=== PATIENT | female | born 1970 | race Caucasian/White ===

== ENCOUNTER 2023-11-22 08:47 | Outpatient (OUT) | payer MEDICARE, MEDICAID, SELFPAY ==
[2023-11-22 09:30] LABS: Basophils Absolute Auto 0.1 10^3/uL (0.0-0.1); Basophils Percent Auto 0.4 % (0.2-2.0); Eosinophils Absolute Auto 0.2 10^3/uL (0.0-0.7); Eosinophils Percent Auto 1.7 % (0.9-7.0); Hematocrit 48.5 % (36.0-48.0); Immature Granulocytes Abs Auto 0.05 10^3/uL (0.00-0.03); Immature Granulocytes Pct Auto 0.4 % (0.0-0.5); Lymphocytes Absolute Auto 3.7 10^3/uL (1.2-3.8); Lymphocytes Percent Auto 32.7 % (20.5-60.0); Mean Corpuscular Hemoglobin 30.5 pg (26.7-34.0); Mean Corpuscular Volume 92.4 fL (81.0-99.0); Mean Platelet Volume 9.4 fL (9.5-13.5); Monocytes Percent Auto 8.5 % (1.7-12.0); Neutrophils Absolute Auto 6.4 10^3/uL (1.4-6.5); Neutrophils Percent Auto 56.3 % (43.0-75.0); Platelet Count 257 10^3/uL (150-450); Red Blood Count 5.25 10^6/uL (4.20-5.40); Red Cell Distribution Width 12.6 % (11.0-15.0); White Blood Count 11.4 10^3/uL (4.0-11.0)
[2023-11-22 11:28] LABS: Estimated Average Glucose 117 mg/dL; Glycohemoglobin A1C 5.7 % (4.5-6.2)
[2023-11-22 11:32] LABS: Alanine Aminotransferase 19 U/L (14-59); Albumin Globulin Ratio 0.9; Albumin Level 3.3 g/dL (3.4-5.0); Alkaline Phosphatase 99 U/L (46-116); Anion Gap 16.5; Aspartate Amino Transferase 16 U/L (15-37); BUN Creatinine Ratio 9.2; Bilirubin Total 0.5 mg/dL (0.2-1.0); Calcium 9.1 mg/dL (8.5-10.1); Carbon Dioxide 23.6 mmol/L (21.0-32.0); Chloride 106 mmol/L (98-107); Chol HDL Ratio 2.9; Cholesterol 129 mg/dL (<=200); Estimated GFR (African America >60 (>=60); Estimated GFR (Non-African Ame >60 (>=60); Globulin 3.5 g/dL; Glucose 121 mg/dL (74-106); HDL Cholesterol 44 mg/dL (40-60); Potassium 4.1 mmol/L (3.5-5.1); Sodium 142 mmol/L (136-145); Total Protein 6.8 g/dL (6.4-8.2); Triglycerides 231 mg/dL (<=150); VLDL CHOLESTEROL 46.2 mg/dL
== END 2023-11-22 08:48 | disposition home or self-care (01) ==
LOC: LAB 08:48
PROVIDERS: PCP Nurse Practitioner Family; Visit Provider Nurse Practitioner Family
DX: I10 Essential (primary) hypertension (principal)
CPT/HCPCS: 36415; 80053; 80061; 83036; 85025

== ENCOUNTER 2025-02-19 09:35 | Outpatient (OUT) | payer MEDICARE, SELFPAY ==
--- NOTE | 2025-02-19 10:12 | P.CN_ITS ---
Consult Note: HPI Data of Consult Patient: new to practice Requesting Physician: Evy Pro NP Primary Care Provider: ERON BENSON Consult Narrative Reason for consult: left SIJ pain Narrative: Baylee Babb a pleasant 54 year old female with chronic left hip and SIJ pain presents for evaluation. pt noticing increased left hip pain over the last 12 months, has failed to benefit from >6 weeks of PT and HEP,heat, ice, tylenol, NSAIDs. pain today 4/10 aching sharp, increasing to 10/10 with standing, walking, activity, lifting. pain improved with heat. hx of stroke with left sided deficits. cc:: CC: Evy Pro NP Review of Systems ROS Musculoskeletal Reports: back pain and joint pain Exam Constitutional Documenting provider has reviewed patient's vital signs: yes Common normals: no apparent distress, oriented x3, healthy appearing, alert and well nourished General appearance: cooperative HENMT Common normals: normocephalic, hearing grossly normal bilaterally and moist oral mucous membranes Head and scalp: normocephalic Eye Common normals: PERRL Pupil: PERRL Neck & C-Spine Common normals: full ROM General: normal visual inspection Chest Common normals: inspection of chest normal Respiratory Common normals: normal respiratory effort, no retractions and no use of accessory muscles Back & Pelvis Lumbar spine/lower back: pain with ROM and lumbar spinal tenderness Sacroiliac joints: SI joint(s) abnormal Other: left sij positive wendy(patricks), gaenslens, thigh thrust, compression test Neuro Common normals: oriented x3 Sensorium/orientation: alert Gait (neuro): antalgic and assistive device used cane Psych Common normals: mental status grossly normal, thought process normal, cooperative, affect normal, speech normal and activity/motor behavior normal Speech: normal speech Thought process: normal thought process Results Additional Findings Additional findings: If on a controlled substance or opioids, I have checked an [place]AR[place] report on this patient and there are no aberrancies noted in the prescribing history.??If on a controlled substance or opioid a drug screen was completed and reviewed within the last year, and if there has not been a drug screen completed we ordered one today to monitor higher risk, state monitored pain medication use. As part of providing excellent, safe, comprehensive care, the following was completed at our patient's visit: 1. A medication reconciliation and review to ensure accurate knowledge of current/active medications, including asking our patients to inform us about any [id number]-[id number] medications or herbal remedies/nutritional supplements/alternative remedies. 2. A review to specifically ensure our patients have had annual screening for screening for depression, screening for tobacco use, and screening for unhealthy alcohol use. For concerning screenings had a discussion with the patient, provided patient education, and recommended follow-up with primary care provider when appropriate. If patient noted with a risk of falling, they received education on strength, gait, and balance training to prevent future risk of falling. Portions of this note may have been carried over from the previous visit and updated as appropriate. Please note this office utilizes paper charting in addition to the electronic medical record. A list of current medications, vitals, and PMH is available there as the clinical staff outside of myself do not have access to [employer] charting during the clinic day operations. As part of providing quality comprehensive care the current medications, vitals, and PMH were reviewed in the paper chart. Assessment and Plan Assessment and Plan (1) Sacroiliitis: Assessment and Plan: The patient has had over 3 months of moderate to severe left SIJ pain with functional impairment and inadequate response to conservative care including NSAIDS (unless there are contraindication such as concurrent blood thinners), multiple oral or topical pain medications, and home exercise program/physical therapy.? Patient has completed >6 weeks of guided home exercise program and/or formal physical therapy program without relief of their symptoms.? I have reviewed the imaging of the hip and SIJ and no red flags were identified.? The imaging reveals radiographic findings consistent with sacroilitis and OA The Oswestry Disability Index was completed, and the patient scored a 38%.? The patient noted the following:?? moderate to severe pain impacting ADLs, sitting, standing, walking, sleeping, social life and travel We discussed the risks and benefits of the procedure with the patient, and we are NOT planning on using sedation as outlined in the guidelines from Medicare unless there is a documented reason that sedation would be strongly recommended.?? ?The procedure will be completed with fluoroscopic guidance.? Plan left SIJ injection under fluoroscopy continue current medications continue HEP as tolerated f/u 2 weeks after injection
== END 2025-02-19 09:36 | disposition home or self-care (01) ==
PROVIDERS: PCP Nurse Practitioner Family; Visit Provider Nurse Practitioner
DX: M46.1 Sacroiliitis, not elsewhere classified (principal)
CPT/HCPCS: G0463

== ENCOUNTER 2025-03-02 10:29 | Day surgery (SDC) | payer MEDICARE, SELFPAY ==
[2025-03-02 11:15] VITALS: BP 125/86; PULSE 75; TEMP 37.1; O2SAT 95
[2025-03-02 11:41] VITALS: BP 178/77; PULSE 88; O2SAT 94
[2025-03-02 11:42] VITALS: BP 146/69; PULSE 93; O2SAT 94
[2025-03-02] MEDS: BUPIVACAINE HCL 0.25% PF 25 MG/10 ML VIAL 2 ML INJ (11:43)
[2025-03-02] MEDS: IOHEXOL 240 MG/ML - 10 ML VIAL 12 MG INJ (11:43)
--- NOTE | 2025-03-02 11:43 | W.PM.PROCNOT ---
Date of procedure: 03/02/25 Pre-op diagnosis: Pain due to left sacroiliitis Post-op diagnosis: same as pre-op Procedure: Procedure: Left block of the nerve innervating the sacroiliac joint Medications: Bupivacaine 0.25% 3cc, depomedrol 40mg After informed consent was obtained, the patient was brought to the medical procedure unit and placed in the prone position, when a timeout was completed verifying correct patient, procedure, site, positioning, implant, and/or special equipment.? The skin overlying the area was prepped and draped in standard sterile fashion using alcohol.? A 25-gauge needle was inserted towards the superior gluteal nerve innervating the left sacroiliac joint under direct fluoroscopic imaging.? Needle tip was advanced until the nerve was encountered.? We instilled a total of 0.5 mL of solution. Subsequently, the dorsal rami of L5, S1, and S2 were approached, and the procedure completed in the same fashion.? Postoperatively needles were removed.? The patient tolerated the procedure well without complication.? The patient reported reduction in pain symptoms postoperatively. Anesthesia: Local Surgeon: Art Shine Pathology: none sent Condition: stable Disposition: no change
[2025-03-02] MEDS: LIDOCAINE HCL 2% 400 MG/20 ML MDV INJ (11:44)
[2025-03-02] MEDS: METHYLPREDNISOLONE ACETATE 40 MG/ML VIAL INJ (11:44)
== END 2025-03-02 11:48 | disposition home or self-care (01) ==
LOC: SURGOUT 10:31
PROVIDERS: PCP Nurse Practitioner Family; Visit Provider Anesthesiology
DX: M46.1 Sacroiliitis, not elsewhere classified (principal); M53.3 Sacrococcygeal disorders, not elsewhere classified
CPT/HCPCS: 64451; J0665; J1010; Q9966

== ENCOUNTER 2025-03-18 10:10 | Outpatient (OUT) | payer MEDICARE, SELFPAY ==
--- OUTSIDE RECORDS SUMMARY | 2025-03-18 10:12 | XMS_ITS | Patient Health Record ---
Author Organization [facility] es Address [address] [place] [address] Care Team Providers [employer] Name Role Phone Na Benson Primary Care Provider [phone] Velia Larose Unavailable Allergies Allergen (clinical drug ingredient) Drug/Non Drug Allergy documented on EMR Reaction Allergy Type Onset Date Status codeine Codeine vomiting Drug Allergy Active lisinopril Lisinopril cough, sob Drug Allergy Acti ve Results Component Value Reference Range Notes CMP Reviewed date:06/23/2024 12:00:07 PM Interpretation: Performing Lab: Notes/Report: [facility] [address] [place] [address] Original Ordering Provider: RENE BENSON GLUCOSE 133 55-199 mg/dL UREA NITROGEN 14 5-21 mg/dL CREATININE 0.7 0.5-1.3 mg/dL CALCIUM 9.3 8.9-11.1 mg/dL SODIUM 138 135-145 mmol/L POTASSIUM 4.1 3.5-5.3 mmol/L CHLORIDE 106 101-111 mmol/L CARBON DIOXIDE 25 21-31 mmol/L ALKALINE PHOSPHATASE 113 21-98 Int._Unit/L BILIRUBIN 0.6 0.0-1.1 mg/dL ALBUMIN 4.2 3.3-5.0 gm/dL PROTEIN 6.3 6.0-7.8 gm/dL ALANINE AMINOTRANSFERASE 10 6-46 Int._Unit/L ASPARTATE AMINOTRANSFERASE 15 5-43 Int._Unit /L UREA NITROGEN/CREATININE 20 10-20 No Units ANION GAP 11 6-16 mEq/L GLOBULIN 2.1 1.4-4.0 gm/dL ALBUMIN/GLOBULIN 2.0 1.1-2.2 Performing Lab see note UNK - [facility] unless otherwise specified [address] [address] Lipid Panel Reviewed date:06/23/2024 11:57:56 AM Interpretation: Performing Lab: Notes/Report: [facility] [address] [place] [address] Original Ordering Provider: RENE BENSON CHOLESTEROL 120 120-200 mg/dL CHOLESTEROL.IN HDL 38 '>= 60 LOW RISK' '<= 40 HIGH RISK' CHOLESTEROL.IN LDL 35 <=129 mg/dL TRIGLYCERIDE 322 <=149 mg/dL CHOLESTEROL.IN VLDL 64 7-40 mg/dL Performing Lab see note [facility] unless otherwise specified [address] [place] [address] Vit B12 Reviewed date:06/23/2024 11:56:54 AM Interpretation: Performing Lab: Notes/Report: [facility] [address] [place] [address] Original Ordering Provider: RENE BENSON COBALAMINS 277 50-1500 pg/mL Performing Lab see note [facility] unless otherwise specified [address] [place] [address] eGFR Reviewed date:06/23/2024 11:55:35 AM Interpretation: Performing Lab: Notes/Report: Order added by Discern Expert. [facility] [address] [place] [address] Original Ordering Provider: RENE BENSON eGFR 104 >=59 mL/min/1.73 m2 Performing Lab see note [facility] unless otherwise specified [address] [place] [address] HgbA1c Reviewed date:06/23/2024 11:55:24 AM Interpretation: Performing Lab: Notes/Report: [facility] [address] [place] [address] Original Ordering Provider: RENE BENSON HEMOGLOBIN A1C/HEMOGLOBIN.TOTAL 5.7 <=5.9 % Performing Lab see note [facility] unless otherwise specified [address] [place] [address] CBC w/ Auto Diff Reviewed date:06/23/2024 11:59:57 AM Interpretation: Performing Lab: Notes/Report: [facility] [address] [place] [address] Original Ordering Provider: RENE BENSON LEUKOCYTES^^CORRECTED FOR NUCLEATED ERYTHROCYTES 10.7 4.0-11.0 E9/L ERYTHROCYTES 5.2 4.3-5.9 E12/L HEMOGLOBIN 16.2 12.0-16.0 gm/dL HEMATOCRIT 48.4 34.0-46.0 % ERYTHROCYTE DISTRIBUTION WIDTH 12.8 10.9-14.2 % ERYTHROCYTE MEAN CORPUSCULAR HEMOGLOBIN 31.0 27.0-34.0 pg ERYTHROCYTE MEAN CORPUSCULAR HEMOGLOBIN CONCENTRATION 33.4 31.4-36.0 gm/dL ERYTHROCYTE MEAN CORPUSCULAR VOLUME 92.7 80.0-100.0 fL PLATELET MEAN VOLUME 8.8 6.4-10.8 fL PLATELETS 254.0 150.0-500.0 E9/L NEUTROPHILS/100 LEUKOCYTES 65.1 36.0-75.0 % LYMPHOCYTES 28.3 14.0-50.0 % MONOCYTES 4.8 4.0-14.0 % EOSINOPHILS/100 LEUKOCYTES 1.2 0.0-8.0 % BASOPHILS 0.6 0.0-2.0 % NEUTROPHILS 7.0 2.0-7.5 E9/L LYMPHOCYTES 3.0 1.0-4.0 E9/L MONOCYTES 0.5 0.2-1.0 E9/L EOSINOPHILS 0.1 0.0-0.5 E9/L BASOPHILS/LEUKOCYTES 0.1 0.0-0.2 E9/L Performing Lab see note UNK - [facility] unless otherwise specified [address] [place], [place] [address] Reason For Referral Reason *FAXED 01/14 - FAXED REFERRAL UPDATE 02/06 Patient would like to see NOMJohn Saul Diagnosis 1 Pain in left hip (M2 5.552) Referral Organization [facility] Referring Provider First Name Na Referring Provider Last Name Donny Referring Provider Speciality Family Pra ctice Referred Provider Rah Armendariz Referred Provider Specialty Orthopedic S urgery General Notes Yaz Vera 03/26/ 2025 01:55:24 PM [address] [place], [place] [id number], , Referral Priority Routine Medications Medication SIG (Take, Route, Frequency, Duration) Notes Start Date End Date Status traZODone HCl 100 MG 1 tablet at bedtime Orally Once a day for 100 days Active Multivitamin - 1 tablet Orally Once a day for 100 days Active DULoxetine HCl 60 MG 1 capsule Orally On ce a day for 100 days Active Metoprolol Succinate ER 50 MG 1 tablet Orally Once a day for 100 days Active Vitamin C 500 MG 1 tablet Orally Once a day for 101 days Active Albuterol Sulfate (2.5 MG/3ML) 0.083% 3 mL as needed Inhalation every 6 hrs for 30 days 11/08/2023 Active Atorvastatin Calcium 40 MG 1 tablet Oral ly Once a day for 100 days Active Losartan Potassium 25 MG 1 tablet Orally Once a day for 100 days Active Gabapentin 300 MG take 1 capsule by [facility] twice a day Orally Once a day for 100 days Active Mometasone Furoate 0.1 % 1 application E xternally Once a day for 14 days 02/01/2023 Active Acetaminophen Extra Strength 500 MG 1 tablet as needed Orally every 6 hrs 05/15/2023 Active Clopidogrel Bisulfate 75 MG 1 tablet Ora lly Once a day for 100 days Active Ibuprofen 800 MG 1 tablet with food o r milk as needed Orally Three times a day 05/29/2023 Active Ibuprofen 800 MG 1 tablet with food o r milk as needed Orally Three times a day 05/15/2023 Active Social History Tobacco Use: Social History Observation Description Date Details (start date - stop date) Current Smoker NA - NA AUDIT-C (Standard) Question Answer Notes Did you have a drink containing alcohol in the p ast year? No Points 0 Interpretation Negative Tobacco Control (Standard) Question Answer Notes Tobacco use: Current smoker How often do you smoke cigarettes? Every day How many cigarettes a day do you smoke? 6-10 How soon after you wake up do you smoke your fir st cigarette? 31-60 minutes Are you interested in quitting? Not ready to makenna t Problems Problem Type SNOMED Code ICD Code Onset Dates Problem Status W/U Status Risk Notes Problem Tobacco user (754381148) Nicotine dependence, unspecified, uncomplicated (F17.200) Active confirmed Problem 097101828 Neuropathy (G62.9) Active confirmed Problem 36415138 Primary hypertension (I10) Active confirmed Problem 434974188 Moderate episode of recurrent major depressive disorder (F33.1) Active confirmed Vital Signs Heart Rate 83 /min 01/14/2025 Temperature 97.6 degrees Fahrenheit 01/14/2025 Oximetry 92 % 01/14/2025 Blood pressure diastolic 82 mm Hg 01/14/2025 Height 62 in 01/14/2025 Blood pressure systolic 119 mm Hg 01/14/2025 Weight 150 lbs 01/14/2025 BMI 27.43 kg/m2 01/14/2025 Encounters Encounter Location Date Provider Diagnosis [facility] [address] [place] [address] 06/06/2024 [address] [place] [address] 06/23/2024 [address] [address] [place] [address] 06/26/2024 [address] [place] [address] 12/10/[address] [place] [place] [address] 12/15/2024 [address] [place] [address] [address]/11/[address] [facility] [place] [address] 06/16/[address] [facility] Primary hypertension I10 ; Moderate episode of recurrent major depressive disorder F33.1 ; Neuropathy G62.9 and History of CVA (cerebrovascular accident) Z86.73 [facility] [address] [facility] [place] [address] 01/14/[address] [facility] Primary hypertension I10 ; Moderate episode of recurrent major depressive disorder F33.1 ; Neuropathy G62.9 ; History of CVA (cerebrovascular accident) Z86.73 ; Acute eczema L30.9 ; Nicotine dependence, unspecified, uncomplicated F17.200 and Pain in left hip M25.552 [facility] [address] [place] [address] 07/03/2024 Na Taylorault Nicotine dependence, unspecified, uncomplicated F17.200 ; Primary hypertension I10 and Moderate episode of recurrent major depressive disorder F33.1 Assessments Encounter Date Diagnosis (ICD Code) Assessment Notes Treatment Notes Treatment Clinical Notes Section Notes 06/16/2024 Primary hypertension (ICD-10 - I10) Labs ordered today as discussed for high blood pressure. We will continue medications today. If labs come back and we need to make changes to medication regimen and treatment plan, we will contact you for follow up. If labs return and are stable, then we will follow up in 3 months as expected. You can always see lab results in portal at anytime through our [employer] mikaela or [facility] if you are interested. 06/16/2024 Moderate episode of recurrent major depressive disorder (ICD-10 - F33.1) Continue to take medication since meds work and patient states that she feels stable 07/03/2024 Nicotine dependence, unspecified, uncomplicated (ICD-10 - F17.200) 07/03/2024 Primary hypertension (ICD-10 - I10) Today discussed all lab results with patient on the phone. Due to her history, telephone visit was performed since patient has transportation barriers. We will recheck labs for patient in 6 months. MEdication refills were already sent for patient and no changes in medication are needed at this time. FOllow up as needed. 01/14/2025 Primary hypertension (ICD-10 - I10) Labs discussed and medications sent over to [facility] for patient. Pt should start follow up in 6 months and then have blood work retested 01/14/2025 Moderate episode of recurrent major depressive disorder (ICD-10 - F33.1) Will continue medications today since patient states that she feels stable on doses 01/14/2025 Neuropathy (ICD-10 - G62.9) Pt is stable on this medication. Sent to pharmacy. FOllow up in 6 months 07/03/2024 Moderate episode of recurrent major depressive disorder (ICD-10 - F33.1) COntinue current dose of medications as we discussed on the phone today. If needed, follow up as we discussed for anything, 06/16/2024 Neuropathy (ICD-10 - G62.9) Refilled medications today in office and sent to pharmacy 06/16/2024 History of CVA (cerebrovascular accident) (ICD-10 - Z86.73) Labs ordered and refilled sent to pharmacy today in office. 01/14/2025 History of CVA (cerebrovascular accident) (ICD-10 - Z86.73) Continue to follow up With Neuro as discussed and take medications as needed 01/14/2025 Acute eczema (ICD-10 - L30.9) Eczema is a common skin condition. Using thick creams such as Eucerin cream can help prevent breakouts. When breaks occur of the skin there is increase risks of infections, both bacterial and fungal. Use medication as directed. Follow up as needed when flare ups occur 01/14/2025 Nicotine dependence, unspecified, uncomplicated (ICD-10 - F17.200) 01/14/2025 Pain in left hip (ICD-10 - M25.552) Will put in referral for patient due to history of CVA and weakness of this leg and pt has decreased ROM in this leg so there are contributing factors. Pt would like to see [facility] in [place] since it is close to home 06/16/2024 Other Smoke Inhalatio n: Care Instructions material was printed 07/03/2024 Other Body Mass Index : Care Instructions material was printed Plan Of Treatment No Information Insurance Providers Payer Name Payer Address Payer Phone Subscriber Number Group Number Insured Name Patient Relationship to Insured Coverage Start Date Coverage End Date [employer] MED[employer]ARE ADVANTAGE [address] [place] [phone] [id number] COBY ARECHIGA Self - patient is the insured 4 5 [facility] [address] [place] [address] [id number] COBY ARECHIGA Self - patient is the insured 5 MEDICAID SEC TO [facility] [address] [place] [address] [id number] COBY ARECHIGA Self - patient is the insured 3 MEDICARE CGS 1 [facility] [place] [phone] [id number] COBY ARECHIGA Self - patient is the insured [address] [facility] [place] [place] [address] [place] [address] [phone] [id number] COBY ARECHIGA Self - patient is the insured 3 3 [employer] MED[employer] [place] [employer] [address] [place] [phone] [id number] COBY ARECHIGA Self - patient is the insured 3 [facility] [place] D[place] [address] [address] [place] [address] [id number] COBY ARECHIGA Self - patient is the insured 3 3 [employer] MEDICARE [address] [address] [place] [address] [id number] COBY ARECHIGA Self - patient is the insured 3 DENTAL [employer] MEDICARE [address] [address] [place] [address] [id number] COBY ARECHIGA Self - patient is the insured 4 [facility] MCARE ADV [address] [place] [address] [phone] [id number] COBY ARECHIGA Self - patient is the insured 5 Medical (General) History Medical History History ICD Code GENERALIZED ANXIETY DISORDER HTN [facility] CVA OCCIPITAL NEURALGIA INSOMNIA MIGRAINES DDD Hospitalization History Reason Date(Month/Year) CVA 05/12 IBS AND [facility] 04/2023
--- OUTSIDE RECORDS SUMMARY | 2025-03-18 10:12 | XMS_ITS | Clinical Summary ---
Author Organization [facility] Healthcare Address [address] [place] [address] Care Team Providers Care Appraiser Art Name Role Phone DonnyEdmarNa PATIENT REGISTRATION MANAGER Unavailable [phone] Allergies Active Allergy Reactions Criticality Noted Date Comments Codeine Unknown,GI intolerance 03/14/2022 Lisinopril 01/28/2025 Other Reaction(s): cough, sob Medications atorvastatin (Lipitor) 40 MG tablet 40 mg Active clopidogrel (Plavix) 75 MG tablet TAKE ONE TABLET BY MOUTH DAILY AT 9AM Active cyclobenzaprine (Flexeril) 5 MG tablet Take 5 mg by mouth in the morning and 5 mg in the evening and 5 mg before bedtime. Active DULoxetine (Cymbalta) [address] capsule 1 capsule 1 (one) time each day at the same time Active gabapentin (Neurontin) 300 MG capsule 300 mg 1 (one) time each day at the same time Active ibuprofen 800 MG tablet 800 mg every 8 (eight) hours Active losartan (Cozaar) 25 MG tablet 25 mg 1 (one) time each day at the same time Active metoprolol succinate XL (Toprol-XL) 50 MG 24 hr tablet 1 (one) time each day at the same time Active Multiple Vitamin (Multi Vitamin) tablet 1 (one) time each day at the same time Active traZODone (Desyrel) 100 MG tablet 100 mg Active Ascorbic Acid (vitamin C) 500 MG tablet 500 mg 1 (one) time each day at the same time Active mometasone (Elocon) 0.1 % ointment Apply topically Daily Active acetaminophen (Tylenol) 500 MG tablet Take 500 mg by mouth Active albuterol (2.5 MG/3ML) 0.083% nebulizer solution Take by nebulization every 6 (six) hours if needed for wheezing Active Active Problems No known active problems Encounters Date Type Department Care Team Description 01/28/2025 9:05 AM EDT Ancillary Procedure [facility] [address] [facility] [phone] 01/28/2025 9:00 AM EDT Office Visit [facility] [address] [place] [phone] Rah Armendariz PA Acute hip pain, left (Primary Dx); Sacroiliac joint pain; Foot drop, left foot 01/28/2025 Bamboo flowsheet [facility] [address] [place] [phone] Rah Armendariz PA 01/28/2025 Travel from Last 3 Months Family History Relation Name Status Comments Father Mother Social History Tobacco Use Types Packs/Day Years Used Date Smoking Tobacco: Every Day Cigarettes Smokeless Tobacco: Never Tobacco Cessation:Ready to Q uit: Not Asked; Counseling Given: Not Answered Alcohol Use Standard Drinks/Week Comments Not Currently 0 (1 standard drink = 0.6 oz pur e alcohol) Comments Unknown Sex and Gender Information Value Date Recorded Sex Assigned at Not on file Legal Sex Female 6:47 PM EDT Gender Identity Not on file Sexual Orientation Not on file Last Filed Vital Signs Vital Sign Reading Time Taken Comments Blood Pressure 112/74 12/31/2017 12:00 PM EDT Pulse - - Temperature - - Respiratory Rate - - Oxygen Saturation - - Inhaled Oxygen Concentration - - Weight 63.5 kg (140 lb) 01/28/2025 9:11 AM EDT Height 157.5 cm (5' 2 ) 01/28/2025 9:11 AM EDT Body Mass Index 25.61 01/28/2025 9:11 AM EDT Plan of Treatment Not on file Procedures Procedure Name Priority Date/Time Associated Diagnosis Comments XR HIP 2 OR 3 VW LEFT Routine 01/28/2025 9:01 AM EDT Acute hip pain, left from Last 3 Months Results * XR hip left 2 or 3 views (01/28/2025 9:01 AM EDT) Anatomical Region Laterality Modality Lower Extremities, Hip Left Radiograp hic Imaging Narrative 01/28/2025 9:41 AM EDT Imaging Result: AP and Lateral left hip weight bearing No acute fracture or dislocation Osteopenia noted. SI joints appears Sclerotic with arthritic changed Postsurgical changed to left Femur Joint space preserved left Hip joint, left Lumbar sacralization. Impression: postsurgical changed from left hip fracture us Rah ESPINOSA IMG XR PROCEDURES Final Resul t from Last 3 Months Insurance * Guarantor: Baylee Babb Account Type Relation to Patient Date of Phone Billing Address Personal/Family Self [address] [place] [address] MEDICAID [place] [employer] MEDICARE Care Teams Appraiser Art Relationship Specialty Start Date End Date Na Hines NP [address] [place] [address] Referring Physician 01/28/25
--- OUTSIDE RECORDS SUMMARY | 2025-03-18 10:12 | XMS_ITS | Clinical Summary ---
Author Organization [employer] tem Address [id number] [address] [place] [address] Care Team Providers Care Mix Chemist Name Role Phone Na Hines RUBEN-CUSTOMER SUPPORT COORDINATOR Primary Care Provide r Allergies Active Allergy Reactions Criticality Noted Date Comments Codeine 03/14/2022 Medications lisinopriL (PRINIVIL,ZESTR IL) 2.5 mg tablet Take 1 tablet (2.5 mg total) by mouth in the morning. Active metoprolol succinate XL (TOPROL XL) 50 mg 24 hr tablet Take 1 tablet (50 mg total) by mouth in the morning. Active atorvastatin (LIPITOR) 40 mg tablet Take 1 tablet (40 mg total) by mouth in the morning. Active traZODone (DESYREL) 100 mg tablet Take 1 tablet (100 mg total) by mouth nightly. Active clopidogreL (PLAVIX) 75 mg tablet Take 1 tablet (75 mg total) by mouth in the morning. Active DULoxetine (CYMBALTA) 30 mg capsule Take 1 capsule (30 mg total) by mouth in the morning. Active ciprofloxacin HCl (CIPRO) 500 mg tablet Take 1 tablet (500 mg total) by mouth in the morning and 1 tablet (500 mg total) before bedtime. 04/28/2023 Active metroNIDAZOLE (FLAGYL) 500 mg tablet Take 1 tablet (500 mg total) by mouth in the morning and 1 tablet (500 mg total) before bedtime. 04/28/2023 Active predniSONE (DELTASONE) 10 mg tablet Take 1 tablet (10 mg total) by mouth in the morning. 04/28/2023 Active traMADoL (ULTRAM) 50 mg tablet Take 1 tablet (50 mg total) by mouth every 6 (six) hours as needed. 04/28/2023 Active gabapentin (NEURONTIN) 300 mg capsule Take 1 capsule (300 mg total) by mouth in the morning and 1 capsule (300 mg total) before bedtime. 04/10/2023 Active losartan (COZAAR) 25 mg tablet Take 1 tablet (25 mg total) by mouth in the morning. 02/23/2023 Active mesalamine (PENTASA) 500 mg CR capsule Take 3 capsules (1,500 mg total) by mouth 3 (three) times a day. 500 mg three times daily 04/25/2023 Active mometasone (ELOCON) 0.1 % cream Place 1 Units on the skin in the morning. 02/01/2023 Active MULTIVITAMIN ORAL Take 1 tablet by mouth in the morning. Active B6/folic/B12/co ffee/phosphatid (NEURIVA PLUS ORAL) Take 1 tablet by mouth in the morning. Active [id number] ORAL Take 2 capsules by mouth in the morning. Tumeric . Active ascorbic acid (VITAMIN C ORAL) Take 1,000 mg by mouth in the morning. 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 Colitis 06/19/2022 Family History Medical History Relation Name Comments Diabetes Father COPD Mother Diabetes Son Relation Name Status Comments Father Mother Son Social History Tobacco Use Types Packs/Day Years Used Date Smoking Tobacco: Every Day Cigarettes 1 28 Smokeless Tobacco: Never Tobacco Cessation:Ready to Q uit: Not Asked; Counseling Given: Not Answered Alcohol Use Standard Drinks/Week Comments Not Currently 0 (1 standard drink = 0.6 oz pur e alcohol) Childcare Answer Date Recorded Childcare Unknown 04/02/2019 Employment Answer Date Recorded Employment Unknown 04/02/2019 Hunger Screening Answer Date Recorded Within the past 12 months we worried whether our food would run out before we got money to buy more. Never True 05/01/2023 Food Insecurity - Inability Not on file 04/21 Comments No Sex and Gender Information Value Date Recorded Sex Assigned at Not on file Legal Sex Female 11:26 AM EDT Gender Identity Not on file Sexual Orientation Not on file Last Filed Vital Signs Vital Sign Reading Time Taken Comments Blood Pressure 175/99 05/01/2023 1:57 PM EDT Pulse 69 05/01/2023 1:57 PM EDT Temperature 37.1 C (98.7 F) 06/23/2022 7:37 AM EDT Respiratory Rate 18 06/23/2022 7:37 AM EDT Oxygen Saturation 94% 06/23/2022 7:37 AM EDT Inhaled Oxygen Concentration - - Weight 71.1 kg (156 lb 12.8 oz) 05/01/2023 1:57 PM EDT Height 157.5 cm (5' 2 ) 05/01/2023 1:57 PM EDT Body Mass Index 28.68 05/01/2023 1:57 PM EDT Plan of Treatment Health Maintenance Due Date Last Done Comments Depression Screening 1984 DTaP,Tdap and Td Vaccines (1 - Tdap) 1991 Zoster (Shingles) Vaccine (1 of 2) 2022 Adult BMI Screening 05/01/2024 05/01/2023 Tobacco Screening 05/01/2024 05/01/2023 Influenza Vaccine 06/22/2025 Goals Goal Patient Goal Type Associated Problems Recent Progress Patient-Stated? Author Home General Yes Uyen Sierra LSW Note: Evaluation of progress towards goal: Safe dc transition home. Medical Devices Not on file Insurance [employer] MEDICARE MEDICAID [place] Advance Directives Documents on File Type Date Recorded Patient Knotter Expl anation DNR Physician Order 07/03/2022 6:07 AM * DNR Comfort Care (DNRCC) [place] (Latest Code Status on File) Date Activated Date Inactivated Comments 06/20/2022 6:04 AM 06/23/2022 12:07 PM * Full Code Date Activated Date Inactivated Comments 06/19/2022 8:10 PM 06/20/2022 6:03 AM Care Teams Mix Chemist Relationship Specialty Start Date End Date Na Hines APRN-FNP [address] [place] [address] PCP - General Family Medicine 06/20/22
--- NOTE | 2025-03-18 10:51 | PM.CN ---
Consult Note: HPI Data of Consult Patient: new to practice Requesting Physician: Evy Pro NP Primary Care Provider: ERON BENSON Consult Narrative Reason for consult: left SIJ pain Narrative: Baylee Babb a pleasant 54 year old female with chronic left hip and SIJ pain presents for evaluation. pt noticing increased left hip pain over the last 12 months, has failed to benefit from >6 weeks of PT and HEP,heat, ice, tylenol, NSAIDs. pain today 5/10 aching sharp, increasing to 10/10 with standing, walking, activity, lifting. pain improved with heat. hx of stroke with left sided deficits. recent left sij injection providing mild relief cc:: CC: Evy Pro NP Review of Systems ROS Musculoskeletal Reports: back pain and joint pain PFSH PFSH Medical History (Updated 03/18/25 @ 10:52 by Evy Pro NP) Osteoarthritis ?M19.90 - Unspecified osteoarthritis, unspecified site (ICD-10) Neck pain ?M54.2 - Cervicalgia (ICD-10) Low back pain ?M54.50 - Low back pain, unspecified (ICD-10) Acid reflux ?K21.9 - Gastro-esophageal reflux disease without esophagitis (ICD-10) Smoker ?F17.200 - Nicotine dependence, unspecified, uncomplicated (ICD-10) Chronic cough ?R05.3 - Chronic cough (ICD-10) Asthma ?J45.909 - Unspecified asthma, uncomplicated (ICD-10) Hypertension ?I10 - Essential (primary) hypertension (ICD-10) Stroke ?I63.9 - Cerebral infarction, unspecified (ICD-10) Surgical History (Updated 02/20/25 @ 12:06 by Yolanda Calderon) Status post hip surgery ?Z98.890 - Other specified postprocedural states (ICD-10) H/O foot surgery ?Z98.890 - Other specified postprocedural states (ICD-10) Hx of cholecystectomy ?Z90.49 - Acquired absence of other specified parts of digestive tract (ICD-10) H/O: hysterectomy ?Z90.710 - Acquired absence of both cervix and uterus (ICD-10) Meds Home Medications and Allergies Home Medications ?Medication ?Instructions ?Recorded ?Confirmed ?Type atorvastatin 40 mg tablet 40 mg PO DAILY 02/19/25 03/02/25 History clopidogrel 75 mg tablet 75 mg PO DAILY 02/19/25 03/02/25 History duloxetine 60 mg capsule,delayed 60 mg PO DAILY 02/19/25 03/02/25 History release gabapentin 300 mg capsule 300 mg PO BID 02/19/25 03/02/25 History losartan 25 mg tablet (Cozaar) 25 mg PO DAILY 02/19/25 03/02/25 History metoprolol tartrate 50 mg tablet 50 mg PO DAILY 02/19/25 03/02/25 History trazodone 100 mg tablet 100 mg PO DAILY 02/19/25 03/02/25 History Allergies Allergy/AdvReac Type Severity Reaction Status Date / Time codeine Allergy Unknown Vomiting Verified 03/02/25 11:13 Exam Constitutional Documenting provider has reviewed patient's vital signs: yes Common normals: no apparent distress, oriented x3, healthy appearing, alert and well nourished General appearance: cooperative HENMT Common normals: normocephalic, hearing grossly normal bilaterally and moist oral mucous membranes Head and scalp: normocephalic Eye Common normals: PERRL Pupil: PERRL Neck & C-Spine Common normals: full ROM General: normal visual inspection Chest Common normals: inspection of chest normal Respiratory Common normals: normal respiratory effort, no retractions and no use of accessory muscles Back & Pelvis Lumbar spine/lower back: pain with ROM and lumbar spinal tenderness Lumbar spinal tenderness location: L3, L4 and L5 Sacroiliac joints: SI joint(s) abnormal Other: left sij mildly positive wendy(patricks), gaenslens, thigh thrust, compression test Extremity Common normals: normal to inspection and full ROM Neuro Common normals: oriented x3 Sensorium/orientation: alert Gait (neuro): antalgic and assistive device used cane Psych Common normals: mental status grossly normal, thought process normal, cooperative, affect normal, speech normal and activity/motor behavior normal Speech: normal speech Thought process: normal thought process Results Additional Findings Additional findings: If on a controlled substance or opioids, I have checked an OARRS report on this patient and there are no aberrancies noted in the prescribing history.??If on a controlled substance or opioid a drug screen was completed and reviewed within the last year, and if there has not been a drug screen completed we ordered one today to monitor higher risk, state monitored pain medication use. As part of providing excellent, safe, comprehensive care, the following was completed at our patient's visit: 1. A medication reconciliation and review to ensure accurate knowledge of current/active medications, including asking our patients to inform us about any ucbr-tiw-[id number] medications or herbal remedies/nutritional supplements/alternative remedies. 2. A review to specifically ensure our patients have had annual screening for screening for depression, screening for tobacco use, and screening for unhealthy alcohol use. For concerning screenings had a discussion with the patient, provided patient education, and recommended follow-up with primary care provider when appropriate. If patient noted with a risk of falling, they received education on strength, gait, and balance training to prevent future risk of falling. Portions of this note may have been carried over from the previous visit and updated as appropriate. Please note this office utilizes paper charting in addition to the electronic medical record. A list of current medications, vitals, and PMH is available there as the clinical staff outside of myself do not have access to [employer] charting during the clinic day operations. As part of providing quality comprehensive care the current medications, vitals, and PMH were reviewed in the paper chart. Assessment and Plan Assessment and Plan (1) Sacroiliitis: Assessment and Plan: The patient has had over 3 months of moderate to severe left SIJ pain with functional impairment and inadequate response to conservative care including NSAIDS (unless there are contraindication such as concurrent blood thinners), multiple oral or topical pain medications, and home exercise program/physical therapy.? Patient has completed >6 weeks of guided home exercise program and/or formal physical therapy program without relief of their symptoms.? I have reviewed the imaging of the hip and SIJ and no red flags were identified.? The imaging reveals radiographic findings consistent with sacroilitis and OA The Oswestry Disability Index was completed, and the patient scored a 34%.? The patient noted the following:?? moderate to severe pain impacting ADLs, sitting, standing, walking, sleeping, social life and travel (2) Lumbar spondylosis: (3) Lumbar stenosis with neurogenic claudication: Plan PT for low back pain, lumbar spondylosis, lumbar stenosis with NC update lumbar xray with flexion continue current medications continue f/u with orthopedics f/u 8 weeks to evaluate plan of care, on exam LBP most significant
== END 2025-03-18 10:11 | disposition home or self-care (01) ==
LOC: PM 10:10
PROVIDERS: PCP Nurse Practitioner Family; Visit Provider Nurse Practitioner
DX: M47.816 Spondylosis without myelopathy or radiculopathy, lumbar region (principal); M48.062 Spinal stenosis, lumbar region with neurogenic claudication; M46.1 Sacroiliitis, not elsewhere classified
CPT/HCPCS: 72114; G0463

== ENCOUNTER 2025-03-18 11:05 | Outpatient (OUT) | payer MEDICARE, MEDICAID, SELFPAY ==
--- OUTSIDE RECORDS SUMMARY | 2025-03-18 11:09 | XMS_ITS | Clinical Summary ---
Author Organization [facility] Address [address] [place] [address] Care Team Providers Care E Tailer Name Role Phone Na Hines APRN, NP Primary Care Provid er Allergies Active Allergy Reactions Criticality Noted Date Comments Codeine 04/26/2023 Medications atorvastatin (LIPITOR) 40 MG tablet Take 1 tablet by mouth daily Active clopidogrel (PLAVIX) 75 MG tablet Take 1 tablet by mouth daily Active DULoxetine (CYMBALTA) 30 MG extended release capsule Take 1 capsule by mouth daily Active metoprolol succinate (TOPROL XL) 50 MG extended release tablet Take 1 tablet by mouth daily Active traZODone (DESYREL) 100 MG tablet Take 1 tablet by mouth nightly Active gabapentin (NEURONTIN) 300 MG capsule Take 1 capsule by mouth every 12 hours as needed. 3 Active Ascorbic Acid (VITAMIN C) 1000 MG tablet Take 1 tablet by mouth daily Active Turmeric 400 MG CAPS Take 2 capsules by mouth daily Active losartan (COZAAR) 25 MG tablet Take 1 tablet by mouth daily Active mometasone (ELOCON) 0.1 % cream Place 1 Units onto the skin daily 3 Active Multiple Vitamins-Minerals (MULTIVITAMIN ADULT EXTRA C PO) Take 1 tablet by mouth daily Active Cobalamin Combinations (NEURIVA PLUS PO) Take 1 tablet by mouth daily Active mesalamine (PENTASA) 500 MG extended release capsule Take 1 capsule by mouth daily 3 Active predniSONE (DELTASONE) 10 MG tablet Take 1 tablet by mouth 2 times daily X 5 days then take 1 tablet by mouth once daily x 5 days then stop 15 tablet 3 Active Active Problems Problem Noted Date Diagnosed Date Abdominal pain 04/27/2023 Hypertension 04/27/2023 Crohn's colitis Social History Tobacco Use Types Packs/Day Years Used Date Smoking Tobacco: Every Day Cigarettes 2 10 Smokeless Tobacco: Never Tobacco Cessation:Ready to Q uit: Not Asked; Counseling Given: Not Answered Alcohol Use Standard Drinks/Week Comments Never 0 (1 standard drink = 0.6 oz pur e alcohol) AUDIT-C Answer Date Recorded Q1: How often do you have a drink containing alcohol? Never 04/26/2023 Q2: How many drinks containi ng alcohol do you have on a typical day when you are drinking? Patient does not drink Q3: How often do you have si x or more drinks on one occasion? Never 04/26/2023 Interpersonal Safety Domain Source: IP Abuse Scr eening Answer Date Recorded Read-Only, Retired: Physical Abuse Denies 04/27/2023 Read-Only, Retired: Verbal Abuse Denies 04/27/2023 Read-Only, Retired: Emotional abuse Denies 04/27/2023 Read-Only, Retired: Financial Abuse Denies 04/27/2023 Read-Only, Retired: Sexual abuse Denies 04/27/2023 Comments No Sex and Gender Information Value Date Recorded Sex Assigned at Not on file Legal Sex Female 7:39 PM EST Gender Identity Not on file Sexual Orientation Not on file Last Filed Vital Signs Vital Sign Reading Time Taken Comments Blood Pressure 147/88 04/28/2023 6:45 AM EDT Pulse 71 04/28/2023 6:45 AM EDT Temperature 36 C (96.8 F) 04/28/2023 6:45 AM EDT Respiratory Rate 18 04/28/2023 6:45 AM EDT Oxygen Saturation 98% 04/28/2023 6:45 AM EDT Inhaled Oxygen Concentration - - Weight 70.6 kg (155 lb 10.3 oz) 04/28/2023 5:37 AM EDT Height 157.5 cm (5' 2 ) 04/27/2023 8:00 AM EDT Body Mass Index 28.47 04/27/2023 8:00 AM EDT Plan of Treatment Health Maintenance Due Date Last Done Comments Lipids 1982 Depression Screen 1984 HIV screen 1987 Hepatitis C screen 1990 DTaP/Tdap/Td vaccine (1 - Tdap) 1991 Hepatitis B vaccine (1 of 3 - 19+ 3-dose series) 1991 Pneumococcal 50+ years Vacci ne (1 of 2 - PCV) 1991 Breast cancer screen 2012 Colonoscopy 2017 Colorectal Cancer Screen 2017 FIT/FOBT: Average risk 2017 Fecal-DNA (Cologuard): Average risk 2017 Sigmoidoscopy/CT colonography 2017 Lung Cancer Screening &/or Counseling 2022 Shingles vaccine (1 of 2) 2022 COVID-19 Vaccine (1 - 2023-2 5 season) 2024 Annual Wellness Visit (Medic are Advantage) 10/22/2024 Flu vaccine (Season Ended) 2025 Hepatitis A vaccine Aged Out No longe r eligible based on patient's age to complete this topic Hib vaccine Aged Out No longer eligi ble based on patient's age to complete this topic Meningococcal (ACWY) vaccine Aged Out No longer eligible based on patient's age to complete this topic Meningococcal B vaccine Aged Out No l onger eligible based on patient's age to complete this topic Polio vaccine Aged Out No longer elig ible based on patient's age to complete this topic [place] [address] [place] [address] DUAL COMPLETE MEDICAID [place] Advance Directives Documents on File Type Date Recorded 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
--- OUTSIDE RECORDS SUMMARY | 2025-03-18 11:09 | XMS_ITS | Clinical Summary ---
Author Organization [employer] tem Address [id number] [address] [place] [address] Care Team Providers Care Medical Transcriber Name Role Phone Na Hines RUBEN-COOK LARDER Primary Care Provide r Allergies Active Allergy [...] tablet by mouth in the morning. Active [id number] ORAL Take 2 capsules by mouth in [...] Documents on File Type Date Recorded Patient Database Architect Expl anation DNR Physician Order 07/03/2022 6:07 AM * DNR Comfort Care (DNRCC) [place] (Latest Code Status on File) Date Activated Date Inactivated Comments 06/20/2022 6:04 AM 06/23/2022 12:07 PM * Full Code Date Activated Date Inactivated Comments 06/19/2022 8:10 PM 06/20/2022 6:03 AM Care Teams Medical Transcriber Relationship Specialty Start Date End Date Na Hines APRN-FNP [address] [place] [address] PCP - General Family Medicine 06/20/22
--- OUTSIDE RECORDS SUMMARY | 2025-03-18 11:09 | XMS_ITS | Clinical Summary ---
Author Organization [facility] Healthcare Address [address] [place] [address] Care Team Providers Care Line Appliance Assembler Name Role Phone DonnyEdmarNa PORTABLE SAWMILL OPERATOR Unavailable [phone] Allergies Active Allergy Reactions Criticality Noted Date [...] Description 01/28/2025 9:05 AM EDT Ancillary Procedure [facility] [address] [place] [phone] 01/28/2025 9:00 AM EDT Office Visit [facility] [address] [place] [address] Rah Armendariz PA Acute hip pain, left (Primary Dx); Sacroiliac joint pain; Foot drop, left foot 01/28/2025 Bamboo flowsheet [facility] [address] [place] [phone] Rah Armendariz PA 01/28/2025 Travel from Last [...] of Phone Billing Address Personal/Family Self [address] [place] [address] MEDICAID [place] [employer] MEDICARE Care Teams Line Appliance Assembler Relationship Specialty Start Date End Date Na Hines NP [address] [place] [address] Referring Physician 01/28/25
--- NOTE | 2025-03-18 11:12 | XR_ITS ---
The [address] [address] Patient Name: COBY ARECHIGA MRN: [id number] date: 1970 Sex: F Assigned Patient Location: [facility] Current Patient Location: [facility] Accession/Order Number: [id number] Exam Date: 03/18/2025 11:59 Report Date: 03/18/2025 12:03 At the request of: RUBIA FELICIANO NP Procedure: XR lumbar spine 6V w bending LUMBAR SPINE WITH FLEXION-EXTENSION VIEWS - 7 views COMPARISON: None CLINICAL DATA: Chronic back pain with radiation to left leg. No injury. AP, lateral neutral, flexion and extension, both oblique and coned-down lateral view of the lumbosacral junction were obtained. There is osteopenia. There is slight dextroscoliotic curvature. There are no acute compression fractures or significant displacement. No instability is identified with flexion or extension. No pars defects are noted. No disproportionate disc space narrowing is identified. There is minimal end plate spurring and minor lower lumbar facet disease. The pedicles are intact. The SI joints show sclerosis and mild asymmetric left-sided hypertrophy. There is lower pole left nephrolithiasis. XR/XR lumbar spine 6V w bending IMPRESSION: OSTEOPENIA, SUBTLE SCOLIOSIS AND MINOR DEGENERATIVE CHANGES. INCIDENTAL LEFT NEPHROLITHIASIS. Impression dictated by: Patti Knapp M.D. 03/18/2025 12:03 PM Dictation Location: [place] [address] Electronically authenticated by: [id number] Y Date: 03/18/2025 12:03
== END 2025-03-18 11:06 | disposition home or self-care (01) ==
PROVIDERS: PCP Nurse Practitioner Family; Visit Provider Nurse Practitioner
DX: M48.062 Spinal stenosis, lumbar region with neurogenic claudication (principal); M47.816 Spondylosis without myelopathy or radiculopathy, lumbar region
CPT/HCPCS: 72114

== ENCOUNTER 2025-04-03 08:36 | Outpatient (RCR) | payer MEDICARE, MEDICAID, SELFPAY | END 2025-04-18 11:41 | disposition home or self-care (01) | LOC: PT 08:36 | PROVIDERS: PCP Nurse Practitioner Family; Visit Provider Nurse Practitioner | DX: M48.16 Ankylosing hyperostosis [Forestier], lumbar region (principal); M48.062 Spinal stenosis, lumbar region with neurogenic claudication | CPT/HCPCS: 97110; 97112; 97163 ==

== ENCOUNTER 2025-04-23 11:36 | Outpatient (OUT) | payer MEDICARE, MEDICAID, SELFPAY ==
--- OUTSIDE RECORDS SUMMARY | 2025-04-07 07:30 | XMS_ITS ---
Author Organization [facility] es Address [address] [facility] [place] [address] Care Team Providers Care Lumite Injector Name Role Phone Na Hines Primary Care Provider Jeanine Valles [phone] REASON FOR VISIT JENISE NA-PT F/U Encounters Encounter Location Date Provider Diagnosis [facility] [address] [place] [address] 04/07/2025 Jeanine Valles Plan Of Treatment Next Appt Details Provider Name:Kesha Nieto Kellie bubba, 05/01/2025 02:15:00 PM, [address], [address], Progress Notes * COBY ARECHIGA LDOB:[birth year] (54 yo F)Acc No.[id number]:04/07/2025 Progress Notes Patient: COBY MEZA Provider: Brenda Valles :1970 A ge:54 Y S ex:Female Date:04/07/2025 Address:[address], [id number] Pcp:Na Hines Subjective: * Chief Complaints: * 1 . JENISE NA-PT F/U. * Medical History: Objective: * Vitals: Assessment: Plan: * Treatment: * Images: * Electronic signature of Lydia Valles NP on 04/23/2025 at 11:39 AM EDT Sign off status: Pending * Provider: Brenda Valles Date: 0 04/07/2025 Generated for Evan shrestha/Tej/Olga on: 0 04/23/2025 11:39 AM EDT
--- OUTSIDE RECORDS SUMMARY | 2025-04-23 11:39 | XMS_ITS | Clinical Summary ---
Author Organization [facility] Address [id number] [address] [place] [address] Care Team Providers Care Metalworking Instructor Name Role Phone Na Hines RUBEN-CALCINE FURNACE TENDER Primary Care Provide r Allergies Active Allergy [...] tablet by mouth in the morning. 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
--- OUTSIDE RECORDS SUMMARY | 2025-04-23 11:39 | XMS_ITS | Clinical Summary ---
Author Organization [facility] Healthcare Address [address] [place] [address] Care Team Providers Care Deep Well Contractor Name Role Phone DonnyEdmarNa CYTOGENETIC TECHNOLOGIST Unavailable [phone] Allergies Active Allergy Reactions Criticality Noted Date [...] Description 01/28/2025 9:05 AM EDT Ancillary Procedure [facility] [address] [facility] [place] [address] 01/28/2025 9:00 AM EDT Office Visit [facility] [address] [place] [address] Rah Armendariz PA Acute hip pain, left (Primary Dx); Sacroiliac joint pain; Foot drop, left foot 01/28/2025 Bamboo flowsheet [facility] [address] [address] Rah Armendariz PA 01/28/2025 Travel from Last [...] of Phone Billing Address Personal/Family Self [address] [place] [address] MEDICAID [place] [employer] MEDICARE Care Teams Deep Well Contractor Relationship Specialty Start Date End Date Na Hines NP [address] [place] [address] Referring Physician 01/28/25
--- OUTSIDE RECORDS SUMMARY | 2025-04-23 11:39 | XMS_ITS | Patient Health Record ---
Author Organization [facility] es Address [address] [facility] [place] [address] Care Team Providers Care Rail Crew Member Name Role Phone Na Benson Primary Care Provider Jeanine Valles Unavailable [phone] Allergies Allergen (clinical drug ingredient) Drug/Non Drug Allergy documented on EMR Reaction Allergy Type Onset Date Status codeine Codeine vomiting Drug Allergy Active lisinopril Lisinopril cough, sob Drug Allergy Acti ve Results Component Value Reference Range Notes eGFR Reviewed date:06/23/2024 11:55:35 AM Interpretation: Performing Lab: Notes/Report: Order added by Discern Expert. [facility] [address] [place] [address] Original Ordering Provider: RENE BENSON eGFR 104 >=59 mL/min/1.73 m2 Performing Lab see note [facility] unless otherwise specified [address] [place] [address] Vit B12 Reviewed date:06/23/2024 11:56:54 AM Interpretation: Performing Lab: Notes/Report: [facility] [address] [place] [address] Original Ordering Provider: RENE BENSON COBALAMINS 277 50-1500 pg/mL Performing Lab see note [facility] unless otherwise specified [address] [address] Lipid Panel Reviewed date:06/23/2024 11:57:56 AM Interpretation: Performing Lab: Notes/Report: [facility] [address] [place] [address] Original Ordering Provider: RENE BENSON CHOLESTEROL 120 120-200 mg/dL CHOLESTEROL.IN HDL 38 '>= 60 LOW RISK' '<= 40 HIGH RISK' CHOLESTEROL.IN LDL 35 <=129 mg/dL TRIGLYCERIDE 322 <=149 mg/dL CHOLESTEROL.IN VLDL 64 7-40 mg/dL Performing Lab see note [facility] unless otherwise specified [address] [address] HgbA1c Reviewed date:06/23/2024 11:55:24 AM Interpretation: Performing Lab: Notes/Report: [facility] [address] [place] [address] Original Ordering Provider: RENE BENSON HEMOGLOBIN A1C/HEMOGLOBIN.TOTAL 5.7 <=5.9 % Performing Lab see note [facility] unless otherwise specified [address] [place] [address] CMP Reviewed date:06/23/2024 12:00:07 PM Interpretation: Performing Lab: Notes/Report: [facility] [address] [place] [address] Original Ordering Provider: RENE BENSON GLUCOSE 133 [...] ALBUMIN/GLOBULIN 2.0 1.1-2.2 Performing Lab see note [facility] unless otherwise specified [address] [place] [address] CBC w/ Auto Diff Reviewed date:06/23/2024 11:59:57 AM Interpretation: Performing Lab: Notes/Report: [facility] [address] [place] [address] Original Ordering Provider: RENE BENSON LEUKOCYTES^^CORRECTED FOR [...] E9/L Performing Lab see note [facility] - [facility] unless otherwise specified [address] [place], [place] [address] Reason For Referral Reason REFERRAL OVER 60 DAY S OLD Patient would like to see [facility] mayo in [place] Diagnosis 1 Pain in left hip (M2 5.552) Referral Organization [facility] Referring Provider First Name Na Referring Provider Last Name Donny Referring Provider Speciality Family Pra ctice Referred Provider Rah Armendariz Referred Provider Specialty Orthopedic S urgery General Notes Yaz Vera 2024 01:55:24 PM >[address] [address], , Referral Priority Routine Medications Medication SIG (Take, Route, Frequency, Duration) Notes Start Date End Date Status traZODone HCl 100 MG 1 tablet at bedtime Orally Once a day; Duration: 100 days Active Multivitamin - 1 tablet Orally Once a day; Duration: 100 days Active DULoxetine HCl 60 MG 1 capsule Orally On ce a day; Duration: 100 days Active Metoprolol Succinate ER 50 MG 1 tablet Orally Once a day; Duration: 100 days Active Vitamin C 500 MG 1 tablet Orally Once a day; Duration: 101 days Active Albuterol Sulfate (2.5 MG/3ML) 0.083% 3 mL as needed Inhalation every 6 hrs; Duration: 30 days 11/08/2023 Active Atorvastatin Calcium 40 MG 1 tablet Oral ly Once a day; Duration: 100 days Active Losartan Potassium 25 MG 1 tablet Orally Once a day; Duration: 100 days Active Gabapentin 300 MG take 1 capsule by cox branson twice a day Orally Once a day; Duration: 100 days Active Mometasone Furoate 0.1 % 1 application E xternally Once a day; Duration: 14 days 02/01/2023 Active Acetaminophen Extra Strength 500 MG 1 tablet as needed Orally every 6 hrs 05/15/2023 Active Clopidogrel Bisulfate 75 MG 1 tablet Ora lly Once a day; Duration: 100 days Active Ibuprofen 800 MG 1 [...] W/U Status Risk Notes Problem Tobacco user (802516410) Nicotine dependence, unspecified, uncomplicated (F17.200) Active confirmed Problem Neuropathy (371916317) Neuropathy (G62.9) Active confirmed Problem Primary hypertension (09738749) Primary hypertension (I10) Active confirmed Problem Moderate recurrent major depression (61704139) Moderate episode of recurrent major depressive disorder (F33.1) Active confirmed Vital Signs Heart Rate 83 /min 01/14/2025 Temperature 97.6 degrees Fahrenheit 01/14/2025 Oximetry 92 % 01/14/2025 Blood pressure diastolic 82 mm Hg 01/14/2025 Height 62 in 01/14/2025 Blood pressure systolic 119 mm Hg 01/14/2025 Weight 150 lbs 01/14/2025 BMI 27.43 kg/m2 01/14/2025 Encounters Encounter Location Date Provider Diagnosis [facility] [address] [place] [address] 06/06/2024 [place] [address] [place] [address] 06/23/2024 [place] [address] [place] [address] 06/26/2024 [place] [address] [place] [address] 12/10/2024 [place] [address] [place] [address] 12/15/2024 [place] [address] [place] [address] 02/11/2025 [place] [address] [place] [address] 04/03/2025 Jeanine Hai [facility] [address] [place] [address] 06/16/2024 Na Benson Primary hypertension I10 ; Moderate episode of recurrent major depressive disorder F33.1 ; Neuropathy G62.9 and History of CVA (cerebrovascular accident) Z86.73 [facility] [address] [place] [address] 01/14/2025 Na Benson Primary hypertension I10 ; Moderate episode of recurrent major depressive disorder F33.1 ; Neuropathy G62.9 ; History of CVA (cerebrovascular accident) Z86.73 ; Acute eczema L30.9 ; Nicotine dependence, unspecified, uncomplicated F17.200 and Pain in left hip M25.552 [facility] [place] [address] [address] 07/03/2024 Na Benson Nicotine dependence, unspecified, uncomplicated F17.200 ; Primary [...] results in portal at anytime through our [place] mikaela or [facility] if you are interested. 06/16/2024 Moderate episode [...] would like to see [facility] mayo in [place] since it [place] close to home 06/16/2024 Other Smoke Inhalatio n: Care Instructions material was printed 07/03/2024 Other Body Mass Index : Care Instructions material was printed Plan Of Treatment Next Appt Details Provider Name:Kesha mac, 05/01/2025 02:15:00 PM, [address] [place] [address], [address], Insurance Providers Payer Name Payer Address Payer Phone Subscriber Number Group Number Insured Name Patient Relationship to Insured Coverage Start Date Coverage End Date [employer] MEDICARE ADVANTAGE [address] [place] [phone] [id number] COBY ARECHIGA Self - patient is the insured [address] [facility] [address] [place] [address] [id number] COBY ARECHIGA Self - patient is the insured 5 MEDICAID SEC TO MCARE ADV [address] [place] [address] [id number] COBY ARECHIGA Self - patient is the insured [address] [facility] [place]EL [place] [phone] [id number] COBY ARECHIGA Self - patient is the insured 3 [facility] [place] [address] [place] [address] [id number] COBY ARECHIGA Self - patient is the insured 3 3 [employer] MEDICAID [place] [facility] [address] [place] [address] [id number] COBY ARECHIGA Self - patient is the insured 3 [facility] DUAL [address] [address] [place] [address] [id number] COBY ARECHIGA Self - patient is the insured 3 3 [employer] MEDICARE [address] [address] [place] [address] [id number] COBY ARECHIGA Self - patient is the insured 3 DENTAL [employer] MEDICARE [address] [address] [place] [address] [id number] COBY ARECHIGA Self - patient is the insured 4 [facility] MCARE ADV [address] [place] [address] [id number] COBY ARECHIGA Self - patient is the insured 5 Medical (General) History Medical History History ICD Code GENERALIZED ANXIETY DISORDER HTN CROHNS CVA OCCIPITAL NEURALGIA INSOMNIA MIGRAINES DDD Hospitalization History Reason Date(Month/Year) CVA 05/12 IBS AND [facility] 04/2023
--- NOTE | 2025-04-23 12:11 | PM.CN ---
Consult Note: HPI Data of Consult Patient: known to practice within the last 3 years Consult date: 04/23/25 Requesting Physician: Evy Pro NP Primary Care Provider: ERON BENSON Consult Narrative Reason for consult: f/u Narrative: Baylee Babb a 54 year old female presents for evaluation of chronic low back pain and weakness of left leg. Pain today 5/10 throbbing increasing to 8/10 with standing, walking, housework, activity, sleep. hx of stroke, on plavix should not take NSAIDs. Pt attended 2 physical therapy visits without improvement in pain. Pt has not found benefit to HEP > 6 weeks, heat, ice, tylenol, gabapentin, duloxetine. recently completed lumbar xray with minimal degenerative changes. no advanced imaging available for review. cc:: CC: Evy Pro NP [facility] Medical History (Updated 03/18/25 @ 10:52 by Evy Pro NP) Osteoarthritis �M19.90 - Unspecified osteoarthritis, unspecified site (ICD-10) Neck pain �M54.2 - Cervicalgia (ICD-10) Low back pain �M54.50 - Low back pain, unspecified (ICD-10) Acid reflux �K21.9 - Gastro-esophageal reflux disease without esophagitis (ICD-10) Smoker �F17.200 - Nicotine dependence, unspecified, uncomplicated (ICD-10) Chronic cough �R05.3 - Chronic cough (ICD-10) Asthma �J45.909 - Unspecified asthma, uncomplicated (ICD-10) Hypertension �I10 - Essential (primary) hypertension (ICD-10) Stroke �I63.9 - Cerebral infarction, unspecified (ICD-10) Surgical History (Updated 02/20/25 @ 12:06 by Yolanda Calderon) Status post hip surgery �Z98.890 - Other specified postprocedural states (ICD-10) H/O foot surgery �Z98.890 - Other specified postprocedural states (ICD-10) Hx of cholecystectomy �Z90.49 - Acquired absence of other specified parts of digestive tract (ICD-10) H/O: hysterectomy �Z90.710 - Acquired absence of both cervix and uterus (ICD-10) Meds Home Medications and Allergies Home Medications �Medication �Instructions �Recorded �Confirmed �Type atorvastatin 40 mg tablet 40 mg PO DAILY 02/19/25 03/02/25 History clopidogrel 75 mg tablet 75 mg PO DAILY 02/19/25 03/02/25 History duloxetine 60 mg capsule,delayed 60 mg PO DAILY 02/19/25 03/02/25 History release gabapentin 300 mg capsule 300 mg PO BID 02/19/25 03/02/25 History losartan 25 mg tablet (Cozaar) 25 mg PO DAILY 02/19/25 03/02/25 History metoprolol tartrate 50 mg tablet 50 mg PO DAILY 02/19/25 03/02/25 History trazodone 100 mg tablet 100 mg PO DAILY 02/19/25 03/02/25 History Allergies Allergy/AdvReac Type Severity Reaction Status Date / Time codeine Allergy Unknown Vomiting Verified 03/02/25 11:13 Exam Constitutional Documenting provider has reviewed patient's vital signs: yes Common normals: no apparent distress, oriented x3, healthy appearing, alert and well nourished General appearance: cooperative HENMT Common normals: normocephalic, hearing grossly normal bilaterally and moist oral mucous membranes Head and scalp: normocephalic Eye Common normals: PERRL Pupil: PERRL Neck & C-Spine Common normals: full ROM General: normal visual inspection Chest Common normals: inspection of chest normal Respiratory Common normals: normal respiratory effort, no retractions and no use of accessory muscles Back & Pelvis Lumbar spine/lower back: pain with ROM, lumbar spinal tenderness Lumbar spinal tenderness location: L3, L4 and L5, straight leg raise positive right and straight leg raise positive left Sacroiliac joints: SI joint(s) abnormal Other: left sij mildly positive wendy(patricks), gaenslens, thigh thrust, compression test decreased sensation to left>right L4,5 strength 4/5 in LLE and 5/5 in RLE Extremity Common normals: normal to inspection and full ROM Neuro Common normals: oriented x3 Sensorium/orientation: alert Gait (neuro): antalgic and assistive device used cane Psych Common normals: mental status grossly normal, thought process normal, cooperative, affect normal, speech normal and activity/motor behavior normal Speech: normal speech Thought process: normal thought process Results Additional Findings Additional findings: If on a controlled substance or opioids, I have checked an OARRS report on this patient and there are no aberrancies noted in the prescribing history.��If on a controlled substance or opioid a drug screen was completed and reviewed within the last year, and if there has not been a drug screen completed we ordered one today to monitor higher risk, state monitored pain medication use. As part of providing excellent, safe, comprehensive care, the following was completed at our patient's visit: 1. A medication reconciliation and review to ensure accurate knowledge of current/active medications, including asking our patients to inform us about any [id number]-[id number] medications or herbal remedies/nutritional supplements/alternative remedies. 2. A review to specifically ensure our patients have had annual screening for screening for depression, screening for tobacco use, and screening for unhealthy alcohol use. For concerning screenings had a discussion with the patient, provided patient education, and recommended follow-up with primary care provider when appropriate. If patient noted with a risk of falling, they received education on strength, gait, and balance training to prevent future risk of falling. Portions of this note may have been carried over from the previous visit and updated as appropriate. Please note this office utilizes paper charting in addition to the electronic medical record. A list of current medications, vitals, and PMH is available there as the clinical staff outside of myself do not have access to [employer] charting during the clinic day operations. As part of providing quality comprehensive care the current medications, vitals, and PMH were reviewed in the paper chart. Assessment and Plan Assessment and Plan (1) Lumbar stenosis with neurogenic claudication: (2) Lumbar spondylosis: Plan update lumbar mri without contrast to assess lumbar stenosis with NC unresponsive to >6 weeks of HEP, 2 visits of PT, heat, ice, tylenol, gabapentin. start baclofen 5-10mg TID PRN pain/spasms continue HEP as tolerated f/u with PCP in regards to gabapentin, may consider pregabalin for FM in the future f/u to review lumbar MRI
== END 2025-04-23 11:37 | disposition home or self-care (01) ==
PROVIDERS: PCP Nurse Practitioner Family; Visit Provider Nurse Practitioner
DX: M48.062 Spinal stenosis, lumbar region with neurogenic claudication (principal); M47.816 Spondylosis without myelopathy or radiculopathy, lumbar region
CPT/HCPCS: G0463

== ENCOUNTER 2025-04-29 12:36 | Outpatient (OUT) | payer MEDICARE, MEDICAID, SELFPAY ==
--- OUTSIDE RECORDS SUMMARY | 2025-04-07 07:30 | XMS_ITS ---
Author Organization [facility] es Address [address] [facility] [place] [address] Care Team Providers Care Rock Breaker Name Role Phone Na Hines Primary Care Provider Jeanine Valles [phone] REASON FOR VISIT JENISE NA-PT F/U Encounters Encounter Location Date Provider Diagnosis [facility] [address] [place] [address] 04/07/2025 Jeanine Valles Plan Of Treatment Next Appt Details Provider Name:Kesha Nieto Kellie bubba, 05/01/2025 02:15:00 PM, [address], [address], Progress Notes * COBY ARECHIGA LDOB:[birth year] (54 yo F)Acc No.[id number]:04/07/2025 Progress Notes Patient: COBY MEZA Provider: Brenda Valles :1970 A ge:54 Y S ex:Female Date:04/07/2025 Address:[address], [address], [id number] Pcp:Na Hines Subjective: * Chief Complaints: * 1 . JENISE NA-PT F/U. * Medical History: Objective: * Vitals: Assessment: Plan: * Treatment: * Images: * Electronic signature of Lydia Valles NP on 04/29/2025 at 12:38 PM EDT Sign off status: Pending * Provider: Brenda Valles Date: 0 04/07/2025 Generated for Evan shrestha/Tej/Olga on: 0 04/29/2025 12:38 PM EDT
--- OUTSIDE RECORDS SUMMARY | 2025-04-29 12:38 | XMS_ITS | Patient Health Record ---
Author Organization [facility] Address [address] [place] [address] Care Team Providers Care Department Assistant Name Role Phone Na Benson Primary Care Provider [phone] Jeanine Valles Unavailable [phone] Allergies Allergen (clinical drug ingredient) Drug/Non Drug Allergy documented on EMR Reaction Allergy Type Onset Date Status codeine Codeine vomiting Drug Allergy Active lisinopril Lisinopril cough, sob Drug Allergy Acti ve Results Component Value Reference Range Notes Vit B12 Reviewed date:06/23/2024 11:56:54 AM Interpretation: Performing Lab: Notes/Report: [facility] [address] [place] [address] Original Ordering Provider: RENE BENSON COBALAMINS 277 50-1500 pg/mL Performing Lab see note [facility] unless otherwise specified [address] [place] [address] Lipid Panel Reviewed date:06/23/2024 11:57:56 AM Interpretation: Performing Lab: Notes/Report: [facility] [address] [place] [address] Original Ordering Provider: RENE BENSON CHOLESTEROL 120 120-200 mg/dL CHOLESTEROL.IN HDL 38 '>= 60 LOW RISK' '<= 40 HIGH RISK' CHOLESTEROL.IN LDL 35 <=129 mg/dL TRIGLYCERIDE 322 <=149 mg/dL CHOLESTEROL.IN VLDL 64 7-40 mg/dL Performing Lab see note [facility] unless otherwise specified [address] [place] [address] HgbA1c Reviewed date:06/23/2024 11:55:24 AM Interpretation: Performing Lab: Notes/Report: [facility] [address] [place] [address] Original Ordering Provider: RENE BENSON HEMOGLOBIN A1C/HEMOGLOBIN.TOTAL 5.7 <=5.9 % Performing Lab see note [facility] unless otherwise specified [address] [place] [address] [facility] Reviewed date:06/23/2024 12:00:07 PM Interpretation: Performing Lab: Notes/Report: [facility] [address] [place] [address] Original Ordering Provider: RENE BENSON GLUCOSE 133 [...] ALBUMIN/GLOBULIN 2.0 1.1-2.2 Performing Lab see note [facility] unless otherwise specified [address] [place] [address] CBC w/ Auto Diff Reviewed date:06/23/2024 11:59:57 AM Interpretation: Performing Lab: Notes/Report: [facility] [address] [place] [address] Original Ordering Provider: RENE BENSON LEUKOCYTES^^CORRECTED FOR [...] 0.1 0.0-0.2 E9/L Performing Lab see note [facility] unless otherwise specified [address] [place] [id number] eGFR Reviewed date:06/23/2024 11:55:35 AM Interpretation: Performing Lab: Notes/Report: Order added by Discern Expert. [facility] [address] [place] [address] Original Ordering Provider: RENE BENSON eGFR 104 >=59 mL/min/1.73 m2 Performing Lab see note [facility] unless otherwise specified [address] [place], [place] [address] Reason For Referral Reason REFERRAL OVER [address] DAY S OLD Patient would like to see [facility] gael in [place] Diagnosis 1 Pain in left hip (M2 5.552) Referral Organization [facility] Referring Provider First Name Na Referring Provider Last Name Donny Referring Provider Speciality Family Pra ctice Referred Provider Rah Armendariz Referred Provider Specialty Orthopedic S urgery General Notes Yaz Vera 2024 01:55:24 PM >[facility] [place] [address], , Referral Priority Routine Medications Medication SIG [...] Gabapentin 300 MG take 1 capsule by [facility] twice a day Orally Once a day; [...] W/U Status Risk Notes Problem Tobacco user (560255256) Nicotine dependence, unspecified, uncomplicated (F17.200) Active confirmed Problem Neuropathy (976035694) Neuropathy (G62.9) Active confirmed Problem Primary hypertension (57082016) Primary hypertension (I10) Active confirmed Problem Moderate recurrent major depression (52164980) Moderate episode of recurrent major depressive disorder (F33.1) Active confirmed Vital Signs Heart Rate 83 /min 01/14/2025 Temperature 97.6 degrees Fahrenheit 01/14/2025 Oximetry 92 % 01/14/2025 Blood pressure diastolic 82 mm Hg 01/14/2025 Height 62 in 01/14/2025 Blood pressure systolic 119 mm Hg 01/14/2025 Weight 150 lbs 01/14/2025 BMI 27.43 kg/m2 01/14/2025 Encounters Encounter Location Date Provider Diagnosis [facility] [address] [place] [address] 06/06/2024 [place] [address] [place] [address] 06/23/2024 [place] [address] [place] [address] 06/26/2024 [place] [address] [place] [address] 12/10/2024 [place] [address] [place] [address] 12/15/2024 [place] [address] [place] [address] 02/11/2025 [place] [address] [place] [address] 04/03/2025 Jeanine Hai [facility] [address] [place] [address] 06/16/2024 Na Benson Primary hypertension I10 ; Moderate episode of recurrent major depressive disorder F33.1 ; Neuropathy G62.9 and History of CVA (cerebrovascular accident) Z86.73 [facility] [address] [place] [address] 01/14/2025 Na Benson Primary hypertension I10 ; Moderate episode of recurrent major depressive disorder F33.1 ; Neuropathy G62.9 ; History of CVA (cerebrovascular accident) Z86.73 ; Acute eczema L30.9 ; Nicotine dependence, unspecified, uncomplicated F17.200 and Pain in left hip M25.552 [facility] [address] [place] [address] 07/03/2024 Na Benson Nicotine dependence, unspecified, uncomplicated [...] results in portal at anytime through our [employer] mikaela or [facility] if you are interested. 06/16/2024 Moderate episode [...] would like to see RE[facility] mayo in [place] since it is close to home 06/16/2024 Other Smoke Inhalatio n: Care Instructions material was printed 07/03/2024 Other Body Mass Index : Care Instructions material was printed Plan Of Treatment Next Appt Details Provider Name:Kesha mac, 05/01/2025 02:15:00 PM, [address] [place] [address], [phone], Insurance Providers Payer Name Payer Address Payer Phone Subscriber Number Group Number Insured Name Patient Relationship to Insured Coverage Start Date Coverage End Date [employer] MED[employer]ARE ADVANTAGE [address] [place] [phone] [id number] COBY ARECHIGA Self - patient is the insured 4 5 [facility] [address] [place] [address] [phone] [id number] COBY ARECHIGA Self - patient is the insured 5 MEDICAID SEC TO MCARE ADV [address] [place] [address] [id number] COBY ARECHIGA Self - patient is the insured [address] [facility] [place]HAEL SE[place] [phone] [id number] COBY ARECHIGA Self - patient is the insured 3 [facility] [place] [address] [place] [address] [id number] COBY ARECHIGA Self - patient is the insured 3 3 [facility] MEDICAID [place] [facility] [address] [place] [address] [id number] COBY ARECHIGA Self - patient is the insured 3 DENTAL [facility] DUAL [address] [address] [place] [address] [id number] COBY ARECHIGA Self - patient is the insured 3 3 [employer] MEDICARE [address] [address] [place] [address] [id number] COBY ARECHIGA Self - patient is the insured 3 DENTAL [employer] MEDICARE [address] [address] [place] [address] [id number] COBY ARECHIGA Self - patient is the insured 4 [facility] MCARE ADV [address] [place] [address] [id number] COBY ARECHIGA Self - patient is the insured 5 Medical (General) History Medical History History ICD Code GENERALIZED ANXIETY DISORDER HTN CROHNS CVA OCCIPITAL NEURALGIA INSOMNIA MIGRAINES DDD Hospitalization History Reason Date(Month/Year) CVA 05/12 IBS AND CROHNS 04/2023
--- OUTSIDE RECORDS SUMMARY | 2025-04-29 12:38 | XMS_ITS | Clinical Summary ---
Author Organization [facility] Healthcare Address [address] [place] [address] Care Team Providers Care Pm Technician Name Role Phone DonnyEdmarNa TRANSLATOR DEAF Unavailable [phone] Allergies Active Allergy Reactions Criticality Noted Date [...] Description 01/28/2025 9:05 AM EDT Ancillary Procedure [facility] [address] [facility] [address] 01/28/2025 9:00 AM EDT Office Visit [facility] [address] [place] [address] Rah Armendariz PA Acute hip pain, left (Primary Dx); Sacroiliac joint pain; Foot drop, left foot 01/28/2025 Bamboo flowsheet [facility] [address] [place] [address] Rah Armendariz PA 01/28/2025 Travel from Last [...] of Phone Billing Address Personal/Family Self [address] [place] [address] MEDICAID [place] UNITED [employer] MEDICARE Care Teams Pm Technician Relationship Specialty Start Date End Date Na Hines NP [address] [place] [address] Referring Physician 01/28/25
--- OUTSIDE RECORDS SUMMARY | 2025-04-29 12:38 | XMS_ITS | Clinical Summary ---
Author Organization [employer] tem Address [id number] [address] [place] [address] Care Team Providers Care Corporate Associate Name Role Phone Na Hines RUBEN-BLOOD BANK ATTENDANT Primary Care Provide r Allergies Active Allergy [...] tablet by mouth in the morning. Active [id number] ORAL Take 2 capsules by mouth in [...] Documents on File Type Date Recorded Patient Food And Beverage Lead Expl anation DNR Physician Order 07/03/2022 6:07 AM * DNR Comfort Care (DNRCC) [place] (Latest Code Status on File) Date Activated Date Inactivated Comments 06/20/2022 6:04 AM 06/23/2022 12:07 PM * Full Code Date Activated Date Inactivated Comments 06/19/2022 8:10 PM 06/20/2022 6:03 AM Care Teams Corporate Associate Relationship Specialty Start Date End Date Na Hines APRN-FNP [address] [place] [address] PCP - General Family Medicine 06/20/22
--- NOTE | 2025-04-29 12:40 | MR_ITS ---
[address] [address] Patient Name: COBY ARECHIGA MRN: [id number] date: 1970 Sex: F Assigned Patient Location: MRI Current Patient Location: MRI Accession/Order Number: [id number] Exam Date: 04/29/2025 23:26 Report Date: 04/29/2025 23:32 At the request of: RUBIA FELICIANO NP Procedure: MR lumbar spine wo con MRI OF THE LUMBAR SPINE PERFORMED WITHOUT CONTRAST INDICATION: Spinal stenosis of lumbar region with neurogenic claudication chronic lumbar pain with radiculopathy radiating to the left leg COMPARISON: lumbar spine x-rays 03/18/2025 FINDINGS: Anatomy S1 with partial lumbar localization. Mild loss of height at L1. Otherwise lumbar vertebral heights, alignment and bone marrow signal is unremarkable. Mild intervertebral space narrowing L5-S1. Rudimentary disc at S1-S2. No evidence of abnormal marrow edema. No findings of acute compression fracture. The conus medullaris terminates normally at the superior endplate of L2. Paraspinal soft tissues unremarkable. T11-L3: No significant disc disease, disc protrusion, central canal or neural foraminal narrowing identified. L4-5: Mild facet arthropathy. Minimal broad-based bulge. Mild neural foraminal foraminal narrowing. Canal is patent. L5-S1: Circumferential disc bulge with superimposed central protrusion which effaces both subarticular zones. There is bilateral facet arthropathy. There is moderate severe central canal and subarticular recess narrowing. Moderate neural foraminal narrowing. MR/MR lumbar spine wo con IMPRESSION: Degenerative changes notably L5-S1 with moderate severe canal narrowing and subarticular zone encroachment at this level correlate with S1 radiculopathy. Impression dictated by: Boris Mcdonnell M.D. 04/29/2025 11:32 PM Dictation Location: [place] [address] Electronically authenticated by: [id number] Y Date: 04/29/2025 23:32
== END 2025-04-29 12:37 | disposition home or self-care (01) ==
LOC: MRI 12:36
PROVIDERS: Visit Provider Nurse Practitioner
DX: M48.062 Spinal stenosis, lumbar region with neurogenic claudication (principal); M51.369 Other intervertebral disc degeneration, lumbar region without mention of lumbar back pain or lower extremity pain; M54.16 Radiculopathy, lumbar region
CPT/HCPCS: 72148

== ENCOUNTER 2025-05-20 11:15 | Outpatient (OUT) | payer MEDICARE, MEDICAID, SELFPAY ==
--- OUTSIDE RECORDS SUMMARY | 2025-04-07 07:30 | XMS_ITS ---
Author Organization [facility] es Address [address] [place] [address] Care Team Providers Care Regulatory Administrator Name Role Phone Eron Waddell Primary Care Provider Jeanine Valles [phone] REASON FOR VISIT JENISE ERON-PT F/U Encounters Encounter Location Date Provider Diagnosis [place] [address] [address] 04/07/2025 Jeanine Valles Plan Of Treatment No Information Progress Notes * HAWK COBY LDOB:[birth year] (54 yo F)Acc No.[id number]:04/07/2025 Progress Notes Patient: COBY MEZA Provider: Brenda Valles :1970 A ge:54 Y S ex:Female Date:04/07/2025 Address:[address], [address], [id number] Pcp:Eron Waddell Subjective: * Chief Complaints: * 1 . JENISE ERON-PT F/U. * Medical History: Objective: * Vitals: Assessment: Plan: * Treatment: * Images: * Electronic signature of Lydia Valles NP on 05/20/2025 at 11:17 AM EDT Sign off status: Pending * Provider: Brenda Valles Date: 04/07/2025 Generated for Printi ng/Faxing/eTransmitting on: 05/20/2025 11:17 AM EDT
--- OUTSIDE RECORDS SUMMARY | 2025-05-20 11:17 | XMS_ITS | Clinical Summary ---
Author Organization [facility] Healthcare Address [address] [place] [address] Care Team Providers Care Glazier Stained Glass Name Role Phone DonnyNa STARCH [employer]ORY LABORER Unavailable [phone] Allergies Active Allergy Reactions Criticality Noted Date [...] Active Active Problems No known active problems Family History Relation Name Status Comments Father [...] EDT Plan of Treatment Not on file Insurance MEDICAID [place] UNITED HEALTHCARE MEDICARE Care Teams Glazier Stained Glass Relationship Specialty Start Date End Date Na Hines NP [address] [place] [id number] Referring Physician 01/28/25
--- OUTSIDE RECORDS SUMMARY | 2025-05-20 11:17 | XMS_ITS | Patient Health Record ---
Author Organization [facility] es Address [address] [place] [address] Care Team Providers Care Finishing Range Feeder Name Role Phone Na Waddell Primary Care Provider [phone] Jeanine Valles Unavailable [phone] Kesha Lauren Unavailable [phone] Allergies Allergen (clinical drug ingredient) Drug/Non Drug Allergy documented on EMR Reaction Allergy Type Onset Date Status codeine Codeine vomiting Drug Allergy Active lisinopril Lisinopril cough, sob Drug Allergy Acti ve Results Component Value Reference Range Notes eGFR Reviewed date:06/23/2024 11:55:35 AM Interpretation: Performing Lab: Notes/Report: Order added by Discern Expert. [facility] [address] [place] [address] Original Ordering Provider: RENE BENSON eGFR 104 >=59 mL/min/1.73 m2 Performing Lab see note UNK - [facility] unless otherwise specified [address] [place], [place] [address] CBC w/ Auto Diff Reviewed date:06/23/2024 11:59:57 AM Interpretation: Performing Lab: Notes/Report: [facility] [address] [place] [address] Original Ordering Provider: RENE BENSON LEUKOCYTES^^CORRECTED FOR [...] E9/L Performing Lab see note UNK - [facility] unless otherwise specified [address] [place], [place] [id number] [facility] Reviewed date:06/23/2024 12:00:07 PM Interpretation: Performing Lab: Notes/Report: [facility] [address] [place] [address] Original Ordering Provider: RENE BENSON GLUCOSE 133 [...] ALBUMIN/GLOBULIN 2.0 1.1-2.2 Performing Lab see note [facility] unless otherwise specified [address] [place] [address] HgbA1c Reviewed date:06/23/2024 11:55:24 AM Interpretation: Performing Lab: Notes/Report: [facility] [address] [place] [address] Original Ordering Provider: RENE BENSON HEMOGLOBIN A1C/HEMOGLOBIN.TOTAL 5.7 <=5.9 % Performing Lab see note [facility] unless otherwise specified [address] [place] [address] Lipid Panel Reviewed date:06/23/2024 11:57:56 AM Interpretation: Performing Lab: Notes/Report: [facility] [address] [place] [id number] Original Ordering Provider: RENE BENSON CHOLESTEROL 120 120-200 mg/dL CHOLESTEROL.IN HDL 38 '>= 60 LOW RISK' '<= 40 HIGH RISK' CHOLESTEROL.IN LDL 35 <=129 mg/dL TRIGLYCERIDE 322 <=149 mg/dL CHOLESTEROL.IN VLDL 64 7-40 mg/dL Performing Lab see note [facility] unless otherwise specified [address] [place] [address] Vit B12 Reviewed date:06/23/2024 11:56:54 AM Interpretation: Performing Lab: Notes/Report: [facility] [address] [place] [address] Original Ordering Provider: RENE BESNON COBALAMINS 277 50-1500 pg/mL Performing Lab see note [facility] unless otherwise specified [address] [place], [place] [address] Reason For Referral Reason REFERRAL OVER 60 DAY S OLD Patient would like to see NOMJohn mayo in [place] Diagnosis 1 Pain in left hip (M2 5.552) Referral Organization [facility] Referring Provider First Name Na Referring Provider Last Name Nadira Referring Provider Speciality Family Pra ctice Referred Provider Rah Armendariz Referred Provider Specialty Orthopedic S urgery General Notes Yaz Vera 2024 01:55:24 PM >[address], [place] [address], , Referral Priority Routine Medications Medication SIG (Take, Route, Frequency, Duration) Notes Start Date End Date Status Acetaminophen Extra Strength 500 MG 1 tablet as needed Orally every 6 hrs 05/15/2023 Active Ibuprofen 800 MG 1 tablet with food o r milk as needed Orally Three times a day 05/29/2023 Active traZODone HCl 100 MG 1 tablet at bedtime Orally Once a day; Duration: 100 days Active Ibuprofen 800 MG 1 tablet with food o r milk as needed Orally Three times a day 05/15/2023 Active Atorvastatin Calcium 40 MG 1 tablet Oral ly Once a day; Duration: 100 days Active DULoxetine HCl 60 MG 1 capsule Orally On ce a day; Duration: 100 days Active Clopidogrel Bisulfate 75 MG 1 tablet Ora lly Once a day; Duration: 100 days Active Vitamin C 500 MG 1 tablet Orally Once a day; Duration: 101 days Active Metoprolol Succinate ER 50 MG 1 tablet Orally Once a day; Duration: 100 days Active Multivitamin - 1 tablet Orally Once a day; Duration: 100 days Active Losartan Potassium 25 MG 1 tablet Orally Once a day; Duration: 100 days Active Gabapentin 300 MG take 1 capsule by [facility] twice a day Orally Once a day; Duration: 100 days Active Mometasone Furoate 0.1 % 1 application E xternally Once a day; Duration: 14 days 02/01/2023 Active Albuterol Sulfate (2.5 MG/3ML) 0.083% 3 mL as needed Inhalation every 6 hrs; Duration: 30 days 11/08/2023 Active Social History Tobacco Use: Social History [...] W/U Status Risk Notes Problem Tobacco user (825593777) Nicotine dependence, unspecified, uncomplicated (F17.200) Active confirmed Problem Neuropathy (438770361) Neuropathy (G62.9) Active confirmed Problem Primary hypertension (32223611) Primary hypertension (I10) Active confirmed Problem Moderate episode of recurrent major depressive disorder (F33.1) Active confirmed Vital Signs Heart Rate 83 /min 05/01/2025 Temperature 97.7 degrees Fahrenheit 05/01/2025 Oximetry 90 % 05/01/2025 Blood pressure diastolic 85 mm Hg 05/01/2025 Height 62 in 05/01/2025 Blood pressure systolic 134 mm Hg 05/01/2025 Weight 154 lbs 05/01/2025 BMI 28.16 kg/m2 05/01/2025 Encounters Encounter Location Date Provider Diagnosis [place] [address] [place] [address] 06/06/2024 [place] [address] [place] [address] 06/23/2024 [place] [address] [place] [address] 06/26/2024 [place] [address] [place] [address] 12/10/2024 [place] [address] [place] [address] 12/15/2024 [place] [address] [place] [address] 02/11/2025 [place] [address] [place] [address] 04/03/2025 Jeanine Hai [facility] [address] [place] [address] 06/16/2024 [facility] Primary hypertension I10 ; Moderate episode of recurrent major depressive disorder F33.1 ; Neuropathy G62.9 and History of CVA (cerebrovascular accident) Z86.73 [facility] [address] [place] [address] 01/14/2025 Na Waddell Primary hypertension I10 ; Moderate episode of recurrent major depressive disorder F33.1 ; Neuropathy G62.9 ; History of CVA (cerebrovascular accident) Z86.73 ; Acute eczema L30.9 ; Nicotine dependence, unspecified, uncomplicated F17.200 and Pain in left hip M25.552 [facility] [address] [place] [address] 05/01/2025 Kesha Lauren Hx of completed stroke Z86.73 and Left foot drop M21.372 [facility] [address] [facility] [place] [address] 07/03/2024 Na Waddell Nicotine dependence, unspecified, uncomplicated F17.200 ; Primary hypertension I10 and Moderate episode of recurrent major depressive disorder F33.1 Assessments Encounter Date Diagnosis (ICD Code) Assessment Notes Treatment Notes Treatment Clinical Notes Section Notes 05/01/2025 Hx of completed stroke (ICD-10 - Z86.73) 01/14/2025 Moderate episode of recurrent major depressive disorder (ICD-10 - F33.1) Will continue medications today since patient states that she feels stable on doses 05/01/2025 Left foot drop (ICD-10 - M21.372) Patient has history of CVA which involved her left side. Patient reports CVA was several years ago. She has mild left sided weakness. Uses stick cane for ambulation. Is currently attending PT. It is felt by her therapist she would benefit from AFO for left foot due to foot drop. Awaiting orders from [facility] to sign. Our office reached out to [place] [facility] for forms to order. 01/14/2025 Primary hypertension (ICD-10 - I10) Labs discussed and medications sent [facility] to [facility] for patient. Pt should start follow up in 6 months and then have blood work retested 06/16/2024 Primary hypertension (ICD-10 - I10) Labs [...] results in portal at anytime through our [facility] or [facility] if you are interested. 06/16/2024 Moderate episode [...] at this time. FOllow up as needed. 07/03/2024 Moderate episode of recurrent major depressive disorder (ICD-10 - F33.1) COntinue current dose of medications as we discussed on the phone today. If needed, follow up as we discussed for anything, 06/16/2024 Neuropathy (ICD-10 - G62.9) Refilled medications today in office and sent to pharmacy 01/14/2025 Neuropathy (ICD-10 - G62.9) Pt is stable on this medication. Sent to pharmacy. FOllow up in 6 months 01/14/2025 History of CVA (cerebrovascular accident) (ICD-10 - Z86.73) Continue to follow up With Neuro as discussed and take medications as needed 06/16/2024 History of CVA (cerebrovascular accident) (ICD-10 - Z86.73) Labs ordered and refilled sent to pharmacy today in office. 01/14/2025 Acute eczema (ICD-10 - L30.9) Eczema [...] would like to see REYES mayo in [place] since it is close to home 06/16/2024 Other Smoke Inhalatio n: Care Instructions material was printed 07/03/2024 Other Body Mass Index : Care Instructions material was printed Plan Of Treatment No Information Insurance Providers Payer Name Payer Address Payer Phone Subscriber Number Group Number Insured Name Patient Relationship to Insured Coverage Start Date Coverage End Date [employer] MEDICARE ADVANTAGE [address] [place] [phone] [id number] COBY ARECHIGA Self - patient is the insured 4 5 [facility] [place] [place] [address] [place] [address] [id number] COBY ARECHIGA Self - patient is the insured 5 MEDICAID SEC TO [facility] [address] [place] [address] [id number] COBY ARECHIGA Self - patient is the insured 3 MEDICARE CGS [address] [place] [address] [id number] COBY ARECHIGA Self - patient is the insured 3 [facility] [place] [place] [address] [place] [address] [id number] COBY ARECHIGA Self - patient is the insured 3 3 DENTAL MEDICAID [facility] [address] [place] [address] [id number] COBY ARECHIGA Self - patient is the insured 3 DENTAL [facility] [place] [address] [address] [place] [address] [id number] COBY ARECHIGA Self - patient is the insured 3 3 [employer] MEDICARE [address] [address] [place] [phone] [id number] COBY ARECHIGA Self - patient is the insured 3 5 DENTAL [employer] MEDICARE [address] [address] [place] [phone] [id number] COBY ARECHIGA Self - patient is the insured [address] [facility] ADV [address] [place] [address] [id number] COBY ARECHIGA Self - patient is the insured 5 Medical (General) History Medical History History ICD Code GENERALIZED ANXIETY DISORDER HTN [place]OH[place] CVA OCCIPITAL NEURALGIA INSOMNIA MIGRAINES DDD Hospitalization History Reason Date(Month/Year) CVA 05/12 IBS AND [facility]OH[facility] 04/2023
--- OUTSIDE RECORDS SUMMARY | 2025-05-20 11:17 | XMS_ITS | Clinical Summary ---
Author Organization [facility] Address [id number] [address] [place] [address] Care Team Providers Care Patient Financial Rep Name Role Phone Na Hines RUBEN-CHIEF ENGINEER RESEARCH Primary Care Provide r Allergies Active Allergy [...] tablet by mouth in the morning. Active [id number] ORAL Take 2 capsules by mouth in [...] Date Last Done Comments Depression Screening 1984 Tobacco Screening 1984 DTaP,Tdap and Td Vaccines (1 - Tdap) 1991 Zoster (Shingles) Vaccine (1 of 2) 2022 Adult BMI Screening 05/01/2024 05/01/2023 Influenza Vaccine 06/22/2025 Goals Goal Patient Goal Type Associated Problems Recent Progress Patient-Stated? Author Home General Yes Uyen Sierra LSW Note: Evaluation of progress towards goal: Safe dc transition home. Medical Devices Not on file Insurance [employer] MEDICARE MEDICAID [place] Advance Directives Documents on File Type Date Recorded Patient Medical Clinic Manager Expl anation DNR Physician Order 07/03/2022 6:07 AM * DNR Comfort Care (DNRCC) [place] (Latest Code Status on File) Date Activated Date Inactivated Comments 06/20/2022 6:04 AM 06/23/2022 12:07 PM * Full Code Date Activated Date Inactivated Comments 06/19/2022 8:10 PM 06/20/2022 6:03 AM Care Teams Patient Financial Rep Relationship Specialty Start Date End Date Na Hines APRN-FNP [address] [place] [address] PCP - General Family Medicine 06/20/22
--- OUTSIDE RECORDS SUMMARY | 2025-05-20 11:17 | XMS_ITS | Clinical Summary ---
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
--- NOTE | 2025-05-20 12:02 | PM.CN ---
Consult Note: HPI Data of Consult Patient: known to practice within the last 3 years Consult date: 04/23/25 Requesting Physician: Evy Pro NP Primary Care Provider: Non-Staff Physician, MD Consult Narrative Reason for consult: f/u Narrative: Baylee Babb a 54 year old female presents for evaluation of chronic low back pain and weakness of left leg. Pain today 3/10 throbbing increasing to 8/10 with standing, walking, housework, activity, sleep. hx of stroke, on plavix should not take NSAIDs. Pt attended 2 physical therapy visits without improvement in pain, could not tolerate additional PT due to pain per pt. Pt has not found benefit to HEP > 6 weeks, heat, ice, tylenol, gabapentin, duloxetine. recently completed lumbar xray with minimal degenerative changes. lumbar mri with results below. cc:: CC: Evy Pro NP [facility] Medical History (Updated 05/20/25 @ 12:04 by Evy Pro NP) Osteoarthritis ?M19.90 - Unspecified osteoarthritis, unspecified site (ICD-10) Neck pain ?M54.2 - Cervicalgia (ICD-10) Low back pain ?M54.50 - Low back pain, unspecified (ICD-10) Acid reflux ?K21.9 - Gastro-esophageal reflux disease without esophagitis (ICD-10) Smoker ?F17.200 - Nicotine dependence, unspecified, uncomplicated (ICD-10) Chronic cough ?R05.3 - Chronic cough (ICD-10) Asthma ?J45.909 - Unspecified asthma, uncomplicated (ICD-10) Hypertension ?I10 - Essential (primary) hypertension (ICD-10) Stroke ?I63.9 - Cerebral infarction, unspecified (ICD-10) Surgical History (Updated 02/20/25 @ 12:06 by Yolanda Calderon) Status post hip surgery ?Z98.890 - Other specified postprocedural states (ICD-10) H/O foot surgery ?Z98.890 - Other specified postprocedural states (ICD-10) Hx of cholecystectomy ?Z90.49 - Acquired absence of other specified parts of digestive tract (ICD-10) H/O: hysterectomy ?Z90.710 - Acquired absence of both cervix and uterus (ICD-10) Meds Home Medications and Allergies Home Medications ?Medication ?Instructions ?Recorded ?Confirmed ?Type atorvastatin 40 mg tablet 40 mg PO DAILY 02/19/25 03/02/25 History clopidogrel 75 mg tablet 75 mg PO DAILY 02/19/25 03/02/25 History duloxetine 60 mg capsule,delayed 60 mg PO DAILY 02/19/25 03/02/25 History release gabapentin 300 mg capsule 300 mg PO BID 02/19/25 03/02/25 History losartan 25 mg tablet (Cozaar) 25 mg PO DAILY 02/19/25 03/02/25 History metoprolol tartrate 50 mg tablet 50 mg PO DAILY 02/19/25 03/02/25 History trazodone 100 mg tablet 100 mg PO DAILY 02/19/25 03/02/25 History Allergies Allergy/AdvReac Type Severity Reaction Status Date / Time codeine Allergy Unknown Vomiting Verified 03/02/25 11:13 Exam Constitutional Documenting provider has reviewed patient's vital signs: yes Common normals: no apparent distress, oriented x3, healthy appearing, alert and well nourished General appearance: cooperative HENMT Common normals: normocephalic, hearing grossly normal bilaterally and moist oral mucous membranes Head and scalp: normocephalic Eye Common normals: PERRL Pupil: PERRL Neck & C-Spine Common normals: full ROM General: normal visual inspection Chest Common normals: inspection of chest normal Respiratory Common normals: normal respiratory effort, no retractions and no use of accessory muscles Back & Pelvis Lumbar spine/lower back: pain with ROM, lumbar spinal tenderness Lumbar spinal tenderness location: L3, L4 and L5, straight leg raise positive right and straight leg raise positive left Sacroiliac joints: SI joint(s) abnormal Other: left sij mildly positive wendy(patricks), gaenslens, thigh thrust, compression test decreased sensation to left>right L4,5,S1 strength 4/5 in LLE and 5/5 in RLE Extremity Common normals: normal to inspection and full ROM Neuro Common normals: oriented x3 Sensorium/orientation: alert Gait (neuro): antalgic and assistive device used cane Psych Common normals: mental status grossly normal, thought process normal, cooperative, affect normal, speech normal and activity/motor behavior normal Speech: normal speech Thought process: normal thought process Results Imaging lumbar mri : Attestation: I have reviewed the pertinent imaging results. Radiologist's impression: Anatomy S1 with partial lumbar localization. Mild loss of height at L1. Otherwise lumbar vertebral heights, alignment and bone marrow signal is unremarkable. Mild intervertebral space narrowing L5-S1. Rudimentary disc at S1-S2. No evidence of abnormal marrow edema. No findings of acute compression fracture. The conus medullaris terminates normally at the superior endplate of L2. Paraspinal soft tissues unremarkable. T11-L3: No significant disc disease, disc protrusion, central canal or neural foraminal narrowing identified. L4-5: Mild facet arthropathy. Minimal broad-based bulge. Mild neural foraminal foraminal narrowing. Canal is patent. L5-S1: Circumferential disc bulge with superimposed central protrusion which effaces both subarticular zones. There is bilateral facet arthropathy. There is moderate severe central canal and subarticular recess narrowing. Moderate neural foraminal narrowing. Additional Findings Additional findings: If on a controlled substance or opioids, I have checked an [place]AR[place] report on this patient and there are no aberrancies noted in the prescribing history.??If on a controlled substance or opioid a drug screen was completed and reviewed within the last year, and if there has not been a drug screen completed we ordered one today to monitor higher risk, state monitored pain medication use. As part of providing excellent, safe, comprehensive care, the following was completed at our patient's visit: 1. A medication reconciliation and review to ensure accurate knowledge of current/active medications, including asking our patients to inform us about any tckh-mua-kjlxvrh medications or herbal remedies/nutritional supplements/alternative remedies. 2. A review to specifically ensure our patients have had annual screening for screening for depression, screening for tobacco use, and screening for unhealthy alcohol use. For concerning screenings had a discussion with the patient, provided patient education, and recommended follow-up with primary care provider when appropriate. If patient noted with a risk of falling, they received education on strength, gait, and balance training to prevent future risk of falling. Portions of this note may have been carried over from the previous visit and updated as appropriate. Please note this office utilizes paper charting in addition to the electronic medical record. A list of current medications, vitals, and PMH is available there as the clinical staff outside of myself do not have access to [email or web address] charting during the clinic day operations. As part of providing quality comprehensive care the current medications, vitals, and PMH were reviewed in the paper chart. Assessment and Plan Assessment and Plan (1) Lumbar stenosis with neurogenic claudication: Assessment and Plan: The patient has had over 3 months of moderate to severe low back and LE pain with functional impairment and inadequate response to conservative care including NSAIDS (unless there are contraindication such as concurrent blood thinners), multiple oral or topical pain medications, and home exercise program/physical therapy.? Patient has completed >6 weeks of guided home exercise program and/or formal physical therapy program without relief of their symptoms.? The Oswestry Disability Index was completed, and the patient scored a 38%.? The patient noted the following:?? moderate to severe pain impacting ADLs, standing, walking, sleeping, social life, travel We discussed the risks and benefits of the procedure with the patient, and we are NOT planning on using sedation as outlined in the guidelines from Medicare unless there is a documented reason that sedation would be strongly recommended.?? ?The procedure will be completed with fluoroscopic guidance.? (2) Lumbar spondylosis: (3) Lumbar radiculopathy: Plan proceed with bilateral L5-S1 TFESI under fluoroscopy for lumbar radiculopathy and lumbar stenosis with NC continue current medications continue HEP as tolerated defer NS consult at this time f/u 2 weeks after injection
== END 2025-05-20 11:16 | disposition home or self-care (01) ==
LOC: PM 11:16
PROVIDERS: Visit Provider Nurse Practitioner
DX: M48.062 Spinal stenosis, lumbar region with neurogenic claudication (principal); M47.816 Spondylosis without myelopathy or radiculopathy, lumbar region; M54.16 Radiculopathy, lumbar region
CPT/HCPCS: G0463

== ENCOUNTER 2025-06-01 11:31 | Day surgery (SDC) | payer MEDICARE, MEDICAID, SELFPAY ==
--- OUTSIDE RECORDS SUMMARY | 2025-06-01 11:34 | XMS_ITS | Clinical Summary ---
Author Organization [facility] Healthcare Address [address] [place] [address] Care Team Providers Care Mortgage Loan Funder Name Role Phone DonnyNa HEALTHCARE RISK CONTROL CONSULTANT Unavailable [phone] Allergies Active Allergy Reactions Criticality Noted Date [...] MEDICAID [place] [employer] MEDICARE Care Teams Mortgage Loan Funder Relationship Specialty Start Date End Date Na Hines NP [address] [place] [id number] Referring Physician 01/28/25
--- OUTSIDE RECORDS SUMMARY | 2025-06-01 11:34 | XMS_ITS | Clinical Summary ---
Author Organization [employer] tem Address [id number] [address] [place] [address] Care Team Providers Care Garbage Collector Driver Name Role Phone Na Hines RUBEN-AMMUNITION SPECIALIST Primary Care Provide r Allergies Active Allergy [...] tablet by mouth in the morning. Active [id number] ORAL Take 2 capsules by mouth in [...] Documents on File Type Date Recorded Patient Grey Inspector Expl anation DNR Physician Order 07/03/2022 6:07 AM * DNR Comfort Care (DNRCC) [place] (Latest Code Status on File) Date Activated Date Inactivated Comments 06/20/2022 6:04 AM 06/23/2022 12:07 PM * Full Code Date Activated Date Inactivated Comments 06/19/2022 8:10 PM 06/20/2022 6:03 AM Care Teams Garbage Collector Driver Relationship Specialty Start Date End Date Na Hines APRN-FNP [address] [place] [address] PCP - General Family Medicine 06/20/22
--- OUTSIDE RECORDS SUMMARY | 2025-06-01 11:35 | XMS_ITS | Patient Health Record ---
Author Organization [facility] Servic es Address [address] [place] [address] Care Team Providers Care Belt Glass Sander Name Role Phone Na Waddell Primary Care Provider Jeanine Valles Unavailable [phone] Kesha Lauren Unavailable [phone] Allergies Allergen (clinical drug ingredient) Drug/Non Drug Allergy documented on EMR Reaction Allergy Type Onset Date Status codeine Codeine vomiting Drug Allergy Active lisinopril Lisinopril cough, sob Drug Allergy Acti ve Results Component Value Reference Range Notes CBC w/ Auto Diff Reviewed date:06/23/2024 11:59:57 AM Interpretation: Performing Lab: Notes/Report: [facility] [address] [place] [address] Original Ordering Provider: RENE BENSON LEUKOCYTES^^CORRECTED FOR [...] 0.1 0.0-0.2 E9/L Performing Lab see note [facility] Laboratory unless otherwise specified [address] [address] CMP Reviewed date:06/23/2024 12:00:07 PM Interpretation: Performing Lab: Notes/Report: [facility] [address] [id number] Original Ordering Provider: RENE BENSON GLUCOSE 133 [...] ALBUMIN/GLOBULIN 2.0 1.1-2.2 Performing Lab see note [facility] unless otherwise specified [address] [place], [place] [address] HgbA1c Reviewed date:06/23/2024 11:55:24 AM Interpretation: Performing Lab: Notes/Report: [facility] [address] [place] [address] Original Ordering Provider: RENE BENSON HEMOGLOBIN A1C/HEMOGLOBIN.TOTAL 5.7 <=5.9 % Performing Lab see note [facility] unless otherwise specified [address] [address] Lipid Panel Reviewed date:06/23/2024 11:57:56 AM Interpretation: Performing Lab: Notes/Report: [facility] [address] [place] [address] Original Ordering Provider: RENE BENSON CHOLESTEROL 120 120-200 mg/dL CHOLESTEROL.IN HDL 38 '>= 60 LOW RISK' '<= 40 HIGH RISK' CHOLESTEROL.IN LDL 35 <=129 mg/dL TRIGLYCERIDE 322 <=149 mg/dL CHOLESTEROL.IN VLDL 64 7-40 mg/dL Performing Lab see note [facility] Laboratory unless otherwise specified [address] [address] Vit B12 Reviewed date:06/23/2024 11:56:54 AM Interpretation: Performing Lab: Notes/Report: [facility] [address] [place] [address] Original Ordering Provider: RENE BENSON COBALAMINS 277 50-1500 pg/mL Performing Lab see note [facility] Laboratory unless otherwise specified [address] [address] eGFR Reviewed date:06/23/2024 11:55:35 AM Interpretation: Performing Lab: Notes/Report: Order added by Discern Expert. [facility] [address] [place] [address] Original Ordering Provider: RENE BENSON eGFR 104 >=59 mL/min/1.73 m2 Performing Lab see note [facility] unless otherwise specified [address] [address] Reason For Referral Reason REFERRAL OVER 60 DAY S OLD Patient would like to see NOM[facility] mayo in [place] Diagnosis 1 Pain in left hip (M2 5.552) Referral Organization [facility] Referring Provider First Name aN Referring Provider Last Name Nadira Referring Provider Speciality Family Pra ctice Referred Provider Rah Armendariz Referred Provider Specialty Orthopedic S urgery General Notes Yaz Vera 2024 01:55:24 PM >[address], [place] [address], , Referral Priority Routine Medications Medication SIG [...] Gabapentin 300 MG take 1 capsule by [facility] twice a day Orally Once a day; [...] W/U Status Risk Notes Problem Tobacco user (537402340) Nicotine dependence, unspecified, uncomplicated (F17.200) Active confirmed Problem Neuropathy (398916125) Neuropathy (G62.9) Active confirmed Problem Primary hypertension (26133462) Primary hypertension (I10) Active confirmed Problem Moderate [...] 05/01/2025 Encounters Encounter Location Date Provider Diagnosis [address] [place] [address] 06/06/2024 [place] [address] [place] [address] 06/23/2024 [address] [place] [address] [place] [address] 06/26/2024 [address] [place] [place] [address] 12/10/2024 [address] [place] [address] [place] [address] 12/15/[address] [place] [place] [address] 02/11/[address]25 [address] [place] [place] [address] 04/03/2025 Jeanine Hai [facility] [address] [place] [address] 06/16/2024 [facility] Primary hypertension I10 ; Moderate episode of recurrent major depressive disorder F33.1 ; Neuropathy G62.9 and History of CVA (cerebrovascular accident) Z86.73 [facility] [address] [place] [address] 01/14/2025 Na Waddell Primary hypertension I10 ; Moderate episode of recurrent major depressive disorder F33.1 ; Neuropathy G62.9 ; History of CVA (cerebrovascular accident) Z86.73 ; Acute eczema L30.9 ; Nicotine dependence, unspecified, uncomplicated F17.200 and Pain in left hip M25.552 [facility] [address] [place] [address] 05/01/2025 Kesha Lauren Hx of completed stroke Z86.73 and Left foot drop M21.372 [facility] [address] [facility] [place] [address] 07/03/2024 Na Waddell Nicotine dependence, unspecified, uncomplicated [...] due to foot drop. Awaiting orders from [facility] to sign. Our office reached out to [facility] for forms to order. 01/14/2025 Primary [...] results in portal at anytime through our ponUp mikaela or [facility] if you are interested. [...] would like to see [facility] mayo in [place] since it is close to home 06/16/2024 Other Smoke Inhalatio n: Care Instructions material was printed 07/03/2024 Other Body Mass Index : Care Instructions material was printed Plan Of Treatment No Information Insurance Providers Payer Name Payer Address Payer Phone Subscriber Number Group Number Insured Name Patient Relationship to Insured Coverage Start Date Coverage End Date AETNA MEDICARE ADVANTAGE [address] [place] [phone] [id number] COBY ARECHIGA Self - patient is the insured 4 5 [facility] DSNP [place] [address] [place] [address] [id number] COBY ARECHIGA Self - patient is the insured 5 MEDICAID SEC TO [facility] [address] [place] [address] [id number] COBY ARECHIGA Self - patient is the insured 3 MEDICARE CGS [address] [place] [address] [id number] COBY ARECHIGA Self - patient is the insured 3 [facility] DSNP [place] [address] [place] [address] [id number] COBY ARECHIGA Self - patient is the insured 3 3 DENTAL MEDICAID [facility] [address] [place] [address] [id number] COBY ARECHIGA Self - patient is the insured 3 DENTAL [facility] [place] DUAL [address] [address] [place] [address] [id number] COBY ARECHIGA Self - patient is the insured 3 3 [employer] MEDICARE [address] [address] [place] [address] [id number] COBY ARECHIGA Self - patient is the insured 3 5 DENTAL [employer] MEDICARE [address] [address] [place] [address] [id number] COBY ARECHIGA Self - patient is the insured 4 5 [facility] ADV [address] [place] [address] [id number] COBY ARECHIGA Self - patient is the insured 5 Medical (General) History Medical History History ICD Code GENERALIZED ANXIETY DISORDER HTN CROHNS CVA OCCIPITAL NEURALGIA INSOMNIA MIGRAINES DDD Hospitalization History Reason Date(Month/Year) CVA 05/12 IBS AND CROHNS 04/2023
[2025-06-01 12:12] VITALS: BP 118/88; PULSE 74; TEMP 36.3; O2SAT 94
[2025-06-01] MEDS: LIDOCAINE HCL 2% 400 MG/20 ML MDV INJ (13:02)
[2025-06-01] MEDS: IOHEXOL 240 MG/ML - 10 ML VIAL INJ (13:02)
[2025-06-01] MEDS: 0.9 % SODIUM CHLORIDE 10 ML SYRINGE - SALINE FLUSH INJ (13:02)
[2025-06-01] MEDS: BUPIVACAINE HCL 0.25% PF 25 MG/10 ML VIAL INJ (13:02)
[2025-06-01] MEDS: METHYLPREDNISOLONE ACETATE 80 MG/ML VIAL INJ (13:03)
[2025-06-01 13:04] VITALS: BP 152/77; BP 160/77; PULSE 78; PULSE 79; O2SAT 94; O2SAT 95
--- NOTE | 2025-06-01 13:05 | W.PM.PROCNOT ---
Date of procedure: 06/01/25 Pre-op diagnosis: Pain due to lumbar stenosis with neurogenic claudication Post-op diagnosis: same as pre-op Procedure: Procedure: Bilateral L5-S1 transforaminal epidural steroid injection Medications: Bupivacaine 0.25% 2cc, lidocaine 2% 1cc, depomedrol 80mg The patient was seen and examined in the preoperative holding area.? Informed consent was obtained and placed on the chart.? Patient was brought to the medical procedure unit and placed in the prone position where a timeout was completed verifying the correct patient, procedure site, position, and planned special equipment using sterile aseptic technique.? Under direct fluoroscopic visualization a 25-gauge Quincke tipped spinal needle was advanced at level left L5-S1 to the designated neural foramen where contrast dye was injected to show adequate spread.? There was no evidence of vascular or adverse uptake.? Epidural spread was appreciated.? The above-mentioned injectate was then placed in a 1.5 mL aliquot preceded by negative aspiration.? The needle was removed. The same procedure, at the same level, was completed on the opposite side. ? Patient was taken to the postprocedural recovery area and monitored for an appropriate length of time before found suitable for discharge in the accompaniment of a responsible adult. Anesthesia: Local Surgeon: Art Shine Pathology: none sent Condition: stable Disposition: no change
== END 2025-06-01 13:10 | disposition home or self-care (01) ==
LOC: SURGOUT 11:32
PROVIDERS: Visit Provider Anesthesiology
DX: M48.062 Spinal stenosis, lumbar region with neurogenic claudication (principal); M54.50 Low back pain, unspecified
CPT/HCPCS: 64483; J0665; J1010; Q9966

== ENCOUNTER 2025-06-11 10:32 | Outpatient (OUT) | payer MEDICARE, MEDICAID, SELFPAY ==
--- OUTSIDE RECORDS SUMMARY | 2025-04-07 07:30 | XMS_ITS ---
Author Organization [facility] es Address [address] [place] [address] Care Team Providers Care Aircraft Charter Dispatcher Name Role Phone Eron Waddell Primary Care Provider [phone] Jeanine Valles [phone] REASON FOR VISIT JENISE ERON-PT F/U Encounters Encounter Location Date Provider Diagnosis [place] [address] [place] [address] 04/07/2025 Jeanine Valles Plan Of Treatment No Information Progress Notes * HAWK COBY LDOB:[birth year] (54 yo F)Acc No.[id number]:04/07/2025 Progress Notes Patient: COBY MEZA Provider: Brenda Valles :1970 A ge:54 Y S ex:Female Date:04/07/2025 Address:[address], [id number] Pcp:Eron Waddell Subjective: * Chief Complaints: * 1 . JENISE ERON-PT F/U. * Medical History: Objective: * Vitals: Assessment: Plan: * Treatment: * Images: * Electronic signature of Lydia Valles NP on 06/11/2025 at 10:34 AM EDT Sign off status: Pending * Provider: Brenda Valles Date: 04/07/2025 Generated for Printi ng/Faxing/eTransmitting on: 0 06/11/2025 10:34 AM EDT
--- OUTSIDE RECORDS SUMMARY | 2025-06-11 10:34 | XMS_ITS | Patient Health Record ---
Author Organization [facility] Serv[facility] es Address [address] [place] [address] Care Team Providers Care Steam Bone Press Tender Name Role Phone Na Waddell Primary Care Provider [phone] Jeanine Valles Unavailable [phone] Kesha Lauren Unavailable [phone] Allergies Allergen (clinical drug ingredient) Drug/Non Drug Allergy documented on EMR Reaction Allergy Type Onset Date Status codeine Codeine vomiting Drug Allergy Active lisinopril Lisinopril cough, sob Drug Allergy Acti ve Results Component Value Reference Range Notes CBC w/ Auto Diff Reviewed date:06/23/2024 11:59:57 AM Interpretation: Performing Lab: Notes/Report: [facility] [address] [place] [address] Original Ordering Provider: RENE BENSON LEUKOCYTES^^CORRECTED FOR [...] note [facility] unless otherwise specified [address] [address] CMP Reviewed date:06/23/2024 12:00:07 PM Interpretation: Performing Lab: Notes/Report: [facility] [address] [id number] Original Ordering Provider: RENE BENSON GLUCOSE 133 [...] note [facility] unless otherwise specified [address] [place], [place] [address] HgbA1c Reviewed date:06/23/2024 11:55:24 AM Interpretation: Performing Lab: Notes/Report: [facility] [address] [place] [address] Original Ordering Provider: RENE BENSON HEMOGLOBIN A1C/HEMOGLOBIN.TOTAL 5.7 <=5.9 % Performing Lab see note [facility] unless otherwise specified [address] [address] Lipid Panel Reviewed date:06/23/2024 11:57:56 AM Interpretation: Performing Lab: Notes/Report: [facility] [address] [place] [address] Original Ordering Provider: RENE BENSON CHOLESTEROL 120 120-200 mg/dL CHOLESTEROL.IN HDL 38 '>= 60 LOW RISK' '<= 40 HIGH RISK' CHOLESTEROL.IN LDL 35 <=129 mg/dL TRIGLYCERIDE 322 <=149 mg/dL CHOLESTEROL.IN VLDL 64 7-40 mg/dL Performing Lab see note [facility] unless otherwise specified [address] [address] Vit B12 Reviewed date:06/23/2024 11:56:54 AM Interpretation: Performing Lab: Notes/Report: [facility] [address] [place] [address] Original Ordering Provider: RENE BENSON COBALAMINS 277 50-1500 pg/mL Performing Lab see note [facility] unless otherwise specified [address] [address] eGFR Reviewed date:06/23/2024 11:55:35 AM Interpretation: Performing Lab: Notes/Report: Order added by Discern Expert. [facility] [address] [place] [address] Original Ordering Provider: RENE BENSON eGFR 104 >=59 mL/min/1.73 m2 Performing Lab see note [facility] unless otherwise specified [address] [address] Reason For Referral Reason REFERRAL OVER 60 DAY S OLD Patient would like to see [facility] mayo in [place] Diagnosis 1 Pain in left hip (M2 5.552) Referral Organization [facility] Referring Provider First Name Na Referring Provider Last Name Nadira Referring Provider Speciality Family Pra ctice Referred Provider Rah Armendariz Referred Provider Specialty Orthopedic S urgery General Notes Yaz Vera 2024 01:55:24 PM >[address], [place] [address], , Referral Priority Routine Medications Medication SIG [...] MG take [facility] twice [facility] Orally Once a day; [...] W/U Status Risk Notes Problem Tobacco user (648921997) Nicotine dependence, unspecified, uncomplicated (F17.200) Active confirmed Problem Neuropathy (304890775) Neuropathy (G62.9) Active confirmed Problem Primary hypertension (69154394) Primary hypertension (I10) Active confirmed Problem Moderate recurrent major depression (20829768) Moderate episode of recurrent major depressive disorder (F33.1) Active confirmed Vital Signs Heart Rate 83 /min 05/01/2025 Temperature 97.7 degrees Fahrenheit 05/01/2025 Oximetry 90 % 05/01/2025 Blood pressure diastolic 85 mm Hg 05/01/2025 Height 62 in 05/01/2025 Blood pressure systolic 134 mm Hg 05/01/2025 Weight 154 lbs 05/01/2025 BMI 28.16 kg/m2 05/01/2025 Encounters Encounter Location Date Provider Diagnosis [facility] [address] [place] [address] 06/23/2024 [address] [place] [address] 06/26/2024 [address] [address] [place] [address] 12/10/2024 [address] [address] [place] [address] 12/15/2024 [address] [address] [place] [address] 02/11/2025 [address] [address] [place] [address] 04/03/2025 Jeanine Hai [facility] [address] [place] [address] 06/16/2024 Na Waddell Primary hypertension I10 ; Moderate episode of recurrent major depressive disorder F33.1 ; Neuropathy G62.9 and History of CVA (cerebrovascular accident) Z86.73 [facility] [address] [place] [address] 01/14/2025 Na Waddell Primary hypertension I10 ; Moderate episode of recurrent major depressive disorder F33.1 ; Neuropathy G62.9 ; History of CVA (cerebrovascular accident) Z86.73 ; Acute eczema L30.9 ; Nicotine dependence, unspecified, uncomplicated F17.200 and Pain in left hip M25.[address] [address] 05/01/2025 Kesha Lauren Hx of completed stroke Z86.73 and Left foot drop M21.372 [facility] [address] [place] [address] 07/03/2024 Na kietAna Mariamango Nicotine dependence, unspecified, uncomplicated F17.200 ; Primary [...] due to foot drop. Awaiting orders from [facility] to sign. Our office reached out to [facility] for forms to order. 01/14/2025 Primary [...] results in portal at anytime through our [employer] imkaela or [facility] if you are interested. 06/16/2024 Moderate episode [...] factors. Pt would like to see [facility] ortho in [place] since it is close to home 06/16/2024 Other Smoke Inhalatio n: Care Instructions material was printed 07/03/2024 Other Body Mass Index : Care Instructions material was printed Plan Of Treatment No Information Insurance Providers Payer Name Payer Address Payer Phone Subscriber Number Group Number Insured Name Patient Relationship to Insured Coverage Start Date Coverage End Date AETNA MEDICARE ADVANTAGE [address] [place] [phone] [id number] COBY ARECHIGA Self - patient is the insured 4 5 [employer] DSNP [place] [address] [place] [address] [id number] COBY ARECHIGA Self - patient is the insured 5 MEDICAID SEC TO [facility] [address] [place] [address] [id number] COBY ARECHIGA Self - patient is the insured 3 MEDICARE CGS 1 [facility] [place] [place] [address] [id number] COBY ARECHIGA Self - patient is the insured 3 [employer] DSNP [place] [address] [place] [address] [id number] COBY ARECHIGA Self - patient is the insured 3 3 DENTAL MEDICAID [facility] [address] [place] [address] [id number] COBY ARECHIGA Self - patient is the insured 3 [place] [facility] [place] [address] [address] [place] [address] [id number] COBY ARECHIGA Self - patient is the insured 3 3 AETNA MEDICARE [address] [address] [place] [phone] [id number] COBY ARECHIGA Self - patient is the insured 3 5 DENTAL AETNA MEDICARE [address] [address] [place] [address] [id number] COBY ARECHIGA Self - patient is the insured 4 5 [facility] MCARE ADV [address] [place] [address] [id number] COBY ARECHIGA Self - patient is the insured 5 Medical (General) History Medical History History ICD Code GENERALIZED ANXIETY DISORDER HTN CROHNS CVA OCCIPITAL NEURALGIA INSOMNIA MIGRAINES DDD Hospitalization History Reason Date(Month/Year) CVA 05/12 IBS AND CROHNS 04/2023
--- OUTSIDE RECORDS SUMMARY | 2025-06-11 10:34 | XMS_ITS | Clinical Summary ---
Author Organization [facility] Healthcare Address [address] [place] [address] Care Team Providers Care Die Cutter Operator Name Role Phone DonnyNa PRESS CUTTER Unavailable [phone] Allergies Active Allergy Reactions Criticality Noted Date [...] MEDICAID [place] [employer] MEDICARE Care Teams Die Cutter Operator Relationship Specialty Start Date End Date Na Hines NP [address] [place] [id number] Referring Physician 01/28/25
--- OUTSIDE RECORDS SUMMARY | 2025-06-11 10:34 | XMS_ITS | Clinical Summary ---
Author Organization [facility] Address [id number] [address] [place] [address] Care Team Providers Care Signalman Name Role Phone aN Hines RUBEN-LAUNDRY PRICING CLERK Primary Care Provide r Allergies Active Allergy [...] tablet by mouth in the morning. Active [id number] ORAL Take 2 capsules by mouth in [...] Devices Not on file Insurance [place] [address] MEDICAID [place] Advance Directives Documents on File Type Date Recorded Patient Vinyl Installer Expl anation DNR Physician Order 07/03/2022 6:07 AM * DNR Comfort Care (DNRCC) [place] (Latest Code Status on File) Date Activated Date Inactivated Comments 06/20/2022 6:04 AM 06/23/2022 12:07 PM * Full Code Date Activated Date Inactivated Comments 06/19/2022 8:10 PM 06/20/2022 6:03 AM Care Teams Signalman Relationship Specialty Start Date End Date Na Hines APRN-FNP [address] [place] [address] PCP - General Family Medicine 06/20/22
--- NOTE | 2025-06-11 11:06 | PM.CN ---
Consult Note: HPI Data of Consult Patient: known to practice within the last 3 years Consult date: 06/11/25 Requesting Physician: Evy Pro NP Primary Care Provider: Non-Staff Physician, MD Consult Narrative Reason for consult: f/u Narrative: Baylee Babb a 54 year old female presents for evaluation of chronic low back pain. Pain today 3/10 throbbing increasing to 8/10 with standing, walking, housework, activity, sleep. hx of stroke, on plavix should not take NSAIDs. Pt attended 2 physical therapy visits without improvement in pain, could not tolerate additional PT due to pain per pt. Pt has not found benefit to HEP > 6 weeks, heat, ice, tylenol, gabapentin, duloxetine. recently completed lumbar xray with minimal degenerative changes. lumbar mri with results below. underwent bilateral l5-s1 TFESI with >50% improvement ongoing in lumbar stenosis with NC, noting increased left SIJ pain over the last 1 week. previously underwent left SIJ injection 03-02-25 which she does note 50% improvement for 3 months in left SIJ pain. cc:: CC: Evy Pro NP [facility] Medical History (Updated 05/20/25 @ 12:04 by Evy Pro NP) Osteoarthritis ?M19.90 - Unspecified osteoarthritis, unspecified site (ICD-10) Neck pain ?M54.2 - Cervicalgia (ICD-10) Low back pain ?M54.50 - Low back pain, unspecified (ICD-10) Acid reflux ?K21.9 - Gastro-esophageal reflux disease without esophagitis (ICD-10) Smoker ?F17.200 - Nicotine dependence, unspecified, uncomplicated (ICD-10) Chronic cough ?R05.3 - Chronic cough (ICD-10) Asthma ?J45.909 - Unspecified asthma, uncomplicated (ICD-10) Hypertension ?I10 - Essential (primary) hypertension (ICD-10) Stroke ?I63.9 - Cerebral infarction, unspecified (ICD-10) Surgical History (Updated 02/20/25 @ 12:06 by Yolanda Calderon) Status post hip surgery ?Z98.890 - Other specified postprocedural states (ICD-10) H/O foot surgery ?Z98.890 - Other specified postprocedural states (ICD-10) Hx of cholecystectomy ?Z90.49 - Acquired absence of other specified parts of digestive tract (ICD-10) H/O: hysterectomy ?Z90.710 - Acquired absence of both cervix and uterus (ICD-10) Meds Home Medications and Allergies Home Medications ?Medication ?Instructions ?Recorded ?Confirmed ?Type atorvastatin 40 mg tablet 40 mg PO DAILY 02/19/25 06/01/25 History clopidogrel 75 mg tablet 75 mg PO DAILY 02/19/25 06/01/25 History duloxetine 60 mg capsule,delayed 60 mg PO DAILY 02/19/25 06/01/25 History release gabapentin 300 mg capsule 300 mg PO BID 02/19/25 06/01/25 History losartan 25 mg tablet (Cozaar) 25 mg PO DAILY 02/19/25 06/01/25 History metoprolol tartrate 50 mg tablet 50 mg PO DAILY 02/19/25 06/01/25 History trazodone 100 mg tablet 100 mg PO DAILY 02/19/25 06/01/25 History Allergies Allergy/AdvReac Type Severity Reaction Status Date / Time codeine Allergy Unknown Vomiting Verified 06/01/25 12:14 Exam Constitutional Documenting provider has reviewed patient's vital signs: yes Common normals: no apparent distress, oriented x3, healthy appearing, alert and well nourished General appearance: cooperative HENMT Common normals: normocephalic, hearing grossly normal bilaterally and moist oral mucous membranes Head and scalp: normocephalic Eye Common normals: PERRL Pupil: PERRL Neck & C-Spine Common normals: full ROM General: normal visual inspection Chest Common normals: inspection of chest normal Respiratory Common normals: normal respiratory effort, no retractions and no use of accessory muscles Back & Pelvis Lumbar spine/lower back: pain with ROM, lumbar spinal tenderness Lumbar spinal tenderness location: L3, L4 and L5 and straight leg raise negative bilaterally Sacroiliac joints: SI joint(s) abnormal Other: left sij positive wendy(patricks), gaenslens, thigh thrust, compression test sensation intact strength 5/5 in BLE Extremity Common normals: normal to inspection and full ROM Neuro Common normals: oriented x3 Sensorium/orientation: alert Gait (neuro): antalgic and assistive device used cane Psych Common normals: mental status grossly normal, thought process normal, cooperative, affect normal, speech normal and activity/motor behavior normal Speech: normal speech Thought process: normal thought process Results Additional Findings Additional findings: If on a controlled substance or opioids, I have checked an [place]AR[place] report on this patient and there are no aberrancies noted in the prescribing history.??If on a controlled substance or opioid a drug screen was completed and reviewed within the last year, and if there has not been a drug screen completed we ordered one today to monitor higher risk, state monitored pain medication use. As part of providing excellent, safe, comprehensive care, the following was completed at our patient's visit: 1. A medication reconciliation and review to ensure accurate knowledge of current/active medications, including asking our patients to inform us about any fash-vpi-pdqnlgk medications or herbal remedies/nutritional supplements/alternative remedies. 2. A review to specifically ensure our patients have had annual screening for screening for depression, screening for tobacco use, and screening for unhealthy alcohol use. For concerning screenings had a discussion with the patient, provided patient education, and recommended follow-up with primary care provider when appropriate. If patient noted with a risk of falling, they received education on strength, gait, and balance training to prevent future risk of falling. Portions of this note may have been carried over from the previous visit and updated as appropriate. Please note this office utilizes paper charting in addition to the electronic medical record. A list of current medications, vitals, and PMH is available there as the clinical staff outside of myself do not have access to [employer] charting during the clinic day operations. As part of providing quality comprehensive care the current medications, vitals, and PMH were reviewed in the paper chart. Assessment and Plan Assessment and Plan (1) Lumbar stenosis with neurogenic claudication: Assessment and Plan: 06/01/25 bilateral L5-S1 TFESI >50% improvement ongoing (2) Sacroiliitis: Assessment and Plan: The patient has had over 3 months of moderate to severe low back and left SIJ pain with functional impairment and inadequate response to conservative care including NSAIDS (unless there are contraindication such as concurrent blood thinners) The Oswestry Disability Index was completed, and the patient scored a 35%.? The patient noted the following:?? moderate to severe pain impacting ADLs, sitting, standing, walking, sleeping, social life, travel (3) Lumbar radiculopathy: (4) Lumbar spondylosis: Plan repeat left SIJ injection under fluoroscopy, prior injection provided at least 50% improvement for 3 months continue HEP as tolerated continue current medications f/u after injection
== END 2025-06-11 10:33 | disposition home or self-care (01) ==
LOC: PM 10:32
PROVIDERS: Visit Provider Nurse Practitioner
DX: M48.062 Spinal stenosis, lumbar region with neurogenic claudication (principal); M46.1 Sacroiliitis, not elsewhere classified; M54.16 Radiculopathy, lumbar region; M47.816 Spondylosis without myelopathy or radiculopathy, lumbar region
CPT/HCPCS: G0463

== ENCOUNTER 2025-06-29 10:25 | Day surgery (SDC) | payer MEDICARE, OTHER, SELFPAY ==
--- OUTSIDE RECORDS SUMMARY | 2025-04-07 07:30 | XMS_ITS ---
Author Organization [facility] es Address [address] [place] [address] Care Team Providers Care Poured Pipe Maker Name Role Phone Eron Waddell Primary Care Provider [phone] Jeanine Valles [phone] REASON FOR VISIT JENISE ERON-PT F/U Encounters Encounter Location Date Provider Diagnosis [place] [address] [place] [address] 04/07/2025 Jeanine Valles Plan Of Treatment No Information Progress Notes * HAWK COBY LDOB:[birth year] (54 yo F)Acc No.[id number]:04/07/2025 Progress Notes Patient: COBY MEZA Provider: Brenda Valles :1970 A ge:54 Y S ex:Female Date:04/07/2025 Address:[address], [id number] Pcp:Eron Waddell Subjective: * Chief Complaints: * 1 . JENISE ERON-PT F/U. * Medical History: Objective: * Vitals: Assessment: Plan: * Treatment: * Images: * Electronic signature of Lydia Valles NP on 06/29/2025 at 10:28 AM EDT Sign off status: Pending * Provider: Brenda Valles Date: 04/07/2025 Generated for Printi ng/Faxing/eTransmitting on: 0 06/29/2025 10:28 AM EDT
--- OUTSIDE RECORDS SUMMARY | 2025-06-29 10:28 | XMS_ITS | Clinical Summary ---
Author Organization [facility] Address [id number] [address] [place] [address] Care Team Providers Care Lunchroom Monitor Name Role Phone Na Hines RUBEN-COMMUNICATIONS STRATEGIST Primary Care Provide r Allergies Active Allergy [...] tablet by mouth in the morning. Active [id number] ORAL Take 2 capsules by mouth in [...] Documents on File Type Date Recorded Patient Director Nursing Service Expl anation DNR Physician Order 07/03/2022 6:07 AM * DNR Comfort Care (DNRCC) [place] (Latest Code Status on File) Date Activated Date Inactivated Comments 06/20/2022 6:04 AM 06/23/2022 12:07 PM * Full Code Date Activated Date Inactivated Comments 06/19/2022 8:10 PM 06/20/2022 6:03 AM Care Teams Lunchroom Monitor Relationship Specialty Start Date End Date Na Hines APRN-FNP [address] [place] [address] PCP - General Family Medicine 06/20/22
--- OUTSIDE RECORDS SUMMARY | 2025-06-29 10:28 | XMS_ITS | Clinical Summary ---
Author Organization [facility] Healthcare Address [address] [place] [address] Care Team Providers Care Behavioral Health Assistant Name Role Phone DonnyNa ATTORNEY GENERAL Unavailable [phone] Allergies Active Allergy Reactions Criticality Noted Date [...] MEDICAID [place] [employer] MEDICARE Care Teams Behavioral Health Assistant Relationship Specialty Start Date End Date Na Hines NP [address] [place] [id number] Referring Physician 01/28/25
--- OUTSIDE RECORDS SUMMARY | 2025-06-29 10:29 | XMS_ITS | Patient Health Record ---
Author Organization [facility] Address [address] [facility] [place] [address] Care Team Providers Care Playground Director Name Role Phone Na Waddell Primary Care Provider Jeanine Valles Unavailable [phone] Kesha Lauren Unavailable [phone] Allergies Allergen (clinical drug ingredient) Drug/Non Drug Allergy documented on EMR Reaction Allergy Type Onset Date Status codeine Codeine vomiting Drug Allergy Active lisinopril Lisinopril cough, sob Drug Allergy Acti ve Reason For Referral Reason REFERRAL OVER 60 DAY S OLD Patient would like to see [facility] in [place] Diagnosis 1 Pain in left hip (M2 5.552) Referral Organization [facility] Referring Provider First Name Na Referring Provider Last Name Nadira Referring Provider [facility] Referred Provider Rah Armendariz Referred Provider Specialty Orthopedic S urgery General Notes Yaz Vera 2024 01:55:24 PM >[facility] [place], [place] [address], , Referral Priority Routine Medications Medication SIG [...] Gabapentin 300 MG take 1 capsule by [facility] twice a day Orally Once [...] W/U Status Risk Notes Problem Tobacco user (202620022) Nicotine dependence, unspecified, uncomplicated (F17.200) Active confirmed Problem Neuropathy (154679936) Neuropathy (G62.9) Active confirmed Problem Primary hypertension (76651899) Primary hypertension (I10) Active confirmed Problem Moderate recurrent major depression (41466236) Moderate episode of recurrent major depressive disorder (F33.1) Active confirmed Vital Signs Heart Rate 83 /min 05/01/2025 Temperature 97.7 degrees Fahrenheit 05/01/2025 Blood pressure diastolic 85 mm Hg 05/01/2025 Oximetry 90 % 05/01/2025 Height 62 in 05/01/2025 Blood pressure systolic 134 mm Hg 05/01/2025 Weight 154 lbs 05/01/2025 BMI 28.16 kg/m2 05/01/2025 Encounters Encounter Location Date Provider Diagnosis [facility][1] [address] [place] [address] 12/10/2024 Na Waddell [facility][1] [address] [place] [address] 12/15/2024 Na Waddell [place] [place] [address] [facility] [address] [place] [place] [address] 04/03/2025 Jeanine Valles [address] [address] 01/14/2025 Na Waddell Primary hypertension I10 ; Moderate episode of recurrent major depressive disorder F33.1 ; Neuropathy G62.9 ; History of CVA (cerebrovascular accident) Z86.73 ; Acute eczema L30.9 ; Nicotine dependence, unspecified, uncomplicated F17.200 and Pain in left hip M25.[address] [address] 05/01/2025 Kesha Lauren Hx of completed stroke Z86.73 and Left foot drop M21.[address] [address] 07/03/2024 Na Waddell Nicotine dependence, unspecified, uncomplicated [...] due to foot drop. Awaiting orders from [facility] to sign. Our office reached out to [facility] for forms to order. 01/14/2025 Primary hypertension (ICD-10 - I10) Labs discussed and medications sent over to [facility] for patient. Pt should start follow up in 6 months and then have blood work retested 07/03/2024 Nicotine dependence, unspecified, uncomplicated (ICD-10 - [...] follow up as we discussed for anything, 01/14/2025 Neuropathy (ICD-10 - G62.9) Pt is [...] would like to see [facility] in [place] since it is close to home 07/03/2024 Other Body Mass Index : Care Instructions material was printed Plan Of Treatment No Information Insurance Providers Payer Name Payer Address Payer Phone Subscriber Number Group Number Insured Name Patient Relationship to Insured Coverage Start Date Coverage End Date [employer] MEDICARE ADVANTAGE [address] [place] [phone] [id number] COBY ARECHIGA Self - patient is the insured 4 5 [facility] [place] [place] [address] [place] [address] [id number] COBY ARECHIGA Self - patient is the insured 5 MEDICAID SEC TO [employer] ADV [address] [place] [address] [id number] COBY ARECHIGA Self - patient is the insured 3 MEDICARE CGS 1 [facility] [place] [phone] [id number] COBY ARECHIGA Self - patient is the insured 3 [facility] [place] [place] [address] [place] [address] [id number] COBY ARECHIGA Self - patient is the insured 3 3 [employer]ENT[employer] MEDICAID [place] [employer] [address] [place] [address] [id number] COBY ARECHIGA Self - patient is the insured 3 DENTAL [facility] [place] [address] [address] [place] [address] [id number] COBY ARECHIGA Self - patient is the insured 3 3 [employer] MEDICARE [address] [address] [employer] [place], [place] [address] [id number] COBY ARECHIGA Self - patient is the insured 3 5 DENTAL [employer] MEDICARE [address] [address] [employer] [phone] [id number] COBY ARECHIGA Self - patient is the insured 4 5 [facility] MCARE ADV [address] [place] [address] [id number] COBY ARECHIGA Self - patient is the insured 5 Medical (General) History Medical History History ICD Code GENERALIZED ANXIETY DISORDER HTN CROHNS CVA OCCIPITAL NEURALGIA INSOMNIA MIGRAINES DDD Hospitalization History Reason Date(Month/Year) CVA 05/12 IBS AND [facility] 04/2023
--- OUTSIDE RECORDS SUMMARY | 2025-06-29 10:32 | XMS_ITS | CCD ---
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 Name Role Phone DIANA, DR BEHZAD Perez Admitting Unavailable MISC, DR GÓMEZ Primary Care Unavailable DIANA, DR BEHZAD Perez Attending Unavailable DIANA, DR BEHZAD Perez Consulting Unavailable AHDOOT, VERONICA Consulting Unavailable Stafford, Ya Consulting Unavailable PAY, DR BARTLETT Admitting Unavailable MISC, DR GÓMEZ Primary Care Unavailable PAY, DR BARTLETT Attending Unavailable PAY, DR BARTLETT Consulting Unavailable GRECHNY, JESÚS POST Consulting Unavailable ZIEBER, DR BENJA Perez Consulting Unavailable REQUEST, NONE LISTED Primary Care UnavailFARSHAD Davis Admitting Unavailable ASIA, FARSHAD Attending Unavailable Renea, Donta Consulting Unavailable FARSHAD BETANCOURT Consulting Unavailable NA HINES Admitting Unavailable NA HIENS Attending Unavailable NA HINES Consulting Unavailable NA HINES Primary Care Unavailable NA HINES Attending Unavailable NA HINES Consulting Unavailable MISC, DR GÓMEZ Primary Care Unavailable NA HINES Admitting Unavailable Na Hines Unavailable NON STAFF Primary Care Provider UnavailMD Juan M Valdivia Attending Provider Juan M Masters Attending Unavailable Juan M Masters Admitting Unavailable NON STAFF Primary Care Unavailable Juan M Masters Unavailable Na CASTILLO Primary Care Physician Donny DIAMOND GRINDER - QUARTER TRIMMERNa Primary Care Provid er NA HINES Primary Care Unavailable HUSSEIN SUAREZ Admitting Unavailable TMIA SUAREZFAN Attending Unavailable NA HINES Attending Unavailable NA HINES Admitting Unavailable NA HINES Attending Unavailable NA HINES Admitting Unavailable Unallocated , Noms Provider Primary Care Provi julian Donny QUARTER TRIMMER, Na Unavailable RADHA ARMENDARIZ Attending Unavailable RADHA ARMENDARIZ Referring Unavailable Fátima POWERS, Art Dempsey Attending Unavailable Allergies Allergy Classification Reported Allergen(s) Allergy Type Date of Onset Reaction(s) Facility (4 sources) Codeine; Translations: [codeine] Drug Allergy 3 [facility]ository (15 sources) Codeine Drug Allergy vomiting [email or web address] Other (1 source) Codeine Drug Allergy 3 [facility] Repository (5 sources) Codeine; Translations: [codeine] Drug Allergy 2 Unknown, GI intolerance [facility] (2 sources) Lisinopril Allergy to substance 5 [facility] Medications Current Medications Medication Drug Class(es) Dates Sig (Normalized) Sig (Original) Acetaminophen (5 sources) Start: 04-27-2023 acetaminophen (TYLENOL) tablet 650 mg Start: 10-02-2020 End: 12-20-2020 take 500 mg by mouth every four hours Acetaminophen Discontinued 500 MG PO Q4H 0 October 02, 2020 12:00am December 20, 2020 6:58pm Start: 09-28-2020 End: 10-02-2020 take 650 mg by mouth every four hours Acetaminophen Discontinued 650 MG PO Q4H 0 September 28, 2020 12:00am October 02, 2020 12:00pm albuterol 0.83 mg/ml inhalation solution (2 sources) beta2-Adrenergic Agonist albuter ol (2.5 MG/3ML) 0.083% nebulizer solution Take by nebulization every 6 (six) hours if needed for wheezing Active ascorbic acid 500 mg chewable tablet (7 sources) Vitamin C Ascorbic Acid (v itamin C) 500 MG tablet 500 mg 1 (one) time each day at the same time Active take 1 tablet by mouth once joão y Ascorbic Acid (VITAMIN C) 1000 MG tablet Take 1 tablet by mouth daily 0 Active Vitamin C Active Bioflex (15 sources) Bioflex Active Blood Pressure Cuff - (11 sources) Start: 06-08-20 Blood Pressure Cuff - as directed May, Active Blood Pressure Monitor - (11 sources) Blood Pressure Monitor - as directed Active ciprofloxacin 500 mg oral tablet (3 sources) Quinolone Antimicrobial Start: 04-28-20 End: 05-05-20 take 1 tablet by mouth twice daily ciprofloxacin (CIPRO) 500 MG tablet Take 1 tablet by mouth 2 times daily for 7 days 14 tablet 0 04/28/2023 05/05/2023 Active Start: 04-26-2023 End: 04-27-2023 400 mg, IntraVENous, EVERY 1 2 HOURS, First dose on Sun04/27/23 at 1200, Until Discontinued Antimicrobial Indications: Infectious Diarrhea, Intra-Abdominal Infection clonazePAM 0.5 mg oral tablet (11 sources) Benzodiazepine take 1 tablet by mouth every eight hours clonazePAM 0.5 MG 1 tablet Orally every 8 hours Active Cobalamin Combinations (NEURIVA PLUS PO) (1 source) take 1 tablet by mouth once daily Cobalamin Combinations (NEURIVA PLUS PO) Take 1 tablet by mouth daily 0 Active cyclobenzaprine hydrochloride 5 mg oral tablet (2 sources) Muscle Relaxant Start: take 1 tablet by mouth in the morning, then take 1 tablet by mouth in the evening, then take 1 tablet by mouth at bedtime cyclobenzaprine (Flexeril) 5 MG tablet Take 5 mg by mouth in the morning and 5 mg in the evening and 5 mg before bedtime. 01/14/2025 Active doxycycline monohydrate 100 mg oral capsule (5 sources) Tetracycline-class Drug Start: take 1 capsule by mouth every twelve hours Doxycycline Monohydrate 100 MG 1 capsule Orally every 12 hrs for 10 days Dec, Active Elderberry Fruit And Flower (2 sources) Start: take 1 capsule by mouth once daily Elderberry Fruit And Flower Active 1 CAP PO Daily December 20, 2020 12:00am Start: 09-26-2020 End: 10-02-2020 take 1 capsule by mouth once daily Elderberry Fruit And Flower Discontinued 1 CAP PO Daily September 26, 2020 12:00am October 02, 2020 12:00pm Elderberry preparation (11 sources) Elderberry Activ e gabapentin 300 mg oral capsule (4 sources) Anti-epileptic Agent Start: 04-10-2023 gabapentin (NEURONTIN) capsule 300 mg gabapentin (Neur ontin) 300 MG capsule 300 mg 1 (one) time each day at the same time Active Hair Skin & Nails Gummies 1250-7.5-7.5 MCG-MG-UNT (4 sources) Hair Skin & Nail s Gummies 1250-7.5-7.5 MCG-MG-UNT as directed Orally Active hydrocortisone 100 mg injection (1 source) Corticosteroid Start: 023 hydrocortisone sodium succinate PF (SOLU-CORTEF) injection 60 mg hydrocortisone 10 mg/ml / neomycin 3.5 mg/ml / polymyxin b [id number] unt/ml otic solution (11 sources) Aminoglycoside Antibacterial, Polymyxin-class Antibacterial, Corticosteroid Start: 021 Kelmaswm-Ffqrxlrjm-KL [id number] 4 drops into affected ear Otic Three times a day for 7 day(s) Jul, Active ibuprofen 800 mg oral tablet (2 sources) Nonsteroidal Anti-inflammatory Drug take 1 tablet by mouth every eight hours ibuprofen 800 MG tablet 800 mg every 8 (eight) hours Active lisinopril 2.5 mg oral tablet (16 sources) Angiotensin Converting Enzyme Inhibitor Start: 020 take 1 tablet by mouth every twenty-four hours Lisinopril 2.5 MG 1 tablet Orally Once a day for 90 days Sep, Active 50 ml magnesium sulfate 40 mg/ml injection (1 source) Start: 023 2,000 mg, IntraVENous, at 25 mL/hr, Administer over 2 Hours, PRN, Other, Magnesium Replacement, Starting on Sun04/27/23 at 0034 [facility] Replacement Action 1.4-1.6 mg/dL &amp ;nbsp; 2,000 mg Total Dose Given as 1,000 mg IVPB x 2 doses or 2,000 mg IVPB x 1 dose &nbsp ; &n bsp; &nbsp ; &n bsp; &nbsp ; 1.0-1.3 mg/dL 4,000 mg Total Dose &nbsp ; &n bsp; &nbsp ; &n bsp; Given as 1,000 mg IVPB x 4 doses or 2,000 mg IVPB x 2 doses Less than 1.0 mg/dL CALL PHYSICIAN and give &nbsp ; &n bsp; &nbsp ; &n bsp; &nbsp ; 4,000 mg Total Dose &nbsp ; &n bsp; &nbsp ; &n bsp; &nbsp ; Given as 1,000 mg IVPB x 4 doses or 2,000 mg IVPB x 2 doses &nbs p;Infuse at 1,000 mg/hr Repeat Mag level next AM Protocol not for use in Patients with CrCl less than 30ml/min metroNIDAZOLE 500 mg oral tablet (3 sources) Nitroimidazole Antimicrobial Start: 023 End: 023 take 1 tablet by mouth twice daily metroNIDAZOLE (FLAGYL) 500 MG tablet Take 1 tablet by mouth 2 times daily for 7 days 14 tablet 0 04/28/2023 05/05/2023 Active Start: 04-27-2023 500 mg, IntraV ENous, EVERY 8 HOURS, First dose on Sun04/27/23 at 0800, Until Discontinued Antimicrobial Indications: Intra-Abdominal Infection, Infectious Diarrhea Start: 04-26-2023 End: 04-27-2023 metronidazole (FLAGYL) 500 m g in 0.9% NaCl 100 mL IVPB premix mometasone furoate 1 mg/ml topical cream (3 sources) Corticosteroid Start: 02-01-2023 mometasone (EL AUNDREA) 0.1 % cream Place 1 Units onto the skin daily 0 02/01/2023 Active mometasone (Eloc on) 0.1 % ointment Apply topically Daily Active Multiple Vitamin (Multi Vitamin) tablet (2 sources) Multiple Vitamin (Multi Vitamin) tablet 1 (one) time each day at the same time Active Multiple Vitamins-Minerals (MULTIVITAMIN ADULT EXTRA C PO) (1 source) take 1 tablet by mouth once daily Multiple Vitamins-Minerals (MULTIVITAMIN ADULT EXTRA C PO) Take 1 tablet by mouth daily 0 Active Multivitamin preparation (16 sources) Start: 12-20-2020 take 1 tablet by mouth once daily Multivitamin Active 1 TAB PO Daily December 20, 2020 12:00am Multivitamin Act fred naproxen 500 mg oral tablet (2 sources) Nonsteroidal Anti-inflammatory Drug Start: 04-06-2023 take 1 tablet by mouth twice daily as needed for pain Naprosyn 500 mg Tab 500 mg = 1 tab(s), Oral, BID, PRN for pain, # 20 tab(s), Refills(s) 0 Start Date: 04/06/23 Status: Ordered 24 hr nicotine 0.875 mg/hr transdermal system (2 sources) Cholinergic Nicotinic Agonist Start: 04-27-2023 nicotine (NICODERM CQ) 21 MG/24HR 1 patch Start: 10-02-2020 End: 12-20-2020 Nicotine Discontinued 1 EACH TRANSDERML Daily October 02, 2020 12:00am December 20, 2020 6:59pm nitrofurantoin, macrocrystals 25 mg / nitrofurantoin, monohydrate 75 mg oral capsule (11 sources) Nitrofuran Antibacterial Start: 03-22-2021 take 1 capsule by mouth every twelve hours Macrobid 100 MG 1 capsule with food Orally every 12 hrs for 7 days Mar, Active ondansetron (ZOFRAN-ODT) disintegrating tablet 4 mg (1 source) Start: 04-27-2023 ondansetron (ZOFRAN-ODT) disintegrating tablet 4 mg Potassium Chloride (1 source) Start: 04-27-2023 potassium chloride (KLOR-CON M) extended release tablet 40 mEq predniSONE 10 mg oral tablet (1 source) Start: 04-28-2023 predniSONE (DELTASONE) 10 MG tablet Take 1 tablet by mouth 2 times daily X 5 days then take 1 tablet by mouth once daily x 5 days then stop 15 tablet 0 04/28/2023 Active traMADol hydrochloride 50 mg oral tablet (2 sources) Opioid Agonist Start: 04-27-2023 End: 05-01-2023 take 1 tablet by mouth every six hours as needed for pain traMADol (ULTRAM) 50 MG tablet Indications: Crohn's disease of colon without complication (HCC) , Left lower quadrant abdominal pain Take 1 tablet by mouth every 6 hours as needed for Pain for up to 3 days. Max Daily Amount: 200 mg 12 tablet 0 04/28/2023 05/01/2023 Active Turmeric extract (1 source) take 2 capsules by mouth once daily Turmeric 400 MG CAPS Take 2 capsules by mouth daily 0 Active Vit L-Igqstdk-Ftqy-Rutin -Hb196 (Bioflex) 246-24-91-40 mg Tablet (1 source) Start: 12-20-2020 take 1 tablet by mouth once daily Vit K-Yuwtjva-Pdrr-Joanna n-Hb196 (Bioflex) 924-79-17-40 mg Tablet Active 1 TAB PO Daily December 20, 2020 12:00am Completed/Discontinued Medications Medication Drug Class(es) Dates Sig (Normalized) Sig (Original) aspirin 81 mg delayed release oral tablet (14 sources) Platelet Aggregation Inhibitor, Nonsteroidal Anti-inflammatory Drug Start: 09-28-2020 End: 10-25-2022 take 81 mg by mouth once daily in the morning Aspirin Discontinued 81 MG PO Every morning October 02, 2020 12:00am October 25, 2022 8:43am Baby Aspirin Act fred atorvastatin 40 mg oral tablet (20 sources) HMG-CoA Reductase Inhibitor Start: 09-28-2020 End: 04-27-2023 take 40 mg by mouth once daily 40 mg, Oral, DAILY, First dose on Sun04/27/23 at 0900, Until Discontinued cephalexin 500 mg oral capsule (1 source) Cephalosporin Antibacterial Start: 09-28-2020 End: 10-02-2020 take 1 capsule by mouth twice daily Cephalexin (Keflex) 500 mg capsule Discontinued 500 MG PO Twice daily 03 24September 28, 2020 12:00am October 02, 2020 12:00pm clopidogrel 75 mg oral tablet (20 sources) P2Y12 Platelet Inhibitor Start: 09-28-2020 End: 04-27-2023 take 75 mg by mouth once daily 75 mg, Oral, DAILY, First dose on Sun04/27/23 at 0900, Until Discontinued DULoxetine 30 mg delayed release oral capsule (20 sources) Serotonin and Norepinephrine Reuptake Inhibitor Start: 04-27-2023 End: 04-27-2023 take 1 capsule by mouth once daily 30 mg, Oral, DAILY, First dose on Sun04/27/23 at 0900, Until Discontinued Do not crush or break. May add contents of capsule to apple juice or apple sauce, but not chocolate. Start: 12-20-2020 take 60 mg by mouth once daily Duloxetine Active 60 MG PO Daily December 20, 2020 12:00am DULoxetine (Cymb prakash) [address] capsule 1 capsule 1 (one) time each day at the same time Active famotidine 20 mg oral tablet (3 sources) Histamine-2 Receptor Antagonist Start: 04-27-2023 take 20 mg by mouth twice daily 20 mg, Oral, 2 TIMES DAILY, First dose on Sun04/27/23 at 0100, Until Discontinued Start: 11-23-2015 take 1 tablet by mervat once daily famotidine 20 mg Tab 20 mg = 1 tab(s), Oral, Daily, # 30 tab(s), Refills(s) 0 Start Date: 11/23/15 Status: Ordered Handicap placards as directed (7 sources) Start: 11-14-2021 Handicap placa rds as directed to -11/13/2026 as directed as directed Oct, Active hydrOXYzine hydrochloride 10 mg oral tablet (13 sources) Antihistamine Start: 12-20-2020 End: 10-25-2022 take 10 mg by mouth once daily at bedtime Hydroxyzine Hcl Discontinued 10 MG PO Daily at bedtime December 20, 2020 12:00am October 25, 2022 8:43am Start: 09-26-2020 End: 10-02-2020 take 10 mg by mouth once daily in the morning Hydroxyzine Hcl Discontinued 10 MG PO Every morning September 26, 2020 12:00am October 02, 2020 12:00pm iopamidol (ISOVUE-370) 76 % injection 75 mL (1 source) Start: 04-26-2023 End: 04-26-2023 iopamidol (ISOVUE-370) 76 % injection 75 mL Ketorolac (20 sources) Nonsteroidal Anti-inflammatory Drug, Cyclooxygenase Inhibitor Start: 08-31-2020 Toradol per 15 mg Aug, 30 mg Start: 06-08-2020 Toradol per 15 mg May, 30 mg Start: 06-14-2012 Toradol per 15 mg May, mg losartan potassium 25 mg oral tablet (6 sources) Angiotensin 2 Receptor Apoorva Start: 12-12-2022 take 25 mg by mouth once daily 25 mg, Oral, DAILY, First dose on Sun04/27/23 at 1230, Until Discontinued mesalamine 500 mg extended release oral capsule (6 sources) Aminosalicylate Start: 04-25-2023 take 500 mg by mouth once daily 500 mg, Oral, DAILY, First dose on Sun04/27/23 at 1230, Until Discontinued Do not crush or break. Start: 11-02-2022 take 2 capsules by m outh every eight hours Pentasa 500 MG 2 capsules Orally THREE TIMES A DAY for 30 day(s) PLEASE CHECK ALLERGIES Oct, Active methylPREDNISolone 125 mg injection (1 source) Corticosteroid Start: 04-26-2023 End: 04-26-2023 methylPREDNISolone sodium succ (SOLU-MEDROL) injection 60 mg 24 hr metoprolol succinate 50 mg extended release oral tablet (20 sources) beta-Adrenergic Apoorva Start: 04-27-2023 take 50 mg by mouth once daily 50 mg, Oral, DAILY, First dose on Sun04/27/23 at 0900, Until Discontinued Do not crush or chew. Start: 05-18-2020 End: 10-25-2022 Metoprolol Succinate ER 50 M G 1 tablet at bedtime may take extra one if BP is above 140/90 Orally Once a day for 90 days Apr, Active 1 ml morphine sulfate 2 mg/ml cartridge (1 source) Opioid Agonist Start: 04-27-2023 End: 04-26-2023 morphine (PF) injection 2 mg Start: 04-27-2023 End: 04-26-2023 morphine (PF) injection 2 mg Multivitamin With Folic Acid (Thera) 400 mcg Tablet (1 source) Start: 10-02-2020 End: 12-20-2020 take 1 tablet by mouth once daily in the morning Multivitamin With Folic Acid (Thera) 400 mcg Tablet Discontinued 1 TAB PO Every morning October 02, 2020 12:00am December 20, 2020 6:59pm Oh-Bd-Mzfy-Fa-Ca Carb-Vit K (Women's Multivitamin) 18 mg iron-400 mcg-500 mg Tablet (1 source) Start: 09-26-2020 End: 10-02-2020 take 1 tablet by mouth once daily in the morning Xr-Yl-Sqvz-Fa-Ca Carb-Vit K (Women's Multivitamin) 18 mg iron-400 mcg-500 mg Tablet Discontinued 1 TAB PO Every morning September 26, 2020 12:00am October 02, 2020 12:00pm penicillin v potassium 500 mg oral tablet (2 sources) Start: 04-06-2023 End: 04-16-2023 take 1 tablet by mouth three times daily penicillin V potassium 500 mg Tab 500 mg = 1 tab(s), Oral, TID, Take one tab by mouth 3 times a day. # 30, X 10 day(s), # 30 tab(s), Refills(s) 0 Start Date: 04/06/23 Stop Date: 04/16/23 Status: Ordered polyethylene glycol 3350 41721 mg powder for oral solution (1 source) Osmotic Laxative Start: 04-27-2023 17 g, Oral, DAILY PRN, Starting on Sun04/27/23 at 0034, Until Discontinued, Constipation First line therapy for constipation 5 ml sodium chloride 9 mg/ml injection (4 sources) Start: 04-27-2023 10 mL, IntraVE Nous, EVERY 12 HOURS SCHEDULED (2 times per day), First dose on Sun04/27/23 at 0900, Until Discontinued Start: 04-27-2023 IntraVENous, a t 75 mL/hr, CONTINUOUS, Starting on Sun04/27/23 at 0100 Start: 04-27-2023 IntraVENous, a t 5-250 mL/hr, PRN, if patient receiving piggyback infusions and maintenance fluids are not ordered OR KVO fluids to protect IV site / prevent frequent line interruptions/ long duration, Starting on Sun04/27/23 at 0034 For piggyback infusion, administer at same rate as piggyback for a total of 25 mL. Enter 25 mL into dose field and piggyback rate into rate field of order. If piggyback is infusing at a rate less than 100 mL/hr, enter 25 mL into dose field and 100 mL/hr into rate field of order. For KVO fluids, enter rate of 20 mL/hr or less into rate field of order. Start: 04-27-2023 take 10 mL intraveno usly once as needed 10 mL, IntraVENous, PRN, Starting on Sun04/27/23 at 0034, Until Discontinued, Line Care, After every IV line use traZODone hydrochloride 50 mg oral tablet (20 sources) Serotonin Reuptake Inhibitor Start: 04-27-2023 take 100 mg by mouth once daily 100 mg, Oral, NIGHTLY, First dose on Sun04/27/23 at 0100, Until Discontinued Start: 06-08-2020 End: 10-02-2020 take 1 tablet by mouth every twenty-four hours traZODone HCl 100 MG 1 tablet at bedtime Orally Once a day for 30 days May, Active Triamcinolone (20 sources) Corticosteroid Start: 08-31-2020 KENALOG - 10 m g Aug, 40 mg Start: 06-08-2020 KENALOG - 10 m g May, 40 mg 24 hr venlafaxine 150 mg extended release oral capsule (13 sources) Serotonin and Norepinephrine Reuptake Inhibitor Start: 09-26-2020 End: 12-20-2020 take 150 mg by mouth once daily in the morning Venlafaxine Discontinued 150 MG PO Every morning October 02, 2020 12:00am December 20, 2020 6:59pm vitamin b12 0.1 mg oral tablet (1 source) Vitamin B12 End: 04-27-2023 take 1 tablet by mouth once daily Cyanocobalamin (B-12) 100 MCG TABS Take 100 mcg by mouth daily 0 04/27/2023 Discontinued (DUPLICATE) Problems Active Problems Problem Classification Problem Date Documented Date Episodic/Chronic Abdominal hernia (1 source) Hernia of anterior abdominal wall; Translations: [Ventral hernia without obstruction or gangrene] Onset: 04-06-2023 Episodic Abdominal pain (4 sources) Left lower quadrant pain; Translations: [Left lower quadrant pain] Onset: 04-27-2023 Episodic Acquired foot deformities (2 sources) Left foot drop; Translations: [Foot drop, left foot] 01-28-2025 Episodic Acute cerebrovascular disease (20 sources) Cerebrovascular accident; Translations: [Cerebral infarction, unspecified] Onset: 07-31-2021 Resolved: 04-12-2022 Chronic Administrative/social admission (1 source) Other reduced mobility; Translations: [Impaired mobility and activities of daily living] 09-29-2020 Episodic Anxiety disorders (18 sources) Generalized anxiety disorder; Translations: [Generalized anxiety disorder] Onset: 10-17-2021 Resolved: 04-12-2022 Chronic Chronic obstructive pulmonary disease and bronchiectasis (1 source) Chronic obstructive pulmonary disease, unspecified; Translations: [COPD UNSPECIFIED] Onset: 05-03-2021 Chronic Disorders of teeth and jaw (1 source) Disorder of teeth AND/OR supporting structures; Translations: [Other specified disorders of teeth and supporting structures] Onset: 04-06-2023 Episodic Esophageal disorders (1 source) Gastroesophageal reflux disease; Translations: [Gastro-esophageal reflux disease without esophagitis] 09-29-2020 Chronic Essential hypertension (20 sources) Essential (primary) hypertension; Translations: [Essential hypertension] Onset: 12-03-2020 Resolved: 05-22-2022 Chronic Headache; including migraine (15 sources) Refractory migraine with aura; Translations: [Persistent migraine aura without cerebral infarction, intractable, with status migrainosus] Chronic Headache; including migraine (4 sources) Headache; including migraine; Translations: [HEADACHE UNSPECIFIED] Onset: 09-15-2020 Mood disorders (16 sources) Major depressive disorder, single episode, unspecified; Translations: [Recurrent major depressive episodes, moderate ] Onset: 02-22-2021 Chronic Osteoporosis (15 sources) Osteoporosis; Translations: [Age-related osteoporosis without current pathological fracture] Chronic Other connective tissue disease (1 source) Fibromyalgia; Translations: [Fibromyalgia] 09-29-2020 Episodic Other connective tissue disease (1 source) Neurological deficit; Translations: [Other symptoms and signs involving the nervous system] 09-26-2020 Episodic Other ear and sense organ disorders (15 sources) Infective otitis externa; Translations: [Infective otitis externa, unspecified] Chronic Other nervous system disorders (1 source) Dysmetria; Translations: [Other lack of coordination] 09-26-2020 Episodic Other non-traumatic joint disorders (4 sources) Hip pain; Translations: [Pain in left hip] 01-28-2025 Episodic Regional enteritis and ulcerative colitis (13 sources) Crohn's disease; Translations: [Crohn's disease, unspecified, without complications] Onset: 10-25-2022 09-29-2020 Chronic Residual codes; unclassified (15 sources) Insomnia; Translations: [Insomnia, unspecified] Episodic Residual codes; unclassified (4 sources) Insomnia, unspecified Onset: 10-04-2021 Resolved: 01-03-2022 Episodic Residual codes; unclassified (1 source) Tobacco user; Translations: [Tobacco use] 09-29-2020 Episodic Residual codes; unclassified (1 source) Patient encounter status; Translations: [Encounter for prophylactic measures, unspecified] 09-29-2020 Episodic Spondylosis; intervertebral disc disorders; other back problems (15 sources) Degeneration of lumbar intervertebral disc; Translations: [Other intervertebral disc degeneration, lumbar region] Chronic Spondylosis; intervertebral disc disorders; other back problems (18 sources) Cervicalgia; Translations: [Cervico-occipital neuralgia] Onset: 12-03-2020 01-28-2025 Episodic Sprains and strains (15 sources) Lumbosacral strain; Translations: [Strain of muscle, fascia and tendon of lower back, initial encounter] Episodic Substance-related disorders (3 sources) Nicotine dependence, cigarettes, uncomplicated; Translations: [Smoker] Onset: 05-03-2021 11-22-2015 Chronic Comment on above: Added secondary to d ocumentation in Social History. 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; Translations: [OTH 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 CLERK CURRENT DRUG THERAPY] Onset: 05-03-2021 Episodic Other circulatory disease (1 source) Personal history of transient ischemic attack (TIA), and cerebral infarction without residual deficits; Translations: [PERS HX TIA AND CI NO RESID DEFICIT] Onset: 05-03-2021 Episodic Other connective tissue disease (1 source) Fibromyalgia; Translations: [FIBROMYALGIA] Onset: 05-03-2021 Episodic Other ear and sense organ disorders (1 source) Other infective otitis externa, left ear; Translations: [Other infective acute otitis externa of left ear H60.392] Onset: 07-31-2021 Resolved: 07-31-2021 Episodic Other lower respiratory disease (1 source) Hyperventilation; Translations: [HYPERVENTILATION] Onset: 12-03-2020 Episodic Other nervous system disorders (1 source) Paresthesia of skin; Translations: [PARESTHESIA OF SKIN] Onset: 12-03-2020 Episodic Other skin disorders (1 source) Epidermal cyst Onset: 01-03-2022 Resolved: 01-03-2022 Episodic Substance-related disorders (1 source) Cannabis use, unspecified, uncomplicated; Translations: [CANNABIS USE UNS UNCOMPLICATED] Onset: 05-03-2021 Episodic Suicide and intentional self-inflicted injury (4 sources) Suicidal ideations; Translations: [SUICIDAL IDEATIONS] Onset: 02-18-2021 Episodic Results Test Name Value Interpretation Reference Range Facility XR Hip - left 3 [facility] Result: AP and Lateral left hip weight bearing No acute fracture or dislocation Osteopenia noted. SI joints appears Sclerotic with arthritic changed Postsurgical changed to left Femur Joint space preserved left Hip joint, left Lumbar sacralization. Impression: postsurgical changed from left hip fracture [facility] observation (narrative) [facility] CBC w/ Auto Diffon 4 Basophils/100 WBC (Bld) 0.6 % Normal 0.0-2.[address] [facility] Comment on above: Performed By: #### 2 [id number] #### [facility] [address] [place] [address] Basophils/Leukocytes Auto (Bld) [Pure # fraction] 0.1 E9/L Normal 0.0-0.[address] [facility] Comment on above: Performed By: #### 2 [id number] #### [facility] [address] [place] [address] Eosinophils (Bld) [#/Vol] 0.1 E9/L Normal 0.0-0.[address] [facility] Comment on above: Performed By: #### 2 [id number] #### [facility] [address] [place] [address] Eosinophils/100 WBC (Bld) 1.2 % Normal 0.0-8.[address] [facility] Comment on above: Performed By: #### 2 [id number] #### [facility] [address] [place] [address] Erythrocyte distribution width (RBC) [Ratio] 12.8 % Normal 10.9-14.[address] [facility] Comment on above: Performed By: #### 2 [id number] #### [facility] [address] [place] [address] Hematocrit (Bld) [Volume fraction] 48.4 % High 34.0-46.[address] [facility] Comment on above: Performed By: #### 2 [id number] #### [facility] [address] [place] [address] Hemoglobin (Bld) [Mass/Vol] 16.2 g/dL High 12.0-16.[address] [facility] Comment on above: Performed By: #### 2 858114 #### [facility] [address] [place] [address] Lymphocytes (Bld) [#/Vol] 3.0 E9/L Normal 1.0-4.[address] [facility] Comment on above: Performed By: #### 2 844122 #### [facility] [address] [place] [address] Lymphocytes/100 WBC (Bld) 28.3 % Normal 14.0-50.[address] [facility] Comment on above: Performed By: #### 2 245495 #### [facility] [address] [place] [address] MCH (RBC) [Entitic mass] 31.0 pg Normal 27.0-34.[address] [facility] Comment on above: Performed By: #### 2 [id number] #### [facility] [address] [place] [address] MCHC (RBC) [Mass/Vol] 33.4 g/dL Normal 31.4-36.[address] [facility] Comment on above: Performed By: #### 2 [id number] #### [facility] [address] [place] [address] MCV (RBC) [Entitic vol] 92.7 fL Normal 80.0-100.[address] [facility] Comment on above: Performed By: #### 2 292260 #### [facility] [address] [place] [address] Monocytes (Bld) [#/Vol] 0.5 E9/L Normal 0.2-1.[address] [facility] Comment on above: Performed By: #### 2 [id number] #### [facility] [address] [place] [address] Neutrophils (Bld) [#/Vol] 7.0 E9/L Normal 2.0-7.[address] [facility] Comment on above: Performed By: #### 2 887394 #### [facility] [address] [place] [address] Neutrophils/100 WBC (Bld) 65.1 % Normal 36.0-75.[address] [facility] Comment on above: Performed By: #### 2 412713 #### [facility] [address] [place] [address] Platelet mean volume (Bld) [Entitic vol] 8.8 fL Normal 6.4-10.[address] [facility] Comment on above: Performed By: #### 2 188819 #### [facility] [address] [place] [address] Platelets (Bld) [#/Vol] 254.0 E9/L Normal 150.0-500.[address] [facility] Comment on above: Performed By: #### 2 087175 #### [facility] [address] [place] [address] RBC (Bld) [#/Vol] 5.2 E12/L Normal 4.3-5.[address] [facility] Comment on above: Performed By: #### 2 [id number] #### [facility] [address] [place] [address] WBC corrected for nucl RBC Auto (Bld) [#/Vol] 10.7 E9/L Normal 4.0-11.[address] [facility] Comment on above: Performed By: #### 2 [id number] #### [facility] [address] [place] [address] CMPon 06-17-2024 Albumin [Mass/Vol] 4.2 g/dL Normal 3.3-5.[address] [facility] Comment on above: Performed By: #### 2 [id number] #### [facility] [address] [place] [address] Albumin/Globulin (S) [Mass conc ratio] 2.0 Normal 1.1-2.[address] [facility] Comment on above: Performed By: #### 2 934294 #### [facility] [address] [place] [address] ALP [Catalytic activity/Vol] 113 Int._Unit/L High 21-[address] [facility] Comment on above: Performed By: #### 2 976949 #### [facility] [address] [place] [address] ALT No additional P-5'-P [Catalytic activity/Vol] 10 Int._Unit/L Normal 6-[address] [facility] Comment on above: Performed By: #### 2 [id number] #### [facility] [address] [place] [address] Anion gap [Moles/Vol] 11 mmol/L Normal 6-[address] [facility] Comment on above: Performed By: #### 2 864873 #### [facility] [address] [place] [address] AST [Catalytic activity/Vol] 15 Int._Unit/L Normal 5-[address] [facility] Comment on above: Performed By: #### 2 116968 #### [facility] [address] [place] [address] Bilirubin [Mass/Vol] 0.6 mg/dL Normal 0.0-1.1 [facility] Comment on above: Performed By: #### 2 [id number] #### [facility] [address] [place] [address] Calcium [Mass/Vol] 9.3 mg/dL Normal 8.9-11.[address] [facility] Comment on above: Performed By: #### 2 074128 #### [facility] [address] [place] [address] Chloride [Moles/Vol] 106 mmol/L Normal 101-111 [facility] Comment on above: Performed By: #### 2 [id number] #### [facility] [address] [place] [address] CO2 [Moles/Vol] 25 mmol/L Normal 21-31 [facility] Comment on above: Performed By: #### 2 [id number] #### [facility] [address] [place] [address] Creatinine [Mass/Vol] 0.7 mg/dL Normal 0.5-1.[address] [facility] Comment on above: Performed By: #### 2 247575 #### [facility] [address] [place] [address] Globulin (S) [Mass/Vol] 2.1 g/dL Normal 1.4-4.[address] [facility] Comment on above: Performed By: #### 2 307715 #### [facility] [address] [place] [address] Glucose [Mass/Vol] 133 mg/dL Normal 55-[address] [facility] Comment on above: Performed By: #### 2 134254 #### [facility] [address] [place] [address] Potassium [Moles/Vol] 4.1 mmol/L Normal 3.5-5.[address] [facility] Comment on above: Performed By: #### 2 157091 #### [facility] [address] [place] [address] Protein [Mass/Vol] 6.3 g/dL Normal 6.0-7.[address] [facility] Comment on above: Performed By: #### 2 763731 #### [facility] [address] [place] [address] Sodium [Moles/Vol] 138 mmol/L Normal 135-[address] [facility] Comment on above: Performed By: #### 2 [id number] #### [facility] [address] [place] [address] Urea nitrogen [Mass/Vol] 14 mg/dL Normal 5-[address] [facility] Comment on above: Performed By: #### 2 966432 #### [facility] [address] [place] [address] Urea nitrogen/Creatinine [Mass ratio] 20 No Units Normal 10-[address] [facility] Comment on above: Performed By: #### 2 212183 #### [facility] [address] [place] [address] [id number] 06-17-2024 HbA1c (Bld) [Mass fraction] 5.7 % Normal <=5.[address] [facility] Comment on above: Performed By: #### 7 [id number] #### [facility] [address] [place] [address] Lipid Panelon 06-17-2024 Cholesterol [Mass/Vol] 120 mg/dL Normal 120-[address] [facility] Comment on above: Performed By: #### 2 272746 #### [facility] [address] [place] [address] Cholesterol in HDL [Mass/Vol] 38 mg/dL Invalid Interpretation Code [facility] Comment on above: Result Comment: '>= 60 LOW RISK' '<= 40 HIGH RISK' Performed By: #### 2 [id number] #### [facility] [address] [place] [address] Cholesterol in LDL [Mass/Vol] 35 mg/dL Normal <=[address] [facility] Comment on above: Performed By: #### 2 913951 #### [facility] [address] [place] [address] Cholesterol in VLDL [Mass/Vol] 64 mg/dL High 7-[address] [facility] Comment on above: Performed By: #### 2 819579 #### [facility] [address] [place] [address] Triglyceride [Mass/Vol] 322 mg/dL High <=[address] [facility] Comment on above: Performed By: #### 2 210506 #### [facility] [address] [place] [address] Vit B12on 06-17-2024 Cobalamin (Vitamin B12) [Mass/Vol] 277 pg/mL Normal 50-[address] [facility] Comment on above: Performed By: #### 2 [id number] #### [facility] [address] [place] [address] eGFRon 06-17-2024 eGFR 104 mL/min/1.73 m2 Normal >=[address] [facility] Comment on above: Order Comment: Order added by Discern Expert. Performed By: #### 1 [id number] #### [facility] [address] [place] [address] C-Reactive Proteinon 023 CRP [Mass/Vol] 10.6 mg/L High 0.0-5.0 [facility] Comment on above: Performed By: #### C MPX, CDP #### [facility] [address] [place] [address] [employer] Pract[employer]er: Andres Haddad MD CRP High sensitivity method [Mass/Vol] 10.6 mg/L High 0.0 - 5.0 mg/L [facility] Interpretation and review of laboratory results Abnormal [facility] CBC auto differentialon Basophils (Bld) [#/Vol] 0.04 10*3/uL [facility] Basophils/100 WBC (Bld) 0 % 0 - 2 % [facility] Eosinophils (Bld) [#/Vol] [facility] Eosinophils/100 WBC (Bld) 0 % Low 1 - 4 % [facility] Erythrocyte distribution width (RBC) [Ratio] 12.4 % 11.8 - 14.4 % [facility] Hematocrit (Bld) [Volume fraction] 43.1 % 36.3 - 47.1 % [facility] Hemoglobin (Bld) [Mass/Vol] 14.5 g/dL 11.9 - 15.1 g/dL [facility] Immature granulocytes (Bld) [#/Vol] 0.09 10*3/uL [facility] Immature granulocytes/100 WBC (Bld) 1 % High 0 [facility] Interpretation and review of laboratory results Abnormal [facility] Lymphocytes/100 WBC (Bld) 19 % Low 24 - 43 % [facility] Lymphocytes/100 WBC (Bld) 2.43 % [facility] MCH (RBC) [Entitic mass] 30.4 pg 25.2 - 33.5 pg [facility] MCHC (RBC) [Mass/Vol] 33.6 g/dL 28.4 - 34.8 g/dL [facility] MCV (RBC) [Entitic vol] 90.4 fL 82.6 - 102.9 fL [facility] Monocytes/100 WBC (Bld) 7 % 3 - 12 % [facility] Monocytes/100 WBC (Bld) 0.86 % [facility] Neutrophils/100 WBC (Bld) 73 % High 36 - 65 % [facility] Nucleated RBC/100 WBC (Bld) [Ratio] 0.0 % 0.0 per 100 WBC [facility] Platelet mean volume (Bld) [Entitic vol] 9.5 fL 8.1 - 13.5 fL [facility] Platelets (Bld) [#/Vol] 230 10*3/uL [facility] RBC (Bld) [#/Vol] 4.77 10*6/uL 3.95 - 5.1 1 m/uL [facility] Segmented neutrophils/100 WBC (Bld) 9.10 % High [facility] WBC other (Bld) [#/Vol] 12.5 High [facility] CBC with Diffon 04-28-2023 Abs. Basophil 0.04 k/uL Normal 0.00-0.20 [facility] Comment on above: Performed By: #### C MPX, CDP #### [facility] [address] [place], [place] [id number] [employer] Pract[employer]er: Andres Haddad MD Abs. Eosinophil <0.03 Normal 0.00-0.44 [facility] Comment on above: Performed By: #### C MPX, CDP #### [facility] [address] [place], [facility]83 [employer] Practitioner: Andres Haddad MD Abs.Imm.Granulocyte 0.09 k/uL Normal 0.00-0.30 [facility] Comment on above: Performed By: #### C MPX, CDP #### [address] [place] [id number] [employer] Practitioner: Andres Haddad MD Abs.Neutrophil (Seg) 9.10 k/uL High 1.50-8.10 [facility] Comment on above: Performed By: #### C MPX, CDP #### [address] [place], [place] [address] [employer] Pract[employer]er: Andres Haddad MD Basophils/100 WBC (Bld) 0 % Normal 0-2 [facility] Comment on above: Performed By: #### C MPX, CDP #### [facility] [address] [place] [address] [place] [place], [facility]83 [employer] Practitioner: Andres Haddad MD Eosinophils/100 WBC (Bld) 0 % Low 1-4 [facility] Comment on above: Performed By: #### C MPX, CDP #### [address] [place], [facility]83 [employer] Practitioner: Andres Haddad MD Erythrocyte distribution width (RBC) [Ratio] 12.4 % Normal 11.8-14.4 [facility] Comment on above: Performed By: #### C MPX, CDP #### [address] [place], [facility]83 [employer] Practitioner: Andres Haddad MD Hematocrit (Bld) [Volume fraction] 43.1 % Normal 36.3-47.1 [facility] Comment on above: Performed By: #### C MPX, CDP #### [facility] [address] [place], [place] [id number] [employer] Practitioner: Andres Haddad MD Hemoglobin (Bld) [Mass/Vol] 14.5 g/dL Normal 11.9-15.1 [facility] Comment on above: Performed By: #### C MPX, CDP #### [facility] [address] [place], [facility]83 [employer] Practitioner: Andres Haddad MD Immature granulocytes/100 WBC (Bld) 1 % High 0 [facility] Comment on above: Performed By: #### C MPX, CDP #### [facility] [address] [place], [facility]83 [employer] Practitioner: Andres Haddad MD Lymphocytes (Bld) [#/Vol] 2.43 10*3/uL Normal 1.10-3.70 [facility] Comment on above: Performed By: #### C MPX, CDP #### [address] [place], [place] [id number] [employer] Practitioner: Andres Haddad MD Lymphocytes/100 WBC (Bld) 19 % Low 24-43 [facility] Comment on above: Performed By: #### C MPX, CDP #### [facility] [address] [place], [facility]83 [employer] Practitioner: Andres Haddad MD MCH (RBC) [Entitic mass] 30.4 pg Normal 25.2-33.5 [facility] Comment on above: Performed By: #### C MPX, CDP #### [facility] [address] [place], [facility]83 [employer] Practitioner: Andres Haddad MD MCHC (RBC) [Mass/Vol] 33.6 g/dL Normal 28.4-34.8 [facility] Comment on above: Performed By: #### C MPX, CDP #### [facility] [address] [place], [place] [id number] [employer] Practitioner: Andres Haddad MD MCV (RBC) [Entitic vol] 90.4 fL Normal 82.6-102.9 [facility] Comment on above: Performed By: #### C MPX, CDP #### [facility] [address] [place], [place] [id number] [employer] Practitioner: Andres Haddad MD Monocytes (Bld) [#/Vol] 0.86 10*3/uL Normal 0.10-1.20 [facility] Comment on above: Performed By: #### C MPX, CDP #### [address] [place], [place] 414[address]83 [employer] Practitioner: Andres Haddad MD Monocytes/100 WBC (Bld) 7 % Normal 3-12 [facility] Comment on above: Performed By: #### C MPX, CDP #### [address] [place], [place] [id number] [employer] Practitioner: Andres Haddad MD Neutrophil (Seg) 73 % High 36-65 [facility] Comment on above: Performed By: #### C MPX, CDP #### [address] [place], [place] [id number] [employer] Practitioner: Andres Haddad MD NRBC Automated 0.0 per 100 WBC Normal 0.0 [facility] Comment on above: Performed By: #### C MPX, CDP #### [facility] [address] [place] [address] [employer] Practitioner: Andres Haddad MD Platelet mean volume (Bld) [Entitic vol] 9.5 fL Normal 8.1-13.5 [facility] Comment on above: Performed By: #### C MPX, CDP #### [facility] [address] [place], [place] [address] [employer] Practitioner: Andres Haddad MD Platelets (Bld) [#/Vol] 230 10*3/uL Normal 138-453 [facility] Comment on above: Performed By: #### C MPX, CDP #### [facility] [address] [place], [place] [id number] [employer] Practitioner: Andres Haddad MD RBC (Bld) [#/Vol] 4.77 10*6/uL Normal 3.95-5.11 [facility] Comment on above: Performed By: #### C MPX, CDP #### [facility] [address] [place], [place] [address] [employer] Practitioner: Andres Haddad MD WBC (Bld) [#/Vol] 12.5 10*3/uL High 3.5-11.3 [facility] Comment on above: Performed By: #### C MPX, CDP #### [facility] [address] [place] [address] [employer] Pract[employer]er: Andres Haddad MD Comp Metabolic Pr/rfx MGon 0 - Albumin [Mass/Vol] 3.6 g/dL Normal 3.5-5.2 [facility] Comment on above: Performed By: #### C MPX, CDP #### [facility] [address] [place], [place] [id number] [employer] Practitioner: Andres Haddad MD Albumin/Glob Ratio 1.3 Normal 1.0-2.5 [facility] Comment on above: Performed By: #### C MPX, CDP #### [facility] [address] [place] [address] [employer] Practitioner: Andres Haddad MD Alkaline Phos 103 U/L Normal 35-104 [facility] Comment on above: Performed By: #### C MPX, CDP #### [facility] [address] [place], [place] 0669483 [employer] Practitioner: Andres Haddad MD ALT [Catalytic activity/Vol] 6 U/L Normal 5-33 [facility] Comment on above: Performed By: #### C MPX, CDP #### [facility] [address] [place], [place] [id number] [employer] Practitioner: Andres Haddad MD Anion gap [Moles/Vol] 10 mmol/L Normal 9-17 [facility] Comment on above: Performed By: #### C MPX, CDP #### [facility] [address] [place], [place] [address]83 [employer] Practitioner: Andres Haddad MD AST [Catalytic activity/Vol] 13 U/L Normal <32 [facility] Comment on above: Performed By: #### C MPX, CDP #### [facility] [address] [place], [place] 9888483 [employer] Practitioner: Andres Haddad MD Bilirubin [Mass/Vol] 0.3 mg/dL Normal 0.3-1.2 [facility] Comment on above: Performed By: #### C MPX, CDP #### [facility] [address] [place], [place] [id number] [employer] Practitioner: Andres Haddad MD BUN/CRE Ratio 13 Normal 9-20 [facility] Comment on above: Performed By: #### C MPX, CDP #### [facility] [address] [place], [place] [id number] [employer] Practitioner: Andres Haddad MD Calcium [Mass/Vol] 9.2 mg/dL Normal 8.6-10.4 [facility] Comment on above: Performed By: #### C MPX, CDP #### [facility] [address] [place], [place] [address]696283 [employer] Practitioner: Andres Haddad MD Chloride [Moles/Vol] 112 mmol/L High 98-107 [facility] Comment on above: Performed By: #### C MPX, CDP #### [facility] [address] [place] [address] [employer] Pract[employer]er: Andres Haddad MD CO2 [Moles/Vol] 24 mmol/L Normal 20-31 [facility] Comment on above: Performed By: #### C MPX, CDP #### [facility] [address] [place] [address] [employer] Practitioner: Andres Haddad MD Creatinine [Mass/Vol] 0.54 mg/dL Normal 0.50-0.90 [facility] Comment on above: Performed By: #### C MPX, CDP #### [facility] [address] [place] [address] [employer] Practitioner: Andres Haddad MD GFR/1.73 sq M.predicted among non-blacks MDRD (S/P/Bld) [Vol rate/Area] mL/min/{1.73_m2} Normal >60 [facility] Comment on above: Result Comment: These results are not intended for use in patients <18 years of age. eGFR results are calculated without a race factor using the 2020 CKD-EPI equation. Careful clinical correlation is recommended, particularly when comparing to results calculated using previous equations. The CKD-EPI equation is less accurate in patients with extremes of muscle mass, extra-renal metabolism of creatine, excessive creatine ingestion, or following therapy that affects renal tubular secretion. Performed By: #### C MPX, CDP #### [facility] [address] [place] [address] [employer] Practitioner: Andres Haddad MD Glucose [Mass/Vol] 111 mg/dL High 70-99 [facility] Comment on above: Performed By: #### C MPX, CDP #### [facility] [address] [place] [address] [employer] Practitioner: Andres Haddad MD Potassium [Moles/Vol] 4.2 mmol/L Normal 3.7-5.3 [facility] Comment on above: Performed By: #### C MPX, CDP #### [facility] [address] [place] [address] [employer] Practitioner: Andres Haddad MD Protein [Mass/Vol] 6.3 g/dL Low 6.4-8.3 [facility] Comment on above: Performed By: #### C MPX, CDP #### [facility] [address] [place] [address] [employer] Practitioner: Andres Haddad MD Sodium [Moles/Vol] 146 mmol/L High 135-144 [facility] Comment on above: Performed By: #### C MPX, CDP #### [facility] [address] [place] [address] [employer] Practitioner: Andres Haddad MD Urea nitrogen [Mass/Vol] 7 mg/dL Normal 6-20 [facility] Comment on above: Performed By: #### C MPX, CDP #### [facility] [address] [place] [address] [employer] Pract[employer]er: Andres Haddad MD Comprehensive Metabolic Pane l w/ Reflex to on 04-28-2023 Albumin [Mass/Vol] 3.6 g/dL 3.5 - 5.2 g/dL [facility] Albumin/Globulin [Mass ratio] 1.3 {ratio} 1.0 - 2.5 [facility] ALP [Catalytic activity/Vol] 103 U/L 35 - 104 U/L [facility] ALT [Catalytic activity/Vol] 6 U/L 5 - 33 U/L [facility] Anion gap [Moles/Vol] 10 mmol/L 9 - 17 mmol/L [facility] AST [Catalytic activity/Vol] 13 U/L NINF - 32 U/L [facility] Bilirubin [Mass/Vol] 0.3 mg/dL 0.3 - 1 .2 mg/dL [facility] Calcium [Mass/Vol] 9.2 mg/dL 8.6 - 10. 4 mg/dL [facility] Chloride [Moles/Vol] 112 mmol/L High 98 - 10 7 mmol/L [facility] CO2 [Moles/Vol] 24 mmol/L 20 - 31 mmol/L [facility] Creatinine [Mass/Vol] 0.54 mg/dL 0.50 - 0.90 mg/dL [facility] GFR/1.73 sq M.predicted MDRD (S/P/Bld) [Vol rate/Area] - PINF [facility] Comment on above: These results are not intended for use in patients <18 years of age. eGFR results are calculated without a race factor using the 2020 CKD-EPI equation. Careful clinical correlation is recommended, particularly when comparing to results calculated using previous equations. The CKD-EPI equation is less accurate in patients with extremes of muscle mass, extra-renal metabolism of creatine, excessive creatine ingestion, or following therapy that affects renal tubular secretion. Glucose [Mass/Vol] 111 mg/dL High 70 - 99 mg/dL [facility] Interpretation and review of laboratory results Abnormal [facility] Potassium [Moles/Vol] 4.2 mmol/L 3.7 - 5.3 mmol/L [facility] Protein [Mass/Vol] 6.3 g/dL Low 6.4 - 8.3 g/dL [facility] Sodium [Moles/Vol] 146 mmol/L High 135 - 144 mmol/L [facility] Urea nitrogen [Mass/Vol] 7 mg/dL 6 - 20 mg/dL [facility] Urea nitrogen/Creatinine [Mass ratio] 13 mg/mg 9 - 20 [facility] Gastrointestinal Panel, [facility]on 04-28-2023 Campylobacter sp DNA FAITH+probe Nom (Unsp spec) NEGATIVE: No Campylobacter spp. (jejuni or coli) DNA Detected [facility] E. coli enterotoxigenic eltA+estB genes FAITH+probe Ql (Stl) NEGATIVE: No Enterotoxigenic E. coli (ETEC) Heat-labile and heat-stable (LT/ST) DNA Detected [facility] P. shigelloides DNA FAITH+probe Ql (Stl) Negative [facility] Salmonella sp DNA FAITH+probe Ql (Unsp spec) Negative [facility] Shiga toxin stx gene FAITH+probe Nom (Unsp spec) Negative [facility] Shigella sp DNA FAITH+probe Ql (Unsp spec) Negative [facility] Specimen Description .FECES [facility] V. cholerae+parahaemoly ticus rfbL+trkH+tnaA genes FAITH+probe Ql (Stl) NEGATIVE: No Vibrio (V. vulnificus, V, parahaemolyticus and V. cholerae) DNA Detected [facility] Y. enterocolitica recN gene FAITH+probe Ql (Stl) Negative [facility] Stool PCR [place] 04-28-20 Campylobacter sp PCR NEGATIVE: No Campylobacter spp. (jejuni or coli) DNA Detected Normal [facility] Comment on above: Performed By: #### S TLPCR #### [address] [address] [employer] Practitioner: Charan Dye MD [facility] [address] [place] [address] [place] [address] [employer] Practitioner: Andres Haddad MD E coli enterotox PCR NEGATIVE: No Enterotoxigenic E. coli (ETEC) Heat-labile and heat-stable (LT/ST) Normal [facility] Comment on above: Result Comment: DNA Detected Performed By: #### S TLPCR #### [address] [address] [employer] Practitioner: Charan Dye MD [facility] [address] [place] [address] Dr[address] [place] [id number] [employer] Practitioner: Andres Haddad MD Plesiomonas sp PCR Negative Normal [facility] Comment on above: Performed By: #### S TLPCR #### [address] [address] [employer] Practitioner: Charan Dye MD [facility] [address] [place] [address] [place], [place] [id number] [employer] Practitioner: Andres Haddad MD Salmonella sp PCR Negative Normal SALNEG [facility] Comment on above: Performed By: #### S TLPCR #### [facility] [address] [place] [address] [employer] Practitioner: Charan Dye MD [facility] [address] [place] [address] [place]. [place], [place] [id number] [employer] Practitioner: Andres Haddad MD Shigatoxin gene PCR Negative Normal STXNEG [facility] Comment on above: Performed By: #### S TLPCR #### [facility] [address] [place] [address] [employer] Practitioner: Charan Dye MD [facility] [address] [place] [address] Dr. [place], [place] [id number] [employer] Practitioner: Andres Haddad MD Shigella sp PCR Negative Normal SHINEG [facility] Comment on above: Performed By: #### S TLPCR #### [facility] [address] [place] [address] [place] [address] [employer] Practitioner: Charan Dye MD [facility] [address] [place] [address] [place] [address] [employer] Practitioner: Andres Haddad MD Vibrio sp PCR NEGATIVE: No Vibrio (V. vulnificus, V, parahaemolyticus and V. cholerae) DNA [facility] Comment on above: Result Comment: Dete cted Performed By: #### S TLPCR #### [facility] [address] [place] [address] [employer] Practitioner: Charan Dye MD [facility] [address] [place] [address] [place], [place] [id number] [employer] Practitioner: Andres Haddad MD Yersinia gene PCR Negative [facility] Comment on above: Performed By: #### S TLPCR #### [facility] [address] [place] [address] [employer] Practitioner: Charan Dye MD [facility] [address] [place] [address] [employer] Practitioner: Andres Haddad MD C diff Ag + Toxinon 04-27-20 23 C diff Ag + Toxin Negative Normal NEG [facility] Comment on above: Result Comment: No C . difficile antigen and Toxin Detected. Performed By: #### C DIFQ #### [facility] [address] [place] [address] [employer] Practitioner: Andres Haddad MD Specimen Description .FECES Normal [facility] Comment on above: Performed By: #### C DIFQ #### [facility] [address] [place] [address] [employer] Practitioner: Andres Haddad MD CBC auto differentialon Basophils (Bld) [#/Vol] [facility] Basophils/100 WBC (Bld) 0 % 0 - 2 % [facility] Eosinophils (Bld) [#/Vol] [facility] Eosinophils/100 WBC (Bld) 0 % Low 1 - 4 % [facility] Erythrocyte distribution width (RBC) [Ratio] 12.1 % 11.8 - 14.4 % [facility] Hematocrit (Bld) [Volume fraction] 42.7 % 36.3 - 47.1 % [facility] Hemoglobin (Bld) [Mass/Vol] 14.6 g/dL 11.9 - 15.1 g/dL [facility] Immature granulocytes (Bld) [#/Vol] 0.06 10*3/uL [facility] Immature granulocytes/100 WBC (Bld) 1 % High 0 [facility] Interpretation and review of laboratory results Abnormal [facility] Lymphocytes/100 WBC (Bld) 8 % Low 24 - 43 % [facility] Lymphocytes/100 WBC (Bld) 0.80 % Low [facility] MCH (RBC) [Entitic mass] 30.6 pg 25.2 - 33.5 pg [facility] MCHC (RBC) [Mass/Vol] 34.2 g/dL 28.4 - 34.8 g/dL [facility] MCV (RBC) [Entitic vol] 89.5 fL 82.6 - 102.9 fL [facility] Monocytes/100 WBC (Bld) 1 % Low 3 - 12 % [facility] Monocytes/100 WBC (Bld) 0.09 % Low [facility] Neutrophils/100 WBC (Bld) 90 % High 36 - 65 % [facility] Nucleated RBC/100 WBC (Bld) [Ratio] 0.0 % 0.0 per 100 WBC [facility] Platelet mean volume (Bld) [Entitic vol] 9.5 fL 8.1 - 13.5 fL [facility] Platelets (Bld) [#/Vol] 219 10*3/uL [facility] RBC (Bld) [#/Vol] 4.77 10*6/uL 3.95 - 5.1 1 m/uL [facility] Segmented neutrophils/100 WBC (Bld) 8.55 % High [facility] WBC other (Bld) [#/Vol] 9.5 [facility] CBC with Diffon 04-27-2023 Abs. Basophil <0.03 Normal 0.00-0.20 [facility] Comment on above: Performed By: #### C MPX, CDP #### [facility] [address] [place] [address] Dr. [place], [place] [id number] [employer] Practitioner: Andres Haddad MD Abs. Eosinophil <0.03 Normal 0.00-0.44 [facility] Comment on above: Performed By: #### C MPX, CDP #### [facility] [address] [place], [place] [id number] [employer] Practitioner: Andres Haddad MD Abs.Imm.Granulocyte 0.06 k/uL Normal 0.00-0.30 [facility] Comment on above: Performed By: #### C MPX, CDP #### [facility] [address] [place] [address] [employer] Practitioner: Andres Haddad MD Abs.Neutrophil (Seg) 8.55 k/uL High 1.50-8.10 [facility] Comment on above: Performed By: #### C MPX, CDP #### [facility] [address] [place] [address] [place], [place] [phone] [employer] Practitioner: Andres Haddad MD Basophils/100 WBC (Bld) 0 % Normal 0-2 [facility] Comment on above: Performed By: #### C MPX, CDP #### [address] [place], [place] [id number] [employer] Practitioner: Andres Haddad MD Eosinophils/100 WBC (Bld) 0 % Low 1-4 [facility] Comment on above: Performed By: #### C MPX, CDP #### [address] [place], [place] [phone] [employer] Practitioner: Andres Haddad MD Erythrocyte distribution width (RBC) [Ratio] 12.1 % Normal 11.8-14.4 [facility] Comment on above: Performed By: #### C MPX, CDP #### [address] [place], [place] [id number] [employer] Practitioner: Andres Haddad MD Hematocrit (Bld) [Volume fraction] 42.7 % Normal 36.3-47.1 [facility] Comment on above: Performed By: #### C MPX, CDP #### [address] [place], [place] [id number] [employer] Practitioner: Andres Haddad MD Hemoglobin (Bld) [Mass/Vol] 14.6 g/dL Normal 11.9-15.1 [facility] Comment on above: Performed By: #### C MPX, CDP #### [address] [place], [place] [phone] [employer] Practitioner: Andres Haddad MD Immature granulocytes/100 WBC (Bld) 1 % High 0 [facility] Comment on above: Performed By: #### C MPX, CDP #### [facility] [address] [place] [address] [employer] Practitioner: Andres Haddad MD Lymphocytes (Bld) [#/Vol] 0.80 10*3/uL Low 1.10-3.70 [facility] Comment on above: Performed By: #### C MPX, CDP #### [address] [place], [facility]83 [employer] Practitioner: Andres Haddad MD Lymphocytes/100 WBC (Bld) 8 % Low 24-43 [facility] Comment on above: Performed By: #### C MPX, CDP #### [address] [place], [facility]83 [employer] Practitioner: Andres Haddad MD MCH (RBC) [Entitic mass] 30.6 pg Normal 25.2-33.5 [facility] Comment on above: Performed By: #### C MPX, CDP #### [address] [place], [facility]83 [employer] Practitioner: Andres Haddad MD MCHC (RBC) [Mass/Vol] 34.2 g/dL Normal 28.4-34.8 [facility] Comment on above: Performed By: #### C MPX, CDP #### [address] [place], [facility]83 [employer] Practitioner: Andres Haddad MD MCV (RBC) [Entitic vol] 89.5 fL Normal 82.6-102.9 [facility] Comment on above: Performed By: #### C MPX, CDP #### [address] [place] [address] [employer] Practitioner: Andres Hadadd MD Monocytes (Bld) [#/Vol] 0.09 10*3/uL Low 0.10-1.20 [facility] Comment on above: Performed By: #### C MPX, CDP #### [facility] [address] [place], [place] [id number] [employer] Practitioner: Andres Haddad MD Monocytes/100 WBC (Bld) 1 % Low 3-12 [facility] Comment on above: Performed By: #### C MPX, CDP #### [facility] [address] [place], [place] [id number] [employer] Practitioner: Andres Haddad MD Neutrophil (Seg) 90 % High 36-65 [facility] Comment on above: Performed By: #### C MPX, CDP #### [facility] [address] [place], [place] [phone] [employer] Practitioner: Andres Haddad MD NRBC Automated 0.0 per 100 WBC Normal 0.0 [facility] Comment on above: Performed By: #### C MPX, CDP #### [facility] [address] [place], [place] [id number] [employer] Practitioner: Andres Haddad MD Platelet mean volume (Bld) [Entitic vol] 9.5 fL Normal 8.1-13.5 [facility] Comment on above: Performed By: #### C MPX, CDP #### [address] [place], [place] [phone] [employer] Practitioner: Andres Haddad MD Platelets (Bld) [#/Vol] 219 10*3/uL Normal 138-453 [facility] Comment on above: Performed By: #### C MPX, CDP #### [facility] [address] [place], [place] [id number] [employer] Practitioner: Andres Haddad MD RBC (Bld) [#/Vol] 4.77 10*6/uL Normal 3.95-5.11 [facility] Comment on above: Performed By: #### C MPX, CDP #### [facility] [address] [place], [place] [phone] [employer] Practitioner: Andres Haddad MD WBC (Bld) [#/Vol] 9.5 10*3/uL Normal 3.5-11.3 [facility] Comment on above: Performed By: #### C MPX, CDP #### [facility] [address] [place] [address] [employer] Practitioner: Andres Haddad MD CT ABDOMEN PELVIS W IV CONTR Azul 04-27-2023 CT ABDOMEN PELVIS W IV CONTRAST EXAMINATION: CT OF THE ABDOMEN AND PELVIS WITH CONTRAST 04/26/2023 10:01 pm TECHNIQUE: CT of the abdomen and pelvis was performed with the administration of intravenous contrast. Multiplanar reformatted images are provided for review. Automated exposure control, iterative reconstruction, and/or weight based adjustment of the mA/kV was utilized to reduce the radiation dose to as low as reasonably achievable. COMPARISON: None HISTORY: ORDERING SYSTEM PROVIDED HISTORY: distension, diffuse pain, h/o Crohns TECHNOLOGIST PROVIDED HISTORY: Distension, diffuse pain, h/o Crohns Decision Support Exception - unselect if not a suspected or confirmed emergency medical condition->Emergency Medical Condition (MA) FINDINGS: Lower Chest: Heart size is normal. [place] dependent atelectasis is noted in the lung bases. Noncalcified pulmonary nodule is noted in the left lower lobe measuring 4 mm. No follow-up imaging required. No pleural effusion or pneumothorax. Organs: The liver, adrenal glands, pancreas, and spleen are unremarkable. There is an area of cortical thinning in the lower pole of the right kidney, likely related to sequela of remote infection or vascular insult. No hydronephrosis. GI/Bowel: There are inflammatory changes surrounding the sigmoid colon, concerning for an infectious/inflammato ry process. The appendix is not visualized. No bowel obstruction. Debris is noted in the stomach. Duodenal sweep is unremarkable. Pelvis: The bladder is partially distended with urine. The uterus is surgically absent. No adnexal masses. No inguinal or pelvic sidewall adenopathy. Peritoneum/Retroperit oneum: Atherosclerotic plaque is noted in the aorta. No retroperitoneal adenopathy. Bones/Soft Tissues: There are several supraumbilical hernias containing fat. No appreciable soft tissue swelling. Degenerative changes are noted in the spine and sacroiliac joints. There is sequela of prior surgery in the proximal left femur. There is a probable chronic L1 superior endplate fracture. There is a transitional S1 type vertebral body. IMPRESSION: *Marked inflammatory changes surrounding the sigmoid colon, likely related to an infectious/inflammato ry process versus an underlying Crohn's exacerbation. No focal fluid collection or abscess. *Supraumbilical hernias containing fat. *Cholecystectomy. *Suspected chronic L1 superior endplate fracture. RECOMMENDATIONS: 4 mm left solid pulmonary nodule. No routine follow-up imaging is recommended per Fleischner Society Guidelines. These guidelines do not apply to immunocompromised patients and patients with cancer. Follow up in patients with significant comorbidities as clinically warranted. For lung cancer screening, adhere to Lung-RADS guidelines. Reference: Radiology. 2017; 284(1):228-43. Interpreted by: Huseyin Joyce MD Signed by: Huseyin Joyce MD 04/27/23 Final result Normal [facility] CT ABDOMEN PELVIS W IV CONTR AST Additional Contrast? Noneon 04-27-2023 *Marked inflammatory changes surrounding the sigmoid colon, likely related to an infectious/inflammato ry process versus an underlying Crohn's exacerbation. No focal fluid collection or abscess. *Supraumbilical hernias containing fat. *Cholecystectomy. *Suspected chronic L1 superior endplate fracture. RECOMMENDATIONS: 4 mm left solid pulmonary nodule. No routine follow-up imaging is recommended per Fleischner Society Guidelines. These guidelines do not apply to immunocompromised patients and patients with cancer. Follow up in patients with significant comorbidities as clinically warranted. For lung cancer screening, adhere to Lung-RADS guidelines. Reference: Radiology. 2017; 284(1):228-43. [facility] RIS CONSOLIDATED EXAMINATION: CT OF THE ABDOMEN AND PELVIS WITH CONTRAST 04/26/2023 10:01 pm TECHNIQUE: CT of the abdomen and pelvis was performed with the administration of intravenous contrast. Multiplanar reformatted images are provided for review. Automated exposure control, iterative reconstruction, and/or weight based adjustment of the mA/kV was utilized to reduce the radiation dose to as low as reasonably achievable. COMPARISON: None HISTORY: ORDERING SYSTEM PROVIDED HISTORY: distension, diffuse pain, h/o Crohns TECHNOLOGIST PROVIDED HISTORY: Distension, diffuse pain, h/o Crohns Decision Support Exception - unselect if not a suspected or confirmed emergency medical condition->Emergency Medical Condition (MA) FINDINGS: Lower Chest: Heart size is normal. [place] dependent atelectasis is noted in the lung bases. Noncalcified pulmonary nodule is noted in the left lower lobe measuring 4 mm. No follow-up imaging required. No pleural effusion or pneumothorax. Organs: The liver, adrenal glands, pancreas, and spleen are unremarkable. There is an area of cortical thinning in the lower pole of the right kidney, likely related to sequela of remote infection or vascular insult. No hydronephrosis. GI/Bowel: There are inflammatory changes surrounding the sigmoid colon, concerning for an infectious/inflammato ry process. The appendix is not visualized. No bowel obstruction. Debris is noted in the stomach. Duodenal sweep is unremarkable. Pelvis: The bladder is partially distended with urine. The uterus is surgically absent. No adnexal masses. No inguinal or pelvic sidewall adenopathy. Peritoneum/Retroperit oneum: Atherosclerotic plaque is noted in the aorta. No retroperitoneal adenopathy. Bones/Soft Tissues: There are several supraumbilical hernias containing fat. No appreciable soft tissue swelling. Degenerative changes are noted in the spine and sacroiliac joints. There is sequela of prior surgery in the proximal left femur. There is a probable chronic L1 superior endplate fracture. There is a transitional S1 type vertebral body. [facility]IS CONSOLID[facility] Huseyin Joyce MD - 04/27/2023 EXAMINATION: CT OF THE ABDOMEN AND PELVIS WITH CONTRAST 04/26/2023 10:01 pm TECHNIQUE: CT of the abdomen and pelvis was performed with the administration of intravenous contrast. Multiplanar reformatted images are provided for review. Automated exposure control, iterative reconstruction, and/or weight based adjustment of the mA/kV was utilized to reduce the radiation dose to as low as reasonably achievable. COMPARISON: None HISTORY: ORDERING SYSTEM PROVIDED HISTORY: distension, diffuse pain, h/o Crohns TECHNOLOGIST PROVIDED HISTORY: Distension, diffuse pain, h/o Crohns Decision Support Exception - unselect if not a suspected or confirmed emergency medical condition->Emergency Medical Condition (MA) FINDINGS: Lower Chest: Heart size is normal. [place] dependent atelectasis is noted in the lung bases. Noncalcified pulmonary nodule is noted in the left lower lobe measuring 4 mm. No follow-up imaging required. No pleural effusion or pneumothorax. Organs: The liver, adrenal glands, pancreas, and spleen are unremarkable. There is an area of cortical thinning in the lower pole of the right kidney, likely related to sequela of remote infection or vascular insult. No hydronephrosis. GI/Bowel: There are inflammatory changes surrounding the sigmoid colon, concerning for an infectious/inflammato ry process. The appendix is not visualized. No bowel obstruction. Debris is noted in the stomach. Duodenal sweep is unremarkable. Pelvis: The bladder is partially distended with urine. The uterus is surgically absent. No adnexal masses. No inguinal or pelvic sidewall adenopathy. Peritoneum/Retroperit oneum: Atherosclerotic plaque is noted in the aorta. No retroperitoneal adenopathy. Bones/Soft Tissues: There are several supraumbilical hernias containing fat. No appreciable soft tissue swelling. Degenerative changes are noted in the spine and sacroiliac joints. There is sequela of prior surgery in the proximal left femur. There is a probable chronic L1 superior endplate fracture. There is a transitional S1 type vertebral body. IMPRESSION: *Marked inflammatory changes surrounding the sigmoid colon, likely related to an infectious/inflammato ry process versus an underlying Crohn's exacerbation. No focal fluid collection or abscess. *Supraumbilical hernias containing fat. *Cholecystectomy. *Suspected chronic L1 superior endplate fracture. RECOMMENDATIONS: 4 mm left solid pulmonary nodule. No routine follow-up imaging is recommended per Fleischner Society Guidelines. These guidelines do not apply to immunocompromised patients and patients with cancer. Follow up in patients with significant comorbidities as clinically warranted. For lung cancer screening, adhere to Lung-RADS guidelines. Reference: Radiology. 2017; 284(1):228-43. [facility] CT ABDOMEN PELVIS W IV CONTR AST Additional Contrast? NoneOrdered By: Huseyin Joyce on 04-27-2023 [facility] Work Phone: Clostridium Difficile Toxin/ Antigenon 04-27-2023 C. difficile glutamate dehydrogenase and toxins A+B IA.rapid Ql (Stl) Negative NEGATIVE [facility] Comment on above: No C. difficile anti gen and Toxin Detected. Specimen Description .FECES [facility] Comp Metabolic Pr/rfx MGon 0 04-27-2023 Albumin [Mass/Vol] 3.9 g/dL Normal 3.5-5.2 [facility] Comment on above: Performed By: #### C MPX, CDP #### [facility] [address] [place], [place] [id number] [employer] Practitioner: Andres Haddad MD Albumin/Glob Ratio 1.3 Normal 1.0-2.5 [facility] Comment on above: Performed By: #### C MPX, CDP #### [facility] [address] [place], [place] [id number] [employer] Practitioner: Andres Haddad MD Alkaline Phos 126 U/L High 35-104 [facility] Comment on above: Performed By: #### C MPX, CDP #### [facility] [address] [place], [place] [id number] [employer] Electric Practitioner: Andres Haddad MD ALT [Catalytic activity/Vol] 8 U/L Normal 5-33 [facility] Comment on above: Performed By: #### C MPX, CDP #### [facility] [address] [place], [place] [id number] [employer] Practitioner: Andres Haddad MD Anion gap [Moles/Vol] 8 mmol/L Low 9-17 [facility] Comment on above: Performed By: #### C MPX, CDP #### [facility] [address] [place] [address] [place] [place], [place] [id number] [employer] Practitioner: Andres Haddad MD AST [Catalytic activity/Vol] 14 U/L Normal <32 [facility] Comment on above: Performed By: #### C MPX, CDP #### [facility] [address] [place], [place] [id number] [employer] Practitioner: Andres Haddad MD Bilirubin [Mass/Vol] 0.3 mg/dL Normal 0.3-1.2 [facility] Comment on above: Performed By: #### C MPX, CDP #### [facility] [address] [place] [address] [employer] Practitioner: Andres Haddad MD BUN/CRE Ratio 20 Normal 9-20 [facility] Comment on above: Performed By: #### C MPX, CDP #### [facility] [address] [place], [place] [id number] [employer] Practitioner: Andres Haddad MD Calcium [Mass/Vol] 9.5 mg/dL Normal 8.6-10.4 [facility] Comment on above: Performed By: #### C MPX, CDP #### [facility] [address] [place], [place] 8010483 [employer] Practitioner: Andres Haddad MD Chloride [Moles/Vol] 110 mmol/L High 98-107 [facility] Comment on above: Performed By: #### C MPX, CDP #### [facility] [address] [place], [place] 2472983 [employer] Practitioner: Andres Haddad MD CO2 [Moles/Vol] 22 mmol/L Normal 20-31 [facility] Comment on above: Performed By: #### C MPX, CDP #### [facility] [address] [place], [place] 3881983 [employer] Practitioner: Andres Haddad MD Creatinine [Mass/Vol] 0.46 mg/dL Low 0.50-0.90 [facility] Comment on above: Performed By: #### C MPX, CDP #### [facility] [address] [place] [address] [employer] Practitioner: Andres Haddad MD GFR/1.73 sq M.predicted among non-blacks MDRD (S/P/Bld) [Vol rate/Area] mL/min/{1.73_m2} Normal >60 [facility] Comment on above: Result Comment: These results are not intended for use in patients <18 years of age. eGFR results are calculated without a race factor using the 2020 CKD-EPI equation. Careful clinical correlation is recommended, particularly when comparing to results calculated using previous equations. The CKD-EPI equation is less accurate in patients with extremes of muscle mass, extra-renal metabolism of creatine, excessive creatine ingestion, or following therapy that affects renal tubular secretion. Performed By: #### C MPX, CDP #### [facility] [address] [place] [address] [employer] Practitioner: Andres Haddad MD Glucose [Mass/Vol] 173 mg/dL High 70-99 [facility] Comment on above: Performed By: #### C MPX, CDP #### [facility] [address] [place] [address] [employer] Practitioner: Andres Haddad MD Potassium [Moles/Vol] 4.0 mmol/L Normal 3.7-5.3 [facility] Comment on above: Performed By: #### C MPX, CDP #### [facility] [address] [place], [place] [id number] [employer] Practitioner: Andres Haddad MD Protein [Mass/Vol] 6.9 g/dL Normal 6.4-8.3 [facility] Comment on above: Performed By: #### C MPX, CDP #### [facility] [address] [place], [place] 8599183 [employer] Practitioner: Andres Haddad MD Sodium [Moles/Vol] 140 mmol/L Normal 135-144 [facility] Comment on above: Performed By: #### C MPX, CDP #### [facility] [address] [place], [place] 4811283 [employer] Practitioner: Andres Haddad MD Urea nitrogen [Mass/Vol] 9 mg/dL Normal 6-20 [facility] Comment on above: Performed By: #### C MPX, CDP #### [facility] [address] [place] [address] [employer] Practitioner: Andres Haddad MD Comp Metabolic Profon 2022 Albumin [Mass/Vol] 4.1 g/dL Normal 3.5-5.2 [facility] Comment on above: Performed By: #### C P, CDP #### [facility] [address] [place], [place] 1550583 [employer] Practitioner: Andres Haddad MD Albumin/Glob Ratio 1.4 Normal 1.0-2.5 [facility] Comment on above: Performed By: #### C P, CDP #### [facility] [address] [place], [place] 3363783 [employer] Practitioner: Andres Haddad MD Alkaline Phos 134 U/L High 35-104 [facility] Comment on above: Performed By: #### C P, CDP #### [facility] [address] [place], [place] 3500283 [employer] Practitioner: Andres Haddad MD ALT [Catalytic activity/Vol] 8 U/L Normal 5-33 [facility] Comment on above: Performed By: #### C P, CDP #### [facility] [address] [place], [place] 4808783 [employer] Practitioner: Andres Haddad MD Anion gap [Moles/Vol] 11 mmol/L Normal 9-17 [facility] Comment on above: Performed By: #### C P, CDP #### [facility] [address] [place] [address] [place]. [place], [place] [id number] [employer] Practitioner: Andres Haddad MD AST [Catalytic activity/Vol] 17 U/L Normal <32 [facility] Comment on above: Performed By: #### C P, CDP #### [facility] [address] [place] [address] [place], [place] 1755783 [employer] Practitioner: Andres Haddad MD Bilirubin [Mass/Vol] 0.4 mg/dL Normal 0.3-1.2 [facility] Comment on above: Performed By: #### C P, CDP #### [facility] [address] [place] [address] [place], [place] 1964783 [employer] Practitioner: Andres Haddad MD BUN/CRE Ratio 21 High 9-20 [facility] Comment on above: Performed By: #### C P, CDP #### [facility] [address] [place], [place] 4840183 [employer] Practitioner: Andres Haddad MD Calcium [Mass/Vol] 9.6 mg/dL Normal 8.6-10.4 [facility] Comment on above: Performed By: #### C P, CDP #### [facility] [address] [place], [place] 9005983 [employer] Practitioner: Andres Haddad MD Chloride [Moles/Vol] 105 mmol/L Normal 98-107 [facility] Comment on above: Performed By: #### C P, CDP #### [facility] [address] [place], [place] 2930983 [employer] Practitioner: Andres Haddad MD CO2 [Moles/Vol] 24 mmol/L Normal 20-31 [facility] Comment on above: Performed By: #### C P, CDP #### [facility] [address] [place], [place] 6964983 [employer] Practitioner: Andres Haddad MD Creatinine [Mass/Vol] 0.56 mg/dL Normal 0.50-0.90 [facility] Comment on above: Performed By: #### C P, CDP #### [facility] [address] [place] [address] [employer] Practitioner: Andres Haddad MD GFR/1.73 sq M.predicted among non-blacks MDRD (S/P/Bld) [Vol rate/Area] mL/min/{1.73_m2} Normal >60 [facility] Comment on above: Result Comment: These results are not intended for use in patients <18 years of age. eGFR results are calculated without a race factor using the 2020 CKD-EPI equation. Careful clinical correlation is recommended, particularly when comparing to results calculated using previous equations. The CKD-EPI equation is less accurate in patients with extremes of muscle mass, extra-renal metabolism of creatine, excessive creatine ingestion, or following therapy that affects renal tubular secretion. Performed By: #### C P, CDP #### [facility] [address] [place], [place] 5150983 [employer] Practitioner: Andres Haddad MD Glucose [Mass/Vol] 138 mg/dL High 70-99 [facility] Comment on above: Performed By: #### C P, CDP #### [facility] [address] [place], [place] 9594483 [employer] Practitioner: Andres Haddad MD Potassium [Moles/Vol] 3.9 mmol/L Normal 3.7-5.3 [facility] Comment on above: Performed By: #### C P, CDP #### [facility] [address] [place], [place] 4492383 [employer] Practitioner: Andres Haddad MD Protein [Mass/Vol] 7.0 g/dL Normal 6.4-8.3 [facility] Comment on above: Performed By: #### C P, CDP #### [facility] [address] [place], [place] 7644683 [employer] Practitioner: Andres Haddad MD Sodium [Moles/Vol] 140 mmol/L Normal 135-144 [facility] Comment on above: Performed By: #### C P, CDP #### [facility] [address] [place], [place] [id number] [employer] Practitioner: Andres Haddad MD Urea nitrogen [Mass/Vol] 12 mg/dL Normal 6-20 [facility] Comment on above: Performed By: #### C P, CDP #### [facility] [address] [place] [address] [employer] Practitioner: Andres Haddad MD Comprehensive Metabolic Pane l w/ Reflex to MGon 04-27-2023 Albumin [Mass/Vol] 3.9 g/dL 3.5 - 5.2 g/dL [facility] Albumin/Globulin [Mass ratio] 1.3 {ratio} 1.0 - 2.5 [facility] ALP [Catalytic activity/Vol] 126 U/L High 35 - 104 U/L [facility] ALT [Catalytic activity/Vol] 8 U/L 5 - 33 U/L [facility] Anion gap [Moles/Vol] 8 mmol/L Low 9 - 17 mmol/L [facility] AST [Catalytic activity/Vol] 14 U/L NINF - 32 U/L [facility] Bilirubin [Mass/Vol] 0.3 mg/dL 0.3 - 1 .2 mg/dL [facility] Calcium [Mass/Vol] 9.5 mg/dL 8.6 - 10. 4 mg/dL [facility] Chloride [Moles/Vol] 110 mmol/L High 98 - 10 7 mmol/L [facility] CO2 [Moles/Vol] 22 mmol/L 20 - 31 mmol/L [facility] Creatinine [Mass/Vol] 0.46 mg/dL Low 0.50 - 0.90 mg/dL [facility] GFR/1.73 sq M.predicted MDRD (S/P/Bld) [Vol rate/Area] - PINF [facility] Comment on above: These results are not intended for use in patients <18 years of age. eGFR results are calculated without a race factor using the 2020 CKD-EPI equation. Careful clinical correlation is recommended, particularly when comparing to results calculated using previous equations. The CKD-EPI equation is less accurate in patients with extremes of muscle mass, extra-renal metabolism of creatine, excessive creatine ingestion, or following therapy that affects renal tubular secretion. Glucose [Mass/Vol] 173 mg/dL High 70 - 99 mg/dL [facility] Interpretation and review of laboratory results Abnormal [facility] Potassium [Moles/Vol] 4.0 mmol/L 3.7 - 5.3 mmol/L [facility] Protein [Mass/Vol] 6.9 g/dL 6.4 - 8.3 g/dL [facility] Sodium [Moles/Vol] 140 mmol/L 135 - 144 mmol/L [facility] Urea nitrogen [Mass/Vol] 9 mg/dL 6 - 20 mg/dL [facility] Urea nitrogen/Creatinine [Mass ratio] 20 mg/mg 9 - 20 [facility] EKG 12 leadon 04-27-2023 Atrial Rate 76 BPM [facility] P [place] 64 degrees [facility] P-R Interval 144 ms [facility] Q-T Interval 408 ms [facility] QRS Duration 84 ms [facility] QTc Calculation (Bazett) 459 ms [facility] R [place] 62 degrees [facility] T [place] 62 degrees [facility] Ventricular Rate 76 BPM [facility] Normal sinus rhythm Normal ECG No previous ECGs available Confirmed by EVANS HSU ([id number]) on 04/27/2023 8:52:52 AM [facility] RADIOLOGY Evans Hsu MD - 04/27/2023 Normal sinus rhythm Normal ECG No previous ECGs available Confirmed by EVANS HSU ([id number]) on 04/27/2023 8:52:52 AM [facility] Lactic Acidon 04-27-2023 Lactate [Moles/Vol] 1.5 mmol/L Normal 0.5-2.2 [facility] Comment on above: Performed By: #### L ACTIC #### [facility] [address] [place] [address] [employer] Practitioner: Andres Haddad MD UA w/Reflex Cultureon 2022 Bilirubin, SemiQt,Ur Negative Normal NEG [facility] Comment on above: Performed By: #### U MICAO, UAX #### [facility] [address] [place] [address] [employer] Practitioner: Andres Haddad MD Blood, Urine 1+ Abnormal NEG [facility] Comment on above: Performed By: #### U MICAO, UAX #### [facility] [address] [place] [address] [employer] Practitioner: Andres Haddad MD Clarity (U) Clear Normal CLEAR [facility] Comment on above: Performed By: #### U MICAO, UAX #### [facility] [address] [place], [place] [id number] [employer] Practitioner: Andres Haddad MD Color (U) Yellow Normal YEL [facility] Comment on above: Performed By: #### U MICAO, UAX #### [facility] [address] [place], [place] [id number] [employer] Practitioner: Andres Haddad MD Glucose Ql (U) Negative Normal NEG [facility] Comment on above: Performed By: #### U MICAO, UAX #### [facility] [address] [place] [address] [place], [place] [id number] [employer] Practitioner: Andres Haddad MD Ketones Ql (U) Negative Normal NEG [facility] Comment on above: Performed By: #### U MICAO, UAX #### [facility] [address] [place] [address] [place], [place] 6510083 [employer] Practitioner: Andres Haddad MD Leukocyte esterase Test strip Ql (U) Negative Normal NEG [facility] Comment on above: Performed By: #### U MICAO, UAX #### [address] [place], [place] 3666783 [employer] Practitioner: Andres Haddad MD Nitrite,Ur Negative Normal NEG [facility] Comment on above: Performed By: #### U MICAO, UAX #### [facility] [address] [place] [address] [place], [place] 8449983 [employer] Practitioner: Andres Haddad MD PH,Ur 6.0 Normal 5.0-9.0 [facility] Comment on above: Performed By: #### U MICAO, UAX #### [facility] [address] [place], [place] 0488083 [employer] Practitioner: Andres Haddad MD Protein Ql (U) Negative Normal NEG [facility] Comment on above: Performed By: #### U MICAO, UAX #### [facility] [address] [place], [place] 4343183 [employer] Practitioner: Andres Haddad MD Spec. [place],Ur 1.020 Normal 1.010-1.020 [facility] Comment on above: Performed By: #### U MICAO, UAX #### [facility] [address] [place], [place] 0853983 [employer] Practitioner: Andres Haddad MD Urobilinogen,Ur Normal Normal NORM [facility] Comment on above: Performed By: #### U MICAO, UAX #### [facility] [address] [place], [place] [id number] [employer] Practitioner: Andres Haddad MD Urinalysis,Microon 3 Bacteria TRACE Abnormal NONE [facility] Comment on above: Performed By: #### U MICAO, UAX #### [facility] [address] [place], [place] 3486583 [employer] Practitioner: Andres Haddad MD Epithelial cells LM Ql (Urine sed) 2 TO 5 Normal 0-25 [facility] Comment on above: Performed By: #### U MICAO, UAX #### [facility] [address] [place], [place] 1196783 [employer] Practitioner: Andres Haddad MD Urine RBC's 2 TO 5 Normal 0-2 [facility] Comment on above: Performed By: #### U MICAO, UAX #### [facility] [address] [place], [place] 5819183 [employer] Practitioner: Andres Haddad MD Urine WBC's 0 TO 2 Normal 0-5 [facility] Comment on above: Performed By: #### U MICAO, UAX #### [facility] [address] [place], [place] 6958883 [employer] Practitioner: Andres Haddad MD CBC with Auto Differentialon 04-26-2023 Basophils (Bld) [#/Vol] 0.03 10*3/uL [facility] Basophils/100 WBC (Bld) 0 % 0 - 2 % [facility] Eosinophils (Bld) [#/Vol] 0.10 10*3/uL [facility] Eosinophils/100 WBC (Bld) 1 % 1 - 4 % [facility] Erythrocyte distribution width (RBC) [Ratio] 12.1 % 11.8 - 14.4 % [facility] Hematocrit (Bld) [Volume fraction] 44.0 % 36.3 - 47.1 % [facility] Hemoglobin (Bld) [Mass/Vol] 15.2 g/dL High 11.9 - 15.1 g/dL [facility] Immature granulocytes (Bld) [#/Vol] 0.07 10*3/uL [facility] Immature granulocytes/100 WBC (Bld) 1 % High 0 [facility] Interpretation and review of laboratory results Abnormal [facility] Lymphocytes/100 WBC (Bld) 23 % Low 24 - 43 % [facility] Lymphocytes/100 WBC (Bld) 3.15 % [facility] MCH (RBC) [Entitic mass] 30.8 pg 25.2 - 33.5 pg [facility] MCHC (RBC) [Mass/Vol] 34.5 g/dL 28.4 - 34.8 g/dL [facility] MCV (RBC) [Entitic vol] 89.1 fL 82.6 - 102.9 fL [facility] Monocytes/100 WBC (Bld) 9 % 3 - 12 % [facility] Monocytes/100 WBC (Bld) 1.17 % [facility] Neutrophils/100 WBC (Bld) 66 % High 36 - 65 % [facility] Nucleated RBC/100 WBC (Bld) [Ratio] 0.0 % 0.0 per 100 WBC [facility] Platelet mean volume (Bld) [Entitic vol] 9.4 fL 8.1 - 13.5 fL [facility] Platelets (Bld) [#/Vol] 245 10*3/uL [facility] RBC (Bld) [#/Vol] 4.94 10*6/uL 3.95 - 5.1 1 m/uL [facility] Segmented neutrophils/100 WBC (Bld) 9.24 % High [facility] WBC other (Bld) [#/Vol] 13.8 High [facility] CBC with Diffon 04-26-2023 Abs. Basophil 0.03 k/uL Normal 0.00-0.20 [facility] Comment on above: Performed By: #### C P, CDP #### [facility] [address] [place] [address] [place] [address] [employer] Practitioner: Andres Haddad MD Abs.Imm.Granulocyte 0.07 k/uL Normal 0.00-0.30 [facility] Comment on above: Performed By: #### C P, CDP #### [address] [place] [address] [employer] Practitioner: Andres Haddad MD Abs.Neutrophil (Seg) 9.24 k/uL High 1.50-8.10 [facility] Comment on above: Performed By: #### C P, CDP #### [address] [place], [facility]83 [employer] Practitioner: Andres Haddad MD Basophils/100 WBC (Bld) 0 % Normal 0-2 [facility] Comment on above: Performed By: #### C P, CDP #### [address] [place], [place] [address] [employer] Practitioner: Andres Haddad MD Eosinophils (Bld) [#/Vol] 0.10 10*3/uL Normal 0.00-0.44 [facility] Comment on above: Performed By: #### C P, CDP #### [address] [place] [address] [employer] Practitioner: Andres Haddad MD Eosinophils/100 WBC (Bld) 1 % Normal 1-4 [facility] Comment on above: Performed By: #### C P, CDP #### [facility] [address] [place], [place] [id number] [employer] Practitioner: Andres Haddad MD Erythrocyte distribution width (RBC) [Ratio] 12.1 % Normal 11.8-14.4 [facility] Comment on above: Performed By: #### C P, CDP #### [facility] [address] [place], [facility]83 [employer] Practitioner: Andres Haddad MD Hematocrit (Bld) [Volume fraction] 44.0 % Normal 36.3-47.1 [facility] Comment on above: Performed By: #### C P, CDP #### [address] [place], [place] [address] [employer] Practitioner: Andres Haddad MD Hemoglobin (Bld) [Mass/Vol] 15.2 g/dL High 11.9-15.1 [facility] Comment on above: Performed By: #### C P, CDP #### [address] [place], [place] 1507783 [employer] Practitioner: Andres Haddad MD Immature granulocytes/100 WBC (Bld) 1 % High 0 [facility] Comment on above: Performed By: #### C P, CDP #### [address] [place], [facility]83 [employer] Practitioner: Andres Haddad MD Lymphocytes (Bld) [#/Vol] 3.15 10*3/uL Normal 1.10-3.70 [facility] Comment on above: Performed By: #### C P, CDP #### [facility] [address] [place] [address] [employer] Practitioner: Andres Haddad MD Lymphocytes/100 WBC (Bld) 23 % Low 24-43 [facility] Comment on above: Performed By: #### C P, CDP #### [facility] [address] [place] [id number] [employer] Practitioner: Andres Haddad MD MCH (RBC) [Entitic mass] 30.8 pg Normal 25.2-33.5 [facility] Comment on above: Performed By: #### C P, CDP #### [facility] [address] [place], [place] 1163583 [employer] Practitioner: Andres Haddad MD MCHC (RBC) [Mass/Vol] 34.5 g/dL Normal 28.4-34.8 [facility] Comment on above: Performed By: #### C P, CDP #### [facility] [address] [place], [place] 1765683 [employer] Practitioner: Andres Haddad MD MCV (RBC) [Entitic vol] 89.1 fL Normal 82.6-102.9 [facility] Comment on above: Performed By: #### C P, CDP #### [address] [place], [place] 0363783 [employer] Practitioner: Andres Haddad MD Monocytes (Bld) [#/Vol] 1.17 10*3/uL Normal 0.10-1.20 [facility] Comment on above: Performed By: #### C P, CDP #### [address] [place], [place] 1656183 [employer] Practitioner: Andres Haddad MD Monocytes/100 WBC (Bld) 9 % Normal 3-12 [facility] Comment on above: Performed By: #### C P, CDP #### [facility] [address] [place], [place] 3088583 [employer] Practitioner: Andres Haddad MD Neutrophil (Seg) 66 % High 36-65 [facility] Comment on above: Performed By: #### C P, CDP #### [facility] [address] [place], [place] 6634683 [employer] Practitioner: Anders Haddad MD NRBC Automated 0.0 per 100 WBC Normal 0.0 [facility] Comment on above: Performed By: #### C P, CDP #### [facility] [address] [place] [address] [employer] Practitioner: Andres Haddad MD Platelet mean volume (Bld) [Entitic vol] 9.4 fL Normal 8.1-13.5 [facility] Comment on above: Performed By: #### C P, CDP #### [facility] [address] [place] [address] [employer] Practitioner: Andres Haddad MD Platelets (Bld) [#/Vol] 245 10*3/uL Normal 138-453 [facility] Comment on above: Performed By: #### C P, CDP #### [address] [place] [address] [employer] Practitioner: Andres Haddad MD RBC (Bld) [#/Vol] 4.94 10*6/uL Normal 3.95-5.11 [facility] Comment on above: Performed By: #### C P, CDP #### [address] [place] [address] [employer] Practitioner: Andres Haddad MD WBC (Bld) [#/Vol] 13.8 10*3/uL High 3.5-11.3 [facility] Comment on above: Performed By: #### C P, CDP #### [facility] [address] [place] [address] [employer] Practitioner: Andres Haddad MD [facility] Albumin [Mass/Vol] 4.1 g/dL 3.5 - 5.2 g/dL [facility] Albumin/Globulin [Mass ratio] 1.4 {ratio} 1.0 - 2.5 [facility] ALP [Catalytic activity/Vol] 134 U/L High 35 - 104 U/L [facility] ALT [Catalytic activity/Vol] 8 U/L 5 - 33 U/L [facility] Anion gap [Moles/Vol] 11 mmol/L 9 - 17 mmol/L [facility] AST [Catalytic activity/Vol] 17 U/L NINF - 32 U/L [facility] Bilirubin [Mass/Vol] 0.4 mg/dL 0.3 - 1 .2 mg/dL [facility] Calcium [Mass/Vol] 9.6 mg/dL 8.6 - 10. 4 mg/dL [facility] Chloride [Moles/Vol] 105 mmol/L 98 - 10 7 mmol/L [facility] CO2 [Moles/Vol] 24 mmol/L 20 - 31 mmol/L [facility] Creatinine [Mass/Vol] 0.56 mg/dL 0.50 - 0.90 mg/dL [facility] GFR/1.73 sq M.predicted MDRD (S/P/Bld) [Vol rate/Area] - PINF [facility] Comment on above: These results are not intended for use in patients <18 years of age. eGFR results are calculated without a race factor using the 2020 CKD-EPI equation. Careful clinical correlation is recommended, particularly when comparing to results calculated using previous equations. The CKD-EPI equation is less accurate in patients with extremes of muscle mass, extra-renal metabolism of creatine, excessive creatine ingestion, or following therapy that affects renal tubular secretion. Glucose [Mass/Vol] 138 mg/dL High 70 - 99 mg/dL [facility] Interpretation and review of laboratory results Abnormal [facility] Potassium [Moles/Vol] 3.9 mmol/L 3.7 - 5.3 mmol/L [facility] Protein [Mass/Vol] 7.0 g/dL 6.4 - 8.3 g/dL [facility] Sodium [Moles/Vol] 140 mmol/L 135 - 144 mmol/L [facility] Urea nitrogen [Mass/Vol] 12 mg/dL 6 - 20 mg/dL [facility] Urea nitrogen/Creatinine [Mass ratio] 21 mg/mg High 9 - [address] [facility] [address] ABDOMEN PELVIS W IV CONTR AST Additional Contrast? Noneon 04-26-2023 Radiology Study observation (narrative) [facility] Lactic Acidon 04-26-2023 Lactate (BldV) [Moles/Vol] 1.5 mmol/L 0.5 - 2.2 mmol/L [facility] Microscopic Urinalysison Bacteria LM Ql (Urine sed) TRACE Abnormal None [facility] Epithelial cells LM.HPF (Urine sed) [#/Area] 2 TO 5 [facility] Interpretation and review of laboratory results Abnormal [facility] RBC LM.HPF (Urine sed) [#/Area] 2 TO 5 [facility] WBC LM.HPF (Urine sed) [#/Area] 0 TO 2 [facility] Stool PCR [place] 04-26-20 Specimen Description .FECES Normal [facility] Comment on above: Performed By: #### S TLPCR #### [facility] [address] [place], [place] [id number] [employer] Practitioner: Chraan Dye MD [facility] [address] [facility] [address] [employer] Practitioner: Andres Haddad MD Urinalysis with Reflex to Cu ltureon 04-26-2023 Bilirubin Ql (U) Negative NEGATIVE [facility] Clarity (U) Clear Clear [facility] Color (U) Yellow Yellow [facility] Glucose Test strip (U) [Mass/Vol] Negative NEGATIVE [facility] Hemoglobin Auto test strip Ql (U) 1+ Abnormal NEGATIVE [facility] Interpretation and review of laboratory results Abnormal [facility] Ketones (U) [Mass/Vol] Negative NEGATIVE [facility] Leukocyte esterase Test strip Ql (U) Negative NEGATIVE [facility] Nitrite Ql (U) Negative NEGATIVE [facility] pH (U) 6.0 [pH] 5.0 - 9.0 [facility] Protein (U) [Mass/Vol] Negative NEGATIVE [facility] Specific gravity (U) [Rel density] 1.020 1.010 - 1.020 [facility] Urobilinogen Qn (U) Normal Normal [facility] DONAVAN VELAZQUEZ [facility] Rei 10-25-2022 L - -------- Specimen: [id number] Received: 10/25/22 Status: ROSA Lanier Num: [id number] Spec Type: Surgical Subm Dr: Juan M Masters MD Tissues: A Colon Biopsy (TERMINALILEUM BX) B Colon Biopsy (RANDOM COLON BX) C Colon Biopsy (SIGMOID COLON POLYP) Procedures: HE/6, Gross/Micro L4/3 -------- Age/ Patient Sex Location Account Attending Physician -------- Baylee Babb 51/F [id number] Juan M Masters MD -------- SPEC NUM: [id number] RECD: 10/25/22 STATUS: ROSA LANIER NUM: [id number] SHANE: 10/25/[address] [facility] [address]: Juan M Masters MD ENTERED: 10/25/[address] [facility] [address]: SPEC TYPE: Surgical DEPT: S ORDERED: HE/6, Gross/Micro L4/3 ORDERED: HE/6, Gross/Micro L4/3 Pathological Diagnosis A. Small bowel, terminal ileum, biopsy: -Small intestinal mucosa negative for significant histopathologic changes. -There is no evidence of active inflammation. -Negative for epithelial dysplasia. B. Colon, random, biopsy: -Quiescent (inactive) colitis. -Negative for epithelial dysplasia. C. Colon, sigmoid, polypectomy: -Fragments of tubular adenoma. Clinical Information History of Crohn's, rule out Crohn's Gross Description A. Received in formalin labeled with the patient's name, number and terminal ileum biopsy is one fragment of soft bauer tissue measuring 0.5 cm. Entirely submitted in one cassette labeled A1. B. Received in formalin labeled with the patient's name, number and random colon biopsy -------- Specimen: Received: 10/25/22 Status: ROSA Lanier Num: [id number] Spec Type: Surgical Subm Dr: Juan M Masters MD Tissues: A Colon Biopsy (TERMINALILEUM BX) B Colon Biopsy (RANDOM COLON BX) C Colon Biopsy (SIGMOID COLON POLYP) Procedures: HE/6, Gross/Micro L4/3 -------- Patient: Baylee Babb [id number] (Continued) -------- Specimen: [id number] Received: 10/25/22 (Continued) Gross Description (Continued) Signed (signature on file) Rosa Knight MD 10/26/22 1129 -------- Specimen: [id number] Received: 10/25/22 Status: ROSA Lanier Num: [id number] Spec Type: Surgical Subm Dr: Juan M Masters MD Tissues: A Colon Biopsy (TERMINALILEUM BX) B Colon Biopsy (RANDOM COLON BX) C Colon Biopsy (SIGMOID COLON POLYP) Procedures: YULIYA/Amarilys Robledo/Simeon L4/3 -------- Patient: Baylee Babb [id number] (Continued) -------- Specimen: [id number] Received: 10/25/22 (Continued) Gross Description (Continued) are two fragments of soft bauer tissue averaging 0.2 cm. Entirely submitted in one cassette labeled B1. C. Received in formalin labeled with the patient's name, number and sigmoid colon polyp are multiple fragments of soft bauer tissue and fecal material measuring 2.5 x 1.2 x 0.3 cm in aggregate. Entirely submitted in one cassette labeled C1. Microscopic Description A. Two glass slides with H E stained material have been examined. The microscopic findings support the above pathologic diagnosis. B. Two glass slides with H E stained material have been examined. The microscopic findings support the above pathologic diagnosis. C. Two glass slides with H E stained material have been examined. The microscopic findings support the above pathologic diagnosis. CPT Codes 38180?3 -------- -------- Specimen: Received: 10/25/22 Status: GINNATiffanie Lanier Num: [id number] Spec Type: Surgical Subm Dr: Juan M Masters MD Tissues: A Colon Biopsy (TERMINALILEUM BX) B Colon Biopsy (RANDOM COLON BX) C Colon Biopsy (SIGMOID COLON POLYP) Procedures: HE/6, Gross/Micro L4/3 -------- Patient: Baylee Babb [id number] (Continued) -------- Signed (signature on file)_ (more content not included)... Normal [facility] Sigmoidoscopy or colonoscopy [PhenX]on 10-25-2022 [employer] Other LIPID PROFILEon 08-03-2021 CHOL-HDL RATIO NORM SEE BELOW Normal [facility] Comment on above: Result Comment: 3.3 - 4.4 LOW RISK 4.4 - 7.1 AVERAGE RISK 7.1 - 11.0 MODERATE RISK >11.0 HIGH RISK Performed By: #### C MP, CMADM, BNP #### [facility] [address] [place] [address] Mariela Patti Cholesterol [Mass/Vol] 85 mg/dL Normal <=200 [facility] Comment on above: Performed By: #### C MP, CMADM, BNP #### [facility] [address] [address] Mariela Patti Cholesterol in HDL [Mass/Vol] 35 mg/dL Normal [facility] Comment on above: Performed By: #### C MP, CMADM, BNP #### [facility] [address] [id number] Mariela Patti Cholesterol in LDL [Mass/Vol] 18.6 mg/dL Normal [facility] Comment on above: Performed By: #### C MP, CMADM, BNP #### [facility] [address] [id number] Mariela Patti Cholesterol.total/Ch olesterol in HDL [Mass ratio] 2.4 {ratio} Normal [facility] Comment on above: Performed By: #### C MP, CMADM, BNP #### [facility] [address] [id number] Mariela Patti HDL NORMAL > or = 60 mg/dl - LO W CARDIOVASCULAR RISK <40 mg/dl - HIGH CARDIOVASCULAR RISK Normal [facility] Comment on above: Performed By: #### C MP, CMADM, BNP #### [facility] [address] [id number] Mariela Patti LDL CALC NORMAL SEE BELOW Normal [facility] Comment on above: Result Comment: <100 mg/dl OPTIMAL 100 - 129 mg/dl NEAR OR ABOVE OPTIMAL 130 - 159 mg/dl BORDERLINE HIGH 160 - 189 mg/dl HIGH >190 mg/dl VERY HIGH Performed By: #### C MP, CMADM, BNP #### [facility] [address] [address] Mariela Patti Triglyceride [Mass/Vol] 157 mg/dL Critically high <=150 [facility] Comment on above: Performed By: #### C MP, CMADM, BNP #### [facility] [address] [address] Mariela Patti VLDL CALC 31.4 mg/dL Normal [facility] Comment on above: Performed By: #### C MP, CMADM, BNP #### [facility] [address] [address] Mariela Patti MICROALB CREAT RATIO RANDOMo n 08-03-2021 mALB 0.6 mg/L Normal <=30.0 [facility] Comment on above: Performed By: #### C BC #### [facility] [address] [address] Mariela Patti MALB CR RATIO 7.3 mg/g Normal 0.0-29.9 [facility] Comment on above: Performed By: #### C BC #### [facility] [address] [address] Marielacheli Collinsen MALB CR RATIO RANGE SEE BELOW Normal [facility] Comment on above: Result Comment: NO M ICROALBUMINURIA 0-29 MG/G CLINICAL MICROALBUMINURIA 30-300 MG/G MACROALBUMINURIA >300 MG/G Performed By: #### C BC #### [facility] [address] [address] Marielacheli Armstrong URINE CREAT 82.36 mg/dL Normal 20.00-300.00 [place] Comment on above: Performed By: #### C BC #### [facility] [address] [address] Mariela Armstrong PROF 14(COMP METB)on 021 Albumin [Mass/Vol] 3.7 g/dL Normal 3.5-5.0 [facility] Comment on above: Performed By: #### C ASNG BLACKMAN, BNP #### [facility] [address] [address] Mariela Patti Albumin/Globulin [Mass ratio] 1.1 {ratio} Normal [facility] Comment on above: Performed By: #### C SANG BLACKMAN, BNP #### [facility] [address] [address] Mariela Patti ALP [Catalytic activity/Vol] 130 U/L Critically high 38-126 [facility] Comment on above: Performed By: #### C SANG BLACKMAN, BNP #### [facility] [address] [address] Mariela Patti ALT [Catalytic activity/Vol] 15 U/L Normal 9-52 [facility] Comment on above: Performed By: #### C CHRISTIE BLACKMANDM, BNP #### [facility] [address] [address] Mariela Patti Anion gap [Moles/Vol] 14.5 mmol/L Normal [facility] Comment on above: Performed By: #### C CHRISTIE BLACKMANDM, BNP #### [facility] [address] [address] Mariela Patti AST [Catalytic activity/Vol] 19 U/L Normal 14-36 [facility] Comment on above: Performed By: #### C MP CMADM, BNP #### [facility] [address] [address] Mariela Patti Bilirubin [Mass/Vol] 0.3 mg/dL Normal 0.2-1.3 [facility] Comment on above: Performed By: #### C MP, CMADM, BNP #### [facility] [address] [address] Mariela Patti Calcium [Mass/Vol] 9.2 mg/dL Normal 8.4-10.2 [facility] Comment on above: Performed By: #### C MP, CMADM, BNP #### [facility] [address] [place] [address] Mariela Patti Chloride [Moles/Vol] 106 mmol/L Normal 98-107 [facility] Comment on above: Performed By: #### C MP, CMADM, BNP #### [facility] [address] [place] [address] Mariela Patti CO2 [Moles/Vol] 24.9 mmol/L Normal 22.0-30.0 [facility] Comment on above: Performed By: #### C MP, CMADM, BNP #### [facility] [address] [place] [address] Mariela Patti Creatinine [Mass/Vol] 0.74 mg/dL Normal 0.52-1.04 [facility] Comment on above: Performed By: #### C MP, CMADM, BNP #### [facility] [address] [address] Mariela Patti EGFR-AF THAI >60 Normal >=60 [facility] Comment on above: Performed By: #### C MP, CMADM, BNP #### [facility] [address] [address] Mariela Patti EGFR-NON AF THAI >60 Normal >=60 [facility] Comment on above: Performed By: #### C MP, CMADM, BNP #### [facility] [address] [place], [place] [address] Mariela Patti Globulin (S) [Mass/Vol] 3.3 g/dL Normal [facility] Comment on above: Performed By: #### C MP CMADM, BNP #### [facility] [address] [place], [place] [address] Mariela Patti Glucose [Mass/Vol] 116 mg/dL Critically high 74-106 [facility] Comment on above: Performed By: #### C MP, CMADM, BNP #### [facility] [address] [place], [place] [address] Mariela Patti Potassium [Moles/Vol] 4.4 mmol/L Normal 3.4-5.0 [facility] Comment on above: Performed By: #### C MP, CMADM, BNP #### [facility] [address] [place], [place] [address] Mariela Patti Protein [Mass/Vol] 7.0 g/dL Normal 6.1-8.2 [facility] Comment on above: Performed By: #### C MP, CMADM, BNP #### [facility] [address] [place], [place] [address] Mariela Patti Sodium [Moles/Vol] 141 mmol/L Normal 137-145 [facility] Comment on above: Performed By: #### C MP, CMADM, BNP #### [facility] [address] [place], [place] [address] Mariela Patti Urea nitrogen [Mass/Vol] 14.0 mg/dL Normal 7.0-17.0 [facility] Comment on above: Performed By: #### C MP, CMADM, BNP #### [facility] [address] [place], [place] [address] Mariela Patti Urea nitrogen/Creatinine [Mass ratio] 18.9 mg/mg Normal [facility] Comment on above: Performed By: #### C MP, CMADM, BNP #### [facility] [address] [place], [place] [address] Mariela Patti BNPon 04-30-2021 Natriuretic peptide B (Bld) [Mass/Vol] 59.0 pg/mL Normal <=450.0 [facility] Comment on above: Performed By: #### C MP, CMADM, BNP #### [facility] [address] [place] [address] Mariela Armstrong CARDIAC BEHZAD ADMITon 021 CK [Catalytic activity/Vol] 58 U/L Normal 30-135 [facility] Comment on above: Performed By: #### C MP, CMADM, BNP #### [facility] [address] [place] [address] Mariela Armstrong CK.MB [Mass/Vol] 0.96 ng/mL Normal <=2.37 [facility] Comment on above: Performed By: #### C MP, CMADM, BNP #### [facility] [address] [place] [address] Mariela Armstrong HSTROP <4.0 Normal 4.0-35.5 [facility] Comment on above: Result Comment: CUT- OFF POINTS HAVE BEEN ESTABLISHED BASED ON THE FOURTH UNIVERSAL DEFINITIONS OF MYOCARDIAL INFARCTION. THE UPPER REFERENCE LIMIT (URL) OF TROPONIN, DEFINED THE 99TH PERCENTILE OF cTnI DISTRIBUTION IN A REFERENCE POPULATION, HAS BEEN CONFIRMED THE DECISION THRESHOLD FOR CO DIAGNOSIS. Performed By: #### C MP, CMADM, BNP #### [facility] [address] [place] [address] Mariela Armstrong MURRAY 38.0 ng/mL Normal <=61.5 [facility] Comment on above: Performed By: #### C MP, CMADM, BNP #### [facility] [address] [place] [address] Mariela Armstrong CBC AUTO DIFFon 04-30-2021 BASO # 0.0 103/ul Normal 0.0-0.1 [facility] Comment on above: Performed By: #### C BC #### [facility] [address] [place] [address] Mariela Armstrong Basophils/100 WBC (Bld) 0.3 % Normal 0.2-2.0 [facility] Comment on above: Performed By: #### C BC #### [facility] [address] [place] [address] Mariela Patti EO # 0.0 103/ul Normal 0.0-0.7 [facility] Comment on above: Performed By: #### C BC #### [facility] [address] [place], [place] [address] Mariela Patti Eosinophils/100 WBC (Bld) 0.2 % Critically low 0.9-7.0 [facility] Comment on above: Performed By: #### C BC #### [facility] [address] [place] [address] Mariela Patti Erythrocyte distribution width (RBC) [Ratio] 12.0 % Normal 11.0-15.0 [facility] Comment on above: Performed By: #### C BC #### [facility] [address] [place] [address] Mariela Patti Hematocrit (Bld) [Volume fraction] 47.2 % Normal 36.0-48.0 [facility] Comment on above: Performed By: #### C BC #### [facility] [address] [place] [address] Mariela Patti Hemoglobin (Bld) [Mass/Vol] 16.1 g/dL Critically high 12.0-16.0 [facility] Comment on above: Performed By: #### C BC #### [facility] [address] [place] [address] Mariela Patti IG # 0.05 10e3/ul Critically high 0.00-0.03 [facility] Comment on above: Performed By: #### C BC #### [facility] [address] [place] [address] Mariela Patti IG % 0.4 % Normal 0.0-0.5 [facility] Comment on above: Performed By: #### C BC #### [facility] [address] [place] [address] Mariela Patti LYMPH # 4.6 103/ul Critically high 1.2-3.[address] [facility] Comment on above: Performed By: #### C BC #### [facility] [address] [place] [address] Mariela Patti Lymphocytes/100 WBC (Bld) 33.9 % Normal 20.5-60.0 [facility] Comment on above: Performed By: #### C BC #### [facility] [address] [place], [place] [address] Mairela Armstrong MANUAL DIFF REQ NO Normal [facility] Comment on above: Performed By: #### C BC #### [facility] [address] [place], [place] [address] Marielacheli Armstrong MCH (RBC) [Entitic mass] 30.8 pg Normal 26.7-34.0 [facility] Comment on above: Performed By: #### C BC #### [facility] [address] [place], [place] [address] Mariela Armstrong MCHC (RBC) [Mass/Vol] 34.1 g/dL Normal 29.9-35.2 [facility] Comment on above: Performed By: #### C BC #### [facility] [address] [place], [place] [address] Marielahceli Armstrong MCV (RBC) [Entitic vol] 90.4 fL Normal 81.0-99.0 [facility] Comment on above: Performed By: #### C BC #### [facility] [address] [place], [place] [address] Mariela Patti MONO # 1.0 103/ul Critically high 0.3-0.8 [facility] Comment on above: Performed By: #### C BC #### [facility] [address] [place], [place] [address] Mariela Armstrong Monocytes/100 WBC (Bld) 7.2 % Normal 1.7-12.0 [facility] Comment on above: Performed By: #### C BC #### [facility] [address] [place], [place] [address] Mariela Patti NEUT # 7.9 103/ul Critically high 1.4-6.[address] [facility] Comment on above: Performed By: #### C BC #### [facility] [address] [place], [place] [address] Mariela Patti Neutrophils/100 WBC (Bld) 58.0 % Normal 43.0-75.0 [facility] Comment on above: Performed By: #### C BC #### [facility] [address], [place] [address] Mariela Armstrong Platelet mean volume (Bld) [Entitic vol] 9.5 fL Normal 9.5-13.5 [facility] Comment on above: Performed By: #### C BC #### [facility] [address] [place], [place] [address] Mariela Armstrong PLT 239 103/ul Normal 150-450 [facility] Comment on above: Performed By: #### C BC #### [facility] [address] [place], [place] [address] Mariela Collinsen RBC 5.22 106/ul Normal 4.20-5.40 [facility] Comment on above: Performed By: #### C BC #### [facility] [address] [place], [place] [address] Mariela Armstrong WBC 13.5 103/ul Critically high 4.0-11.0 [facility] Comment on above: Performed By: #### C BC #### [facility] [address] [place], [place] [address] HEAD WO CONon 04-30-2021 CT HEAD WO CON EXAMINATION: CT HEAD WO CON HISTORY: HEADACHE COMPARISON: CT head 09/15/2020 TECHNIQUE: CT examination of the head without IV contrast. Multiple axial views coronal and sagittal reformats. Dose reduction techniques were achieved by using automated exposure control and/or adjustment of mA and/or kV according to patient size and/or use of iterative reconstruction technique. FINDINGS: No intracranial hemorrhage, extra axial fluid collection, midline shift, mass effect, or hydrocephalus. No loss of go-white differentiation. 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 Correlate clinically for acuity. No acute calvarial or skull base abnormality. IMPRESSION: Multiple lacunar infarcts of the right cheikh, age indeterminate. Correlate clinically for acuity. Otherwise, no intracranial hemorrhage, midline shift, or hydrocephalus. Electronically authenticated by: YA STAFFORD Date: 2021-04-29 23:38 Normal [facility] PROF 14(COMP METB)on 021 Albumin [Mass/Vol] 4.2 g/dL Normal 3.5-5.0 [facility] Comment on above: Performed By: #### C MP, CMADM, BNP #### [facility] [address] [address] Mariela Patti Albumin/Globulin [Mass ratio] 1.2 {ratio} Normal [facility] Comment on above: Performed By: #### C MP, CMADM, BNP #### [facility] [address] [address] Mariela Patti ALP [Catalytic activity/Vol] 149 U/L Critically high 38-126 [facility] Comment on above: Performed By: #### C MP, CMADM, BNP #### [facility] [address] [address] Mariela Patti ALT [Catalytic activity/Vol] 21 U/L Normal 9-52 [facility] Comment on above: Performed By: #### C MP, CMADM, BNP #### [facility] [address] [address] Mariela Patti Anion gap [Moles/Vol] 12.6 mmol/L Normal [facility] Comment on above: Performed By: #### C MP, CMADM, BNP #### [facility] [address] [address] Mariela Patti AST [Catalytic activity/Vol] 20 U/L Normal 14-36 [facility] Comment on above: Performed By: #### C MP, CMADM, BNP #### [facility] Laboratory [address] [id number] Mariela Patti Bilirubin [Mass/Vol] 0.6 mg/dL Normal 0.2-1.3 [facility] Comment on above: Performed By: #### C MP, CMADM, BNP #### [facility] [address] [id number] Mariela Patti Calcium [Mass/Vol] 9.6 mg/dL Normal 8.4-10.2 [facility] Comment on above: Performed By: #### C MP, CMADM, BNP #### [facility] [address] [id number] Mariela Patti Chloride [Moles/Vol] 103 mmol/L Normal 98-107 [facility] Comment on above: Performed By: #### C MP, CMADM, BNP #### [facility] [address] [place] [address] Mariela Patti CO2 [Moles/Vol] 28.4 mmol/L Normal 22.0-30.0 [facility] Comment on above: Performed By: #### C MP, CMADM, BNP #### [facility] [address] [place] [address] Mariela Patti Creatinine [Mass/Vol] 0.81 mg/dL Normal 0.52-1.04 [facility] Comment on above: Performed By: #### C MP, CMADM, BNP #### [facility] [address] [place] [address] Mariela Patti EGFR-AF THAI >60 Normal >=60 [facility] Comment on above: Performed By: #### C MP, CMADM, BNP #### [facility] [address] [place] [address] Mariela Patti EGFR-NON AF THAI >60 Normal >=60 [facility] Comment on above: Performed By: #### C MP, CMADM, BNP #### [facility] [address] [place] [address] Mariela Patti Globulin (S) [Mass/Vol] 3.5 g/dL Normal [facility] Comment on above: Performed By: #### C MP, CMADM, BNP #### [facility] [address] [place] [address] Mariela Patti Glucose [Mass/Vol] 115 mg/dL Critically high 74-106 [facility] Comment on above: Performed By: #### C MP, CMADM, BNP #### [facility] [address] [place] [address] Mariela Patti Potassium [Moles/Vol] 4.0 mmol/L Normal 3.4-5.0 [facility] Comment on above: Performed By: #### C MP, CMADM, BNP #### [facility] [address] [place], [place] [address] Mariela Patti Protein [Mass/Vol] 7.7 g/dL Normal 6.1-8.2 [facility] Comment on above: Performed By: #### C SANG BLACKMAN, BNP #### [facility] [address] [address] Mariela Patti Sodium [Moles/Vol] 140 mmol/L Normal 137-145 [facility] Comment on above: Performed By: #### C CHRISTIE BLACKMANDM, BNP #### [facility] [address] [address] Mariela Patti Urea nitrogen [Mass/Vol] 11.0 mg/dL Normal 7.0-17.0 [facility] Comment on above: Performed By: #### C SANG BLACKMAN, BNP #### [facility] [address] [place] [address] Mariela Patti Urea nitrogen/Creatinine [Mass ratio] 13.6 mg/mg Normal [facility] Comment on above: Performed By: #### C SANG BLACKMAN, BNP #### [facility] [address] [place], [place] [address] Mariela Patti XR CHEST 1 Von 04-30-2021 XR CHEST 1 V EXAM: XR CHEST 1 V HISTORY: SHORTNESS OF BREATH COMPARISON: Chest x-ray of 09/15/2020. TECHNIQUE: Single AP upright view of the chest is submitted for review. FINDINGS: The heart size is normal. Mild linear parenchymal markings are seen in the left lung base, suggestive mild atelectatic changes. No dense focal consolidation, pneumothorax or significant pleural effusion is seen on this single view of the chest. No obvious acute osseous abnormality seen. IMPRESSION: Mild left lung base atelectasis. Electronically authenticated by: VERONICA EDWARDS Date: 2021-04-29 23:21 Normal [facility] CULTURE URINEon 03-25-2021 CULTURE URINE Isolate 1 Escherichia coli >100,000 cfu/mL of ORGANISM 1 Escherichia coli ANTIBIOTIC M.I.C RX STATUS Ampicillin <=2 S F Ampicillin/Sulbactam <=2 S F Piperacillin/Tazobact am <=4 S F Cefazolin <=4 S F Ceftazidime <=1 S F Ceftriaxone <=1 S F Ertapenem <=0.5 S F Imipenem <=0.25 S F Amikacin <=2 S F Gentamicin <=1 S F Tobramycin <=1 S F Ciprofloxacin >=4 R F Levofloxacin >=8 R F Nitrofurantoin <=16 S F Trimethoprim/Sulfamet hoxazole <=20 S F Normal [facility] Comment on above: Performed By: #### C SANG BLACKMAN, BNP #### [facility] [address] [place] [address] Mariela Patti CULTURE URINEon 02-21-2021 CULTURE URINE Isolate 1 Escherichia coli >100,000 cfu/ml of ORGANISM 1 Escherichia coli ANTIBIOTIC M.I.C RX STATUS Ampicillin 4 S F Ampicillin/Sulbactam <=2 S F Piperacillin/Tazobact am <=4 S F Cefazolin <=4 S F Ceftazidime <=1 S F Ceftriaxone <=1 S F Ertapenem <=0.5 S F Imipenem <=0.25 S F Amikacin <=2 S F Gentamicin <=1 S F Tobramycin <=1 S F Ciprofloxacin >=4 R F Levofloxacin >=8 R F Nitrofurantoin <=16 S F Trimethoprim/Sulfamet hoxazole <=20 S F Normal [facility] Comment on above: Performed By: #### C SANG BLACKMAN, BNP #### [facility] [address] [place] [address] Mariela Patti ACETAMINOPHENon 02-18-2021 Acetaminophen [Mass/Vol] ug/mL Critically low 10.1-30.0 [facility] Comment on above: Performed By: #### C SANG BLACKMAN, BNP #### [facility] [address] [place] [address] Mariela Patti CBC AUTO DIFFon 02-18-2021 BASO # 0.0 103/ul Normal 0.0-0.1 [facility] Comment on above: Performed By: #### C BC #### [facility] [address] [place] [address] Mariela Patti Basophils/100 WBC (Bld) 0.3 % Normal 0.2-2.0 [facility] Comment on above: Performed By: #### C BC #### [facility] [address] [place], [place] [address] Mariela Patti EO # 0.0 103/ul Normal 0.0-0.7 [facility] Comment on above: Performed By: #### C BC #### [facility] [address] [phone] Mariela Patti Eosinophils/100 WBC (Bld) 0.1 % Critically low 0.9-7.0 [facility] Comment on above: Performed By: #### C BC #### [facility] [address] [place], [place] [address] Mariela Patti Erythrocyte distribution width (RBC) [Ratio] 12.0 % Normal 11.0-15.0 [facility] Comment on above: Performed By: #### C BC #### [facility] [address] [place] [address] Mariela Patti Hematocrit (Bld) [Volume fraction] 48.7 % Critically high 36.0-48.0 [facility] Comment on above: Performed By: #### C BC #### [facility] [address] [place], [place] [address] Mariela Patti Hemoglobin (Bld) [Mass/Vol] 16.5 g/dL Critically high 12.0-16.0 [facility] Comment on above: Performed By: #### C BC #### [facility] [address] [place], [place] [address] Mariela Patti IG # 0.08 10e3/ul Critically high 0.00-0.[address] [facility] Comment on above: Performed By: #### C BC #### [facility] [address] [place] [address] Mariela Patti IG % 0.6 % Critically high 0.0-0.[address] [facility] Comment on above: Performed By: #### C BC #### [facility] [address] [place], [place] [address] Mariela Patti LYMPH # 3.4 103/ul Normal 1.2-3.8 [facility] Comment on above: Performed By: #### C BC #### [facility] [address] [place], [place] [address] Marielacheli Armstrong Lymphocytes/100 WBC (Bld) 23.6 % Normal 20.5-60.0 [facility] Comment on above: Performed By: #### C BC #### [facility] [address] [place], [place] [address] Mariela Patti MANUAL DIFF REQ NO Normal [facility] Comment on above: Performed By: #### C BC #### [facility] [address] [place], [place] [address] Mariela Patti MCH (RBC) [Entitic mass] 30.6 pg Normal 26.7-34.0 [facility] Comment on above: Performed By: #### C BC #### [facility] [address] [place] [address] Marielacheli Armstrong MCHC (RBC) [Mass/Vol] 33.9 g/dL Normal 29.9-35.2 [facility] Comment on above: Performed By: #### C BC #### [facility] [address] [place], [place] [address] Mairelacheli Armstrong MCV (RBC) [Entitic vol] 90.2 fL Normal 81.0-99.0 [facility] Comment on above: Performed By: #### C BC #### [facility] [address] [place] [address] Mariela Patti MONO # 1.0 103/ul Critically high 0.3-0.[address] [facility] Comment on above: Performed By: #### C BC #### [facility] [address] [place] [address] Mariela Patti Monocytes/100 WBC (Bld) 7.0 % Normal 1.7-12.0 [facility] Comment on above: Performed By: #### C BC #### [facility] [address] [place], [place] [address] Mariela Patti NEUT # 9.8 103/ul Critically high 1.4-6.[address] [facility] Comment on above: Performed By: #### C BC #### [facility] [address] [place] [address] Mariela Armstrong Neutrophils/100 WBC (Bld) 68.4 % Normal 43.0-75.0 [facility] Comment on above: Performed By: #### C BC #### [facility] [address] [place] [address] Mariela Armstrong Platelet mean volume (Bld) [Entitic vol] 9.7 fL Normal 9.5-13.5 [facility] Comment on above: Performed By: #### C BC #### [facility] [address] [place] [address] Mariela Armstrong PLT 240 103/ul Normal 150-450 [facility] Comment on above: Performed By: #### C BC #### [facility] [address] [place] [address] Marielacheli Armstrong RBC 5.40 106/ul Normal 4.20-5.40 [facility] Comment on above: Performed By: #### C BC #### [facility] [address] [place] [address] Marielacheli Armstrong WBC 14.3 103/ul Critically high 4.0-11.0 [facility] Comment on above: Performed By: #### C BC #### [facility] [address] [place] [address] Mariela Armstrong DRUG SCREEN RAPID (URINE)on 02-18-2021 AMP Negative Normal NEGATIVE [facility] Comment on above: Performed By: #### D TABITHA SAUCEDO UMICRO #### [facility] [address] [place] [address] Mariela Patti BAR Negative Normal NEGATIVE [facility] Comment on above: Performed By: #### D TABITHA SAUCEDO UMICRO #### [facility] [address] [place] [address] Mariela Patti BUP Negative Normal NEGATIVE [facility] Comment on above: Performed By: #### D TABITHA SAUCEDO UMICRO #### [facility] [address] [place] [address] Mariela Patti BZO Negative Normal NEGATIVE [facility] Comment on above: Performed By: #### D SHERYL ERUR, UMICRO #### [facility] [address] [place] [address] Mariela Patti JOSEPH Negative Normal NEGATIVE [facility] Comment on above: Performed By: #### D SHERYL, ERUR, UMICRO #### [facility] [address] [place] [address] Mariela Patti CUT-OFFS SEE BELOW Normal [facility] Comment on above: Result Comment: AMP (Amphetamine): 500ng/mL, BAR (Barbituates): 200 ng/mL, BZO (Benzodiazepines): 150 ng/mL, BUP (Buprenorphine): 10 ng/mL, JOSEPH (Cocaine): 150 ng/mL, mAMP (Methamphetamine): 500 ng/mL, MTD (Methadone): 200 ng/mL, OPI (Opiates): 100 ng/mL, OXY (Oxycodone): 100 ng/mL, PCP (Phencyclidine): 25 ng/mL, PPX (Propoxyphene): 300 ng/mL, THC (Cannabinoids): 50 ng/mL, TCA (Trycyclic Antidepressants): 300 ng/mL Performed By: #### D SHERYL ERUR, UMICRO #### [facility] [address] [place] [address] Mariela Patti DRUG CUT HEADER DRUG CLASS TEST SYSTEM CUT-OFF CONCENTRATIONS ARE FOLLOWS: Normal [facility] Comment on above: Performed By: #### D SHERYL ERUR, UMICRO #### [facility] [address] [place] [address] Mariela Aptti mAMP Negative Normal NEGATIVE [facility] Comment on above: Performed By: #### D SHERYL ERUR, UMICRO #### [facility] [address] [place] [address] Mariela Patti MTD Negative Normal NEGATIVE [facility] Comment on above: Performed By: #### D SHERYL ERUR, UMICRO #### [facility] [address] [place] [address] Mariela Patti OPI Negative Normal NEGATIVE [facility] Comment on above: Performed By: #### D TABITHA SAUCEDO UMICRO #### [facility] [address] [address] Mariela Patti OXY Negative Normal NEGATIVE [facility] Comment on above: Performed By: #### D TABITHA SAUCEDO UMICRO #### [facility] [address] [address] Mariela Patti PCP Negative Normal NEGATIVE [facility] Comment on above: Performed By: #### D TABITHA SAUCEDO UMICRO #### [facility] [address] [place] [address] Mariela Patti PPX Negative Normal NEGATIVE [facility] Comment on above: Performed By: #### D TABITHA SAUCEDO UMICRO #### [facility] [address] [place] [address] Mariela Patti TCA Negative Normal NEGATIVE [facility] Comment on above: Performed By: #### D TABITHA SAUCEDO UMICRO #### [facility] [address] [place] [address] Mariela Patti THC Positive Abnormal NEGATIVE [facility] Comment on above: Performed By: #### D TABITHA SAUCEDO UMICRO #### [facility] [address] [place] [address] Marielacheli Armstrong ER URINE PROFILEon 1 Bilirubin Ql (U) Negative Normal NEGATIVE [facility] Comment on above: Performed By: #### D TABITHA SAUCEDO UMICRO #### [facility] [address] [place] [address] Mariela Patti Clarity (U) CLEAR Normal CLEAR [facility] Comment on above: Performed By: #### D TABITHA SAUCEDO UMICRO #### [facility] [address] [place] [address] Mariela Patti Color (U) LT. YELLOW Normal YELLOW [facility] Comment on above: Performed By: #### D TABITHA SAUCEDO UMICRO #### [facility] [address] [place] [address] Mariela SIDHUAHD A micrscopic examination will be performed if indicated. Normal [facility] Comment on above: Performed By: #### D TABITHA SAUCEDO UMICRO #### [facility] [address] [place], [place] [address] Mariela Patti Glucose Ql (U) Negative Normal NEGATIVE [place] Comment on above: Performed By: #### D TABITHA SAUCEDO, UMICRO #### [facility] [address] [address] Mariela Patti Hemoglobin Ql (U) SMALL Abnormal NEGATIVE [facility] Comment on above: Performed By: #### D TABITHA SAUCEDO, UMICRO #### [facility] [address] [place] [address] Mariela Patti Ketones Ql (U) Negative Normal NEGATIVE [place] Comment on above: Performed By: #### D TABITHA SAUCEDO UMICRO #### [facility] [address] [place] [address] Mariela Patti LEUKOCYTES TRACE Abnormal NEGATIVE [facility] Comment on above: Performed By: #### D TABITHA SAUCEDO, UMICRO #### [facility] [address] [place] [address] Mariela Patti Nitrite Ql (U) Positive Abnormal NEGATIVE [place] Comment on above: Performed By: #### D TABITHA SAUCEDO, UMICRO #### [facility] [address] [address] Mariela Patti pH (U) 5.5 [pH] Normal 5-9 [facility] Comment on above: Performed By: #### D TABITHA SAUCEDO, UMICRO #### [facility] [address] [place] [address] Mariela Patti SPEC GRAVITY >=1.030 Abnormal 1.005-<=1.02 5 [facility] Comment on above: Performed By: #### D TABITHA SAUCEDO, UMICRO #### [facility] [address] [address] Mariela Patti UA PROTEIN Negative Normal NEGATIVE/ TRACE [facility] Comment on above: Performed By: #### D TABITHA SAUCEDO UMICRO #### [facility] [address] [place] [address] Mariela Armstrong UR MICRO IND INDICATED Normal [facility] Comment on above: Performed By: #### D TABITHA SAUCEDO UMICRO #### [facility] [address] [place], [place] [address] Mariela Armstrong Urobilinogen Qn (U) 0.2 {River'U}/dL Normal 0.2 - 1. 0 [facility] Comment on above: Performed By: #### D TABITHA SAUCEDO UMICRO #### [facility] [address] [place] [address] Marieal Armstrong ETHANOL (BLD ALC)on 02-19-20 21 ALC NOTE NOTE: 80 mg/dl is th e legal limit for a blood alcohol level Normal [facility] Comment on above: Performed By: #### E TH #### [facility] [address] [place] [address] Mariela Armstrong Ethanol [Mass/Vol] mg/dL Normal [facility] Comment on above: Performed By: #### E TH #### [facility] [address] [place] [address] Mariela Armstrong URon 02-18-2021 , QUAL Negative Normal NEGATIVE [facility] Comment on above: Performed By: #### C SANG BLACKMAN, BNP #### [facility] [address] [place] [address] Mariela Patti PROF 14(COMP METB)on 021 Albumin [Mass/Vol] 3.8 g/dL Normal 3.5-5.0 [facility] Comment on above: Performed By: #### C SANG BLACKMAN, BNP #### [facility] [address] [place] [address] Mariela Patti Albumin/Globulin [Mass ratio] 1.0 {ratio} Normal [facility] Comment on above: Performed By: #### C SANG BLACKMAN, BNP #### [facility] [address] [address] Mariela Patti ALP [Catalytic activity/Vol] 116 U/L Normal 38-126 [facility] Comment on above: Performed By: #### C MP CMADM, BNP #### [facility] [address] [address] Mariela Patti ALT [Catalytic activity/Vol] 10 U/L Normal 9-52 [facility] Comment on above: Performed By: #### C MP, CMADM, BNP #### [facility] [address] [address] Mariela Patti Anion gap [Moles/Vol] 20.3 mmol/L Normal [facility] Comment on above: Performed By: #### C MP, CMADM, BNP #### [facility] [address] [address] Mariela Patti AST [Catalytic activity/Vol] 15 U/L Normal 14-36 [facility] Comment on above: Performed By: #### C MP CMADM, BNP #### [facility] [address] [address] Mariela Patti Bilirubin [Mass/Vol] 0.4 mg/dL Normal 0.2-1.3 [facility] Comment on above: Performed By: #### C MP, CMADM, BNP #### [facility] [address] [address] Mariela Patti Calcium [Mass/Vol] 9.5 mg/dL Normal 8.4-10.2 [facility] Comment on above: Performed By: #### C MP, CMADM, BNP #### [facility] [address] [place] [address] Mariela Patti Chloride [Moles/Vol] 103 mmol/L Normal 98-107 [facility] Comment on above: Performed By: #### C MP, CMADM, BNP #### [facility] [address] [address] Mariela Patti CO2 [Moles/Vol] 20.5 mmol/L Critically low 22.0-30.0 [facility] Comment on above: Performed By: #### C MP, CMADM, BNP #### [facility] [address] [address] Mariela Patti Creatinine [Mass/Vol] 0.71 mg/dL Normal 0.52-1.04 [facility] Comment on above: Performed By: #### C MP, CMADM, BNP #### [facility] [address] [address] Mariela Patti EGFR-AF THAI >60 Normal >=60 [facility] Comment on above: Performed By: #### C MP, CMADM, BNP #### [facility] [address] [address] Mariela Patti EGFR-NON AF THAI >60 Normal >=60 [facility] Comment on above: Performed By: #### C MP, CMADM, BNP #### [facility] [address] [address] Mariela Patti Globulin (S) [Mass/Vol] 3.9 g/dL Normal [facility] Comment on above: Performed By: #### C MP, CMADM, BNP #### [facility] [address] [address] Mariela Patti Glucose [Mass/Vol] 112 mg/dL Critically high 74-106 [facility] Comment on above: Performed By: #### C MP, CMADM, BNP #### [facility] [address] [address] Mariela Patti Potassium [Moles/Vol] 3.8 mmol/L Normal 3.4-5.0 [facility] Comment on above: Performed By: #### C MP, CMADM, BNP #### [facility] [address] [address] Mariela Patti Protein [Mass/Vol] 7.7 g/dL Normal 6.1-8.2 [facility] Comment on above: Performed By: #### C MP, CMADM, BNP #### [facility] [address] [address] Mariela Patti Sodium [Moles/Vol] 140 mmol/L Normal 137-145 [facility] Comment on above: Performed By: #### C SANG BLACKMAN, BNP #### [facility] [address] [address] Mariela Armstrong Urea nitrogen [Mass/Vol] 12.0 mg/dL Normal 7.0-17.0 [facility] Comment on above: Performed By: #### C YEHUDA CMANAREN, BNP #### [facility] [address] [address] Mariela Armstrong Urea nitrogen/Creatinine [Mass ratio] 16.9 mg/mg Normal [facility] Comment on above: Performed By: #### C YEHUDA CMANAREN, BNP #### [facility] [address] [address] Mariela Armstrong Rapid Covid-19 PCR (CVDRPD)o n 02-18-2021 SARS-CoV-2 (COVID-19) RNA FAITH+probe Ql (Unsp spec) Not detected Normal NOT DETECTED [facility] Comment on above: Result Comment: This test is not yet approved or cleared by the [place] Food and Drug Administration (FDA). This test was developed by [employer], [place], [place]. The performance characteristics of this test were validated by The [facility]. The results are not intended to be used as the sole means for clinical diagnosis or patient management decisions. The [facility] is authorized under Clinical Laboratory Improvement Amendments (CLIA) to perform high- complexity testing. When diagnostic testing is negative, the possibility of a false negative should be considered in the context of a patient's recent exposures and the presence of clinical signs and symptoms consistent with SARS-CoV-2. Performed By: #### C BC #### [facility] [address] [place] [address] Mariela Armstrong SALICYLATEon 02-18-2021 SALICYLATE 4.4 mg/dL Normal <=20.0 [facility] Comment on above: Performed By: #### C SANG BLACKMAN, BNP #### [facility] [address] [place] [address] Mariela Armstrong URINE MICROSCOPIC ONLYon BACTERIA MODERATE Abnormal NONE SEEN [facility] Comment on above: Performed By: #### D RUGRPTABITHA Pettit UMICRO #### [facility] [address] [id number] Mariela Patti Bacteria identified Cx Nom (U) INDICATED Normal [facility] Comment on above: Performed By: #### D TABITHA SAUCEDO UMICRO #### [facility] [address] [id number] Mariela Patti CAST NONE SEEN Normal NONE SEEN [facility] Comment on above: Performed By: #### D TABITHA SAUCEDO UMICRO #### [facility] [address] [address] Mariela Patti Crystals LM Nom (Urine sed) NONE SEEN Normal NONE SEEN [facility] Comment on above: Performed By: #### D TABITHA SAUCEDO UMICRO #### [facility] [address] [address] Mariela Patti Epithelial cells LM Ql (Urine sed) MODERATE Abnormal NONE SEEN /RARE [facility] Comment on above: Performed By: #### D TABITHA SAUCEDO UMICRO #### [facility] [address] [address] Mariela Patti MUCOUS TRACE Abnormal NONE SEEN [facility] Comment on above: Performed By: #### D TABITHA SAUCEDO UMICRO #### [facility] [address] [address] Mariela Patti RBC 2-5 Abnormal 0-2 [facility] Comment on above: Performed By: #### D TABITHA SAUCEDO UMICRO #### [facility] [address] [address] Mariela Patti WBC 10-20 Abnormal NONE SEEN [facility] Comment on above: Performed By: #### D TABITHA SAUCEDO UMICRO #### [facility] [address] [address] Mariela Patti CULTURE URINEon 09-18-2020 CULTURE URINE Isolate 1 Staphylococcus epidermidis >100,000 cfu/mL of ORGANISM 1 Staphylococcus epidermidis ANTIBIOTIC M.I.C RX STATUS Beta-Lactamase Pos POS F Cefoxitin Screen Neg NEG F Benzylpenicillin >=0.5 R F Gentamicin <=0.5 S F Ciprofloxacin <=0.5 S F Levofloxacin <=0.12 S F Moxifloxacin <=0.25 S F Inducible Clindamycin Resistance Neg NEG F Quinupristin/Dalfopri stin <=0.25 S F Linezolid <=0.5 S F Vancomycin 1 S F Tetracycline <=1 S F Nitrofurantoin <=16 S F Rifampicin <=0.5 S F Trimethoprim/Sulfamet hoxazole >=320 R F Oxacillin <=0.25 S F Normal [facility] Comment on above: Performed By: #### C SANG BLACKMAN, BNP #### [facility] [address] [place] [address] Mariela Armstrong CARDIAC BEHZAD ADMITon 020 CK [Catalytic activity/Vol] 24 U/L Critically low 30-135 [facility] Comment on above: Performed By: #### C SANG BLACKMAN, BNP #### [facility] [address] [place] [address] Mariela Armstrong CK.MB [Mass/Vol] 0.58 ng/mL Normal <=2.37 [facility] Comment on above: Performed By: #### C SANG BLACKMAN, BNP #### [facility] [address] [place] [address] Mariela Armstrong MURRAY 25.0 ng/mL Normal <=61.5 [facility] Comment on above: Performed By: #### C SANG BLACKMAN, BNP #### [facility] [address] [place] [address] Mariela Armstrong CBC AUTO DIFFon 09-15-2020 BASO # 0.1 103/ul Normal 0.0-0.1 [facility] Comment on above: Performed By: #### C SANG BLACKMAN, BNP #### [facility] [address] [place] [address] Mariela Armstrong Basophils/100 WBC (Bld) 0.3 % Normal 0.2-2.0 [facility] Comment on above: Performed By: #### C CHRISTIE BLACKMANDM, BNP #### [facility] [address] [address] Mariela Patti EO # 0.0 103/ul Normal 0.0-0.7 [facility] Comment on above: Performed By: #### C MP, CMADM, BNP #### [facility] [address] [place] [address] Mariela Patti Eosinophils/100 WBC (Bld) 0.0 % Critically low 0.9-7.0 [facility] Comment on above: Performed By: #### C MP, CMADM, BNP #### [facility] [address] [place] [address] Mariela Patti Erythrocyte distribution width (RBC) [Ratio] 12.5 % Normal 11.0-15.0 [facility] Comment on above: Performed By: #### C MP, CMADM, BNP #### [facility] [address] [place] [address] Mariela Patti Hematocrit (Bld) [Volume fraction] 49.9 % Critically high 36.0-48.0 [facility] Comment on above: Performed By: #### C MP, CMADM, BNP #### [facility] [address] [place] [address] Mariela Patti Hemoglobin (Bld) [Mass/Vol] 17.1 g/dL Critically high 12.0-16.0 [facility] Comment on above: Performed By: #### C MP, CMADM, BNP #### [facility] [address] [place] [address] Mariela Patti IG # 0.16 10e3/ul Critically high 0.00-0.[address] [facility] Comment on above: Performed By: #### C MP, CMADM, BNP #### [facility] [address] [place] [address] Mariela Patti IG % 0.9 % Critically high 0.0-0.[address] [facility] Comment on above: Performed By: #### C MP, CMADM, BNP #### [facility] [address] [place] [address] Mariela Patti LYMPH # 2.9 103/ul Normal 1.2-3.8 [facility] Comment on above: Performed By: #### C MP, CMADM, BNP #### [facility] [address] [address] Mariela Patti Lymphocytes/100 WBC (Bld) 17.0 % Critically low 20.5-60.0 [facility] Comment on above: Performed By: #### C MP, CMADM, BNP #### [facility] [address] [address] Marielacheli Collinsen MANUAL DIFF REQ NO Normal [facility] Comment on above: Performed By: #### C MP, CMADM, BNP #### [facility] [address] [place] [address] Marielacheli Armstrong MCH (RBC) [Entitic mass] 30.9 pg Normal 26.7-34.0 [facility] Comment on above: Performed By: #### C MP, CMADM, BNP #### [facility] [address] [place] [address] Marielacheli Armstrong MCHC (RBC) [Mass/Vol] 34.3 g/dL Normal 29.9-35.2 [facility] Comment on above: Performed By: #### C MP, CMADM, BNP #### [facility] [address] [place] [address] Mariela Patti MCV (RBC) [Entitic vol] 90.1 fL Normal 81.0-99.0 [facility] Comment on above: Performed By: #### C MP, CMADM, BNP #### [facility] [address] [place] [address] Mariela Patti MONO # 1.1 103/ul Critically high 0.3-0.[address] [facility] Comment on above: Performed By: #### C MP, CMADM, BNP #### [facility] [address] [place] [address] Mariela Patti Monocytes/100 WBC (Bld) 6.4 % Normal 1.7-12.0 [facility] Comment on above: Performed By: #### C MP, CMADM, BNP #### [facility] [address] [place] [address] Mariela Armstrong NEUT # 12.8 103/ul Critically high 1.4-6.5 [facility] Comment on above: Performed By: #### C SANG BLACKMAN, BNP #### [facility] [address] [address] Mariela Armstrong Neutrophils/100 WBC (Bld) 75.4 % Critically high 43.0-75.0 [facility] Comment on above: Performed By: #### C SANG BLACKMAN, BNP #### [facility] [address] [address] Mariela Armstrong Platelet mean volume (Bld) [Entitic vol] 9.4 fL Critically low 9.5-13.5 [facility] Comment on above: Performed By: #### C SANG BLACKMAN, BNP #### [facility] [address] [place] [address] Mariela Armstrong PLT 247 103/ul Normal 150-450 [facility] Comment on above: Performed By: #### C SANG BLACKMAN, BNP #### [facility] [address] [place] [address] Mariela Armstrong RBC 5.54 106/ul Critically high 4.20-5.40 [facility] Comment on above: Performed By: #### C SANG BLACKMAN, BNP #### [facility] [address] [place] [address] Mariela Armstrong WBC 16.9 103/ul Critically high 4.0-11.0 [facility] Comment on above: Performed By: #### C SANG BLACKMAN, BNP #### [facility] [address] [place], [place] [id number] Mariela Armstrong CT HEAD WO CONon 09-15-2020 CT HEAD WO CON EXAMINATION: CT HEAD WO CON HISTORY: NAUSEA WITH VOMITING, UNSPECIFIED COMPARISON: No relevant comparison available. TECHNIQUE: Axial CT images were obtained without IV contrast. Dose reduction techniques were achieved by using automated exposure control and/or adjustment of mA and/or kV according to patient size and/or use of iterative reconstruction technique. FINDINGS: BRAIN: No edema, hemorrhage, mass, acute infarction, or inappropriate atrophy. CSF SPACES: No hydrocephalus, subarachnoid hemorrhage, or mass. Appropriate for age. SKULL: No fracture, mass, or other significant visible lesion. SINUSES: No significant mucosal thickening or fluid on the limited views. ORBITS: No appreciable abnormality on the limited views. OTHER: Negative IMPRESSION: 1. Normal examination. Electronically authenticated by: BENJA SENIOR Date: 2020-09-15 14:06 Normal [facility] CTA NECK WO W CONon 09-15-20 20 CTA NECK WO W CON EXAMINATION: CTA HEA D WO W CON, CTA NECK WO W CON HISTORY: Frontal headache with weakness and tingling sensation in the arms and hands. COMPARISON: Head CT on 09/15/2020. TECHNIQUE: Axial CT scans of the head and neck were obtained after IV administration of 100 mL of Omnipaque 350. MPR and MIP (maximum intensity projection) images were performed. 3-D reconstruction images were also generated. Carotid stenosis is based on NASCET criteria. Dose reduction techniques were achieved by using automated exposure control and/or adjustment of mA and/or kV according to patient size and/or use of iterative reconstruction technique. FINDINGS: CTA OF THE HEAD: No major branch occlusion or significant intracranial stenosis. No aneurysm. Because this is a CTA of the head, this exam is not optimal for evaluation of the dural venous sinuses. However, no obvious filling defect in the dural venous sinuses. CTA OF THE NECK: No abnormal soft tissue mass in the neck. The visualized upper lungs show moderate centrilobular emphysema. In addition, multiple small thin-walled cysts are present. Osseous structures are intact. Aortic arch shows no aneurysm or dissection. The great vessels off the arch are show no significant stenosis. Vertebral arteries, common carotids and internal carotids show no significant stenosis or dissection. IMPRESSION: Normal CTA of the head and neck. Moderate centrilobular emphysema. 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 Electronically authenticated by: DONTA REYEZ Date: 2020-09-15 17:44 Normal [facility] DRUG SCREEN RAPID (URINE)on 09-15-2020 AMP Negative Normal NEGATIVE [facility] Comment on above: Performed By: #### D TABITHA SAUCEDO UMICRO #### [facility] [address] [address] Mariela TY Negative Normal NEGATIVE [facility] Comment on above: Performed By: #### D SHERYL ERUR, UMICRO #### [facility] [address] [address] Mariela Patti BUP Negative Normal NEGATIVE [facility] Comment on above: Performed By: #### D THEA SAUCEDOR, UMICRO #### [facility] [address] [address] Mariela Patti BZO Positive Normal NEGATIVE [facility] Comment on above: Performed By: #### D SHERYL, ERUR, UMICRO #### [facility] [address] [address] Mariela Patti JOSEPH Negative Normal NEGATIVE [facility] Comment on above: Performed By: #### D THEA SAUCEDOR, UMICRO #### [facility] [address] [place] [address] Mariela Patti CUT-OFFS SEE BELOW Normal [facility] Comment on above: Result Comment: AMP (Amphetamine): 500ng/mL, BAR (Barbituates): 200 ng/mL, BZO (Benzodiazepines): 150 ng/mL, BUP (Buprenorphine): 10 ng/mL, OJSEPH (Cocaine): 150 ng/mL, mAMP (Methamphetamine): 500 ng/mL, MTD (Methadone): 200 ng/mL, OPI (Opiates): 100 ng/mL or 2000 ng/mL, OXY (Oxycodone): 100 ng/mL, PCP (Phencyclidine): 25 ng/mL, PPX (Propoxyphene): 300 ng/mL, THC (Cannabinoids): 50 ng/mL, TCA (Trycyclic Antidepressants): 300 ng/mL Performed By: #### D SHERYL ERUR, UMICRO #### [facility] [address] [address] Mariela Patti DRUG CUT HEADER DRUG CLASS TEST SYSTEM CUT-OFF CONCENTRATIONS ARE FOLLOWS: Normal [facility] Comment on above: Performed By: #### D SHERYL ERUR, UMICRO #### [facility] [address] [address] Mariela Patti mAMP Negative Normal NEGATIVE [facility] Comment on above: Performed By: #### D THEA SAUCEDOR, UMICRO #### [facility] [address] [address] Mariela Patti MTD Negative Normal NEGATIVE [facility] Comment on above: Performed By: #### D THEA SAUCEDOR, UMICRO #### [facility] [address] [place] [address] Mariela Patti OPI Negative Normal NEGATIVE [facility] Comment on above: Performed By: #### D THEA SAUCEDOR, UMICRO #### [facility] [address] [place] [address] Mariela Patti OXY Negative Normal NEGATIVE [facility] Comment on above: Performed By: #### D TABITHA SAUCEDO, UMICRO #### [facility] [address] [place] [address] Mariela Patti PCP Negative Normal NEGATIVE [facility] Comment on above: Performed By: #### D TABITHA SAUCEDO UMICRO #### [facility] [address] [place] [address] Mariela Patti PPX Negative Normal NEGATIVE [facility] Comment on above: Performed By: #### D TABITHA SAUCEDO, UMICRO #### [facility] [address] [place] [address] Mariela Patti TCA Negative Normal NEGATIVE [facility] Comment on above: Performed By: #### D TABITHA SAUCEDO UMICRO #### [facility] [address] [place] [address] Mariela Patti THC Positive Normal NEGATIVE [facility] Comment on above: Performed By: #### D TABITHA SAUCEDO, UMICRO #### [facility] [address] [place] [address] Mariela Patti ER URINE PROFILEon 0 Bilirubin Ql (U) Negative Normal NEGATIVE [facility] Comment on above: Performed By: #### D THEA SAUCEDOR, UMICRO #### [facility] [address] [place], [place] [address] Mariela Patti Clarity (U) CLEAR Normal [facility] Comment on above: Performed By: #### D THEA SAUCEDOR, UMICRO #### [facility] [address] [place], [place] [address] Mariela Patti Color (U) YELLOW Normal YELLOW [facility] Comment on above: Performed By: #### D THEA SAUCEDOR, UMICRO #### [facility] [address] [place], [place] [address] Mariela Patti ERUAHD A micrscopic examination will be performed if indicated. Normal [facility] Comment on above: Performed By: #### D TABITHA SAUCEDO, UMICRO #### [facility] [address] [place] [address] Mariela Patti Glucose Ql (U) Negative Normal NEGATIVE [facility] Comment on above: Performed By: #### D TABITHA SAUCEDO, UMICRO #### [facility] [address] [place] [address] Mariela Patti Hemoglobin Ql (U) SMALL Normal NEGATIVE [facility] Comment on above: Performed By: #### D THEA SAUCEDOR, UMICRO #### [facility] [address] [place] [address] Mariela Patti Ketones Ql (U) Negative Normal NEGATIVE [facility] Comment on above: Performed By: #### D TABITHA SAUCEDO, UMICRO #### [facility] [address] [place], [place] [address] Mariela Patti LEUKOCYTES Negative Normal NEGATIVE [facility] Comment on above: Performed By: #### D THEA SAUCEDOR, UMICRO #### [facility] [address] [place], [place] [address] Mariela Patti Nitrite Ql (U) Positive Normal NEGATIVE [facility] Comment on above: Performed By: #### D THEA SAUCEDOR, UMICRO #### [facility] [address] [place] [address] Mariela Patti pH (U) 6.0 [pH] Normal 5-9 [facility] Comment on above: Performed By: #### D TABITHA SAUCEDO UMICRO #### [facility] [address] [id number] Mariela Armstrong Protein Ql (U) Negative Normal [place] Comment on above: Performed By: #### D TABITHA SAUCEDO UMICRO #### [facility] [address] [id number] Mariela Armstrong SPEC GRAVITY 1.010 Normal 1.005-<=1.02 5 [facility] Comment on above: Performed By: #### D TABITHA SAUCEDO UMICRO #### [facility] [address] [place], [place] [address] Mariela Armstrong UR MICRO IND INDICATED Normal [facility] Comment on above: Performed By: #### D TABITHA SAUCEDO UMICRO #### [facility] [address] [place], [place] [address] Mariela Armstrong Urobilinogen Qn (U) 0.2 {River'U}/dL Normal [facility] Comment on above: Performed By: #### D TABITHA SAUCEDO, UMICRO #### [facility] [address] [place], [place] [address] Mariela Armstrong URon 09-15-2020 , QUAL Negative Normal NEGATIVE [facility] Comment on above: Performed By: #### C MP, CMADM, BNP #### [facility] [address] [place], [place] [address] Mariela Armstrong PROF 14(COMP METB)on 020 Albumin [Mass/Vol] 4.1 g/dL Normal 3.5-5.0 [facility] Comment on above: Performed By: #### C BC #### [facility] [address] [place], [place] [address] Mariela Armstrong Albumin/Globulin [Mass ratio] 1.1 {ratio} Normal [facility] Comment on above: Performed By: #### C BC #### [facility] [address] [place], [place] [address] Mariela Armstrong ALP [Catalytic activity/Vol] 125 U/L Normal 38-126 [facility] Comment on above: Performed By: #### C BC #### [facility] [address] [place], [place] [address] Mariela Patti ALT [Catalytic activity/Vol] 15 U/L Normal 9-52 [facility] Comment on above: Performed By: #### C BC #### [facility] [address] [place], [place] [address] Mariela Patti Anion gap [Moles/Vol] 19.0 mmol/L Normal [facility] Comment on above: Performed By: #### C BC #### [facility] [address] [id number] Mariela Patti AST [Catalytic activity/Vol] 12 U/L Critically low 14-36 [facility] Comment on above: Performed By: #### C BC #### [facility] [address] [place] [address] Mariela Patti Bilirubin [Mass/Vol] 0.5 mg/dL Normal 0.2-1.3 [facility] Comment on above: Performed By: #### C BC #### [facility] [address] [place], [place] [address] Mariela Patti Calcium [Mass/Vol] 10.0 mg/dL Normal 8.4-10.2 [facility] Comment on above: Performed By: #### C BC #### [facility] [address] [place] [address] Mariela Patti Chloride [Moles/Vol] 105 mmol/L Normal 98-107 [facility] Comment on above: Performed By: #### C BC #### [facility] [address] [place] [address] Mariela Patti CO2 [Moles/Vol] 20.9 mmol/L Critically low 22.0-30.0 [facility] Comment on above: Performed By: #### C BC #### [facility] [address] [place] [address] Mariela Patti Creatinine [Mass/Vol] 0.63 mg/dL Normal 0.52-1.04 [facility] Comment on above: Performed By: #### C BC #### [facility] [address] [place], [place] [address] Mariela Patti EGFR-AF THAI >60 Normal >=60 [facility] Comment on above: Performed By: #### C BC #### [facility] [address] [address] Mariela Patti EGFR-NON AF THAI >60 Normal >=60 [facility] Comment on above: Performed By: #### C BC #### [facility] [address] [phone] Mariela Patti Globulin (S) [Mass/Vol] 3.9 g/dL Normal [facility] Comment on above: Performed By: #### C BC #### [facility] [address] [place] [address] Mariela Patti Glucose [Mass/Vol] 152 mg/dL Critically high 74-106 T [facility] Comment on above: Performed By: #### C BC #### [facility] [address] [place] [address] Mariela Patti Potassium [Moles/Vol] 3.9 mmol/L Normal 3.4-5.0 [facility] Comment on above: Performed By: #### C BC #### [facility] [address] [place] [address] Mariela Patti Protein [Mass/Vol] 8.0 g/dL Normal 6.1-8.2 [facility] Comment on above: Performed By: #### C BC #### [facility] [address] [place] [address] Mariela Patti Sodium [Moles/Vol] 141 mmol/L Normal 137-145 [facility] [place] [facility] Comment on above: Performed By: #### C BC #### [facility] [address] [place], [place] [address] Mariela Patti Urea nitrogen [Mass/Vol] 13.0 mg/dL Normal 7.0-17.0 [facility] Comment on above: Performed By: #### C BC #### [facility] [address] [place], [place] [address] Mariela Patti Urea nitrogen/Creatinine [Mass ratio] 20.6 mg/mg Normal [facility] Comment on above: Performed By: #### C BC #### [facility] [address] [place] [address] Mariela Armstrong PROTIMEon 09-15-2020 INR Coag (PPP) [Relative time] 1.03 {INR} Normal [facility] Comment on above: Performed By: #### C BC #### [facility] [address] [place] [address] Mariela Patti INR GUIDELINES SEE BELOW Normal [facility] Comment on above: Result Comment: HANANE RED INR: 2.0 - 3.0 CONDITIONS NOT LISTED BELOW 2.5 - 3.5 FOR PROSTHETIC HEART VALVE REPLACEMENT 2.5 - 3.5 RECURRENT THROMBOSIS Performed By: #### C BC #### [facility] [address] [place] [address] Mariela Armstrong PT Coag (PPP) [Time] 10.9 s Normal 9.0-11.6 [facility] Comment on above: Performed By: #### C BC #### [facility] [address] [place] [address] Mariela Armstrong PTTon 09-15-2020 aPTT Coag (Bld) [Time] 30.2 s Normal 22.3-36.2 [facility] Comment on above: Performed By: #### C BC #### [facility] [address] [place] [address] Marielacheli Armstrong PTT NORMAL PLEASE NOTE: NORMAL RANGE CHANGE 09-15-2015 DUE TO REAGENT LOT CHANGE Normal [facility] Comment on above: Performed By: #### C BC #### [facility] [address] [place] [address] Mariela Armstrong TROPONIN - Ion 09-15-2020 TROP <0.012 Normal <=0.034 [facility] Comment on above: Performed By: #### C MP, CMADM, BNP #### [facility] [address] [place] [address] Marielacheli Armstrong TROPONIN RANGE SEE BELOW Normal [facility] Comment on above: Result Comment: <0.0 34 ng/ml NEGATIVE 0.034-0.119 INDETERMINATE 0.120 AMI CUT OFF Performed By: #### C MP, CMADM, BNP #### [facility] [facility] [address] [address] Mariela Patti URINE MICROSCOPIC ONLYon AMORPHOUS CRYSTALS FEW Normal [facility] Comment on above: Performed By: #### C MP, CMADM, BNP #### [facility] [address] [address] Mariela Patti BACTERIA TRACE Normal NONE SEEN [facility] Comment on above: Performed By: #### C MP, CMADM, BNP #### [facility] [address] [address] Mariela Patti Bacteria identified Cx Nom (U) INDICATED Normal [facility] Comment on above: Performed By: #### C MP, CMADM, BNP #### [facility] [address] [place] [address] Mariela Patti CAST NONE SEEN Normal NONE [facility] Comment on above: Performed By: #### C MP, CMADM, BNP #### [facility] [address] [place] [address] Mariela Patti Crystals LM Nom (Urine sed) SEEN Normal NONE SEEN [facility] Comment on above: Performed By: #### C YEHUDA, CMADM, BNP #### [facility] [address] [place] [address] Mariela Patti Epithelial cells LM Ql (Urine sed) RARE Normal [facility] Comment on above: Performed By: #### C MP, CMADM, BNP #### [facility] [address] [place] [address] Mariela Patti MUCOUS NONE SEEN Normal NONE SEEN [facility] Comment on above: Performed By: #### C MP, CMADM, BNP #### [facility] [address] [place] [address] Mariela Patti RBC 0-2 Normal 0-2 [facility] Comment on above: Performed By: #### C MP, CMADM, BNP #### [facility] [address] [place] [address] Mariela Patti WBC 0-2 Normal NONE SEEN [facility] Comment on above: Performed By: #### C MP, CMADM, BNP #### [facility] [address] [id number] Mariela Armstrong XR CHEST 1 Von 09-15-2020 XR CHEST 1 V EXAMINATION: XR CHES T 1 V HISTORY: NAUSEA WITH VOMITING, UNSPECIFIED COMPARISON: No relevant comparison available. FINDINGS: LUNGS: No significant pulmonary parenchymal abnormalities. VASCULATURE: No increased pulmonary vasculature. PLEURA: No pneumothorax, effusion, or pleural thickening. CARDIAC: No cardiomegaly or cardiac silhouette abnormality. MEDIASTINUM: No visible mass or adenopathy. BONES: No fracture or visible bone lesion. OTHER: Negative. IMPRESSION: 1. No acute cardiopulmonary process. Electronically authenticated by: BENJA SENIOR Date: 2020-09-15 14:07 Normal [facility] Vital Signs Date Time Vital Sign Value Performing Clinician Facility 01-28-2025 09:110400 Body height 157.5 cm Radha ESPINOSA Work Phone: [facility] 01-28-2025 09:11-0400 Body mass index (BMI) [Ratio] 25.61 kg/m2 Radha ESPINOSA Work Phone: [facility] 01-28-2025 09:11040 Body weight 63.5 kg Radha ESPINOSA Work Phone: [facility] 04-28-2023 06:45-0400 Body temperature 96.8 [degF] Franc[facility] 04-28-2023 06:45-0400 Diastolic blood pressure 88 mm[Hg] Francia U[facility]ut[facility] MD [facility] 04-28-2023 06:45-0400 Heart rate 71 /min Francia Urrutia MD [facility] 04-28-2023 06:45-0400 Respiratory rate 18 /min Francia Urrutia MD Work Phone: [facility] 04-28-2023 06:45-0400 SaO2% (BldA) [Mass fraction] 98 % Francia Urrutia MD Work Phone: [facility] 04-28-2023 06:45-0400 Systolic blood pressure 147 mm[Hg] Francia Urrutia MD Work Phone: [facility] 04-28-2023 05:37-0400 Body mass index (BMI) [Ratio] 28.47 kg/m2 Francia Urrutia MD Work Phone: [facility] 04-28-2023 05:37-0400 Body weight 70.6 kg Francia Urrutia MD Work Phone: [facility] 04-27-2023 08:00-0400 Body height 157.5 cm Francia Urrutia MD Work Phone: [facility] 04-06-2023 16:03-0400 Body temperature 98.42 [degF] [facility] 04-06-2023 16:03-0400 Diastolic blood pressure 84 mm[Hg] [facility] 04-06-2023 16:03-0400 Heart rate 84 /min [facility] 04-06-2023 16:03-0400 Respiratory rate 16 /min [facility] 04-06-2023 16:03-0400 SaO2% (BldA) [Mass fraction] 99 % [facility] 04-06-2023 16:03-0400 Systolic blood pressure 124 mm[Hg] [facility] 10-25-2022 10:10-0500 Diastolic blood pressure 53 mm[Hg] [facility] 10-25-2022 10:10-0500 Heart rate 73 /min [facility] 10-25-2022 10:10-0500 Respiratory rate 18 /min [facility] 10-25-2022 10:10-0500 SaO2% (BldA) [Mass fraction] 98 % [facility] 10-25-2022 10:10-0500 Systolic blood pressure 110 mm[Hg] [facility] 10-25-2022 08:48-0500 Body height 157.48 cm [facility] 10-25-2022 08:48-0500 Body temperature 99 [degF] [facility] 10-25-2022 08:48-0500 Body weight 58.96 kg [facility] 10-04-2022 16:30-0500 Body height 157.48 cm Juan M Masters Other [facility] Other 10-04-2022 16:30-0500 Body mass index (BMI) [Ratio] 25.24 kg/m2 Juan M Guerrero Other [facility] Other 10-04-2022 16:30-0500 Body weight 62.6 kg Juan M Masters Other [facility] Other 01-03-2022 15:00-0400 Body height 157.48 cm Na Hines Other [facility] Other 01-03-2022 15:00-0400 Body mass index (BMI) [Ratio] 27.25 kg/m2 Na Hines Other [facility] Other 01-03-2022 15:00-0400 Body temperature 97.7 [degF] Na Hines Other [facility] Other 01-03-2022 15:00-0400 Body weight 67.59 kg Na Hines Other [facility] Other 01-03-2022 15:00-0400 Diastolic blood pressure 87 mm[Hg] Na Hines Other [facility] Other 01-03-2022 15:00-0400 Respiratory rate 18 /min Na Hines Other [facility] Other 01-03-2022 15:00-0400 SaO2% (BldA) [Mass fraction] 97 % Na Hines Other [facility] Other 01-03-2022 15:00-0400 Systolic blood pressure 131 mm[Hg] Na Hines Other [facility] Other 07-31-2021 13:50-0400 Body height 157.48 cm Na Hines Other [facility] Other 07-31-2021 13:50-0400 Body mass index (BMI) [Ratio] 25.79 kg/m2 Na Hines Other [facility] Other 07-31-2021 13:50-0400 Body temperature 96.2 [degF] Na Hines Other [facility] Other 07-31-2021 13:50-0400 Body weight 63.96 kg Na Hines Other [facility] Other 07-31-2021 13:50-0400 Diastolic blood pressure 96 mm[Hg] Na Hines Other [facility] Other 07-31-2021 13:50-0400 Respiratory rate 18 /min Na Hines Other [facility] Other 07-31-2021 13:50-0400 SaO2% (BldA) [Mass fraction] 95 % Na Hines Other [facility] Other 07-31-2021 13:[id number] Systolic blood pressure 139 mm[Hg] Na Hines Other [facility] [email or web address] Other Encounters Encounter Date Encounter Type Care Provider Facility Start: 03-02-2025 End: 03-02-2025 ambulatory Art Shine MD Facility:[facility] Start: 01-28-2025 End: 01-28-2025 Bamboo flowsheet Radha ESPINOSA Work Phone: [facility] Start: 01-28-2025 End: 01-28-2025 Bamboo flowsheet Radha ESPINOSA Work Phone: [facility] Start: 01-28-2025 End: 01-28-2025 Office outpatient new 30 minutes Radha ESPINOSA Work Phone: [facility] Comment on above: Acute hip pain, left (Primary Dx); Sacroiliac joint pain; Foot drop, left foot Start: 01-28-2025 End: 01-28-2025 ambulatory RADHA ARMENDARIZ Not Available Start: 06-16-2024 End: 06-16-2024 ambulatory NA HINES Facility[facility] Start: 04-26-2023 End: 04-28-2023 Evaluation and management of inpatient NA HINES [facility] Start: 04-26-2023 End: 04-28-2023 Evaluation and management of inpatient Francia Urrutia MD Work Phone: [facility] Comment on above: Crohn's disease of c olon without complication (HCC) (Primary Dx); Left lower quadrant abdominal pain Start: 04-10-2023 End: 04-10-2023 Patient encounter procedure NA J DONNY [facility] Start: 04-06-2023 End: 04-06-2023 Emergency department patient visit Josette You [facility] Start: 11-27-2022 End: 11-27-2022 ambulatory Na Donny Other [facility] Other Start: 11-27-2022 Telephone encounter Najennie Lawsonl t [facility] Start: 11-02-2022 End: 11-02-2022 ambulatory Juan M Masters Other [facility] Other Start: 11-02-2022 Telephone encounter Juan M Masters [facility] Start: 10-25-2022 End: 10-25-2022 ambulatory Juan M Gerson Samanthakali Facility:[facility] Start: 10-25-2022 End: 10-25-2022 Admission to same day surgery center [facility] Work Phone: Start: 10-25-2022 End: 10-25-2022 ambulatory NON STAFF [facility] Work Phone: Start: 10-17-2022 End: 10-17-2022 ambulatory Na Donny Other [facility] Other Start: 10-17-2022 Telephone encounter Na Lawsonl t [facility] Start: 10-04-2022 End: 10-04-2022 ambulatory Juan M Masters Other [facility] Other Start: 10-04-2022 [facility] visit new patient Juan M Masters [facility] Start: 08-23-2022 End: 08-23-2022 ambulatory Na Donny Other [facility] Other Start: 08-23-2022 Telephone encounter Najennie Lawsonl t [facility] Start: 08-09-2022 End: 08-09-2022 ambulatory Na Hines Other [facility] Other Start: 08-09-2022 Telephone encounter Na Breaul t [facility] Start: 05-22-2022 End: 05-22-2022 ambulatory Na Donny Other [facility] Other Start: 05-22-2022 Telephone encounter Na Breaul t [facility] Start: 04-12-2022 End: 04-12-2022 ambulatory Na Donny Other [facility] Other Start: 04-12-2022 Telephone encounter Na Breaul t [facility] Start: 01-03-2022 End: 01-03-2022 ambulatory Na Donny Other [facility] Other Start: 01-03-2022 Office outpatient visit 25 minutes Na Donny [facility] Start: 01-02-2022 End: 01-02-2022 ambulatory Na Donny Other [facility] Other Start: 01-02-2022 Telephone encounter Na Breaul t [facility] Start: 11-09-2021 End: 11-09-2021 ambulatory Na Donny Other [facility] Other Start: 11-09-2021 Telephone encounter Na Breaul t [facility] Start: 11-05-2021 End: 11-05-2021 ambulatory Na Donny Other [facility] Other Start: 11-05-2021 Telephone encounter Na Breaul t [facility] Start: 10-17-2021 End: 10-17-2021 ambulatory Na Donny Other [facility] Other Start: 10-17-2021 Telephone encounter Na taylor [facility] Start: 10-04-2021 End: 10-04-2021 ambulatory Na Hines Other [email or web address] Other Start: 10-04-2021 Telephone encounter Na taylor [facility] Start: 08-03-2021 End: 08-04-2021 ambulatory NA HINES Facility:[facility] Start: 07-31-2021 Office outpatient visit 15 minutes Na Hines [facility] Start: 04-30-2021 End: 04-30-[address] BEHZAD ELDER Facility:[facility] Start: 03-23-2021 End: 03-23-2021 ambulatory NA HINES Facility:[facility] Start: 02-18-2021 End: 02-18-[address] TRI ALCANTARA Facility:[facility] Start: 09-15-2020 End: 09-15-[address] BENJA SENIOR Facility:[facility] Procedures Date Procedure Procedure Detail Performing Clinician Start: 01-28-2025 Radex hip unilateral with pelvis 2-3 views Radha ESPINOSA Work Phone: Start: 04-28-2023 Blood count complete auto&auto difrntl wbc Hussein Suarez MD Work Phone: Start: 04-28-2023 C-reactive protein Josh Suarez MD Work Phone: Start: 04-27-2023 Toxin/antitoxin assa y tissue culture Hussein Suarez MD Work Phone: Start: 04-27-2023 Blood count complete auto&auto difrntl wbc Hussein Suarez MD Work Phone: Start: 04-27-2023 Ecg routine ecg w/le ast 12 lds i&r only Husseni Suarez MD Work Phone: Start: 04-26-2023 Urinalysis microscopic only Francia Urrutia MD Work Phone: Start: 04-26-2023 Urnls dip stick/tabl et rgnt auto w/o microscopy Francia Urrutia MD Work Phone: Start: 04-26-2023 Ct abdomen & pelvis w/contrast material Francia Urrutia MD Work Phone: Start: 04-26-2023 Comprehensive metabo lic panel Francia Urrutia MD Work Phone: Start: 10-25-2022 Colonoscopy Plan of Treatment Date Care Activity Detail Author Start: 01-28-2025 End: 01-28-2025 Patient encounter procedure 01/28/2025 9:00 AM EDT Office Visit [facility] [address] [place] [address] Radha Armendariz, PA [address] [place] [address] Acute hip pain, left (Primary Dx) [facility] Comment on above: Acute hip pain, left (Primary Dx) Start: 05-22-2023 Influenza vaccination Flu [facility] (# 1) [facility] Start: 2022 Screening for malign ant neoplasm of breast Breast cancer screen [facility] Start: 2022 Screening for malign ant neoplasm of lung Low dose CT lung screening &/or counseling [facility] Start: 2022 Shingles vaccine (1 of 2) Shingles vaccine (1 of 2) [facility] Start: 10-25-2022 [facility] Start: 2017 Screening for malign ant neoplasm of colon [facility] Start: 2007 Diabetes screen Diabetes screen [facility] Start: 1991 DTaP/Tdap/Td vaccine (1 - Tdap) DTaP/Tdap/Td vaccine (1 - Tdap) [facility] Start: 1990 Hepatitis C screening Hepatitis C sc reen [facility] Start: 1987 HIV screening HIV screen [facility] [employer] Start: 1984 Depression Screen Depression Screen [facility] Start: 1982 Lipid panel Lipids [facility] [employer] Start: 1978 Pneumococcal 0-64 ye ars Vaccine (1 - PCV) Pneumococcal 0-64 years Vaccine (1 - PCV) [facility] Start: 05-06-1973 COVID-19 Vaccine (#1) COVID-19 Vacci ne (#1) [facility] End: 04-30-2023 C-reactive protein C-Reactive Protein Lab Routine Daily for 3 Days starting 04/28/2023 until 04/30/2023, 1 completed [facility] Comment on above: Daily for 3 Days sta rting 04/28/2023 until 04/30/2023, 1 completed End: 05-03-2023 CBC W Auto Differential panel - Blood CBC auto differential Lab Routine Daily for 7 Days starting 04/27/2023 until 05/03/2023, 2 completed [facility] Comment on above: Daily for 7 Days sta rting 04/27/2023 until 05/03/2023, 2 completed End: 05-03-2023 Comprehensive Metabolic Panel w/ Reflex to MG Comprehensive Metabolic Panel w/ Reflex to MG Lab Routine Daily for 7 Days starting 04/27/2023 until 05/03/2023, 2 completed [facility] Comment on above: Daily for 7 Days sta rting 04/27/2023 until 05/03/2023, 2 completed Oxygen therapy [[facility]] Initiate Oxygen Therapy Protocol Respiratory Care Routine Daily until discontinued starting 04/27/2023 [facility] Comment on above: Daily until disconti nued starting 04/27/2023 Patient Education Colon Polyps [facility] Work Phone: Immunizations Immunization Date Immunization Notes Care Provider Fahad condon 08-31-2020 Toradol per 15 mg Na Donny Other [facility] Other 08-31-2020 KENALOG - 10 mg Na Br eacindi Other [facility] Other 06-08-2020 Toradol per 15 mg Na Donny Other [facility] Other 06-08-2020 KENALOG - 10 mg Na hernandez Other [facility] Other 06-14-2012 Toradol per 15 mg Na Taylorault Other [facility] Other Payers Date Payer Category Payer Medicare (Managed Care) [facility] [id number] 2024 Private Health Insurance [facility] [id number] 2024 Medicare [id number] 2023 Private Health Insurance [id number] 2022 Private Health Insurance [id number] 2022 Self-pay [id number] 2021 Unknown [id number] 2021 Medicaid [id number] 2020 Medicare [id number] 1972 Unknown [id number]. 593 1972 Unknown [id number] [id number]. 593 1972 Unknown [id number] [id number]. 593 1972 Unknown [id number] [id number]. 593 1972 Unknown [id number] [id number]. 593 1972 Unknown [id number] [id number]. 173 1972 Unknown [id number] [id number]. 727 1972 Unknown [id number] [id number]. 727 1972 Unknown [id number] [id number]. 1259 1972 Unknown [id number] 2.16.840.1.595285.3.579.2. 1259 1972 Unknown [id number] [id number]. 196 1959 Medicaid [id number] 1959 Self-pay [id number] 1959 Unknown [id number] 1959 Unknown [id number] Medicare Medicare Outpatient [id number] 8A [id number] Unknown [place] BC/BS [id number] Unknown [id number]. 531 Social History Date Type Detail Facility Unknown if ever smoked [facility] Other Start: 01-28-2025 Sex Assigned At [facility] Start: 10-25-2022 Tobacco smoking status NHIS Smoker (finding) [facility] Start: 1970 Sex Assigned At Female [facility] Start: 04-06-2023 Tobacco smoking status Heavy tobacco smoker (finding) [facility] Tobacco smoking status Never [facility] Start: 04-27-2023 End: 01-28-2025 Tobacco smoking status PRIS Smokes tobacco daily [facility] History of tobacco use Cigarette Smoker B ON [employer] Start: 04-27-2023 End: 01-28-2025 Cigarettes smoked current (pack per day) - Reported 2 [facility] Start: 04-27-2023 End: 01-28-2025 Tobacco use and exposure Smokeless tobacco non-user [facility] Start: 04-27-2023 Alcohol intake Lifetime non-drinker (finding) [facility] Start: 04-27-2023 History SDOH Alcohol Frequency 1 [facility] Start: 04-27-2023 History SDOH Alcohol Std Drinks 0 [facility] Start: 1970 Sex Assigned At Not on file [facility] Start: 01-28-2025 Alcoholic beverage intake Ex-drinker (finding) [facility] Goals Date Patient Goal Desired Activity /State Functional Status Date Assessment Result Facility 04-06-2023 Functional Status N/A [facility] Clinical Notes 07-31-2021 to 01-28-2025 JESÚS Ivan - 01/28/2025 9:00 AM Troy Watts RN - 04/28/2023 4:39 PM Troy Watts RN - 04/28/2023 4:24 PM RHONDATEdamian Watts RN - 04/28/2023 3:47 PM EDT Note Date & Type Note Facility 01-28-2025 History of Present illness Narrative Images from the original note were not included. NAME: Baylee Babb : 1970 HISTORY OF PRESENT ILLNESS: NEW PT Baylee Babb is an 54 y.o. @ female. (NEW PT) NA HINES REFERRAL. LT HIP PAIN FOR YEARS. TX BY PCP 01/14 WITH FLEXERIL. XRAY TODAY EPIC 01/28/25 HX OF STROKES HX OF FRACTURE IN HIP, STATES SHE HAD A FALL. METAL WAS TAKEN OUT 06/25/12 - DR SAVAGE WALKING WITH A LIMP, DRAGGING LT FOOT DUE TO STROKE. PAIN LATERAL HIP AND NEAR LT SI AREA. OCCAS PAIN ANTERIOR/GROIN. PAIN GETS WORSE WITH PROLONGED WB. NOTES SHE HAS A KNOT ON THE LT HIP. FLEXERIL EASED SOME OF THE PAIN, THINKS SHE HAS ONE LEFT. +TYL PRN. +GABAPENTIN. +LIDOCAINE CREAM WITH SHORT TERM RELIEF. +N/T IN LEG, PRETTY CONSTANT FOR A WHILE. DENIES POPPING, GRINDING. +GIVING OUT. WAKES PT AT HS. PAST MEDICAL HISTORY: Past Medical History: Diagnosis Date Crohn's disease ([facility]) CVA (cerebral vascular accident) ([facility]CC) Hypertension ([facility]CC) Occipital neuralgia PAST SURGICAL HISTORY: Past Surgical History: Procedure Laterality Date HIP FRACTURE SURGERY Left Dr Savage HIP SURGERY Left 06/25/2012 Metal removed from hip - Dr Savage SOCIAL HISTORY: Social History Occupational History Not on file Tobacco Use Smoking status: Every Day Types: Cigarettes Smokeless tobacco: Never Substance and Sexual Activity Alcohol use: Not Currently Drug use: Not on file Sexual activity: Not on file ALLERGIES: Allergies Allergen Reactions Codeine Unknown and GI intolerance Lisinopril Other Reaction(s): cough, sob HOME MEDICATIONS: Current Outpatient Medications Medication Instructions acetaminophen (TYLENOL) 500 mg albuterol (2.5 MG/3ML) 0.083% nebulizer solution Every 6 hours PRN atorvastatin (LIPITOR) 40 mg clopidogrel (Plavix) 75 MG tablet TAKE ONE TABLET BY MOUTH DAILY AT 9AM cyclobenzaprine (FLEXERIL) 5 mg, 3 times daily DULoxetine (Cymbalta) [address] capsule 1 capsule, Every 24 hours gabapentin (NEURONTIN) 300 mg, Every 24 hours ibuprofen 800 mg, Every 8 hours losartan (COZAAR) 25 mg, Every 24 hours metoprolol succinate XL (Toprol-XL) 50 MG 24 hr tablet Every 24 hours mometasone (Elocon) 0.1 % ointment Daily Multiple Vitamin (Multi Vitamin) tablet Every 24 hours traZODone (DESYREL) 100 mg vitamin C 500 mg, Every 24 hours REVIEW OF SYSTEMS: Review of Systems Vitals: Body mass index is 25.61 kg/m . Tobacco Use: High Risk (01/28/2025) Patient History Smoking Tobacco Use: Every Day Smokeless Tobacco Use: Never Passive Exposure: Not on file Alcohol Use: Not At Risk (04/26/2023) Received from [facility] Frequency of Alcohol Consumption: Never Average Number of Drinks: Patient does not drink Frequency of Binge Drinking: Never PHYSICAL EXAM: Hip Musculoskeletal Exam Gait Gait is normal. Steppage: left Steppage comment: History of drop foot from CVA 2 years ago Inspection Leg length disparity: no discrepancy Left Erythema: none Ecchymosis: none Edema: none Deformity: none Previous incision: lateral Incision: well-healed Inspection additional comments: Lump/ knots along post surgical incision without evidence of infection or tenderness on palpation. Palpation Right Tenderness: present Lower lumbar region pain: moderate Lower lumbar region pain comment: SI joint Left Increased warmth: none Tenderness: present Lower lumbar region pain: moderate Lower lumbar region pain comment: SI JOINT Range of Motion Left Left hip range of motion is within functional limits. Active ROM: normal. Passive ROM: normal. Strength Left Left hip strength is normal. Extension: 5/5. Flexion: 4+/5. Internal rotation: 5/5. External rotation: 5/5. Adduction: 5/5. Abduction: 5/5. Strength additional comments: 3/5 left ankle dorsiflexion with fatigue, Plantar flexion 5/5 Right is 5/5 dorsiflexion and plantar flexion Neurovascular Left Left hip neurovascular exam is normal. Pulses - PT: normal Posterior tibial: 2+ Neurovascular additional comments: 3-5 beat clonus on left leg Right is 2 beat clonus. Special Tests Left Log roll test: negative CECE test (left): positive Impingement test: negative Special tests additional comments: + Gaenselens test/ + tight hamstrings. SLR neg for radicular pain. General Constitutional: appears stated age Labored breathing: no Psychiatric: normal mood and affect Neurological: alert and oriented x3 Skin: intact Lymphadenopathy: none Physical Exam General Appearance: Normal Respiratory: No acute distress Musculoskeletal: Tenderness is mostly to the SI joint, reproducible on exam. Painless range of motion of the hip is observed. Extremities: Patient walks with a steppage gait secondary to left drop foot. Skin: Lumps and knots are along the postsurgical scars, nontender and without evidence of infection or inflammation. Neurological: Normal Other observations: None IMAGING: XR hip left 2 or 3 views Imaging Result: AP and Lateral left hip weight bearing No acute fracture or dislocation Osteopenia noted. SI joints appears Sclerotic with arthritic changed Postsurgical changed to left Femur Joint space preserved left Hip joint, left Lumbar sacralization. Impression: postsurgical changed from left hip fracture Results - Imaging: - X-ray shows postsurgical changes to her proximal femur Procedures Orders Placed This Encounter Procedures XR hip left 2 or 3 views Order Specific Question: Is the patient ? Answer: No Order Specific Question: Reason for exam: Answer: pain Ambulatory referral to Pain Medicine Standing Status: Future Standing Expiration Date: 07/30/2025 Referral Priority: Routine Referral Type: Consultation Referral Reason: Specialty Services Required Referred to Provider: Luiz Abbott MD Requested Specialty: Pain Medicine Number of Visits Requested: 1 ASSESSMENT: ICD-10-CM 1. Acute hip pain, left M25.552 XR hip left 2 or 3 views Ambulatory referral to Pain Medicine 2. Sacroiliac joint pain M53.3 Assessment & Plan Left hip pain. She exhibits tenderness predominantly localized to the sacroiliac (SI) joint, which is reproducible upon examination. Her hip demonstrates a painless range of motion. Radiographic imaging reveals postsurgical alterations in the proximal femur. The palpable lumps and knots are situated along the postsurgical scars, are nontender, and show no signs of infection or inflammation. Her gait is characterized by a steppage pattern, likely due to left foot drop. The possibility of lumbar radicular symptoms was discussed. She also presents with some weakness in the left leg and fatigue, which are residual effects of a stroke she experienced 2 years ago. Diagnostic plan: None. Treatment plan: An ankle-foot orthosis (AFO) was suggested to mitigate fall risk, along with the potential use of a cane or walker. She expressed agreement to a referral to pain management for potential SI joint injections, given the reproducibility of her symptoms and her expressed concern about lower back pain. Clinical decision making: She expressed gratitude for the bedside discussion of her x-ray results and the recommendation for conservative measures and potential SI joint injection to evaluate relief. She will contemplate the use of an AFO and discuss this with her primary care provider. Bladder stress incontinence. She has had bladder stress incontinence issues since her stroke but no other acute changes. She has previously seen a urologist with discussion of a bladder suspension surgery. Diagnostic plan: None. Treatment plan: If any symptoms worsen, this would need to be revisited. Clinical decision making: None. Follow-up: None. Questions answered in laymen terms at the bedside. The diagnosis, home exercise plan and any ongoing restrictions/ recommendations reviewed. If unable to be reached in office, I recommend evaluation at nearest Emergency Room if any symptoms worsened or new symptoms develop for requiring urgent evaluation. documented in this encounter [facility] 04-28-2023 History of Present illness Narrative Pt and all belongings taken to personal vehicle at this time. Went over pt instructions, concerned about no f/u to have hernia surgery. Told her she may have to have her hospital follow up and then go from there. Teley removed. IV removed and pt getting dressed. Pt packed her own belongings with visitor at bedside. Medicare paper signed and placed under social work door per their note. Pt was able to tolerate a grilled cheese. Hung ATB and gave steroid dose. Notified Dr. Hsu that pt did well with sandwich and he stated he will discharge her. Blanca Hsu M.D. Internal Medicine Progress Note Patient: Baylee Babb Date of Admission: 04/26/2023 8:53 PM Hospital Day # 1 Date of Evaluation: 04/28/2023 SUBJECTIVE: Baylee Babb is a 52 y.o. female who was seen today for follow up of Abdominal pain / Chron's flareup. She is feeling better today. She states her abdominal pain is doing much better. She denies fever or chills and has been afebrile. She is tolerating clear liquid diet and would like to try regular diet and is requesting to go home if she tolerates diet ROS: Constitutional: negative for fevers, and negative for chills. Respiratory: negative for shortness of breath, negative for cough, and negative for wheezing Cardiovascular: negative for chest pain, and negative for palpitations Gastrointestinal: negative for abdominal pain, negative for nausea,negative for vomiting, negative for diarrhea, and negative for constipation All other systems were reviewed with the patient and are negative unless otherwise stated in HPI - OBJECTIVE: Vitals: Temp: 96.8 F (36 C) BP: (!) 147/88 Respirations: 18 Pulse: 71 SpO2: 98 % on room air Weight Wt Readings from Last 3 Encounters: 04/28/23 155 lb 10.3 oz (70.6 kg) Body mass index is 28.47 kg/m . 24HR INTAKE/OUTPUT: Intake/Output Summary (Last 24 hours) at 04/28/2023 1215 Last data filed at 04/28/2023 0700 Gross per 24 hour Intake 4251.45 ml Output 2150 ml Net 2101.45 ml Exam: GEN: Awake, alert and oriented x 3. EYES: EOMI, pupils equal NECK: Supple. No lymphadenopathy. No carotid bruit CVS: regular rate and rhythm, no audible murmur PULM: CTA, no wheezes, rales or rhonchi, no acute respiratory distress ABD: Bowels sounds normal. Abdomen is soft. No distention. no tenderness to palpation. Freely reducible ventral hernia noted EXT: no edema bilaterally . No calf tenderness. NEURO: Moves all extremities. Motor and sensory are grossly intact SKIN: No rashes. No skin lesions. - DATA: Complete Blood Count: Recent Labs 04/26/23214904/27/23 0610 04/28/23 0650 WBC 13.8* 9.5 12.5* RBC 4.94 4.77 4.77 HGB 15.2* 14.6 14.5 HCT 44.0 42.7 43.1 MCV 89.1 89.5 90.4 MCH 30.8 30.6 30.4 MCHC 34.5 34.2 33.6 RDW 12.1 12.1 12.4 PLT 245 219 230 MPV 9.4 9.5 9.5 Last 3 Blood Glucose: Recent Labs 04/26/23214904/27/23 0610 04/28/23 0650 GLUCOSE 138* 173* 111* Comprehensive Metabolic Profile: Recent Labs 04/26/23214904/27/23 0610 04/28/23 0650 NA 140 140 146* K 3.9 4.0 4.2 CL 105 110* 112* CO2 24 22 24 BUN 12 9 7 CREATININE 0.56 0.46* 0.54 GLUCOSE 138* 173* 111* CALCIUM 9.6 9.5 9.2 PROT 7.0 6.9 6.3* LABALBU 4.1 3.9 3.6 BILITOT 0.4 0.3 0.3 ALKPHOS 134* 126* 103 AST 17 14 13 ALT 8 8 6 Urinalysis: Lab Results Component Value Date/Time COLORU Yellow 04/26/2023 10:54 PM SPECGRAV 1.020 04/26/2023 10:54 PM PHUR 6.0 04/26/2023 10:54 PM WBCUA 0 TO 2 04/26/2023 10:54 PM RBCUA 2 TO 5 04/26/2023 10:54 PM BACTERIA TRACE 04/26/2023 10:54 PM LEUKOCYTESUR NEGATIVE 04/26/2023 10:54 PM NITRU NEGATIVE 04/26/2023 10:54 PM UROBILINOGEN Normal 04/26/2023 10:54 PM BILIRUBINUR NEGATIVE 04/26/2023 10:54 PM GLUCOSEU NEGATIVE 04/26/2023 10:54 PM KETUA NEGATIVE 04/26/2023 10:54 PM Lactic Acid: Lab Results Component Value Date/Time LACTA 1.5 04/26/2023 09:50 PM Radiology/Imaging: CT ABDOMEN PELVIS W IV CONTRAST Additional Contrast? None Final Result *Marked inflammatory changes surrounding the sigmoid colon, likely related to an infectious/inflammatory process versus an underlying Crohn's exacerbation. No focal fluid collection or abscess. *Supraumbilical hernias containing fat. *Cholecystectomy. *Suspected chronic L1 superior endplate fracture. RECOMMENDATIONS: 4 mm left solid pulmonary nodule. No routine follow-up imaging is recommended per Fleischner Society Guidelines. These guidelines do not apply to immunocompromised patients and patients with cancer. Follow up in patients with significant comorbidities as clinically warranted. For lung cancer screening, adhere to Lung-RADS guidelines. Reference: Radiology. 2017; 284(1):228-43. MEDICAL DECISION MAKING: Primary Problem(s): Abdominal pain / Crohn's flare up Condition is improving Treatment plan: Continue current treatment Imaging: no further imaging studies ordered today Test interpretation: Management and/or test interpretation was discussed with Deborah John CNP at patient handoff Medications: Switch SoluCortef to PO prednisone at DC Switch IV Cipro / Flagyl to PO Continue Pentasa Continue Tramadol Medication Monitoring / High Risk Medications: none Nutrition status: at risk for malnutrition Meat And Poultry Inspector consult initiated Hospital Prophylaxis: DVT: SCD's Stress Ulcer: H2 Apoorva Consults and Nursing notes were personally reviewed, all current labs and imaging were personally reviewed, and tests ordered: CBC, BMP Shared decision making: All test results, treatment options and disposition options were discussed with the patient today Social determinants of health that may impact management: none Disposition: Discharge plan is pending - if she tolerates diet she may be DC'd home later today Evans Hsu MD , M.Rojelio 04/28/2023 12:15 PM Physical Therapy Facility/Department: [facility] Daily Treatment Note NAME: Baylee Babb : 1970 Date of Service: 04/28/2023 Discharge Recommendations: Continue to assess pending progress, Home with assist PRN, Home with Home health PT Patient Diagnosis(es): There were no encounter diagnoses. Assessment Assessment: Bed mobiltiy: SUP. Transfers: SBA. Pt ambulated 150ft, SBA/CGA x1, pt managed IV pole with slow gait. Pt has L foot drop d/t stoke. Pt educated on stair negotiation CGA with good tolerance. Ther ex: sit to stands x10. Activity Tolerance: Patient tolerated treatment well Plan Physcial Therapy Plan General Plan: 2 times a day 7 days a week Restrictions Restrictions/Precautions Restrictions/Precautions: General Precautions, Fall Risk, Contact Precautions Subjective Subjective Subjective: pt EOB craig arrival, agreeable to physical therapy Pain: denies Orientation Overall Orientation Status: Within Functional Limits Cognition Overall Cognitive Status: WFL Objective Bed Mobility Training Bed Mobility Training: Yes Overall Level of Assistance: Supervision;Assist X1 Interventions: Verbal cues Balance Sitting: Intact Standing: Impaired Standing - Static: Good Standing - Dynamic: Good;Fair Transfer Training Transfer Training: Yes Overall Level of Assistance: Stand-by assistance;Assist X1 Interventions: Safety awareness training;Verbal cues Sit to Stand: Stand-by assistance;Assist X1 Stand to Sit: Stand-by assistance;Assist X1 Gait Training Gait Training: Yes Gait Overall Level of Assistance: Stand-by assistance;Assist X1;Contact-guard assistance Interventions: Safety awareness training;Verbal cues Base of Support: Narrowed Speed/Jasmin: Slow Step Length: Left shortened Stance: Left decreased Gait Abnormalities: (L foot drop d/t stroke) Distance (ft): 150 Feet Assistive Device: Other (comment) (pt managed IV pole) Stairs - Level of Assistance: Contact-guard assistance;Assist X1 Number of Stairs Trained: 12 Neuromuscular Education Neuromuscular Education: No PT Exercises Exercise Treatment: stair training ; sit to stands x10 Safety Devices Type of Devices: All fall risk precautions in place;Call light within reach;Left in bed Goals Short Term Goals Time Frame for Short Term Goals: 20 days Short Term Goal 1: Patient to complete all transfers with no LOB to decrease fall risk. Short Term Goal 2: Patient to ambulate 150ft with SUP and no LOB to improve mobility. Short Term Goal 3: Patient to ascend/descend 3 steps with HRx1 and SUP with no LOB to safely enter her home. Short Term Goal 4: Patient to tolerate 20-30 min of ther ex/act to improve functional strength. Education Patient Education Education Given To: Patient Education Provided: Role of Therapy;Plan of Care;Transfer Training Education Method: Verbal Barriers to Learning: None Education Outcome: Verbalized understanding Therapy Time Individual Concurrent Group Co-treatment Time In 0821 Time Out 0845 Minutes 24 Merry Cuba PTA Pt called ou to go to bathroom. VS and assessment as charted for shift assessment. Does c/o abd pain at hiatal hernia Will give prn medication when able. A/Ox4 Pleasant and cooperative with staff. Denies other needs at this time. Call light in reach, will continue to monitor. Patient resting comfortably at this time. Patient states pain is tolerable at this time and denies any other needs. Patient alert & oriented x4 and able to answer all questions appropriately and follow commands. Assessment and vitals as charted. Bed alarm on, bed locked, gripper socks on, call light within reach and able to use appropriately. Will continue to monitor this shift. Occupational Therapy Facility/Department: [facility] Occupational Therapy Initial Assessment Name: Baylee Babb : 1970 Date of Service: 04/27/2023 Discharge Recommendations: Continue to assess pending progress Patient Diagnosis(es): There were no encounter diagnoses. Past Medical History: has a past medical history of Arthritis, Cerebral artery occlusion with cerebral infarction (HCC), Crohn's colitis (HCC), GERD (gastroesophageal reflux disease), and Hypertension. Past Surgical History: has a past surgical history that includes Hip fracture surgery; Cholecystectomy; Hysterectomy; and Colonoscopy. Treatment Diagnosis: weakness Assessment Performance deficits / Impairments: Decreased functional mobility ;Decreased endurance;Decreased ADL status;Decreased balance;Decreased strength;Decreased high-level IADLs Assessment: 52 y/o F admitted to [facility] for abdominal pain. Patient with hx of CVA with L residual weakness. Patient also presents with generalized weakness and deconditioning, requiring increased need for assist during ADL. Patient would benefit from OT services to address to ensure safe and indep return home. Treatment Diagnosis: weakness Prognosis: Good Decision Making: Medium Complexity REQUIRES OT FOLLOW-UP: Yes Plan Occupational Therapy Plan Times Per Day: Once a day Days Per Week: 7 Days Current Treatment Recommendations: Strengthening, Balance training, Functional mobility training, Endurance training, Safety education & training, Patient/Caregiver education & training, Equipment evaluation, education, & procurement, Self-Care / ADL, Home management training Restrictions Restrictions/Precautions Restrictions/Precautions: General Precautions, Fall Risk, Contact Precautions Subjective General Patient assessed for rehabilitation services?: Yes Subjective Subjective: Patient states pain but its not that bad. Patient agreeable to OT evaluation. denies Social/Functional History Social/Functional History Lives With: Alone Type of Home: Mobile home Home Layout: One level Home Access: Stairs to enter with rails Entrance Stairs - Number of Steps: 3 Entrance Stairs - Rails: Right Bathroom Shower/Tub: Tub/Shower unit Has the patient had two or more falls in the past year or any fall with injury in the past year?: No ADL Assistance: Independent Homemaking Assistance: Independent Homemaking Responsibilities: Yes Ambulation Assistance: Independent Transfer Assistance: Independent Active Internet Marketing Strategist: Yes Additional Comments: Pt uses no AD for mobility but has trouble with balance since stroke with L sided weakness Objective Pulse: 85 Heart Rate Source: Monitor;Apical BP: (!) 143/93 BP Location: Left upper arm BP Method: Automatic Patient Position: Semi fowlers MAP (Calculated): 110 Respirations: 17 SpO2: 95 % O2 Device: None (Room air) Safety Devices Type of Devices: All fall risk precautions in place;Call light within reach;Left in chair Bed Mobility Training Bed Mobility Training: No Balance Sitting: Intact Standing: Impaired Standing - Static: Good Standing - Dynamic: Fair;Good Transfer Training Transfer Training: Yes Overall Level of Assistance: Stand-by assistance;Assist X1 (sit<>stand from recliner and toilet, pt edu on safety, and DME when asked about tub transfers. I have a tub with jets I want to get down into, but its hard to get out. ) Interventions: Safety awareness training;Verbal cues Gait Training Gait Training: Yes Gait Overall Level of Assistance: Stand-by assistance;Assist X1;Contact-guard assistance Interventions: Safety awareness training;Verbal cues Base of Support: Narrowed Speed/Jasmin: Slow Step Length: Left shortened Stance: Left decreased Gait Abnormalities: (L drop foot d/t stroke) Distance (ft): 100 Feet Assistive Device: Other (comment) (pt managed IV pole) AROM: Within functional limits PROM: Within functional limits Strength: Generally decreased, functional Coordination: Generally decreased, functional Tone: Normal Sensation: Intact ADL Feeding: Independent Grooming: Stand by assistance UE Bathing: Stand by assistance LE Bathing: Stand by assistance UE Dressing: Stand by assistance LE Dressing: Stand by assistance Toileting: Stand by assistance Toileting Skilled Clinical Factors: seated for BM, SBA overall, pt maanged clothing and hygiene Activity Tolerance Activity Tolerance: Patient tolerated treatment well Transfers Stand Step Transfers: Stand by assistance Sit to stand: Stand by assistance Stand to sit: Stand by assistance Vision Vision: Within Functional Limits Hearing Hearing: Within functional limits Cognition Overall Cognitive Status: WFL Orientation Overall Orientation Status: Within Functional Limits Exercise Treatment: BUE therex to increase strength/endurance for ease of fxl tasks. Green digiflex x 20 yellow flex bar bends x 20 and 1# free weights x 20 reps x all planes shoulder elbow and wrist simultaneoulsy while seated. Pt requested toileting break midway, other than that 0 RBs for recovery. No pain reported or deficits in ROM noted. Education Given To: Patient Education Provided: Role of Therapy;Plan of Care Education Method: Verbal Barriers to Learning: None Education Outcome: Verbalized understanding AM-PAC Score AM-PAC Inpatient Daily Activity Raw Score: 19 (04/27/231308) AM-PAC Inpatient ADL T-Scale Score : 40.22 (04/27/231308) ADL Inpatient CMS 0-100% Score: 42.8 (04/27/231308) ADL Inpatient CMS G-Code Modifier : CK (04/27/231308) Goals Short Term Goals Time Frame for Short Term Goals: 21 visits Short Term Goal 1: Patient to be educated on d/c folder, AE/DME and basic home safety to ensure safe and indep return home. Short Term Goal 2: Patient to engage in 15 minutes of ther ex/ther act to improve strength and activity tolerance for I/ADL upon return home. Short Term Goal 3: Patient to engage in 10 minutes of dynamic standing during functional task of choice to improve standing tolerance, balance and safety during I/ADL. Short Term Goal 4: Patient to complete ADL routine c Mod I to ensure safe return home. Therapy Time Individual Concurrent Group Co-treatment Time In 1024 Time Out 1040 Minutes 16 FABIOLA Reyes/Ryanne Occupational Therapy Facility/Department: [facility] Daily Treatment Note NAME: Baylee Babb : 1970 Date of Service: 04/27/2023 Discharge Recommendations: assess pending progress Patient Diagnosis(es): There were no encounter diagnoses. Assessment Activity Tolerance: Patient tolerated treatment well Plan Occupational Therapy Plan Times Per Day: Once a day Days Per Week: 7 Days Restrictions Restrictions/Precautions Restrictions/Precautions: General Precautions;Fall Risk;Contact Precautions Subjective Subjective Subjective: Pt in recliner finished with lunch, reporting health Hx throughout. Pain: discomfort in abdomen, hernia, oral pain, did note rate Orientation Overall Orientation Status: Within Functional Limits Pain: denies Cognition Overall Cognitive Status: WFL Objective Vitals Bed Mobility Training Bed Mobility Training: No Transfer Training Transfer Training: Yes Overall Level of Assistance: Stand-by assistance;Assist X1 (sit<>stand from recliner and toilet, pt edu on safety, and DME when asked about tub transfers. I have a tub with jets I want to get down into, but its hard to get out. ) Interventions: Safety awareness training;Verbal cues Gait Training Gait Training: Yes Gait Overall Level of Assistance: Stand-by assistance;Assist X1 (no AD to/from restroom, use of IV pole for balance, pt has L drop foot, no brace and moves slowly) Interventions: Safety awareness training;Verbal cues ADL Toileting: Stand by assistance;Increased time to complete Toileting Skilled Clinical Factors: seated for BM, SBA overall, pt maanged clothing and hygiene OT Exercises Exercise Treatment: BUE therex to increase strength/endurance for ease of fxl tasks. Green digiflex x 20 yellow flex bar bends x 20 and 1# free weights x 20 reps x all planes shoulder elbow and wrist simultaneoulsy while seated. Pt requested toileting break midway, other than that 0 RBs for recovery. No pain reported. Pt demo'd LUE deficits in coordination and ROM. Safety Devices Type of Devices: All fall risk precautions in place;Call light within reach;Left in chair Patient Education Education Given To: Patient Education Provided: Role of Therapy;Plan of Care;Home Exercise Program;Transfer Training;Equipment Education Method: Verbal Barriers to Learning: None Education Outcome: Verbalized understanding Goals Therapy Time Individual Concurrent Group Co-treatment Time In 1222 Time Out 1248 Minutes 26 RUBEN Moreira Physical Therapy Facility/Department: [facility] Daily Treatment Note NAME: Baylee Babb : 1970 Date of Service: 04/27/2023 Discharge Recommendations: Continue to assess pending progress, Home with assist PRN, Home with Home health PT Patient Diagnosis(es): There were no encounter diagnoses. Assessment Assessment: Transfers: CGA. Pt ambulated 100ft managing IV pole, CGA. Pt presents with foot drop L LE d/t stroke. Ther ex: seated B LE x15 in all planes (AA L LE ankle pumps) Activity Tolerance: Patient tolerated treatment well Plan Physcial Therapy Plan General Plan: 2 times a day 7 days a week Current Treatment Recommendations: Strengthening;ROM;Balance training;Functional mobility training;Transfer training;Neuromuscular re-education;Stair training;Gait training;Safety education & training;Home exercise program;Therapeutic activities;Patient/Caregiver education & training;Endurance training Restrictions Restrictions/Precautions Restrictions/Precautions: General Precautions, Fall Risk, Contact Precautions Subjective Subjective Subjective: pt in chair, agreeable to physical therapy. Pain: denies Orientation Overall Orientation Status: Within Functional Limits Cognition Overall Cognitive Status: WFL Objective Bed Mobility Training Bed Mobility Training: No Gait Training Gait Training: Yes Gait Overall Level of Assistance: Contact-guard assistance;Assist X1 Interventions: Verbal cues Base of Support: Narrowed Speed/Jasmin: Slow Step Length: Left shortened Stance: Left decreased Gait Abnormalities: (L drop foot d/t stroke) Distance (ft): 100 Feet Assistive Device: Other (comment) (pt managed IV pole) Neuromuscular Education Neuromuscular Education: No PT Exercises Exercise Treatment: seated B LE x15 in all planes - (AA L LE ankle pumps) Other Specialty Interventions Other Treatments/Modalities: Toilet transfer Safety Devices Type of Devices: Patient at risk for falls;All fall risk precautions in place;Call light within reach;Left in chair;Nurse notified Goals Short Term Goals Time Frame for Short Term Goals: 20 days Short Term Goal 1: Patient to complete all transfers with no LOB to decrease fall risk. Short Term Goal 2: Patient to ambulate 150ft with SUP and no LOB to improve mobility. Short Term Goal 3: Patient to ascend/descend 3 steps with HRx1 and SUP with no LOB to safely enter her home. Short Term Goal 4: Patient to tolerate 20-30 min of ther ex/act to improve functional strength. Education Patient Education Education Given To: Patient Education Provided: Role of Therapy;Plan of Care;Transfer Training Education Method: Verbal Barriers to Learning: None Education Outcome: Verbalized understanding Therapy Time Individual Concurrent Group Co-treatment Time In 1100 Time Out 1123 Minutes 23 Timed Code Treatment Minutes: 14 Minutes Merry [place] PTA Physical Therapy Facility/Department: [facility] Physical Therapy Initial Assessment Name: Baylee Babb : 1970 Date of Service: 04/27/2023 Discharge Recommendations: Continue to assess pending progress, Home with assist PRN, Home with Home health PT Patient Diagnosis(es): There were no encounter diagnoses. Past Medical History: has a past medical history of Arthritis, Cerebral artery occlusion with cerebral infarction (HCC), Crohn's colitis (HCC), GERD (gastroesophageal reflux disease), and Hypertension. Past Surgical History: has a past surgical history that includes Hip fracture surgery; Cholecystectomy; Hysterectomy; and Colonoscopy. Assessment Assessment: Patient is 52 year old female with dx of abdominal pain who presents with L sided weakness from a stroke, L foot drop, decreased functional mobility and endurance and decreased safety and balance during transfers and ambulation and would benefit from physical therapy to address all concerns and safely return to [place]. Treatment Diagnosis: Difficulty walking Therapy Prognosis: Good Decision Making: Medium Complexity Requires PT Follow-Up: Yes Activity Tolerance Activity Tolerance: Patient tolerated evaluation without incident;Patient limited by fatigue;Patient limited by pain Plan Physcial Therapy Plan General Plan: 2 times a day 7 days a week (daily on weekends) Current Treatment Recommendations: Strengthening, ROM, Balance training, Functional mobility training, Transfer training, Neuromuscular re-education, Stair training, Gait training, Safety education & training, Home exercise program, Therapeutic activities, Patient/Caregiver education & training, Endurance training Safety Devices Type of Devices: All bryon prominences offloaded, Patient at risk for falls, All fall risk precautions in place, Call light within reach, Left in chair, Nurse notified Restrictions Restrictions/Precautions Restrictions/Precautions: General Precautions, Fall Risk, Contact Precautions Subjective General Chart Reviewed: Yes Patient assessed for rehabilitation services?: Yes Response To Previous Treatment: Not applicable Family / Caregiver Present: No Referring Practitioner: Hussein Suarez MD Referral Date : 04/27/23 Diagnosis: Abdominal pain, R10.9 Follows Commands: Within Functional Limits Subjective Subjective: Pt reports 7-8/10 pain; agrees to PT eval Social/Functional History Social/Functional History Lives With: Alone Type of Home: Mobile home Home Layout: One level Home Access: Stairs to enter with rails Entrance Stairs - Number of Steps: 3 Entrance Stairs - Rails: Right Has the patient had two or more falls in the past year or any fall with injury in the past year?: No ADL Assistance: Independent Homemaking Assistance: Independent Homemaking Responsibilities: Yes Ambulation Assistance: Independent Transfer Assistance: Independent Active Internet Marketing Strategist: Yes Additional Comments: Pt uses no AD for mobility but has trouble with balance since stroke with L sided weakness Vision/Hearing Vision Vision: Within Functional Limits Hearing Hearing: Within functional limits Cognition Orientation Overall Orientation Status: Within Functional Limits Cognition Overall Cognitive Status: WFL Objective Pulse: 85 Heart Rate Source: Monitor;Apical BP: (!) 143/93 BP Location: Left upper arm BP Method: Automatic Patient Position: Semi fowlers MAP (Calculated): 110 Respirations: 17 SpO2: 95 % O2 Device: None (Room air) Gross Assessment AROM: Within functional limits Strength: Generally decreased, functional Bed mobility Supine to Sit: Stand by assistance Scooting: Stand by assistance Transfers Sit to Stand: Contact guard assistance Stand to Sit: Contact guard assistance Ambulation Surface: Level tile Device: No Device Assistance: Contact guard assistance Distance: Pt amb 10ftx2 with no AD, CGAx1 with unsteady gait and L foot drop but no LOB Balance Sitting - Static: Good Sitting - Dynamic: Fair;+ Standing - Static: Fair Standing - Dynamic: Fair;- AM-PAC Score AM-PAC Inpatient Mobility without Stair Climbing Raw Score : 14 (04/27/23854) AM-PAC Inpatient without Stair Climbing T-Scale Score : 40.85 (04/27/23854) Mobility Inpatient CMS 0-100% Score: 53.33 (04/27/23854) Mobility Inpatient without Stair CMS G-Code Modifier : CK (04/27/23854) Goals Short Term Goals Time Frame for Short Term Goals: 20 days Short Term Goal 1: Patient to complete all transfers with no LOB to decrease fall risk. Short Term Goal 2: Patient to ambulate 150ft with SUP and no LOB to improve mobility. Short Term Goal 3: Patient to ascend/descend 3 steps with HRx1 and SUP with no LOB to safely enter her home. Short Term Goal 4: Patient to tolerate 20-30 min of ther ex/act to improve functional strength. Education Patient Education Education Given To: Patient Education Provided: Role of Therapy;Plan of Care;Transfer Training Education Method: Verbal Barriers to Learning: None Education Outcome: Verbalized understanding Therapy Time Individual Concurrent Group Co-treatment Time In 814 Time Out 0830 Minutes 15 Timed Code Treatment Minutes: 14 Minutes Syed Alberts, PT, DPT Bridge Repair Crew Person to bedside to complete morning assessment. Upon entry to room, pt in bed awake, respirations even and unlabored while on room air. Vitals obtained and assessment completed, see flow sheet for details. Pt is A&O x4. Pt complaining of pain, prn pain medication to be given shortly. Pt updated on plan of care and whiteboard updated. Pt denies further needs from rfp writer at this time. Call light in reach. Care ongoing. Patient brought up via stretcher up to room 333. Received report from ED nurse. Patient transferred from stretcher to bed via stand by assist from staff. IV antibiotics running at this time. Family at bedside. Belongings in tow. Vital signs taken and documented. See flow sheet for details. Patient educated on medication to be given tonight and physician's orders to be completed. Patient stated understanding. Patient encouraged to ask questions. Patient denies of any questions at this time. Assessment completed and documented. Patient alert, oriented x4. Calm, pleasant. Speech clear. Patient states she has left sided weakness from a previous stroke. Patient also states she has numbness and tingling in upper bilateral extremities and lower bilateral extremities, normal per patient. Lung sounds clear in upper bilateral lobes of lungs and right middle lobe of lung. Diminished at bilateral bases of lungs. No cough noted. Abdomen round, soft, tenderness to palpation in all four quadrants. Bowel sounds hypoactive in all four quadrants. No edema noted. Patient denies of chest pain or shortness of breath. EKG obtained. Telemetry placed on patient. Navigator completed. Weight obtained. Belongings placed in locker. IV fluids started. Patient denies needs or concerns at this time. Call light and over bed table in reach. Side rails up times two. documented in this encounter [facility] 04-28-2023 Hospital course Narrative Evans Hsu M.D. Internal Medicine Discharge Summary Patient ID: Baylee Babb [id number] Admission date: 04/26/2023 Discharge date: 04/28/2023 Admitting Physician: Hussein Suarez MD Primary Care Physician: RUBEN Farfan NP Primary Discharge Diagnoses: Patient Active Problem List Diagnosis Date Noted Abdominal pain 04/27/2023 Crohn's colitis (HCC) Additional Diagnoses: Diagnosis Date Arthritis Cerebral artery occlusion with cerebral infarction (HCC) Crohn's colitis (HCC) GERD (gastroesophageal reflux disease) Hypertension Hospital Course: Baylee Babb is a 52 y.o. female who was admitted for Abdominal pain / Crohn's flare up. Ms. Babb has known h/o Crohn's disease and takes Pentasa. She presented to ER with LLQ abdominal pain, nausea and vomiting. She denied fever or chills. She denied hematochezia or melena. She was treated with IV SoluCortef and empiric Cipro / Flagyl with improvement in her symptoms . She is feeling much better today and is requesting to go home. Up to this point she has been on clear liquid diet, so I advanced her to a regular diet which she tolerated today. She was deemed medically stable for discharge and was amenable to the discharge plan. Discharge Exam: GEN: Awake, alert and oriented x3. EYES: EOMI, pupils equal NECK: Supple. No lymphadenopathy. No carotid bruit CVS: regular rate and rhythm, no audible murmur PULM: CTA, no wheezes, rales or rhonchi, no acute respiratory distress ABD: Bowels sounds normal. Abdomen is soft. No distention. no tenderness to palpation. EXT: no edema bilaterally . No calf tenderness. NEURO: Moves all extremities. Motor and sensory are grossly intact SKIN: No rashes. No skin lesions. Consultants: none Procedures: none Complications: none Significant Diagnostic Studies: Recent Labs 04/26/23214904/27/2360904/28/23 0650 WBC 13.8* 9.5 12.5* RBC 4.94 4.77 4.77 HGB 15.2* 14.6 14.5 HCT 44.0 42.7 43.1 MCV 89.1 89.5 90.4 RDW 12.1 12.1 12.4 PLT 245 219 230 Recent Labs 04/26/23214904/27/2310 04/28/23 0650 SEGS 66* 90* 73* NEUTROABS 9.24* 8.55* 9.10* LYMPHOPCT 23* 8* 19* LYMPHSABS 3.15 0.80* 2.43 MONOPCT 9 1* 7 EOSRELPCT 1 0* 0* BASOPCT 0 0 0 IMMGRAN 1* 1* 1* Recent Labs 04/26/23214904/27/2310 04/28/23 0650 GLUCOSE 138* 173* 111* Recent Labs 04/26/23 2150 04/27/23 0610 04/28/23 0650 BUN 12 9 7 CREATININE 0.56 0.46* 0.54 NA 140 140 146* K 3.9 4.0 4.2 CL 105 110* 112* CALCIUM 9.6 9.5 9.2 ANIONGAP 11 8* 10 CO2 24 22 24 PROT 7.0 6.9 6.3* LABALBU 4.1 3.9 3.6 BILITOT 0.4 0.3 0.3 ALKPHOS 134* 126* 103 AST 17 14 13 ALT 8 8 6 Lab Results Component Value Date COLORU Yellow 04/26/2023 SPECGRAV 1.020 04/26/2023 WBCUA 0 TO 2 04/26/2023 RBCUA 2 TO 5 04/26/2023 EPITHUA 2 TO 5 04/26/2023 LEUKOCYTESUR NEGATIVE 04/26/2023 GLUCOSEU NEGATIVE 04/26/2023 KETUA NEGATIVE 04/26/2023 PROTEINU NEGATIVE 04/26/2023 HGBUR 1+ (A) 04/26/2023 BACTERIA TRACE (A) 04/26/2023 Lab Results Component Value Date/Time LACTA 1.5 04/26/2023 09:50 PM Radiology/Imaging: CT ABDOMEN PELVIS W IV CONTRAST Additional Contrast? None Final Result *Marked inflammatory changes surrounding the sigmoid colon, likely related to an infectious/inflammatory process versus an underlying Crohn's exacerbation. No focal fluid collection or abscess. *Supraumbilical hernias containing fat. *Cholecystectomy. *Suspected chronic L1 superior endplate fracture. RECOMMENDATIONS: 4 mm left solid pulmonary nodule. No routine follow-up imaging is recommended per Fleischner Society Guidelines. These guidelines do not apply to immunocompromised patients and patients with cancer. Follow up in patients with significant comorbidities as clinically warranted. For lung cancer screening, adhere to Lung-RADS guidelines. Reference: Radiology. 2017; 284(1):228-43. Discharge Condition: stable Disposition: Discharge home Discharge Medications: Medication List START taking these medications ciprofloxacin 500 MG tablet Commonly known as: CIPRO Take 1 tablet by mouth 2 times daily for 7 days metroNIDAZOLE 500 MG tablet Commonly known as: FLAGYL Take 1 tablet by mouth 2 times daily for 7 days predniSONE 10 MG tablet Commonly known as: DELTASONE Take 1 tablet by mouth 2 times daily X 5 days then take 1 tablet by mouth once daily x 5 days then stop traMADol 50 MG tablet Commonly known as: ULTRAM Take 1 tablet by mouth every 6 hours as needed for Pain for up to 3 days. Max Daily Amount: 200 mg CONTINUE taking these medications atorvastatin 40 MG tablet Commonly known as: LIPITOR clopidogrel 75 MG tablet Commonly known as: PLAVIX DULoxetine 30 MG extended release capsule Commonly known as: CYMBALTA gabapentin 300 MG capsule Commonly known as: NEURONTIN losartan 25 MG tablet Commonly known as: COZAAR mesalamine 500 MG extended release capsule Commonly known as: PENTASA metoprolol succinate 50 MG extended release tablet Commonly known as: TOPROL XL mometasone 0.1 % cream Commonly known as: ELOCON MULTIVITAMIN ADULT EXTRA C PO NEURIVA PLUS PO traZODone 100 MG tablet Commonly known as: DESYREL Turmeric 400 MG Caps vitamin C 1000 MG tablet Where to Get Your Medications [id number] - [place], [place] - [address] [facility] [phone] - [phone] [place] [phone] ciprofloxacin 500 MG tablet metroNIDAZOLE 500 MG tablet predniSONE 10 MG tablet traMADol 50 MG tablet Patient Instructions: Activity: Activity as tolerated without restrictions Diet: regular diet Wound Care: none needed Follow up with RUBEN Farfan NP in 1-2 weeks CORE MEASURES on Discharge (if applicable) MIRYAM/ARB in CHF: N/A ASA in CO: N/A Statin in CO: N/A Statin in CVA: N/A Antiplatelet in CVA: N/A Total time spent on discharge services: 40 minutes Including the following activities: Evaluation and Management of patient Discussion with patient and/or surrogate about current care plan Coordination with Case Management and/or Tenter Coordination of care with Consultants (if applicable) Coordination of care with Receiving Facility Physician (if applicable) Completion of DME forms (if applicable) Preparation of Discharge Summary Preparation of Medication Reconciliation Preparation of Discharge Prescriptions Signed: Evans Hsu MD, M.D. 04/28/2023 3:58 PM documented in this encounter [facility] 04-10-2023 Evaluation + Plan note Diagnostic Tests PendingDHEAS 04/10/23Insulin Level Total 04/10/23FSH and LH 04/10/23Testosterone F&T 04/10/23Estradiol Level 04/10/23Cortisol 04/10/23 [facility] 04-06-2023 Hospital Discharge instructions Patient Education 04/06/2023 16:38:36 Ventral Hernia Ventral Hernia A ventral hernia is a bulge of tissue from inside the abdomen that pushes through a weak area of the muscles that form the front wall of the abdomen. The tissues inside the abdomen are inside a sac (peritoneum). These tissues include the small intestine, large intestine, and the fatty tissue that covers the intestines (omentum). Sometimes, the bulge that forms a hernia contains intestines. Other hernias contain only fat. Ventral hernias do not go away without surgical treatment. There are several types of ventral hernias. You may have: A hernia at an incision site from previous abdominal surgery (incisional hernia). A hernia just above the belly button (epigastric hernia), or at the belly button (umbilical hernia). These types of hernias can develop from heavy lifting or straining. A hernia that comes and goes (reducible hernia). It may be visible only when you lift or strain. This type of hernia can be pushed back into the abdomen (reduced). A hernia that traps abdominal tissue inside the hernia (incarcerated hernia). This type of hernia does not reduce. A hernia that cuts off blood flow to the tissues inside the hernia (strangulated hernia). The tissues can start to if this happens. This is a very painful bulge that cannot be reduced. A strangulated hernia is a medical emergency. What are the causes? This condition is caused by abdominal tissue putting pressure on an area of weakness in the abdominal muscles. What increases the risk? The following factors may make you more likely to develop this condition: Being age 60 or older. Being overweight or obese. Having had previous abdominal surgery, especially if there was an infection after surgery. Having had an injury to the abdominal wall. Frequently lifting or pushing heavy objects. Having had several pregnancies. Having a buildup of fluid inside the abdomen (ascites). Straining to have a bowel movement or to urinate. Having frequent coughing episodes. What are the signs or symptoms? The only symptom of a ventral hernia may be a painless bulge in the abdomen. A reducible hernia may be visible only when you strain, cough, or lift. Other symptoms may include: Dull pain. A feeling of pressure. Signs and symptoms of a strangulated hernia may include: Increasing pain. Nausea and vomiting. Pain when pressing on the hernia. The skin over the hernia turning red or purple. Constipation. Blood in the stool (feces). How is this diagnosed? This condition may be diagnosed based on: Your symptoms. Your medical history. A physical exam. You may be asked to cough or strain while standing. These actions increase the pressure inside your abdomen and force the hernia through the opening in your muscles. Your health care provider may try to reduce the hernia by gently pushing the hernia back in. Imaging studies, such as an ultrasound or CT scan. How is this treated? This condition is treated with surgery. If you have a strangulated hernia, surgery is done as soon as possible. If your hernia is small and not incarcerated, you may be asked to lose some weight before surgery. Follow these instructions at home: Follow instructions from your health care provider about eating or drinking restrictions. If you are overweight, your health care provider may recommend that you increase your activity level and eat a healthier diet. Do not lift anything that is heavier than 10 lb (4.5 kg), or the limit that you are told, until your health care provider says that it is safe. Return to your normal activities as told by your health care provider. Ask your health care provider what activities are safe for you. You may need to avoid activities that increase pressure on your hernia. Take baff-nxa-phsmxjr and prescription medicines only as told by your health care provider. Keep all follow-up visits. This is important. Contact a health care provider if: Your hernia gets larger. Your hernia becomes painful. Get help right away if: Your hernia becomes increasingly painful. You have pain along with any of the following: ?Changes in skin color in the area of the hernia. ?Nausea. ?Vomiting. ?Fever. These symptoms may represent a serious problem that is an emergency. Do not wait to see if the symptoms will go away. Get medical help right away. Call your local emergency services (911 in the [place] Do not drive yourself to the hospital. Summary A ventral hernia is a bulge of tissue from inside the abdomen that pushes through a weak area of the muscles that form the front wall of the abdomen. This condition is treated with surgery, which may be urgent depending on your hernia. Do not lift anything that is heavier than 10 lb (4.5 kg), and follow activity instructions from your health care provider. This information is not intended to replace advice given to you by your health care provider. Make sure you discuss any questions you have with your health care provider. Document Revised: 05/27/2021 Document Reviewed: 05/27/2021 [employer] Patient Education 2022 [email or web address]. 04/06/2023 16:38:36 Dental Pain Dental Pain Dental pain is often a sign that something is wrong with your teeth or gums. It is also something that can occur following dental treatment. If you have dental pain, it is important to contact your dental care provider, especially if the cause of the pain has not been determined. Dental pain may be of varying intensity and can be caused by many things, including: Tooth decay (cavities or caries). Cavities are caused by bacteria that produce acids that irritate the nerve of your tooth, making it sensitive to air and hot or cold temperatures. This eventually causes discomfort or pain. Abscess or infection. Once the bacteria reach the inner part of the tooth (pulp), a bacterial infection (dental abscess) can occur. Pus typically collects at the end of the root of a tooth. Injury. A crack in the tooth. Gum recession exposing the root, and possibly the nerves, of a tooth. Gum (periodontal)disease. Abnormal grinding or clenching. Poor or improper home care. An unknown reason (idiopathic). Your pain may be mild or severe. It may occur when you are: Chewing. Exposed to hot or cold temperatures. Eating or drinking sugary foods or beverages, such as soda or candy. Your pain may be constant, or it may come and go without cause. Follow these instructions at home: The following actions may help to lessen any discomfort that you are feeling before or after getting dental care. Medicines Take kvxn-uky-osiavca and prescription medicines only as told by your dental care provider. If you were prescribed an antibiotic medicine, take it as told by your dental care provider. Do not stop taking the antibiotic even if you start to feel better. Eating and drinking Avoid foods or drinks that cause you pain, such as: Very hot or very cold foods or drinks. Sweet or sugary foods or drinks. Managing pain and swelling Ice can sometimes be used to reduce pain and swelling, especially if the pain is following dental treatment. If directed, put ice on the painful area of your face. To do this: ?Put ice in a plastic bag. ?Place a towel between your skin and the bag. ?Leave the ice on for 20 minutes, 2 3 times a day. ?Remove the ice if your skin turns bright red. This is very important. If you cannot feel pain, heat, or cold, you have a greater risk of damage to the area. Brushing your teeth To keep your mouth and gums healthy, brush your teeth twice a day using a fluoride toothpaste. Use a toothpaste made for sensitive teeth as directed by your dental care provider, especially if the root is exposed. Always brush your teeth with a soft-bristled toothbrush. This will help prevent irritation to your gums. General instructions Floss at least once a day. Do not apply heat to the outside of the face. Gargle with a mixture of salt and water 3 4 times a day or as needed. To make salt water, completely dissolve 1 tsp (3 6 g) of salt in 1 cup (237 mL) of warm water. Keep all follow-up visits. This is important. Contact a dental care provider if: You have any unexplained dental pain. Your pain is not controlled with medicines. Your symptoms get worse. You have new symptoms. Get help right away if: You are unable to open your mouth. You are having trouble breathing or swallowing. You have a fever. You notice that your face, neck, or jaw is swollen. These symptoms may represent a serious problem that is an emergency. Do not wait to see if the symptoms will go away. Get medical help right away. Call your local emergency services (911 in the [place] Do not drive yourself to the hospital. Summary Dental pain may be caused by many things, including tooth decay and infection. Your pain may be mild or severe. Take kdxc-fqc-rokedxl and prescription medicines only as told by your dental care provider. Watch your dental pain for any changes. Let your dental care provider know if your symptoms get worse. This information is not intended to replace advice given to you by your health care provider. Make sure you discuss any questions you have with your health care provider. Document Revised: 07/13/2021 Document Reviewed: 07/13/2021 [employer] Patient Education 2022 [email or web address]. Follow Up Care 04/06/2023 15:07:57 With:Praveen LACKEY Address: [address], [address] [place] [address]- Business (1) When:04/09/2023 16:28:27 With:Na CASTILLO Address: [address], [address] [place] [address]- [phone] Business (1) When:04/09/2023 16:28:14 [facility] 04-06-2023 Evaluation + Plan note Extrac adelita from: Title:ED Note Author:Jae Santos PA-C te:04/06/23 Pain, dental (K08.89: Other specified disorders of teeth and supporting structures) Ventral hernia (K43.9: Ventral hernia without obstruction or gangrene) Orders: naproxen, 500 mg = 1 tab(s), Oral, BID, PRN for pain, # 20 tab(s), Refills(s) 0 penicillin V potassium, 500 mg = 1 tab(s), Oral, TID, Take one tab by mouth 3 times a day. # 30, X 10 day(s), # 30 tab(s), Refills(s) 0 [facility]* Encounter Date Diagnosis Assessment Notes Treatment Notes Treatment Clinical Notes Sep, NICOLASA (generalized anxiety disorder) (ICD-10 - F41.1) [facility] Other 12-14-2022 Evaluation note* Encounter Date Diagnosis Assessment Notes Treatment Notes Treatment Clinical Notes Sep, Crohn disease (ICD-10 - K50.90) [facility] Other 11-02-2022 Evaluation note* Encounter Date Diagnosis Assessment Notes Treatment Notes Treatment Clinical Notes Aug, Essential hypertension (ICD-10 - I10) [facility] Other 10-19-2022 Evaluation note* Encounter Date Diagnosis Assessment Notes Treatment Notes Treatment Clinical Notes Jul, Cerebrovascular accident (CVA), unspecified mechanism (ICD-10 - I63.9) Jul, Insomnia, unspecifie d type (ICD-10 - G47.00) [facility] Other 08-01-2022 Evaluation note* Encounter Date Diagnosis Assessment Notes Treatment Notes Treatment Clinical Notes May, Essential hypertension (ICD-10 - I10) [facility] Other 06-22-2022 Evaluation note* Encounter Date Diagnosis Assessment Notes Treatment Notes Treatment Clinical Notes Mar, NICOLASA (generalized anxiety disorder) (ICD-10 - F41.1) Mar, Cerebrovascular accident (CVA), unspecified mechanism (ICD-10 - I63.9) [facility] Other 03-15-2022 Evaluation note* Encounter Date Diagnosis Assessment Notes Treatment Notes Treatment Clinical Notes Dec, Cerebrovascular accident (CVA), unspecified mechanism (ICD-10 - I63.9) Dec, Insomnia, unspecifie d type (ICD-10 - G47.00) Dec, Cyst of skin and subcutaneous tissue (ICD-10 - L72.0) [facility] Other 03-14-2022 Evaluation note* Encounter Date Diagnosis Assessment Notes Treatment Notes Treatment Clinical Notes Dec, Insomnia, unspecified type (ICD-10 - G47.00) [facility] Other 01-15-2022 Evaluation note* Encounter Date Diagnosis Assessment Notes Treatment Notes Treatment Clinical Notes Oct, Cerebrovascular accident (CVA), unspecified mechanism (ICD-10 - I63.9) [facility] Other 12-27-2021 Evaluation note* Encounter Date Diagnosis Assessment Notes Treatment Notes Treatment Clinical Notes Sep, NICOLASA (generalized anxiety disorder) (ICD-10 - F41.1) [facility] Other 12-14-2021 Evaluation note* Encounter Date Diagnosis Assessment Notes Treatment Notes Treatment Clinical Notes 14 Dec, 2021 Insomnia, unspecified type (ICD-10 - G47.00) [facility] Other 10-10-2021 Evaluation note* Encounter Date Diagnosis Assessment Notes Treatment Notes Treatment Clinical Notes Jul, Cerebrovascular accident (CVA), unspecified mechanism (ICD-10 - I63.9) Jul, Other infective acut e otitis externa of left ear (ICD-10 - H60.392) Use drops as directed. May use cotton ball to keep drops in place. Do not use any qtips or any other objects to clean out ears. Do not recommend swimming or baths while treatment going on; may shower Jul, Essential hypertension (ICD-10 - I10) Today during the appointment we ordered labs to check on how your kidneys are functioning since you have high blood pressure. It is important for us to make sure we protect your kidneys since vision, kidneys and blood circulation are all effected by high blood pressure. It may take us a couple of visits to get your blood pressure in a healthy range and once we do we can space them out a lot more. In addition to medication prescribed we will also talk about healthy changes you can try. Also we will check other labs yearly to screen for other issues. Please remember we are a team and your opinion is very important in all of your healthcare decisions Jul, Other Additional time spent conducting pre-visit phone call, screening for symptoms, instructions on social distancing, application and removal of PPE, and cleaning of examination room, equipment and supplies was preformed. Patient education given for testing methodology and results. Patient care instructions given in writting by [facility] Care At Home document. [facility] Other Evaluation noteNo InformationNort eCareer Other Evaluation noteNo assessment information available [facility] Work Phone: Evalutnbxr note* Diagnosis Abdominal pain- Primary Abdominal pain, unspecified site Crohn's disease of colon without complication (HCC) Left lower quadrant abdominal pain Crohn's colitis (HCC) Regional enteritis of large intestine Hypertension Unspecified essential hypertension documented in this [facility] Acute hip pain, left- Primary Sacroiliac joint pain Disorders of sacrum Foot drop, left foot documented in this encounter [facility] HealthcareHistory general Narrative - Reported* Type Description Date Medical History left hip fracture Medical History depression Medical History Crohn's Medical History Colitis Medical History Fibromyalgia Medical History Hypertension Medical History asthma Medical History insomnia Medical History fibromyalgia Medical History migraine headache Medical History restless leg syndrome Medical History emphysema Medical History colitis Medical History esophageal reflux Medical History menopause Medical History chronic depression Medical History NICOLASA Medical History osteoporisos Medical History fibromyalgia Medical History stroke Surgical History left hip pin/julisa placement Surgical History bilateral foot surgery Surgical History hysterectomy Hospitalization History stroke 2019 [facility] Other Hospital course Narrative No data available for this section [facility] Discharge instructions Additional Instructions DISCHARGE INSTRUCTIONS FOR COLONOSCOPY WHAT TO EXPECT: - You may feel full, gassy or cramping after your procedure. In some cases, this may be from a few hours to a day. Walking may help relieve the discomfort. - If you have polyp(s) removed you may note some minor bloody discharge after your first bowel movements. - You should begin to recover from anesthesia within 1 hour of the procedure, however may feel groggy for the next 24 hours. DO's AND DON'Ts: - Call your doctor right away if you have a hard abdomen, severe pain, are passing lots of bright red blood or clots. - Call your doctor if you develop any rashes, hives or difficulty breathing. - Let your doctor know if you have not had a bowel movement by 3 days after your procedure. - If you take 81 mg aspirin for your heart it is safe to resume this medication. - If you take other blood thinner medications your doctor will instruct you when these can safely be resumed. - Do NOT drive for 24 hours. - Do NOT operate machinery such as power tools, lawn mowers, snow blowers, sewing machines, etc. for 24 hours. - Avoid alcoholic beverages and drugs for allergies, nerves, or sleep. - Do NOT stay alone. Do NOT leave your child unattended. - Do NOT make important personal or business decisions or sign any legal documents. - Eat solid foods and drink liquids in smaller amounts than usual until normal appetite returns. If you should experience an upset stomach, liquids high in sugar content (soda, Hardy-Aid, non-acid juices) are recommended. - You can resume normal activities tomorrow. FOLLOW UP & RECOMMENDATIONS: -Follow-up with Dr. Masters's office to schedule -Notify the doctor if you have any problems. -Follow up with PCP. -Office number [phone].[facility] Work Phone: Hospital Discharge instructions No data available for this section [facility] No data available for this section [facility] Summary Purpose Family History No Family History Records Found Relationship Condition Age at Onset Recorded Date/T armida Not Specified Heart problem Unknown Malignant neoplasm Unknown father Heart problem Unknown Advance Directives No Advanced Directives Records Found Advance Directive Response Recorded Date/ Time Advance Directives No August 9:54am Documents on File Type Date Recorded 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 ACP-Do Not Resuscitate 04/27/2023 11:07 AM DNR-CCA Latest Code Status on File Code Status Date Activated Date Inactivated Comments Full Code 04/27/2023 12:34 AM Healthcare Agents on File Name Relationship Healthcare Agent Relationshi p Communication Janett Valdes Aunt/Uncle Primary Decision Maker Chief Complaint and Reason for Visit Chief Complaint Crohn's Disease Additional Source Comments INFORMATION SOURCE (unrecogn ized section and content) DATE CREATED AUTHOR 08/12/2021 [facility] DATE CREATED AUTHOR AUTHOR'S ORGANIZ ATION 10/31/2022 [facility] DATE CREATED AUTHOR AUTHOR'S ORGANIZ ATION [facility]/02/20[facility] DATE CREATED AUTHOR AUTHOR'S ORGANIZ ATION 06/19/2024 [facility] DATE CREATED AUTHOR AUTHOR'S ORGANIZ ATION 07/05/2024 [facility] DATE CREATED AUTHOR AUTHOR'S ORGANIZ ATION 02/01/2025 [facility] EPIC DATE CREATED AUTHOR AUTHOR'S ORGANIZ ATION 03/26/2025 [facility] REASON FOR VISIT (unrecogniz ed section and content) Reason Comments Diarrhea Ongoing diarrhea gucci t has gotten worse. Reason Comments Pain Care Teams (unrecognized sec tion and content) Team Status: Inactive Member Role Status Dates NON STAFF Primary Care Provider Active Juan M Masters MD Attending Provider Active Team Status: Active Member Role Status Dates NON STAFF Primary Care Provider Active [employer] Relationship Specialty Start Date End Date Na Hines APRN - [employer] [address] [place] [address] PCP - General Nurse Practitioner 04/26/23 [employer] Relationship Specialty Start Date End Date Unallocated, [place] Provider, [address] [place] [address] PCP - General Family Medicine 01/28/25 [employer] Relationship Specialty Start Date End Date Na Hines NP [address] [place], [place] [address] [address] Referring Physician 01/28/25 Ordered Prescriptions (unrec ognized section and content) Prescription Sig Dispensed Refills Start Date End Da te traMADol (ULTRAM) 50 MG tabletIndications:Crohn's disease of colon without complication (HCC),Left lower quadrant abdominal pain Take 1 tablet by mouth every 6 hours as needed for Pain for up to 3 days. Max Daily Amount: 200 mg 12 tablet 0 04/28/2023 05/01/2023 predniSONE (DELTASONE) 10 MG tablet Take 1 tablet by mouth 2 times daily X 5 days then take 1 tablet by mouth once daily x 5 days then stop 15 tablet 0 04/28/2023 metroNIDAZOLE (FLAGYL) 500 MG tablet Take 1 tablet by mouth 2 times daily for 7 days 14 tablet 0 04/28/2023 05/05/2023 ciprofloxacin (CIPRO) 500 MG tablet Take 1 tablet by mouth 2 times daily for 7 days 14 tablet 0 04/28/2023 05/05/2023 Scheduled Active and Recently Administ ered Medications (unrecognized section and content) Medication Order 04/26/2023 04/27/2023 04/28/2023 atorvastatin (LIPITOR) tablet 40 mg 40 mg, Oral, DAILY, First dose on Sun04/27/23 at 0900, Until Discontinued 0805 (Given - Provider: Cristina Elder RN) 0753 (Given - Provider: Devi Watts RN) ciprofloxacin (CIPRO) IVPB 400 mg (COMPLETED) 400 mg, IntraVENous, ONCE, 1 dose, On Sun04/26/23 at 2345, Antimicrobial Indications: Intra-Abdominal Infection 0008 (New Bag - Provider: Linda Hart RN)0124 (Stopped - Provider: Clara Jamil RN) ciprofloxacin (CIPRO) IVPB 400 mg 400 mg, IntraVENous, EVERY 12 HOURS, First dose on Sun04/27/23 at 1200, Until Discontinued, Antimicrobial Indications: Infectious Diarrhea, Intra-Abdominal Infection 1133 (New Bag - Provider: Cristina Elder RN)1233 (Stopped - Provider: Evy Gerardo RN)2320 (New Bag - Provider: Maci Gonzalez RN) 0020 (Stopped - Provider: Maci Gonzalez RN)1234 (New Bag - Provider: Devi Watts RN)1320 (Stopped - Provider: Devi Watts RN) clopidogrel (PLAVIX) tablet 75 mg 75 mg, Oral, DAILY, First dose on Sun04/27/23 at 0900, Until Discontinued 08 (Given - Provider: Cristina Elder RN) 075 (Given - Provider: Devi Watts RN) DULoxetine (CYMBALTA) extended release capsule 30 mg 30 mg, Oral, DAILY, First dose on Sun04/27/23 at 0900, Until Discontinued, Do not crush or break. May add contents of capsule to apple juice or apple sauce, but not chocolate. 0805 (Given - Provider: Cristina Elder RN) 075 (Given - Provider: Devi Watts, KEITH) famotidine (PEPCID) tablet 20 mg 20 mg, Oral, 2 TIMES DAILY, First dose on Sun04/27/23 at 0100, Until Discontinued 013 (Given - Provider: Clara Jamil RN)08 (Given - Provider: Cristina Elder RN)2019 (Given - Provider: Maci Gonzalez RN) 075 (Given - Provider: Devi Watts RN)2099 (Due) gabapentin (NEURONTIN) capsule 300 mg 300 mg, Oral, 2 TIMES DAILY, First dose on Sun04/27/23 at 2100, Until Discontinued 2019 (Given - Provider: Maci Gonzalez RN) 075 (Given - Provider: Devi Watts RN)2099 (Due) hydrocortisone sodium succinate PF (SOLU-CORTEF) injection 60 mg 60 mg, IntraVENous, EVERY 8 HOURS, First dose on Sun04/27/23 at 0745, Until Discontinued 0805 (Given - Provider: Cristina Elder RN)1504 (Given - Provider: Cristina Elder RN)2317 (Given - Provider: Maci Gonzalez RN) 0754 (Given - Provider: Devi Watts, KEITH)1538 (Given - Provider: Devi Watts RN)2345 (Due) losartan (COZAAR) tablet 25 mg 25 mg, Oral, DAILY, First dose on Sun04/27/23 at 1230, Until Discontinued 1217 (Given - Provider: Cristina Elder RN) 0754 (Given - Provider: Devi Watts RN) mesalamine (PENTASA) extended release capsule 500 mg 500 mg, Oral, DAILY, First dose on Sun04/27/23 at 1230, Until Discontinued, Do not crush or break. 1217 (Given - Provider: Cristina Elder RN) 0753 (Given - Provider: Devi Watts RN) methylPREDNISolone sodium succ (SOLU-MEDROL) injection 60 mg (COMPLETED) 60 mg, IntraVENous, ONCE, On Elzbieta 04/26/23 at 2345, For 1 dose 2359 (Given - Provider: Linda Hart RN) metoprolol succinate (TOPROL XL) extended release tablet 50 mg 50 mg, Oral, DAILY, First dose on Sun04/27/23 at 0900, Until Discontinued, Do not crush or chew. 0805 (Given - Provider: Cristina Elder RN) 0754 (Given - Provider: Devi Watts RN) metronidazole (FLAGYL) 500 mg in 0.9% NaCl 100 mL IVPB premix (COMPLETED) 500 mg, IntraVENous, ONCE, 1 dose, On Elzbieta 04/26/23 at 2345, Antimicrobial Indications: Intra-Abdominal Infection 0007 (New Bag - Provider: Linda Hart RN)0125 (Stopped - Provider: Clara Jamil RN) metronidazole (FLAGYL) 500 mg in 0.9% NaCl 100 mL IVPB premix 500 mg, IntraVENous, EVERY 8 HOURS, First dose on Sun04/27/23 at 0800, Until Discontinued, Antimicrobial Indications: Intra-Abdominal Infection, Infectious Diarrhea 0812 (New Bag - Provider: Cristina Elder RN)0912 (Stopped - Provider: Cristina Elder RN)1614 (New Bag - Provider: Cristina Elder RN)1714 (Stopped - Provider: Cristina Elder RN) 0039 (New Bag - Provider: Maci Gonzalez RN)0139 (Stopped - Provider: Maci Gonzalez RN)0803 (New Bag - Provider: Devi Watts RN)0915 (Stopped - Provider: Devi Watts RN)1543 (New Bag - Provider: Devi Watts RN)1607 (Stopped - Provider: Devi Watts RN) morphine (PF) injection 2 mg (COMPLETED) 2 mg, IntraVENous, ONCE, 1 dose, On Sun04/27/23 at 0000, If oral and IV narcotics ordered, use oral first and only use IV if oral is ineffective or cannot take oral. Do Not give oral and IV within 1 hour of each other unless specifically ordered. 2359 (Given - Provider: Linda Hart RN) nicotine (NICODERM CQ) 21 MG/24HR 1 patch 1 patch, TransDERmal, Administer over 24 Hours, DAILY, First dose on Sun04/27/23 at 1230, Apply new patch to nonhairy, clean, dry skin on the upper body or upper outer arm. Rotate patch sites. Notify pharmacy if patient or provider prefers patch to be removed at bedtime and replaced in the morning. Hazardous Medication -- Refer to facility policy for handling and disposal. 1216 (Patch Applied - Provider: Cristina Elder RN) 0754 (Patch Removed - Provider: Devi Watts RN)0756 (Patch Applied - Provider: Devi Watts RN) sodium chloride flush 0.9 % injection 10 mL 10 mL, IntraVENous, EVERY 12 HOURS SCHEDULED (2 times per day), First dose on Sun04/27/23 at 0900, Until Discontinued 0948 (Not Given - Provider: Cristina Elder RN - Reason: IV Fluid Infusing)2020 (Not Given - Provider: Maci Gonzalez RN - Reason: IV Fluid Infusing) 0757 (Not Given - Provider: Devi Watts RN - Reason: IV Fluid Infusing)2100 (Due) traZODone (DESYREL) tablet 100 mg 100 mg, Oral, NIGHTLY, First dose on Sun04/27/23 at 0100, Until Discontinued 0131 (Given - Provider: Clara Jamil RN)2019 (Given - Provider: Maci Gonzalez RN) 2100 (Due) Continuous Medication Order 04/26/2023 04/27/2023 04/28/2023 0.9 % sodium chloride infusion IntraVENous, at 75 mL/hr, CONTINUOUS, Starting on Sun04/27/23 at 0100 0100 (New Bag - Provider: Clara Jamil RN)1509 (New Bag - Provider: Cristina Elder RN) 0655 (New Bag - Provider: Devi Watts, RN)1606 (Stopped - Provider: Devi Watts, KEITH) PRN Medication Order 04/26/2023 04/27/2023 04/28/2023 0.9 % sodium chloride infusion IntraVENous, at 5-250 mL/hr, PRN, if patient receiving piggyback infusions and maintenance fluids are not ordered OR KVO fluids to protect IV site / prevent frequent line interruptions/ long duration, Starting on Sun04/27/23 at 0034, For piggyback infusion, administer at same rate as piggyback for a total of 25 mL. Enter 25 mL into dose field and piggyback rate into rate field of order. If piggyback is infusing at a rate less than 100 mL/hr, enter 25 mL into dose field and 100 mL/hr into rate field of order. For KVO fluids, enter rate of 20 mL/hr or less into rate field of order. 1607 (Stopped - Provider: Devi Watts RN) acetaminophen (TYLENOL) suppository 650 mg(Linked Group 1) 650 mg, Rectal, EVERY 6 HOURS PRN, Starting on Sun04/27/23 at 0034, Until Discontinued, Pain Mild (1-3), Fever, For temp greater than 100.4 F (38 C), Administer if oral route cannot be used. 0805 (See Alternative - Provider: Cristina Elder RN)1405 (See Alternative - Provider: Cristina Elder RN)2213 (See Alternative - Provider: Maci Gonzalez RN) 1229 (See Alternative - Provider: Devi Watts, KEITH) acetaminophen (TYLENOL) tablet 650 mg(Linked Group 1) 650 mg, Oral, EVERY 6 HOURS PRN, Starting on Sun04/27/23 at 0034, Until Discontinued, Pain Mild (1-3), Fever, For temp greater than 100.4 F (38 C), Maximum dose of acetaminophen is 4000 mg from all sources in 24 hours. 0805 (Given - Provider: Cristina Elder RN)1405 (Given - Provider: Cristina Elder RN)2213 (Given - Provider: Maci Gonzalez RN) 1229 (Given - Provider: Devi Watts RN) iopamidol (ISOVUE-370) 76 % injection 75 mL (COMPLETED) 75 mL, IntraVENous, IMG ONCE PRN, 1 dose, Starting on Sun04/26/23 at 2200, Until Sun04/26/23 at 221, Other 221 (Given - Provider: Mariza King) magnesium sulfate 2000 mg in 50 mL IVPB premix 2,000 mg, IntraVENous, at 25 mL/hr, Administer over 2 Hours, PRN, Other, Magnesium Replacement, Starting on Sun04/27/23 at 0034, Mag Lab Replacement Action 1.4-1.6 mg/dL 2,000 mg Total Dose Given as 1,000 mg IVPB x 2 doses or 2,000 mg IVPB x 1 dose 1.0-1.3 mg/dL 4,000 mg Total Dose Given as 1,000 mg IVPB x 4 doses or 2,000 mg IVPB x 2 doses Less than 1.0 mg/dL CALL PHYSICIAN and give 4,000 mg Total Dose Given as 1,000 mg IVPB x 4 doses or 2,000 mg IVPB x 2 doses Infuse at 1,000 mg/hr Repeat Mag level next AM Protocol not for use in Patients with CrCl less than 30ml/min ondansetron (ZOFRAN) injection 4 mg(Linked Group 2) 4 mg, IntraVENous, EVERY 6 HOURS PRN, Starting on Sun04/27/23 at 0034, Until Discontinued, Nausea, Vomiting, Administer if oral route cannot be used. ondansetron (ZOFRAN-ODT) disintegrating tablet 4 mg(Linked Group 2) 4 mg, Oral, EVERY 8 HOURS PRN, Starting on Sun04/27/23 at 0034, Until Discontinued, Nausea, Vomiting polyethylene glycol (GLYCOLAX) packet 17 g 17 g, Oral, DAILY PRN, Starting on Sun04/27/23 at 0034, Until Discontinued, Constipation, First line therapy for constipation potassium bicarb-citric acid (EFFER-K) effervescent tablet 40 mEq(Linked Group 3) 40 mEq, Oral, PRN, Starting on Sun04/27/23 at 0034, Until Discontinued, Per Potassium Replacement Protocol, Administer as alternative if patient unable to tolerate oral tablet. K Lab Replacement Action 3.1 to 3.5 40 mEq ORAL x 1 Under 3.1 Refer to IV replacement protocol Recheck K level in AM. Protocol not for use in patients with CrCl less than 30 mL/min. Do not chew or crush. Dissolve flavored tablets completely in 3 to 4 ounces of cold water; unflavored tablets may be dissolved in 3 to 4 ounces of cold juice. Patient to sip slowly over a 5 to 10 minute period. May further dilute if GI adverse effects occur. potassium chloride (KLOR-CON M) extended release tablet 40 mEq(Linked Group 3) 40 mEq, Oral, PRN, Starting on Sun04/27/23 at 0034, Until Discontinued, Potassium Replacement, May give alternative linked oral order (ordered as effervescent, packet, or liquid solution) if patient unable to tolerate tablet. K Lab Replacement Action 3.1 to 3.5 40 mEq ORAL x 1 Under 3.1 Refer to IV replacement protocol Recheck K level in AM. Protocol not for use in patients with CrCl less than 30 mL/min. potassium chloride 10 mEq/100 mL IVPB (Peripheral Line)(Linked Group 3) 10 mEq, IntraVENous, PRN, Starting on Sun04/27/23 at 0034, Until Discontinued, at 100 mL/hr, Potassium Replacement, K Lab Replacement Action 2.7 to 3.0 10 mEq IVPB x 6 doses (60 mEq Total) Under 2.7 CALL PROVIDER and administer 10 mEq IVPB x 6 doses (60 mEq Total) Infuse at 10 mEq/hr. Repeat Potassium lab 1 hour after final administration. Protocol not for use in patients with CrCl less than 30 mL/min. sodium chloride flush 0.9 % injection 10 mL 10 mL, IntraVENous, PRN, Starting on Sun04/27/23 at 0034, Until Discontinued, Line Care, After every IV line use traMADol (ULTRAM) tablet 50 mg 50 mg, Oral, EVERY 6 HOURS PRN, Starting on Sun04/27/23 at 1711, Until Discontinued, Pain Moderate (4-6), Pain Severe (7-10) 1726 (Given - Provider: Cristina Elder, KEITH) 0754 (Given - Provider: Devi Watts RN) Linked Groups Order Group 1: acetaminophen (TYLENOL) tablet 650 mgJump to med 650 mg, Oral, EVERY 6 HOURS PRN, Starting on Sun04/27/23 at 0034, Until Discontinued, Pain Mild (1-3), Fever, For temp greater than 100.4 F (38 C)
Maximum dose of acetaminophen is 4000 mg from all sources in 24 hours.
Or acetaminophen (TYLENOL) suppository 650 mgJump to med 650 mg, Rectal, EVERY 6 HOURS PRN, Starting on Sun04/27/23 at 0034, Until Discontinued, Pain Mild (1-3), Fever, For temp greater than 100.4 F (38 C)
Administer if oral route cannot be used.
Group 2: ondansetron (ZOFRAN-ODT) disintegrating tablet 4 mgJump to med 4 mg, Oral, EVERY 8 HOURS PRN, Starting on Sun04/27/23 at 0034, Until Discontinued, Nausea, Vomiting Or ondansetron (ZOFRAN) injection 4 mgJump to med 4 mg, IntraVENous, EVERY 6 HOURS PRN, Starting on Sun04/27/23 at 0034, Until Discontinued, Nausea, Vomiting
Administer if oral route cannot be used.
Group 3: potassium chloride (KLOR-CON M) extended release tablet 40 mEqJump to med 40 mEq, Oral, PRN, Starting on Sun04/27/23 at 0034, Until Discontinued, Potassium Replacement
May give alternative linked oral order (ordered as effervescent, packet, or liquid solution) if patient unable to tolerate tablet. K Lab Repla cemen t Action 3.1 to 3.5 40 mEq ORAL x 1 Under 3.1 Refer to IV replacement protocol Recheck K level in AM. Protocol not for use in patients with CrCl less than 30 mL/min.
Or potassium bicarb-citric acid (EFFER-K) effervescent tablet 40 mEqJump to med 40 mEq, Oral, PRN, Starting on Sun04/27/23 at 0034, Until Discontinued, Per Potassium Replacement Protocol
Administer as alternative if patient unable to tolerate oral tablet. K Lab Repla cemen t Action 3.1 to 3.5 40 mEq ORAL x 1 Under 3.1 Refer to IV replacement protocol Recheck K level in AM. Protocol not for use in patients with CrCl less than 30 mL/min. Do not chew or crush. Dissolve flavored tablets completely in 3 to 4 ounces of cold water; unflavored tablets may be dissolved in 3 to 4 ounces of cold juice. Patient to sip slowly over a 5 to 10 minute period. May further dilute if GI adverse effects occur.
Or potassium chloride 10 mEq/100 mL IVPB (Peripheral Line)Jump to med 10 mEq, IntraVENous, PRN, Starting on Sun04/27/23 at 0034, Until Discontinued, at 100 mL/hr, Potassium Replacement
K Lab Replacement Action 2.7 to 3.0 10 mEq IVPB x 6 doses (60 mEq Total) Under 2.7 CALL PROVIDER and administer 10 mEq IVPB x 6 doses (60 mEq Total) Infuse at 10 mEq/hr. Repeat Potassium lab 1 hour after final administration. Protocol not for use in patients with CrCl less than 30 mL/min.
FOR RECORDS PERTAINING TO PATIENTS WHO ARE OR HAVE BEEN ENROLLED IN A CHEMICAL DEPENDENCY/SUBSTANCEABUSE PROGRAM, SOME INFORMATION MAY BE OMITTED. This clinical summary was aggregated from multiple sources. Caution should be exercised in using it in the provision of clinical care. This summary normalizes information from multiple sources, and as a consequence, information in this document may materially change the coding, format and clinical context of patient data. In addition, data may be omitted in some cases. CLINICAL DECISIONS SHOULD BE BASED ON THE PRIMARY CLINICAL RECORDS. [facility]. provides no warranty or guarantee of the accuracy or completeness of information in this document.
[2025-06-29 10:34] VITALS: BP 123/92; PULSE 75; TEMP 36.5; O2SAT 95
[2025-06-29 11:15] VITALS: BP 150/83; BP 152/87; PULSE 74; O2SAT 96
[2025-06-29] MEDS: BUPIVACAINE HCL 0.25% PF 25 MG/10 ML VIAL 2 ML INJ (11:16)
[2025-06-29] MEDS: LIDOCAINE HCL 2% 400 MG/20 ML MDV INJ (11:17)
[2025-06-29] MEDS: IOHEXOL 240 MG/ML - 10 ML VIAL 12 MG INJ (11:17)
[2025-06-29] MEDS: METHYLPREDNISOLONE ACETATE 40 MG/ML VIAL INJ (11:17)
--- NOTE | 2025-06-29 11:18 | W.PM.PROCNOT ---
Date of procedure: 06/29/25 Pre-op diagnosis: Pain due to left sacroiliitis Post-op diagnosis: same as pre-op Procedure: Procedure: Left sacroiliac joint injection Medications: Bupivacaine 0.25% 4cc, depomedrol 40mg After informed consent was obtained, the patient was brought to the medical procedure unit and placed in the prone position, when a timeout was completed verifying correct patient, procedure, site, positioning, implant, and/or special equipment.? The skin overlying the area was prepped and draped in standard sterile fashion using alcohol.? A 25-gauge needle was inserted towards the left sacroiliac joint under direct fluoroscopic imaging.? Needle tip was advanced until the joint was encountered.? We instilled a total of 2 mL of solution.? Postoperatively needles were removed.? The patient tolerated the procedure well without complication.? The patient reported reduction in pain symptoms postoperatively. Anesthesia: Local Surgeon: Art Shine Pathology: none sent Condition: stable Disposition: no change
== END 2025-06-29 11:24 | disposition home or self-care (01) ==
LOC: SURGOUT 10:26
PROVIDERS: Visit Provider Anesthesiology
DX: M46.1 Sacroiliitis, not elsewhere classified (principal)
CPT/HCPCS: 27096; J0665; J1010; Q9966

== ENCOUNTER 2025-07-08 09:27 | Outpatient (OUT) | payer MEDICARE, OTHER, SELFPAY ==
--- OUTSIDE RECORDS SUMMARY | 2025-07-08 09:37 | XMS_ITS | CCD ---
Author Organization [facility] Care Team Providers Care Jewish History Professor Name Role Phone DIANA, DR BEHZAD Perez [...] Consulting Unavailable NA HINES Admitting Unavailable NA HINES Attending Unavailable NA HINES Consulting Unavailable NA HINES Primary Care Unavailable NA HIENS Attending Unavailable NA HINES Consulting Unavailable MISC, DR GÓMEZ Primary Care Unavailable NA HINES Admitting Unavailable Na Hines Unavailable NON STAFF Primary Care Provider UnavailMD Juan M Valdivia Attending Provider Juan M Masters Attending Unavailable Juan M Masters Admitting Unavailable NON STAFF Primary Care Unavailable Juan M Masters Unavailable Na CASTILLO Primary Care Physician Donny BED LASTER - APPOINTMENT SPECIALISTNa Primary Care Provid er NA HINES Primary Care Unavailable HUSSEIN SUAREZ Admitting Unavailable EBONY SUAREZFAN Attending Unavailable NA HINES Attending Unavailable NA HINES Admitting Unavailable NA HINES Attending Unavailable NA HINES Admitting Unavailable Unallocated , [place] Provider Primary Care Provi julian Donny APPOINTMENT SPECIALIST, Na Unavailable [phone] RADHA ARMENDARIZ Attending Unavailable RADHA ARMENDARIZ Referring Unavailable Fátima POWERS, Art Dempsey Attending Unavailable Fátima POWERS, Art Dempsey Attending Unavailable Fátima POWERS, rAt Dempsey Attending Unavailable Allergies Allergy Classification Reported Allergen(s) Allergy Type Date of Onset Reaction(s) Facility (4 sources) Codeine; Translations: [codeine] Drug Allergy 3 Vomiting [facility] Repository (15 sources) Codeine Drug Allergy vomiting [facility] Proximagen Other (1 source) Codeine Drug Allergy 3 [facility] Repository (5 sources) Codeine; Translations: [codeine] Drug Allergy 2 Unknown, GI intolerance [facility] (2 sources) Lisinopril Allergy to substance [...] Elderberry Fruit And Flower (2 sources) Start: 021 take 1 capsule by mouth once daily [...] / neomycin 3.5 mg/ml / polymyxin b 28716 unt/ml otic solution (11 sources) Aminoglycoside Antibacterial, Polymyxin-class Antibacterial, Corticosteroid Start: 021 Tfytqlpo-Gbumgitmx-LX 3.5-67527-0 4 drops into affected ear Otic Three [...] Magnesium Replacement, Starting on Sun04/27/23 at 0034 Mag Lab Replacement Action 1.4-1.6 mg/dL &amp ;nbsp; [...] capsules by mouth daily 0 Active Vit H-Ibegeox-Rnqo-Rutin -Hb196 (Bioflex) 643-27-31-40 mg Tablet (1 source) Start: 12-20-2020 take 1 tablet by mouth once daily Vit H-Upqwcfo-Qjza-Joanna n-Hb196 (Bioflex) 791-44-57-40 mg Tablet Active 1 TAB PO Daily [...] Inhibitor Start: 08-31-2020 Toradol per 15 mg 10 Aug, 2020 30 mg Start: 06-08-2020 Toradol per 15 mg May, 30 mg Start: 06-14-2012 Toradol per 15 mg 24 May, 2012 mg losartan potassium 25 mg oral tablet [...] 02, 2020 12:00am December 20, 2020 6:59pm Um-Hj-Tdea-Fa-Ca Carb-Vit K (Women's Multivitamin) 18 mg iron-400 mcg-500 mg Tablet (1 source) Start: 09-26-2020 End: 10-02-2020 take 1 tablet by mouth once daily in the morning Pi-Rn-Jpoy-Fa-Ca Carb-Vit K (Women's Multivitamin) 18 mg iron-400 [...] Date: 04/16/23 Status: Ordered polyethylene glycol 3350 90202 mg powder for oral solution (1 source) [...] 12-03-2020 Episodic Other aftercare (1 source) 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 Radiology Study observation (narrative) [facility] CBC w/ Auto Diffon 4 Basophils/100 WBC (Bld) 0.6 % Normal 0.0-2.0 [facility] Comment on above: Performed By: #### 2 [id number] #### [facility] [address] [place] [address] Basophils/Leukocytes Auto (Bld) [Pure # fraction] 0.1 E9/L Normal 0.0-0.2 [facility] Comment on above: Performed By: #### 2 [id number] #### [facility] [address] [place] [address] Eosinophils (Bld) [#/Vol] 0.1 E9/L Normal 0.0-0.5 [facility] Comment on above: Performed By: #### 2 [id number] #### [facility] [address] [place] [address] Eosinophils/100 WBC (Bld) 1.2 % Normal 0.0-8.0 [facility] Comment on above: Performed By: #### 2 [id number] #### [facility] [address] [place] [address] Erythrocyte distribution width (RBC) [Ratio] 12.8 % Normal 10.9-14.2 [facility] Comment on above: Performed By: #### 2 [id number] #### [facility] [address] [place] [address] Hematocrit (Bld) [Volume fraction] 48.4 % High 34.0-46.0 [facility] Comment on above: Performed By: #### 2 604239 #### [facility] [address] [place] [address] Hemoglobin (Bld) [Mass/Vol] 16.2 g/dL High 12.0-16.0 [facility] Comment on above: Performed By: #### 2 [id number] #### [facility] [address] [place] [address] Lymphocytes (Bld) [#/Vol] 3.0 E9/L Normal 1.0-4.0 [facility] Comment on above: Performed By: #### 2 287256 #### [facility] [address] [place] [address] Lymphocytes/100 WBC (Bld) 28.3 % Normal 14.0-50.0 [facility] Comment on above: Performed By: #### 2 [id number] #### [facility] [address] [place] [address] MCH (RBC) [Entitic mass] 31.0 pg Normal 27.0-34.0 [facility] Comment on above: Performed By: #### 2 535329 #### [facility] [address] [place] [address] MCHC (RBC) [Mass/Vol] 33.4 g/dL Normal 31.4-36.0 [facility] Comment on above: Performed By: #### 2 [id number] #### [facility] [address] [place] [address] MCV (RBC) [Entitic vol] 92.7 fL Normal 80.0-100.0 [facility] Comment on above: Performed By: #### 2 [id number] #### [facility] [address] [place] [address] Monocytes (Bld) [#/Vol] 0.5 E9/L Normal 0.2-1.0 [facility] Comment on above: Performed By: #### 2 [id number] #### [facility] [address] [place] [address] Neutrophils (Bld) [#/Vol] 7.0 E9/L Normal 2.0-7.5 [facility] Comment on above: Performed By: #### 2 343140 #### [facility] [address] [place] [address] Neutrophils/100 WBC (Bld) 65.1 % Normal 36.0-75.0 [facility] Comment on above: Performed By: #### 2 [id number] #### [facility] [address] [place] [address] Platelet mean volume (Bld) [Entitic vol] 8.8 fL Normal 6.4-10.8 [facility] Comment on above: Performed By: #### 2 293471 #### [facility] [address] [place] [address] Platelets (Bld) [#/Vol] 254.0 E9/L Normal 150.0-500.0 [facility] Comment on above: Performed By: #### 2 [id number] #### [facility] [address] [place] [address] RBC (Bld) [#/Vol] 5.2 E12/L Normal 4.3-5.9 [facility] Comment on above: Performed By: #### 2 [id number] #### [facility] [address] [place] [address] WBC corrected for nucl RBC Auto (Bld) [#/Vol] 10.7 E9/L Normal 4.0-11.0 [facility] Comment on above: Performed By: #### 2 485999 #### [facility] [address] [place] [address] CMPon 06-17-2024 Albumin [Mass/Vol] 4.2 g/dL Normal 3.3-5.0 [facility] Comment on above: Performed By: #### 2 [id number] #### [facility] [address] [place] [address] Albumin/Globulin (S) [Mass conc ratio] 2.0 Normal 1.1-2.2 [facility] Comment on above: Performed By: #### 2 [id number] #### [facility] [address] [place] [address] ALP [Catalytic activity/Vol] 113 Int._Unit/L High 21-98 [facility] Comment on above: Performed By: #### 2 560241 #### [facility] [address] [place] [address] ALT No additional P-5'-P [Catalytic activity/Vol] 10 Int._Unit/L Normal 6-46 [facility] Comment on above: Performed By: #### 2 110808 #### [facility] [address] [place] [address] Anion gap [Moles/Vol] 11 mmol/L Normal 6-16 [facility] Comment on above: Performed By: #### 2 766621 #### [facility] [address] [place] [address] AST [Catalytic activity/Vol] 15 Int._Unit/L Normal 5-43 [facility] Comment on above: Performed By: #### 2 214336 #### [facility] [address] [place] [address] Bilirubin [Mass/Vol] 0.6 mg/dL Normal 0.0-1.1 [facility] Comment on above: Performed By: #### 2 196373 #### [facility] [address] [place] [address] Calcium [Mass/Vol] 9.3 mg/dL Normal 8.9-11.1 [facility] Comment on above: Performed By: #### 2 217191 #### [facility] [address] [place] [address] Chloride [Moles/Vol] 106 mmol/L Normal 101-111 [facility] Comment on above: Performed By: #### 2 [id number] #### [facility] [address] [place] [address] CO2 [Moles/Vol] 25 mmol/L Normal 21-31 [facility] Comment on above: Performed By: #### 2 790080 #### [facility] [address] [place] [address] Creatinine [Mass/Vol] 0.7 mg/dL Normal 0.5-1.3 [facility] Comment on above: Performed By: #### 2 029515 #### [facility] [address] [place] [address] Globulin (S) [Mass/Vol] 2.1 g/dL Normal 1.4-4.0 [facility] Comment on above: Performed By: #### 2 521546 #### [facility] [address] [place] [address] Glucose [Mass/Vol] 133 mg/dL Normal 55-199 [facility] Comment on above: Performed By: #### 2 893937 #### [facility] [address] [place] [address] Potassium [Moles/Vol] 4.1 mmol/L Normal 3.5-5.3 [facility] Comment on above: Performed By: #### 2 572503 #### [facility] [address] [place] [address] Protein [Mass/Vol] 6.3 g/dL Normal 6.0-7.8 [facility] Comment on above: Performed By: #### 2 497054 #### [facility] [address] [place] [address] Sodium [Moles/Vol] 138 mmol/L Normal 135-145 [facility] Comment on above: Performed By: #### 2 266655 #### [facility] [address] [place] [address] Urea nitrogen [Mass/Vol] 14 mg/dL Normal 5-21 [facility] Comment on above: Performed By: #### 2 [id number] #### [facility] [address] [place] [address] Urea nitrogen/Creatinine [Mass ratio] 20 No Units Normal 10-20 [facility] Comment on above: Performed By: #### 2 [id number] #### [facility] [address] [place] [address] [id number] 06-17-2024 HbA1c (Bld) [Mass fraction] 5.7 % Normal <=5.9 [facility] Comment on above: Performed By: #### 7 [id number] #### [facility] [address] [place] [address] Lipid Panelon 06-17-2024 Cholesterol [Mass/Vol] 120 mg/dL Normal 120-200 [facility] Comment on above: Performed By: #### 2 355166 #### [facility] [address] [place] [address] Cholesterol in HDL [Mass/Vol] 38 mg/dL Invalid Interpretation Code [facility] Comment on above: Result Comment: '>= 60 LOW RISK' '<= 40 HIGH RISK' Performed By: #### 2 [id number] #### [facility] [address] [place] [address] Cholesterol in LDL [Mass/Vol] 35 mg/dL Normal <=129 [facility] Comment on above: Performed By: #### 2 039765 #### [facility] [address] [place] [address] Cholesterol in VLDL [Mass/Vol] 64 mg/dL High 7-40 [facility] Comment on above: Performed By: #### 2 [id number] #### [facility] [address] [place] [address] Triglyceride [Mass/Vol] 322 mg/dL High <=149 [facility] Comment on above: Performed By: #### 2 [id number] #### [facility] [address] [place] [address] Vit B12on 06-17-2024 Cobalamin (Vitamin B12) [Mass/Vol] 277 pg/mL Normal 50-1500 [facility] Comment on above: Performed By: #### 2 117215 #### [facility] [address] [place] [address] eGFRon 06-17-2024 eGFR 104 mL/min/1.73 m2 Normal >=59 [facility] Comment on above: Order Comment: Order added by Discern Expert. Performed By: #### 1 [id number] #### [facility] [address] [place] [address] C-Reactive Proteinon 023 CRP [Mass/Vol] 10.6 mg/L High 0.0-5.0 [facility] Comment on above: Performed By: #### C MPX, CDP #### [facility] [address] [place] [address] [place] [address] Hog Operator: Andres Haddad MD CRP High sensitivity method [Mass/Vol] 10.6 mg/L High 0.0 - 5.0 mg/L [facility] Interpretation and review of laboratory results Abnormal [facility] CBC auto differentialon Basophils (Bld) [#/Vol] 0.04 10*3/uL [facility] Basophils/100 WBC (Bld) 0 % 0 - 2 % [facility] Eosinophils (Bld) [#/Vol] [facility] Eosinophils/100 WBC (Bld) 0 % Low 1 - 4 % [facility] Erythrocyte distribution width (RBC) [Ratio] 12.4 % 11.8 - 14.4 % [facility] Hematocrit (Bld) [Volume fraction] 43.1 % 36.3 - 47.1 % [facility] Hemoglobin (Bld) [Mass/Vol] 14.5 g/dL 11.9 - 15.1 g/dL [facility] Immature granulocytes (Bld) [#/Vol] 0.09 10*3/uL [facility] Immature granulocytes/100 WBC (Bld) 1 % High 0 [facility] Interpretation and review of laboratory results Abnormal [facility] Lymphocytes/100 WBC (Bld) 19 % Low 24 - 43 % [facility] Lymphocytes/100 WBC (Bld) 2.43 % [facility] MCH (RBC) [Entitic mass] 30.4 pg 25.2 - 33.5 pg [facility] MCHC (RBC) [Mass/Vol] 33.6 g/dL 28.4 - 34.8 g/dL [facility] MCV (RBC) [Entitic vol] 90.4 fL 82.6 - 102.9 fL [facility] Monocytes/100 WBC (Bld) 7 % 3 - 12 % [facility] Monocytes/100 WBC (Bld) 0.86 % [facility] Neutrophils/100 WBC (Bld) 73 % High 36 - 65 % [facility] Nucleated RBC/100 WBC (Bld) [Ratio] 0.0 % 0.0 per 100 WBC [facility] Platelet mean volume (Bld) [Entitic vol] 9.5 fL 8.1 - 13.5 fL [facility] Platelets (Bld) [#/Vol] 230 10*3/uL [facility] RBC (Bld) [#/Vol] 4.77 10*6/uL 3.95 - 5.1 1 m/uL [facility] Segmented neutrophils/100 WBC (Bld) 9.10 % High [facility] WBC other (Bld) [#/Vol] 12.5 High [facility] CBC with Diffon 04-28-2023 Abs. Basophil 0.04 k/uL Normal 0.00-0.20 [facility] Comment on above: Performed By: #### C MPX, CDP #### [facility] [address] [place], [place] [id number] Hog Operator: Andres Haddad MD Abs. Eosinophil <0.03 Normal 0.00-0.44 [facility] Comment on above: Performed By: #### C MPX, CDP #### [facility] [address] [place] [address] Hog Operator: Andres Haddad MD Abs.Imm.Granulocyte 0.09 k/uL Normal 0.00-0.30 [facility] Comment on above: Performed By: #### C MPX, CDP #### [facility] [address] [place], [place] [id number] Hog Operator: Andres Haddad MD Abs.Neutrophil (Seg) 9.10 k/uL High 1.50-8.10 [facility] Comment on above: Performed By: #### C MPX, CDP #### [facility] [address] [place] [address] [place] [place], [place] [address]383 Hog Operator: Andres Haddad MD Basophils/100 WBC (Bld) 0 % Normal 0-2 [facility] Comment on above: Performed By: #### C MPX, CDP #### [facility] [address] [place], [place] [id number] Hog Operator: Andres Haddad MD Eosinophils/100 WBC (Bld) 0 % Low 1-4 [facility] Comment on above: Performed By: #### C MPX, CDP #### [facility] [address] [place] [address] Hog Operator: Andres Haddad MD Erythrocyte distribution width (RBC) [Ratio] 12.4 % Normal 11.8-14.4 [facility] Comment on above: Performed By: #### C MPX, CDP #### [facility] [address] [place], [place] [id number] Hog Operator: Andres Haddad MD Hematocrit (Bld) [Volume fraction] 43.1 % Normal 36.3-47.1 [facility] Comment on above: Performed By: #### C MPX, CDP #### [facility] [address] [place], [place] [id number] Hog Operator: Andres Haddad MD Hemoglobin (Bld) [Mass/Vol] 14.5 g/dL Normal 11.9-15.1 [facility] Comment on above: Performed By: #### C MPX, CDP #### [address] [place], [place] [id number] Hog Operator: Andres Haddad MD Immature granulocytes/100 WBC (Bld) 1 % High 0 [facility] Comment on above: Performed By: #### C MPX, CDP #### [address] [place], [place] [id number] Hog Operator: Andres Haddad MD Lymphocytes (Bld) [#/Vol] 2.43 10*3/uL Normal 1.10-3.70 [facility] Comment on above: Performed By: #### C MPX, CDP #### [address] [place], [place] [id number] Hog Operator: Andres Haddad MD Lymphocytes/100 WBC (Bld) 19 % Low 24-43 [facility] Comment on above: Performed By: #### C MPX, CDP #### [address] [place] [address] Hog Operator: Andres Haddad MD MCH (RBC) [Entitic mass] 30.4 pg Normal 25.2-33.5 [facility] Comment on above: Performed By: #### C MPX, CDP #### [facility] [address] [place] [address] Hog Operator: Andres Haddad MD MCHC (RBC) [Mass/Vol] 33.6 g/dL Normal 28.4-34.8 [facility] Comment on above: Performed By: #### C MPX, CDP #### [facility] [address] [place] [address] Hog Operator: Andres Haddad MD MCV (RBC) [Entitic vol] 90.4 fL Normal 82.6-102.9 [facility] Comment on above: Performed By: #### C MPX, CDP #### [facility] [address] [place] [address] Hog Operator: Andres Haddad MD Monocytes (Bld) [#/Vol] 0.86 10*3/uL Normal 0.10-1.20 [facility] Comment on above: Performed By: #### C MPX, CDP #### [facility] [address] [place], [place] [phone] Hog Operator: Andres Haddad MD Monocytes/100 WBC (Bld) 7 % Normal 3-12 [facility] Comment on above: Performed By: #### C MPX, CDP #### [facility] [address] [place], [place] [phone] Hog Operator: Andres Haddad MD Neutrophil (Seg) 73 % High 36-65 [facility] Comment on above: Performed By: #### C MPX, CDP #### [facility] [address] [place] [address] Hog Operator: Andres Haddad MD NRBC Automated 0.0 per 100 WBC Normal 0.0 [facility] Comment on above: Performed By: #### C MPX, CDP #### [facility] [address] [place] [address] Hog Operator: Andres Haddad MD Platelet mean volume (Bld) [Entitic vol] 9.5 fL Normal 8.1-13.5 [facility] Comment on above: Performed By: #### C MPX, CDP #### [facility] [address] [place], [place] [phone] Hog Operator: Andres Haddad MD Platelets (Bld) [#/Vol] 230 10*3/uL Normal 138-453 [facility] Comment on above: Performed By: #### C MPX, CDP #### [facility] [address] [place], [place] [phone] Hog Operator: Andres Haddad MD RBC (Bld) [#/Vol] 4.77 10*6/uL Normal 3.95-5.11 [facility] Comment on above: Performed By: #### C MPX, CDP #### [facility] [address] [place], [place] [phone] Hog Operator: Andres Haddad MD WBC (Bld) [#/Vol] 12.5 10*3/uL High 3.5-11.3 [facility] Comment on above: Performed By: #### C MPX, CDP #### [facility] [address] [place], [place] [phone] Hog Operator: Andres Haddad MD Comp Metabolic Pr/rfx MGon 0 - Albumin [Mass/Vol] 3.6 g/dL Normal 3.5-5.2 [facility] Comment on above: Performed By: #### C MPX, CDP #### [facility] [address] [place], [place] [phone] Hog Operator: Andres Haddad MD Albumin/Glob Ratio 1.3 Normal 1.0-2.5 [facility] Comment on above: Performed By: #### C MPX, CDP #### [facility] [address] [place] [address] Hog Operator: Andres Haddad MD Alkaline Phos 103 U/L Normal 35-104 [facility] Comment on above: Performed By: #### C MPX, CDP #### [facility] [address] [place], [place] [phone] Hog Operator: Andres Haddad MD ALT [Catalytic activity/Vol] 6 U/L Normal 5-33 [facility] Comment on above: Performed By: #### C MPX, CDP #### [facility] [address] [place], [place] [phone] Hog Operator: Andres Haddad MD Anion gap [Moles/Vol] 10 mmol/L Normal 9-17 [facility] Comment on above: Performed By: #### C MPX, CDP #### [facility] [address] [place], [place] [phone] Hog Operator: Andres Haddad MD AST [Catalytic activity/Vol] 13 U/L Normal <32 [facility] Comment on above: Performed By: #### C MPX, CDP #### [facility] [address] [place], [place] [phone] Hog Operator: Andres Haddad MD Bilirubin [Mass/Vol] 0.3 mg/dL Normal 0.3-1.2 [facility] Comment on above: Performed By: #### C MPX, CDP #### [facility] [address] [place], [place] [id number] Hog Operator: Andres Haddad MD BUN/CRE Ratio 13 Normal 9-20 [facility] Comment on above: Performed By: #### C MPX, CDP #### [facility] [address] [place] [address] Hog Operator: Andres Haddad MD Calcium [Mass/Vol] 9.2 mg/dL Normal 8.6-10.4 [facility] Comment on above: Performed By: #### C MPX, CDP #### [facility] [address] [place] [address] Hog Operator: Andres Haddad MD Chloride [Moles/Vol] 112 mmol/L High 98-107 [facility] Comment on above: Performed By: #### C MPX, CDP #### [facility] [address] [place] [address] Hog Operator: Andres Haddad MD CO2 [Moles/Vol] 24 mmol/L Normal 20-31 [facility] Comment on above: Performed By: #### C MPX, CDP #### [facility] [address] [place] [address] Hog Operator: Andres Haddad MD Creatinine [Mass/Vol] 0.54 mg/dL Normal 0.50-0.90 [facility] Comment on above: Performed By: #### C MPX, CDP #### [facility] [address] [place] [address] Hog Operator: Andres Haddad MD GFR/1.73 sq M.predicted among non-blacks MDRD (S/P/Bld) [Vol rate/Area] mL/min/{1.73_m2} Normal >60 [facility] Comment on above: Result Comment: These [...] Performed By: #### C MPX, CDP #### [facility] [address] [place] [address] Hog Operator: Andres Haddad MD Glucose [Mass/Vol] 111 mg/dL High 70-99 [facility] Comment on above: Performed By: #### C MPX, CDP #### [facility] [address] [place] [address] Hog Operator: Andres Haddad MD Potassium [Moles/Vol] 4.2 mmol/L Normal 3.7-5.3 [facility] Comment on above: Performed By: #### C MPX, CDP #### [facility] [address] [place], [place] [phone] Hog Operator: Andres Haddad MD Protein [Mass/Vol] 6.3 g/dL Low 6.4-8.3 [facility] Comment on above: Performed By: #### C MPX, CDP #### [facility] [address] [place] [address] Hog Operator: Andres Haddad MD Sodium [Moles/Vol] 146 mmol/L High 135-144 [facility] Comment on above: Performed By: #### C MPX, CDP #### [facility] [address] [place], [place] [id number] Hog Operator: Andres Haddad MD Urea nitrogen [Mass/Vol] 7 mg/dL Normal 6-20 [facility] Comment on above: Performed By: #### C MPX, CDP #### [facility] [address] [place] [address] [place] [address] Hog Operator: Andres Haddad MD Comprehensive Metabolic Pane l w/ Reflex to MGon 04-28-2023 Albumin [Mass/Vol] 3.6 g/dL 3.5 - 5.2 g/dL [facility] Albumin/Globulin [Mass ratio] 1.3 {ratio} 1.0 - 2.5 [facility] ALP [Catalytic activity/Vol] 103 U/L 35 - 104 U/L [facility] ALT [Catalytic activity/Vol] 6 U/L 5 - 33 U/L [facility] Anion gap [Moles/Vol] 10 mmol/L 9 - 17 mmol/L [facility] AST [Catalytic activity/Vol] 13 U/L NINF - 32 U/L [facility] Bilirubin [Mass/Vol] 0.3 mg/dL 0.3 - 1 .2 mg/dL [facility] Calcium [Mass/Vol] 9.2 mg/dL 8.6 - 10. 4 mg/dL [facility] Chloride [Moles/Vol] 112 mmol/L High 98 - 10 7 mmol/L [facility] CO2 [Moles/Vol] 24 mmol/L 20 - 31 mmol/L [facility] Creatinine [Mass/Vol] 0.54 mg/dL 0.50 - 0.90 mg/dL [facility] GFR/1.73 sq M.predicted MDRD (S/P/Bld) [Vol rate/Area] - PINF [facility] Comment on above: These results are not [...] 111 mg/dL High 70 - 99 mg/dL [facility] Interpretation and review of laboratory results Abnormal [facility] Potassium [Moles/Vol] 4.2 mmol/L 3.7 - 5.3 mmol/L [facility] Protein [Mass/Vol] 6.3 g/dL Low 6.4 - 8.3 g/dL [facility] Sodium [Moles/Vol] 146 mmol/L High 135 - 144 mmol/L [facility] Urea nitrogen [Mass/Vol] 7 mg/dL 6 - 20 mg/dL [facility] Urea nitrogen/Creatinine [Mass ratio] 13 mg/mg 9 - 20 [facility] Gastrointestinal Panel, [facility] cularon 04-28-2023 Campylobacter sp DNA FAITH+probe Nom (Unsp spec) NEGATIVE: No Campylobacter spp. (jejuni or coli) DNA Detected [facility] E. coli enterotoxigenic eltA+estB genes FAITH+probe Ql (Stl) NEGATIVE: No Enterotoxigenic E. coli (ETEC) Heat-labile and heat-stable (LT/ST) DNA Detected [facility] P. shigelloides DNA FAITH+probe Ql (Stl) Negative [facility] Salmonella sp DNA FAITH+probe Ql (Unsp spec) Negative [facility] Shiga toxin stx gene FAITH+probe Nom (Unsp spec) Negative [facility] Shigella sp DNA FAITH+probe Ql (Unsp spec) Negative [facility] Specimen Description .FECES [facility] V. cholerae+parahaemoly ticus rfbL+trkH+tnaA genes FAITH+probe Ql (Stl) NEGATIVE: No Vibrio (V. vulnificus, V, parahaemolyticus and V. cholerae) DNA Detected [facility] Y. enterocolitica recN gene FAITH+probe Ql (Stl) Negative [facility] Stool PCR [place] 04-28-20 Campylobacter sp PCR NEGATIVE: No Campylobacter spp. (jejuni or coli) DNA Detected Normal [facility] Comment on above: Performed By: #### S TLPCR #### [address] [address] Hog Operator: Charan Dye MD [facility] [address] [place] [address] [place] [address] Hog Operator: Andres Haddad MD E coli enterotox PCR NEGATIVE: No Enterotoxigenic E. coli (ETEC) Heat-labile and heat-stable (LT/ST) [facility] Comment on above: Result Comment: DNA Detected Performed By: #### S TLPCR #### [id number] [place] [address] Hog Operator: Charan Dye MD [facility] [address] [place] [address] Hog Operator: Andres Haddad MD Plesiomonas sp PCR Negative Normal [facility] Comment on above: Performed By: #### S TLPCR #### [address] [address] Hog Operator: Charan Dye MD [facility] [address] [place] [address] [place] [address] Hog Operator: Andres Haddad MD Salmonella sp PCR Negative [facility] Comment on above: Performed By: #### S TLPCR #### [address] [address] Hog Operator: Charan Dye MD [facility] [address] [place] [address] [place] [address] Hog Operator: Andres Haddad MD Shigatoxin gene PCR Negative Normal [facility] Comment on above: Performed By: #### S TLPCR #### [address] [address] Hog Operator: Charan Dye MD [facility] [address] [place] [address] [place] [phone] Hog Operator: Andres Haddad MD Shigella sp PCR Negative Normal [facility] Comment on above: Performed By: #### S TLPCR #### [address] [address] Hog Operator: Charan Dye MD [facility] [address] [place] [address] [address] [place], [place] [phone] Hog Operator: Andres Haddad MD Vibrio sp PCR NEGATIVE: No Vibrio (V. vulnificus, V, parahaemolyticus and V. cholerae) DNA [facility] Comment on above: Result Comment: Dete cted Performed By: #### S TLPCR #### [facility] [address] [place] [address] Hog Operator: Charan Dye MD [facility] [address] [place] [address] [place] [address] Hog Operator: Andres Haddad MD Yersinia gene PCR Negative [facility] Comment on above: Performed By: #### S TLPCR #### [address] [place] [address] Hog Operator: Charan Dye MD [facility] [address] [place] [address] Hog Operator: Andres Haddad MD C diff Ag + Toxinon 04-27-20 23 C diff Ag + Toxin Negative Normal [facility] Comment on above: Result Comment: No C . difficile antigen and Toxin Detected. Performed By: #### C DIFQ #### [facility] [address] [place] [address] Hog Operator: Andres Haddad MD Specimen Description .FECES Normal [facility] Comment on above: Performed By: #### C DIFQ #### [facility] [address] [place] [address] Hog Operator: Andres Haddad MD CBC auto differentialon Basophils (Bld) [#/Vol] [facility] Basophils/100 WBC (Bld) 0 % 0 - 2 % [facility] Eosinophils (Bld) [#/Vol] [facility] Eosinophils/100 WBC (Bld) 0 % Low 1 - 4 % [facility] Erythrocyte distribution width (RBC) [Ratio] 12.1 % 11.8 - 14.4 % [facility] Hematocrit (Bld) [Volume fraction] 42.7 % 36.3 - 47.1 % [facility] Hemoglobin (Bld) [Mass/Vol] 14.6 g/dL 11.9 - 15.1 g/dL [facility] Immature granulocytes (Bld) [#/Vol] 0.06 10*3/uL [facility] Immature granulocytes/100 WBC (Bld) 1 % High 0 [facility] Interpretation and review of laboratory results Abnormal [facility] Lymphocytes/100 WBC (Bld) 8 % Low 24 - 43 % [facility] Lymphocytes/100 WBC (Bld) 0.80 % Low [facility] MCH (RBC) [Entitic mass] 30.6 pg 25.2 - 33.5 pg [facility] MCHC (RBC) [Mass/Vol] 34.2 g/dL 28.4 - 34.8 g/dL [facility] MCV (RBC) [Entitic vol] 89.5 fL 82.6 - 102.9 fL [facility] Monocytes/100 WBC (Bld) 1 % Low 3 - 12 % [facility] Monocytes/100 WBC (Bld) 0.09 % Low [facility] Neutrophils/100 WBC (Bld) 90 % High 36 - 65 % [facility] Nucleated RBC/100 WBC (Bld) [Ratio] 0.0 % 0.0 per 100 WBC [facility] Platelet mean volume (Bld) [Entitic vol] 9.5 fL 8.1 - 13.5 fL [facility] Platelets (Bld) [#/Vol] 219 10*3/uL [facility] RBC (Bld) [#/Vol] 4.77 10*6/uL 3.95 - 5.1 1 m/uL [facility] Segmented neutrophils/100 WBC (Bld) 8.55 % High [facility] WBC other (Bld) [#/Vol] 9.5 [facility] CBC with Diffon 04-27-2023 Abs. Basophil <0.03 Normal 0.00-0.20 [facility] Comment on above: Performed By: #### C YEHUDAX, CDP #### [facility] [address] [place] [address] Hog Operator: Andres Haddad MD Abs. Eosinophil <0.03 Normal 0.00-0.44 [facility] Comment on above: Performed By: #### C YEHUDAX, CDP #### [facility] [address] [place] [address] Hog Operator: Andres Haddad MD Abs.Imm.Granulocyte 0.06 k/uL Normal 0.00-0.30 [facility] Comment on above: Performed By: #### C MPX, CDP #### [facility] [address] [place], [place] [phone] Hog Operator: Andres Haddad MD Abs.Neutrophil (Seg) 8.55 k/uL High 1.50-8.10 [facility] Comment on above: Performed By: #### C MPX, CDP #### [facility] [address] [place] [address] [place] [place], [place] [phone] Hog Operator: Andres Haddad MD Basophils/100 WBC (Bld) 0 % Normal 0-2 [facility] Comment on above: Performed By: #### C MPX, CDP #### [address] [place], [place] [phone] Hog Operator: Andres Haddad MD Eosinophils/100 WBC (Bld) 0 % Low 1-4 [facility] Comment on above: Performed By: #### C MPX, CDP #### [address] [place], [place] [phone] Hog Operator: Andres Haddad MD Erythrocyte distribution width (RBC) [Ratio] 12.1 % Normal 11.8-14.4 [facility] Comment on above: Performed By: #### C MPX, CDP #### [address] [place], [place] [phone] Hog Operator: Andres Haddad MD Hematocrit (Bld) [Volume fraction] 42.7 % Normal 36.3-47.1 [facility] Comment on above: Performed By: #### C MPX, CDP #### [address] [place], [place] [phone] Hog Operator: Andres Haddad MD Hemoglobin (Bld) [Mass/Vol] 14.6 g/dL Normal 11.9-15.1 [facility] Comment on above: Performed By: #### C MPX, CDP #### [address] [place], [place] [phone] Hog Operator: Andres Haddad MD Immature granulocytes/100 WBC (Bld) 1 % High 0 [facility] Comment on above: Performed By: #### C MPX, CDP #### [facility] [address] [place], [place] [phone] Hog Operator: Andres Haddad MD Lymphocytes (Bld) [#/Vol] 0.80 10*3/uL Low 1.10-3.70 [facility] Comment on above: Performed By: #### C MPX, CDP #### [facility] [address] [place], [place] [phone] Hog Operator: Andres Haddad MD Lymphocytes/100 WBC (Bld) 8 % Low 24-43 [facility] Comment on above: Performed By: #### C MPX, CDP #### [address] [place] [address] Hog Operator: Andres Haddad MD MCH (RBC) [Entitic mass] 30.6 pg Normal 25.2-33.5 [facility] Comment on above: Performed By: #### C MPX, CDP #### [address] [place], [place] [phone] Hog Operator: Andres Haddad MD MCHC (RBC) [Mass/Vol] 34.2 g/dL Normal 28.4-34.8 [facility] Comment on above: Performed By: #### C MPX, CDP #### [address] [place], [place] [phone] Hog Operator: Andres Haddad MD MCV (RBC) [Entitic vol] 89.5 fL Normal 82.6-102.9 [facility] Comment on above: Performed By: #### C MPX, CDP #### [address] [place] [address] Hog Operator: Andres Haddad MD Monocytes (Bld) [#/Vol] 0.09 10*3/uL Low 0.10-1.20 [facility] Comment on above: Performed By: #### C MPX, CDP #### [facility] [address] [place], [place] [phone] Hog Operator: Andres Haddad MD Monocytes/100 WBC (Bld) 1 % Low 3-12 [facility] Comment on above: Performed By: #### C MPX, CDP #### [facility] [address] [place], [facility]83 Hog Operator: Andres Haddad MD Neutrophil (Seg) 90 % High 36-65 [facility] Comment on above: Performed By: #### C MPX, CDP #### [facility] [address] [place] [address] Hog Operator: Andres Haddad MD NRBC Automated 0.0 per 100 WBC Normal 0.0 [facility] Comment on above: Performed By: #### C MPX, CDP #### [facility] [address] [place], [facility]83 Hog Operator: Andres Haddad MD Platelet mean volume (Bld) [Entitic vol] 9.5 fL Normal 8.1-13.5 [facility] Comment on above: Performed By: #### C MPX, CDP #### [facility] [address] [place] [address] [place] [place], [place] [address] Hog Operator: Andres Haddad MD Platelets (Bld) [#/Vol] 219 10*3/uL Normal 138-453 [facility] Comment on above: Performed By: #### C MPX, CDP #### [facility] [address] [place] [address] Hog Operator: Andres Haddad MD RBC (Bld) [#/Vol] 4.77 10*6/uL Normal 3.95-5.11 [facility] Comment on above: Performed By: #### C MPX, CDP #### [facility] [address] [place] [address] Hog Operator: Andres Haddad MD WBC (Bld) [#/Vol] 9.5 10*3/uL Normal 3.5-11.3 [facility] Comment on above: Performed By: #### C MPX, CDP #### [facility] [address] [place] [address] Hog Operator: Andres Haddad MD CT ABDOMEN PELVIS W [...] FINDINGS: Lower Chest: Heart size is normal. Wagram dependent atelectasis is noted in the lung [...] Huseyin Joyce MD 04/27/23 Final result Normal [facility] CT ABDOMEN PELVIS W IV CONTR [...] to Lung-RADS guidelines. Reference: Radiology. 2017; 284(1):228-43. [facility] RIS CONSOLIDATED EXAMINATION: CT OF THE ABDOMEN [...] FINDINGS: Lower Chest: Heart size is normal. [place]agram dependent atelectasis is noted in the lung [...] is a transitional S1 type vertebral body. PN RIS CONSOLIDATED Huseyin Joyce MD - 04/27/2023 [...] FINDINGS: Lower Chest: Heart size is normal. Wagram dependent atelectasis is noted in the lung [...] to Lung-RADS guidelines. Reference: Radiology. 2017; 284(1):228-43. [facility] [employer] CT ABDOMEN PELVIS W IV CONTR AST Additional Contrast? NoneOrdered By: Huseyin Joyce on 04-27-2023 [facility]...Exactly Work Phone: Clostridium Difficile Toxin/ Antigenon 04-27-2023 C. difficile glutamate dehydrogenase and toxins A+B IA.rapid Ql (Stl) Negative NEGATIVE [facility] Comment on above: No C. difficile anti gen and Toxin Detected. Specimen Description .FECES [facility] Metabolic Pr/rfx MGon 0 04-27-2023 Albumin [Mass/Vol] 3.9 g/dL Normal 3.5-5.2 [facility] Comment on above: Performed By: #### C MPX, CDP #### [facility] [address] [place], [place] [phone] Hog Operator: Andres Haddad MD Albumin/Glob Ratio 1.3 Normal 1.0-2.5 [facility] Comment on above: Performed By: #### C MPX, CDP #### [facility] [address] [place], [place] [phone] Hog Operator: Andres Haddad MD Alkaline Phos 126 U/L High 35-104 [facility] Comment on above: Performed By: #### C MPX, CDP #### [facility] [address] [place], [place] [phone] Hog Operator: Andres Haddad MD ALT [Catalytic activity/Vol] 8 U/L Normal 5-33 [facility] Comment on above: Performed By: #### C MPX, CDP #### [facility] [address] [place], [place] [phone] Hog Operator: Andres Haddad MD Anion gap [Moles/Vol] 8 mmol/L Low 9-17 [facility] Comment on above: Performed By: #### C MPX, CDP #### [facility] [address] [place] [address] Hog Operator: Andres Haddad MD AST [Catalytic activity/Vol] 14 U/L Normal <32 [facility] Comment on above: Performed By: #### C MPX, CDP #### [facility] [address] [place], [place] [phone] Hog Operator: Andres Haddad MD Bilirubin [Mass/Vol] 0.3 mg/dL Normal 0.3-1.2 [facility] Comment on above: Performed By: #### C MPX, CDP #### [facility] [address] [place] [address] Hog Operator: Andres Haddad MD BUN/CRE Ratio 20 Normal 9-20 [facility] Comment on above: Performed By: #### C MPX, CDP #### [facility] [address] [place], [place] [phone] Hog Operator: Andres Haddad MD Calcium [Mass/Vol] 9.5 mg/dL Normal 8.6-10.4 [facility] Comment on above: Performed By: #### C MPX, CDP #### [facility] [address] [place] [address] Hog Operator: Andres Haddad MD Chloride [Moles/Vol] 110 mmol/L High 98-107 [facility] Comment on above: Performed By: #### C MPX, CDP #### [facility] [address] [place] [address] Hog Operator: Andres Haddad MD CO2 [Moles/Vol] 22 mmol/L Normal 20-31 [facility] Comment on above: Performed By: #### C MPX, CDP #### [facility] [address] [place] [address] Hog Operator: Andres Haddad MD Creatinine [Mass/Vol] 0.46 mg/dL Low 0.50-0.90 [facility] Comment on above: Performed By: #### C MPX, CDP #### [facility] [address] [place] [address] Hog Operator: Andres Haddad MD GFR/1.73 sq M.predicted among non-blacks MDRD (S/P/Bld) [Vol rate/Area] mL/min/{1.73_m2} Normal >60 [facility] Comment on above: Result Comment: These [...] Performed By: #### C MPX, CDP #### [facility] [address] [place], [place] [phone] Hog Operator: Andres Haddad MD Glucose [Mass/Vol] 173 mg/dL High 70-99 [facility] Comment on above: Performed By: #### C MPX, CDP #### [facility] [address] [place] [address] Hog Operator: Andres Haddad MD Potassium [Moles/Vol] 4.0 mmol/L Normal 3.7-5.3 [facility] Comment on above: Performed By: #### C MPX, CDP #### [facility] [address] [place], [place] [phone] Hog Operator: Andres Haddad MD Protein [Mass/Vol] 6.9 g/dL Normal 6.4-8.3 [facility] Comment on above: Performed By: #### C MPX, CDP #### [facility] [address] [place] [address] [place] [place], [place] [phone] Hog Operator: Andres Haddad MD Sodium [Moles/Vol] 140 mmol/L Normal 135-144 [facility] Comment on above: Performed By: #### C MPX, CDP #### [facility] [address] [place], [place] [phone] Hog Operator: Andres Haddad MD Urea nitrogen [Mass/Vol] 9 mg/dL Normal 6-20 [facility] Comment on above: Performed By: #### C MPX, CDP #### [facility] [address] [place] [address] Hog Operator: Andres Haddad MD Comp Metabolic Profon 2022 Albumin [Mass/Vol] 4.1 g/dL Normal 3.5-5.2 [facility] Comment on above: Performed By: #### C P, CDP #### [facility] [address] [place], [place] [phone] Hog Operator: Andres Haddad MD Albumin/Glob Ratio 1.4 Normal 1.0-2.5 [facility] Comment on above: Performed By: #### C P, CDP #### [facility] [address] [place], [place] [phone] Hog Operator: Andres Haddad MD Alkaline Phos 134 U/L High 35-104 [facility] Comment on above: Performed By: #### C P, CDP #### [facility] [address] [place], [place] [phone] Hog Operator: Andres Haddad MD ALT [Catalytic activity/Vol] 8 U/L Normal 5-33 [facility] Comment on above: Performed By: #### C P, CDP #### [facility] [address] [place] [address] [place] [place], [place] [phone] Hog Operator: Andres Haddad MD Anion gap [Moles/Vol] 11 mmol/L Normal 9-17 [facility] Comment on above: Performed By: #### C P, CDP #### [address] [place], [place] [phone] Hog Operator: Andres Haddad MD AST [Catalytic activity/Vol] 17 U/L Normal <32 [facility] Comment on above: Performed By: #### C P, CDP #### [facility] [address] [place], [place] [phone] Hog Operator: Andres Haddad MD Bilirubin [Mass/Vol] 0.4 mg/dL Normal 0.3-1.2 [facility] Comment on above: Performed By: #### C P, CDP #### [facility] [address] [place] [address] Hog Operator: Andres Haddad MD BUN/CRE Ratio 21 High 9-20 [facility] Comment on above: Performed By: #### C P, CDP #### [facility] [address] [place] [address] Hog Operator: Andres Haddad MD Calcium [Mass/Vol] 9.6 mg/dL Normal 8.6-10.4 [facility] Comment on above: Performed By: #### C P, CDP #### [facility] [address] [place] [address] Hog Operator: Andres Haddad MD Chloride [Moles/Vol] 105 mmol/L Normal 98-107 [facility] Comment on above: Performed By: #### C P, CDP #### [facility] [address] [place] [address] Hog Operator: Andres Haddad MD CO2 [Moles/Vol] 24 mmol/L Normal 20-31 [facility] Comment on above: Performed By: #### C P, CDP #### [facility] [address] [place] [address] Hog Operator: Andres Haddad MD Creatinine [Mass/Vol] 0.56 mg/dL Normal 0.50-0.90 [facility] Comment on above: Performed By: #### C P, CDP #### [facility] [address] [place] [address] Hog Operator: Andres Haddad MD GFR/1.73 sq M.predicted among non-blacks MDRD (S/P/Bld) [Vol rate/Area] mL/min/{1.73_m2} Normal >60 [facility] Comment on above: Result Comment: These [...] Performed By: #### C P, CDP #### [facility] [address] [place] [address] Hog Operator: Andres Haddad MD Glucose [Mass/Vol] 138 mg/dL High 70-99 [facility] Comment on above: Performed By: #### C P, CDP #### [facility] [address] [place], [place] [phone] Hog Operator: Andres Haddad MD Potassium [Moles/Vol] 3.9 mmol/L Normal 3.7-5.3 [facility] Comment on above: Performed By: #### C P, CDP #### [facility] [address] [place], [place] [phone] Hog Operator: Andres Haddad MD Protein [Mass/Vol] 7.0 g/dL Normal 6.4-8.3 [facility] Comment on above: Performed By: #### C P, CDP #### [facility] [address] [place], [place] [phone] Hog Operator: Andres Haddad MD Sodium [Moles/Vol] 140 mmol/L Normal 135-144 [facility] Comment on above: Performed By: #### C P, CDP #### [facility] [address] [place], [place] [phone] Hog Operator: Andres Haddad MD Urea nitrogen [Mass/Vol] 12 mg/dL Normal 6-20 [facility] Comment on above: Performed By: #### C P, CDP #### [facility] [address] [place] [address] Hog Operator: Andres Haddad MD Comprehensive Metabolic Pane l w/ Reflex to MGon 04-27-2023 Albumin [Mass/Vol] 3.9 g/dL 3.5 - 5.2 g/dL [facility] Albumin/Globulin [Mass ratio] 1.3 {ratio} 1.0 - 2.5 [facility] ALP [Catalytic activity/Vol] 126 U/L High 35 - 104 U/L [facility] ALT [Catalytic activity/Vol] 8 U/L 5 - 33 U/L [facility] Anion gap [Moles/Vol] 8 mmol/L Low 9 - 17 mmol/L [facility] AST [Catalytic activity/Vol] 14 U/L NINF - 32 U/L [facility] Bilirubin [Mass/Vol] 0.3 mg/dL 0.3 - 1 .2 mg/dL [facility] Calcium [Mass/Vol] 9.5 mg/dL 8.6 - 10. 4 mg/dL [facility] Chloride [Moles/Vol] 110 mmol/L High 98 - 10 7 mmol/L [facility] CO2 [Moles/Vol] 22 mmol/L 20 - 31 mmol/L [facility] Creatinine [Mass/Vol] 0.46 mg/dL Low 0.50 - 0.90 mg/dL [facility] GFR/1.73 sq M.predicted MDRD (S/P/Bld) [Vol rate/Area] - PINF [facility] Comment on above: These results are not [...] 173 mg/dL High 70 - 99 mg/dL [facility] Interpretation and review of laboratory results Abnormal [facility] Potassium [Moles/Vol] 4.0 mmol/L 3.7 - 5.3 mmol/L [facility] Protein [Mass/Vol] 6.9 g/dL 6.4 - 8.3 g/dL [facility] Sodium [Moles/Vol] 140 mmol/L 135 - 144 mmol/L [facility] Urea nitrogen [Mass/Vol] 9 mg/dL 6 - 20 mg/dL [facility] Urea nitrogen/Creatinine [Mass ratio] 20 mg/mg 9 - 20 [facility] EKG 12 leadon 04-27-2023 Atrial Rate 76 BPM [facility] P [place] 64 degrees [facility] P-R Interval 144 ms [facility] Q-T Interval 408 ms [facility] QRS Duration 84 ms [facility] QTc Calculation (Bazett) 459 ms [facility] R [place] 62 degrees [facility] T [place] 62 degrees [facility] Ventricular Rate 76 BPM [facility] Normal sinus rhythm Normal ECG No previous ECGs available Confirmed by EVANS HSU ([id number]) on 04/27/2023 8:52:52 AM [facility] Evans Hsu MD - 04/27/2023 Normal sinus rhythm Normal ECG No previous ECGs available Confirmed by EVANS HSU ([id number]) on 04/27/2023 8:52:52 AM [facility] Lactic Acidon 04-27-2023 Lactate [Moles/Vol] 1.5 mmol/L Normal 0.5-2.2 [facility] [place] [facility] Comment on above: Performed By: #### L ACTIC #### [facility] [address] [place] [address] Hog Operator: Andres Haddad MD UA w/Reflex Cultureon 2022 Bilirubin, SemiQt,Ur Negative Normal NEG [facility] Comment on above: Performed By: #### U MICAO, UAX #### [facility] [address] [place] [address] Hog Operator: Andres Haddad MD Blood, Urine 1+ Abnormal NEG [facility] [place] [facility] Comment on above: Performed By: #### U MICAO, UAX #### [facility] [address] [place] [address] Hog Operator: Andres Haddad MD Clarity (U) Clear Normal CLEAR [facility] [place] [facility] Comment on above: Performed By: #### U MICAO, UAX #### [facility] [address] [place], [place] [phone] Hog Operator: Andres Haddad MD Color (U) Yellow Normal YEL [facility] [place] [facility] Comment on above: Performed By: #### U MICAO, UAX #### [facility] [address] [place], [place] [phone] Hog Operator: Andres Haddad MD Glucose Ql (U) Negative Normal NEG [facility] in Hospital Comment on above: Performed By: #### U MICAO, UAX #### [facility] [address] [place], [place] [phone] Hog Operator: Andres Haddad MD Ketones Ql (U) Negative Normal NEG [facility] in [facility] Comment on above: Performed By: #### U MICAO, UAX #### [facility] [address] [place] [address] [place]. [place], [place] [phone] Hog Operator: Andres Haddad MD Leukocyte esterase Test strip Ql (U) Negative Normal NEG [facility] [place] [facility] Comment on above: Performed By: #### U MICAO, UAX #### [facility] [address] [place] [address] [place]. [place], [place] [phone] Hog Operator: Andres Haddad MD Nitrite,Ur Negative Normal NEG [facility] [place] [facility] Comment on above: Performed By: #### U MICAO, UAX #### [facility] [address] [place], [place] [phone] Hog Operator: Andres Haddad MD PH,Ur 6.0 Normal 5.0-9.0 [facility] [place] [facility] Comment on above: Performed By: #### U MICAO, UAX #### [facility] [address] [place], [place] [phone] Hog Operator: Andres Haddad MD Protein Ql (U) Negative Normal NEG [facility] Comment on above: Performed By: #### U MICAO, UAX #### [facility] [address] [place] [address] Hog Operator: Andres Haddad MD Spec. [place],Ur 1.020 Normal 1.010-1.020 [facility] Comment on above: Performed By: #### U MICAO, UAX #### [facility] [address] [place], [place] [phone] Hog Operator: Andres Haddad MD Urobilinogen,Ur Normal Normal NORM [facility] Comment on above: Performed By: #### U MICAO, UAX #### [address] [place], [place] [phone] Hog Operator: Andres Haddad MD Urinalysis,Microon 3 Bacteria TRACE Abnormal NONE [facility] [place] [facility] Comment on above: Performed By: #### U MICAO, UAX #### [address] [place], [place] [phone] Hog Operator: Andres Haddad MD Epithelial cells LM Ql (Urine sed) 2 TO 5 Normal 0-25 [facility] [place] [facility] Comment on above: Performed By: #### U MICAO, UAX #### [facility] [address] [place] [address] [place] [address] Hog Operator: Andres Haddad MD Urine RBC's 2 TO 5 Normal 0-2 [facility] [place] [facility] Comment on above: Performed By: #### U MICAO, UAX #### [facility] [address] [place], [place] [phone] Hog Operator: Andres Haddad MD Urine WBC's 0 TO 2 Normal 0-5 [facility] [place] [facility] Comment on above: Performed By: #### U MICAO, UAX #### [facility] [address] [place] [address] Hog Operator: Andres Haddad MD CBC with Auto Differentialon 04-26-2023 Basophils (Bld) [#/Vol] 0.03 10*3/uL [facility] Basophils/100 WBC (Bld) 0 % 0 - 2 % [facility] Eosinophils (Bld) [#/Vol] 0.10 10*3/uL [facility] Eosinophils/100 WBC (Bld) 1 % 1 - 4 % [facility] Erythrocyte distribution width (RBC) [Ratio] 12.1 % 11.8 - 14.4 % [facility] Hematocrit (Bld) [Volume fraction] 44.0 % 36.3 - 47.1 % [facility] Hemoglobin (Bld) [Mass/Vol] 15.2 g/dL High 11.9 - 15.1 g/dL [facility] Immature granulocytes (Bld) [#/Vol] 0.07 10*3/uL [facility] Immature granulocytes/100 WBC (Bld) 1 % High 0 [facility] Interpretation and review of laboratory results Abnormal [facility] Lymphocytes/100 WBC (Bld) 23 % Low 24 - 43 % [facility] Lymphocytes/100 WBC (Bld) 3.15 % [facility] MCH (RBC) [Entitic mass] 30.8 pg 25.2 - 33.5 pg [facility] MCHC (RBC) [Mass/Vol] 34.5 g/dL 28.4 - 34.8 g/dL [facility] MCV (RBC) [Entitic vol] 89.1 fL 82.6 - 102.9 fL [facility] Monocytes/100 WBC (Bld) 9 % 3 - 12 % [facility] Monocytes/100 WBC (Bld) 1.17 % [facility] Neutrophils/100 WBC (Bld) 66 % High 36 - 65 % [facility] Nucleated RBC/100 WBC (Bld) [Ratio] 0.0 % 0.0 per 100 WBC [facility] Platelet mean volume (Bld) [Entitic vol] 9.4 fL 8.1 - 13.5 fL [facility] Platelets (Bld) [#/Vol] 245 10*3/uL [facility] RBC (Bld) [#/Vol] 4.94 10*6/uL 3.95 - 5.1 1 m/uL [facility] Segmented neutrophils/100 WBC (Bld) 9.24 % High [facility] WBC other (Bld) [#/Vol] 13.8 High [facility] CBC with Diffon 04-26-2023 Abs. Basophil 0.03 k/uL Normal 0.00-0.20 [facility] Comment on above: Performed By: #### C P, CDP #### [facility] [address] [place] [address] [place] [address] Hog Operator: Andres Haddad MD Abs.Imm.Granulocyte 0.07 k/uL Normal 0.00-0.30 [facility] [place] [facility] Comment on above: Performed By: #### C P, CDP #### [facility] [address] [place] [address] [place]. [place], [place] [phone] Hog Operator: Andres Haddad MD Abs.Neutrophil (Seg) 9.24 k/uL High 1.50-8.10 [facility] Comment on above: Performed By: #### C P, CDP #### [address] [place], [place] [phone] Hog Operator: Andres Haddad MD Basophils/100 WBC (Bld) 0 % Normal 0-2 [facility] [place] [facility] Comment on above: Performed By: #### C P, CDP #### [facility] [address] [place] [address] [place] [address] Hog Operator: Andres Haddad MD Eosinophils (Bld) [#/Vol] 0.10 10*3/uL Normal 0.00-0.44 [facility] [place] [facility] Comment on above: Performed By: #### C P, CDP #### [facility] [address] [place] [address] [place] [address] Hog Operator: Andres Haddad MD Eosinophils/100 WBC (Bld) 1 % Normal 1-4 [facility] [place] [facility] Comment on above: Performed By: #### C P, CDP #### [facility] [address] [place], [place] [phone] Hog Operator: Andres Haddad MD Erythrocyte distribution width (RBC) [Ratio] 12.1 % Normal 11.8-14.4 [facility] [place] [facility] Comment on above: Performed By: #### C P, CDP #### [facility] [address] [place] [address] [place] [address] Hog Operator: Andres Haddad MD Hematocrit (Bld) [Volume fraction] 44.0 % Normal 36.3-47.1 [facility] [place] [facility] Comment on above: Performed By: #### C P, CDP #### [address] [place], [place] [address] Hog Operator: Andres Haddad MD Hemoglobin (Bld) [Mass/Vol] 15.2 g/dL High 11.9-15.1 [facility] [place] [facility] Comment on above: Performed By: #### C P, CDP #### [address] [place] [address] Hog Operator: Andres Hadadd MD Immature granulocytes/100 WBC (Bld) 1 % High 0 [facility] [place] [facility] Comment on above: Performed By: #### C P, CDP #### [facility] [address] [place] [address] Dr. [place], [facility]83 Hog Operator: Andres Haddad MD Lymphocytes (Bld) [#/Vol] 3.15 10*3/uL Normal 1.10-3.70 [facility] [place] [facility] Comment on above: Performed By: #### C P, CDP #### [address] [place], [place] [phone] Hog Operator: Andres Haddad MD Lymphocytes/100 WBC (Bld) 23 % Low 24-43 [facility] [place] [facility] Comment on above: Performed By: #### C P, CDP #### [facility] [address] [place] [address] Hog Operator: Andres Haddad MD MCH (RBC) [Entitic mass] 30.8 pg Normal 25.2-33.5 [facility] [place] [facility] Comment on above: Performed By: #### C P, CDP #### [facility] [address] [place], [place] [phone] Hog Operator: Andres Haddad MD MCHC (RBC) [Mass/Vol] 34.5 g/dL Normal 28.4-34.8 [facility] [place] [facility] Comment on above: Performed By: #### C P, CDP #### [facility] [address] [place] [address] Hog Operator: Andres Haddad MD MCV (RBC) [Entitic vol] 89.1 fL Normal 82.6-102.9 [facility] [place] [facility] Comment on above: Performed By: #### C P, CDP #### [facility] [address] [place], [place] [phone] Hog Operator: Andres Haddad MD Monocytes (Bld) [#/Vol] 1.17 10*3/uL Normal 0.10-1.20 [facility] [place] [facility] Comment on above: Performed By: #### C P, CDP #### [facility] [address] [place], [place] [phone] Hog Operator: Andres Haddad MD Monocytes/100 WBC (Bld) 9 % Normal 3-12 [facility] [place] [facility] Comment on above: Performed By: #### C P, CDP #### [facility] [address] [place] [address] Hog Operator: Andres Haddad MD Neutrophil (Seg) 66 % High 36-65 [facility] Comment on above: Performed By: #### C P, CDP #### [facility] [address] [place], [place] [phone] Hog Operator: Andres Haddad MD NRBC Automated 0.0 per 100 WBC Normal 0.0 [facility] [place] [facility] Comment on above: Performed By: #### C P, CDP #### [facility] [address] [place], [place] [phone] Hog Operator: Andres Haddad MD Platelet mean volume (Bld) [Entitic vol] 9.4 fL Normal 8.1-13.5 [facility] [place] [facility] Comment on above: Performed By: #### C P, CDP #### [facility] [address] [place], [place] [phone] Hog Operator: Andres Haddad MD Platelets (Bld) [#/Vol] 245 10*3/uL Normal 138-453 [facility] [place] [facility] Comment on above: Performed By: #### C P, CDP #### [facility] [address] [place], [place] [phone] Hog Operator: Andres aHddad MD RBC (Bld) [#/Vol] 4.94 10*6/uL Normal 3.95-5.11 [facility] [place] [facility] Comment on above: Performed By: #### C P, CDP #### [address] [place], [place] [phone] Hog Operator: Andres Haddad MD WBC (Bld) [#/Vol] 13.8 10*3/uL High 3.5-11.3 [facility] [place] [facility] Comment on above: Performed By: #### C P, CDP #### [facility] [address] [place] [address] Hog Operator: Andres Haddad MD CMPon 04-26-2023 Albumin [Mass/Vol] 4.1 g/dL 3.5 - 5.2 g/dL [facility] Albumin/Globulin [Mass ratio] 1.4 {ratio} 1.0 - 2.5 [facility] ALP [Catalytic activity/Vol] 134 U/L High 35 - 104 U/L [facility] ALT [Catalytic activity/Vol] 8 U/L 5 - 33 U/L [facility] Anion gap [Moles/Vol] 11 mmol/L 9 - 17 mmol/L [facility] AST [Catalytic activity/Vol] 17 U/L NINF - 32 U/L [facility] Bilirubin [Mass/Vol] 0.4 mg/dL 0.3 - 1 .2 mg/dL [facility] Calcium [Mass/Vol] 9.6 mg/dL 8.6 - 10. 4 mg/dL [facility] Chloride [Moles/Vol] 105 mmol/L 98 - 10 7 mmol/L [facility] CO2 [Moles/Vol] 24 mmol/L 20 - 31 mmol/L [facility] Creatinine [Mass/Vol] 0.56 mg/dL 0.50 - 0.90 mg/dL [facility] GFR/1.73 sq M.predicted MDRD (S/P/Bld) [Vol rate/Area] - PINF [facility] Comment on above: These results are not [...] 138 mg/dL High 70 - 99 mg/dL [facility] Interpretation and review of laboratory results Abnormal [facility] Potassium [Moles/Vol] 3.9 mmol/L 3.7 - 5.3 mmol/L [facility] Protein [Mass/Vol] 7.0 g/dL 6.4 - 8.3 g/dL [facility] Sodium [Moles/Vol] 140 mmol/L 135 - 144 mmol/L [facility] Urea nitrogen [Mass/Vol] 12 mg/dL 6 - 20 mg/dL [facility] Urea nitrogen/Creatinine [Mass ratio] 21 mg/mg High 9 - [address] [facility] [address] ABDOMEN PELVIS W IV CONTR AST Additional Contrast? Noneon 04-26-2023 Radiology Study observation (narrative) [facility] Lactic Acidon 04-26-2023 Lactate (BldV) [Moles/Vol] 1.5 mmol/L 0.5 - 2.2 mmol/L [facility] Microscopic Urinalysison Bacteria LM Ql (Urine sed) TRACE Abnormal None [facility] Epithelial cells LM.HPF (Urine sed) [#/Area] 2 TO 5 [facility] Interpretation and review of laboratory results Abnormal [facility] RBC LM.HPF (Urine sed) [#/Area] 2 TO 5 [facility] WBC LM.HPF (Urine sed) [#/Area] 0 TO 2 [facility] Stool PCR Batteryon 04-26-20 Specimen Description .FECES Normal [facility] Comment on above: Performed By: #### S TLPCR #### [facility] [address] [place], [place] [id number] Hog Operator: Charan Dye MD [facility] [address] [place] [address] Hog Operator: Andres Haddad MD Urinalysis with Reflex to Cu ltureon 04-26-2023 Bilirubin Ql (U) Negative NEGATIVE [facility] Clarity (U) Clear Clear [facility] Color (U) Yellow Yellow [facility] Glucose Test strip (U) [Mass/Vol] Negative NEGATIVE [facility] Hemoglobin Auto test strip Ql (U) 1+ Abnormal NEGATIVE [facility] Interpretation and review of laboratory results Abnormal [facility] Ketones (U) [Mass/Vol] Negative NEGATIVE [facility] Leukocyte esterase Test strip Ql (U) Negative NEGATIVE [facility] Nitrite Ql (U) Negative NEGATIVE [facility] pH (U) 6.0 [pH] 5.0 - 9.0 [facility] Protein (U) [Mass/Vol] Negative NEGATIVE [facility] Specific gravity (U) [Rel density] 1.020 1.010 - 1.020 [facility] Urobilinogen Qn (U) Normal Normal [facility] Rei 10-25-2022 L - -------- Specimen: [id number] Received: 10/25/22 Status: ROSA Lanier Num: [id number] Spec Type: Surgical Subm Dr: Juan M Masters MD Tissues: A Colon Biopsy (TERMINALILEUM BX) B Colon Biopsy (RANDOM COLON BX) C Colon Biopsy (SIGMOID COLON POLYP) Procedures: YULIYA/Amarilys Robledo/Micro L4/3 -------- Age/ Patient Sex Location Account Attending Physician -------- Baylee Babb 51/F [id number] Juan M Masters MD -------- SPEC NUM: [id number] RECD: 10/25/22 STATUS: ROSA LANIER NUM: [id number] SHANE: 10/25/[address] [facility] [address]: Juan M Masters MD ENTERED: 10/25/22 [facility] DR: SPEC TYPE: Surgical DEPT: S ORDERED: [...] Specimen: Received: 10/25/22 Status: ROSA Lanier Num: [id number] Spec Type: Surgical Subm Dr: Juan M Masters MD Tissues: A Colon Biopsy (TERMINALILEUM BX) B Colon Biopsy (RANDOM COLON BX) C Colon Biopsy (SIGMOID COLON POLYP) Procedures: HE/6, Gross/Micro L4/3 -------- Patient: Baylee Babb [id number] (Continued) -------- Specimen: [id number] Received: 10/25/22 (Continued) Gross Description (Continued) Signed (signature on file) Rosa Knight MD 10/26/22 1129 -------- Specimen: [id number] Received: 10/25/22 Status: ROSA Lanier Num: [id number] Spec Type: Surgical Subm Dr: Juan M Masters MD Tissues: A Colon Biopsy (TERMINALILEUM BX) B Colon Biopsy (RANDOM COLON BX) C Colon Biopsy (SIGMOID COLON POLYP) Procedures: HE/6, Gross/Micro L4/3 -------- Patient: Baylee Babb [id number] (Continued) -------- Specimen: [id number] Received: 10/25/22 (Continued) [...] support the above pathologic diagnosis. CPT Codes 89045?3 -------- -------- Specimen: Received: 10/25/22 Status: ROSA Lanier Num: [id number] Spec Type: Surgical Subm Dr: Juan M Masters MD Tissues: A Colon Biopsy (TERMINALILEUM BX) B Colon Biopsy (RANDOM COLON BX) C Colon Biopsy (SIGMOID COLON POLYP) Procedures: HE/6, Gross/Micro L4/3 -------- Patient: Baylee Babb Ryanne [id number] (Continued) -------- Signed (signature on file)_ (more content not included)... Normal [facility] Sigmoidoscopy or colonoscopy [PhenX]on 10-25-2022 EBIQUOUS Other LIPID PROFILEon 08-03-2021 CHOL-HDL RATIO NORM SEE BELOW Normal [facility] Comment on above: Result Comment: 3.3 - 4.4 LOW RISK 4.4 - 7.1 AVERAGE RISK 7.1 - 11.0 MODERATE RISK >11.0 HIGH RISK Performed By: #### C YEHUDA, SANG, BNP #### [facility] [address] [place], [place] [address] Mariela Patti Cholesterol [Mass/Vol] 85 mg/dL Normal <=200 [facility] Comment on above: Performed By: #### C YEHUDA, SANG, BNP #### [facility] [address] [place], [place] [address] Mariela Patti Cholesterol in HDL [Mass/Vol] 35 mg/dL Normal [facility] Comment on above: Performed By: #### C YEHUDA, SANG, BNP #### [facility] [address] [place] [phone] Mariela Patti Cholesterol in LDL [Mass/Vol] 18.6 mg/dL Normal [facility] Comment on above: Performed By: #### C SANG BLACKMAN, BNP #### [facility] [address] [place] [phone] Mariela Patti Cholesterol.total/Ch olesterol in HDL [Mass ratio] 2.4 {ratio} Normal [facility] Comment on above: Performed By: #### C YEHUDA CMADM, BNP #### [facility] [address] [place] [phone] Mariela Patti HDL NORMAL > or = 60 mg/dl - LO W CARDIOVASCULAR RISK <40 mg/dl - HIGH CARDIOVASCULAR RISK Normal [facility] Comment on above: Performed By: #### C SANG BLACKMAN, BNP #### [facility] [address] [place] [address] Mariela Patti LDL CALC NORMAL SEE BELOW Normal [facility] Comment on above: Result Comment: <100 mg/dl OPTIMAL 100 - 129 mg/dl NEAR OR ABOVE OPTIMAL 130 - 159 mg/dl BORDERLINE HIGH 160 - 189 mg/dl HIGH >190 mg/dl VERY HIGH Performed By: #### C SANG BLACKMAN, BNP #### [facility] [address] [place] [address] Mariela Patti Triglyceride [Mass/Vol] 157 mg/dL Critically high <=[address] [facility] Comment on above: Performed By: #### C YEHUDA CMADM, BNP #### [facility] [address] [place] [phone] Mariela Patti VLDL CALC 31.4 mg/dL Normal [facility] Comment on above: Performed By: #### C YEHUDA CMADM, BNP #### [facility] [address] [place] [phone] Mariela Patti MICROALB CREAT RATIO RANDOMo n 08-03-2021 mALB 0.6 mg/L Normal <=30.[address] [facility] Comment on above: Performed By: #### C BC #### [facility] [address] [place], [place] [address] Mariela Patti MALB CR RATIO 7.3 mg/g Normal 0.0-29.9 [facility] Comment on above: Performed By: #### C BC #### [facility] [address] [place] [phone] Mariela Patti MALB CR RATIO RANGE SEE BELOW Normal [facility] Comment on above: Result Comment: NO M ICROALBUMINURIA 0-29 MG/G CLINICAL MICROALBUMINURIA 30-300 MG/G MACROALBUMINURIA >300 MG/G Performed By: #### C BC #### [facility] [address] [place] [id number] Mariela Patti URINE CREAT 82.36 mg/dL Normal 20.00-300.00 [facility] Comment on above: Performed By: #### C BC #### [facility] [address] [place] [id number] Mariela Armstrong PROF 14(COMP METB)on 021 Albumin [Mass/Vol] 3.7 g/dL Normal 3.5-5.0 [facility] Comment on above: Performed By: #### C MP, CMADM, BNP #### [facility] [address] [place] [address] Mariela Patti Albumin/Globulin [Mass ratio] 1.1 {ratio} Normal [facility] Comment on above: Performed By: #### C MP, CMADM, BNP #### [facility] [address] [place] [address] Mariela Patti ALP [Catalytic activity/Vol] 130 U/L Critically high 38-[address] [facility] Comment on above: Performed By: #### C MP, CMADM, BNP #### [facility] [address] [place] [address] Mariela Patti ALT [Catalytic activity/Vol] 15 U/L Normal 9-52 [facility] Comment on above: Performed By: #### C MP, CMADM, BNP #### [facility] [address] [place], [place] [address] Mariela Patti Anion gap [Moles/Vol] 14.5 mmol/L Normal [facility] Comment on above: Performed By: #### C MP, CMADM, BNP #### [facility] [address] [place] [address] Mariela Patti AST [Catalytic activity/Vol] 19 U/L Normal 14-[address] [facility] Comment on above: Performed By: #### C MP, CMADM, BNP #### [facility] [address] [place] [address] Mariela Patti Bilirubin [Mass/Vol] 0.3 mg/dL Normal 0.2-1.[address] [facility] Comment on above: Performed By: #### C MP, CMADM, BNP #### [facility] [address] [place] [address] Mariela Patti Calcium [Mass/Vol] 9.2 mg/dL Normal 8.4-10.2 [facility] Comment on above: Performed By: #### C MP, CMADM, BNP #### [facility] [address] [place] [address] Mariela Patti Chloride [Moles/Vol] 106 mmol/L Normal 98-[address] [facility] Comment on above: Performed By: #### C MP, CMADM, BNP #### [facility] [address] [place] [address] Mariela Patti CO2 [Moles/Vol] 24.9 mmol/L Normal 22.0-30.0 [facility] Comment on above: Performed By: #### C MP, CMADM, BNP #### [facility] [address] [place], [place] [address] Mariela Patti Creatinine [Mass/Vol] 0.74 mg/dL Normal 0.52-1.[address] [facility] Comment on above: Performed By: #### C MP, CMADM, BNP #### [facility] [address] [place], [place] [address] Mariela Patti EGFR-AF CONGOLESE >60 Normal >=60 [facility] Comment on above: Performed By: #### C MP, CMADM, BNP #### [facility] [address] [place] [address] Mariela Patti EGFR-NON AF CONGOLESE >60 Normal >=60 [facility] Comment on above: Performed By: #### C MP, CMADM, BNP #### [facility] [address] [place] [phone] Mariela Patti Globulin (S) [Mass/Vol] 3.3 g/dL Normal [facility] Comment on above: Performed By: #### C MP, CMADM, BNP #### [facility] [address] [place] [address] Mariela Patti Glucose [Mass/Vol] 116 mg/dL Critically high 74-106 [facility] Comment on above: Performed By: #### C MP, CMADM, BNP #### [facility] [address] [place] [address] Mariela Patti Potassium [Moles/Vol] 4.4 mmol/L Normal 3.4-5.0 [facility] Comment on above: Performed By: #### C MP, CMADM, BNP #### [facility] [address] [place] [address] Mariela Patti Protein [Mass/Vol] 7.0 g/dL Normal 6.1-8.2 [facility] Comment on above: Performed By: #### C MP, CMADM, BNP #### [facility] [address] [place] [address] Mariela Patti Sodium [Moles/Vol] 141 mmol/L Normal 137-145 [facility] Comment on above: Performed By: #### C MP, CMADM, BNP #### [facility] [address] [place] [address] Mariela Patti Urea nitrogen [Mass/Vol] 14.0 mg/dL Normal 7.0-17.[address] [facility] Comment on above: Performed By: #### C MP, CMADM, BNP #### [facility] [address] [place] [address] Mariela Patti Urea nitrogen/Creatinine [Mass ratio] 18.9 mg/mg Normal [facility] Comment on above: Performed By: #### C MP, CMADM, BNP #### [facility] [address] [place] [address] Mariela Patti BNPon 04-30-2021 Natriuretic peptide B (Bld) [Mass/Vol] 59.0 pg/mL Normal <=450.[address] [facility] Comment on above: Performed By: #### C MP, CMADM, BNP #### [facility] [address] [place] [address] Mariela Armstrong CARDIAC BEHZAD ADMITon 021 CK [Catalytic activity/Vol] 58 U/L Normal 30-[address] [facility] Comment on above: Performed By: #### C MP, CMADM, BNP #### [facility] [address] [place] [address] Mariela Armstrong CK.MB [Mass/Vol] 0.96 ng/mL Normal <=2.37 [facility] Comment on above: Performed By: #### C MP, CMADM, BNP #### [facility] [address] [place] [address] Mariela Armstrong HSTROP <4.0 Normal 4.0-35.[address] [facility] Comment on above: Result Comment: CUT- OFF POINTS HAVE BEEN ESTABLISHED BASED ON THE FOURTH UNIVERSAL DEFINITIONS OF MYOCARDIAL INFARCTION. THE UPPER REFERENCE LIMIT (URL) OF TROPONIN, DEFINED THE 99TH PERCENTILE OF cTnI DISTRIBUTION IN A REFERENCE POPULATION, HAS BEEN CONFIRMED THE DECISION THRESHOLD FOR UT DIAGNOSIS. Performed By: #### C MP, CMADM, BNP #### [facility] [address] [place] [address] Mariela Armstrong MURRAY 38.0 ng/mL Normal <=61.[address] [facility] Comment on above: Performed By: #### C MP, CMADM, BNP #### [facility] [address] [place] [address] Mariela Armstrong CBC AUTO DIFFon 04-30-2021 BASO # 0.0 103/ul Normal 0.0-0.[address] [facility] Comment on above: Performed By: #### C BC #### [facility] [address] [place] [address] Mariela Armstrong Basophils/100 WBC (Bld) 0.3 % Normal 0.2-2.[address] [facility] Comment on above: Performed By: #### C BC #### [facility] [address] [place], [place] [id number] Mariela Patti EO # 0.0 103/ul Normal 0.0-0.7 [facility] Comment on above: Performed By: #### C BC #### [facility] [address] [place], [place] [address] Mariela Patti Eosinophils/100 WBC (Bld) 0.2 % Critically low 0.9-7.0 [facility] Comment on above: Performed By: #### C BC #### [facility] [address] [place] [address] Mariela Patti Erythrocyte distribution width (RBC) [Ratio] 12.0 % Normal 11.0-15.0 [facility] Comment on above: Performed By: #### C BC #### [facility] [address] [place] [address] Mariela Patti Hematocrit (Bld) [Volume fraction] 47.2 % Normal 36.0-48.0 [facility] Comment on above: Performed By: #### C BC #### [facility] [address] [place] [address] Mariela Patti Hemoglobin (Bld) [Mass/Vol] 16.1 g/dL Critically high 12.0-16.0 [facility] Comment on above: Performed By: #### C BC #### [facility] [address] [place] [address] Mariela Patti IG # 0.05 10e3/ul Critically high 0.00-0.03 [facility] Comment on above: Performed By: #### C BC #### [facility] [address] [place] [address] Mariela Patti IG % 0.4 % Normal 0.0-0.[address] [facility] Comment on above: Performed By: #### C BC #### [facility] [address] [place] [address] Mariela Patti LYMPH # 4.6 103/ul Critically high 1.2-3.8 [facility] Comment on above: Performed By: #### C BC #### [facility] [address] [id number] Mairela Patti Lymphocytes/100 WBC (Bld) 33.9 % Normal 20.5-60.[address] [facility] Comment on above: Performed By: #### C BC #### [facility] [address] [place], [place] [address] Mariela Patti MANUAL DIFF REQ NO Normal [facility] Comment on above: Performed By: #### C BC #### [facility] [address] [place], [place] [address] Mariela Patti MCH (RBC) [Entitic mass] 30.8 pg Normal 26.7-34.[address] [facility] Comment on above: Performed By: #### C BC #### [facility] [address] [place] [address] Marielacheli Armstrong MCHC (RBC) [Mass/Vol] 34.1 g/dL Normal 29.9-35.[address] [facility] Comment on above: Performed By: #### C BC #### [facility] [address] [place], [place] [address] Mariela Patti MCV (RBC) [Entitic vol] 90.4 fL Normal 81.0-99.[address] [facility] Comment on above: Performed By: #### C BC #### [facility] [address] [place] [address] Mariela Patti MONO # 1.0 103/ul Critically high 0.3-0.8 [facility] Comment on above: Performed By: #### C BC #### [facility] [address] [place] [address] Mariela Patti Monocytes/100 WBC (Bld) 7.2 % Normal 1.7-12.[address] [facility] Comment on above: Performed By: #### C BC #### [facility] [address] [place], [place] [address] Mariela Patti NEUT # 7.9 103/ul Critically high 1.4-6.5 [facility] Comment on above: Performed By: #### C BC #### [facility] [address] [place] [address] Mariela Armstrong Neutrophils/100 WBC (Bld) 58.0 % Normal 43.0-75.[address] [facility] Comment on above: Performed By: #### C BC #### [facility] [address] [place], [place] [address] Mariela Armstrong Platelet mean volume (Bld) [Entitic vol] 9.5 fL Normal 9.5-13.[address] [facility] Comment on above: Performed By: #### C BC #### [facility] [address] [place] [address] Mariela Armstrong PLT 239 103/ul Normal 150-[address] [facility] Comment on above: Performed By: #### C BC #### [facility] [address] [place] [address] Mariela Armstrong RBC 5.22 106/ul Normal 4.20-5.[address] [facility] Comment on above: Performed By: #### C BC #### [facility] [address] [place], [place] [address] Mariela Armstrong WBC 13.5 103/ul Critically high 4.0-11.0 [facility] Comment on above: Performed By: #### C BC #### [facility] [address] [place], [place] [address] Mariela Armstrong CT HEAD WO CONon 04-30-2021 [...] YA STAFFORD Date: 2021-04-29 23:[address] [facility] PROF 14(COMP METB)on 021 Albumin [Mass/Vol] 4.2 g/dL Normal 3.5-5.0 [facility] Comment on above: Performed By: #### C MP, CMADM, BNP #### [facility] [address] [id number] Mariela Patti Albumin/Globulin [Mass ratio] 1.2 {ratio} Normal [facility] Comment on above: Performed By: #### C MP, CMADM, BNP #### [facility] [address] [id number] Mariela Patti ALP [Catalytic activity/Vol] 149 U/L Critically high 38-[address] [facility] Comment on above: Performed By: #### C MP, CMADM, BNP #### [facility] [address] [address] Mariela Patti ALT [Catalytic activity/Vol] 21 U/L Normal 9-52 [facility] Comment on above: Performed By: #### C MP, CMADM, BNP #### [facility] [address] [id number] Mariela Patti Anion gap [Moles/Vol] 12.6 mmol/L Normal [facility] Comment on above: Performed By: #### C MP, CMADM, BNP #### [facility] [address] [id number] Mariela Patti AST [Catalytic activity/Vol] 20 U/L Normal 14-[address] [facility] Comment on above: Performed By: #### C MP, CMADM, BNP #### [facility] [address] [address] Mariela Patti Bilirubin [Mass/Vol] 0.6 mg/dL Normal 0.2-1.[address] [facility] Comment on above: Performed By: #### C MP, CMADM, BNP #### [facility] [address] [id number] Mariela Patti Calcium [Mass/Vol] 9.6 mg/dL Normal 8.4-10.2 [facility] Comment on above: Performed By: #### C MP, CMADM, BNP #### [facility] [address] [address] Mariela Patti Chloride [Moles/Vol] 103 mmol/L Normal 98-[address] [facility] Comment on above: Performed By: #### C MP, CMADM, BNP #### [facility] [address] [address] Mariela Patti CO2 [Moles/Vol] 28.4 mmol/L Normal 22.0-30.0 [facility] Comment on above: Performed By: #### C MP, CMADM, BNP #### [facility] [address] [address] Mariela Patti Creatinine [Mass/Vol] 0.81 mg/dL Normal 0.52-1.04 [facility] Comment on above: Performed By: #### C MP, CMADM, BNP #### [facility] [address] [place] [address] Mariela Patti EGFR-AF CONGOLESE >60 Normal >=60 [facility] Comment on above: Performed By: #### C MP, CMADM, BNP #### [facility] [address] [place] [address] Mariela Patti EGFR-NON AF CONGOLESE >60 Normal >=60 [facility] Comment on above: Performed By: #### C MP, CMADM, BNP #### [facility] [address] [place] [address] Mariela Patti Globulin (S) [Mass/Vol] 3.5 g/dL Normal [facility] Comment on above: Performed By: #### C MP, CMADM, BNP #### [facility] [address] [place] [address] Mariela Patti Glucose [Mass/Vol] 115 mg/dL Critically high 74-106 [facility] Comment on above: Performed By: #### C MP, CMADM, BNP #### [facility] [address] [place] [address] Mariela Patti Potassium [Moles/Vol] 4.0 mmol/L Normal 3.4-5.[address] [facility] Comment on above: Performed By: #### C MP, CMADM, BNP #### [facility] [address] [place], [place] [address] Mariela Patti Protein [Mass/Vol] 7.7 g/dL Normal 6.1-8.2 [facility] Comment on above: Performed By: #### C MP, CMADM, BNP #### [facility] [address] [place], [place] [address] Mariela Patti Sodium [Moles/Vol] 140 mmol/L Normal 137-145 [facility] Comment on above: Performed By: #### C MP, CMADM, BNP #### [facility] [address] [place], [place] [address] Mariela Patti Urea nitrogen [Mass/Vol] 11.0 mg/dL Normal 7.0-17.0 [facility] Comment on above: Performed By: #### C MP, CMADM, BNP #### [facility] [address] [place], [place] [address] Mariela Patti Urea nitrogen/Creatinine [Mass ratio] 13.6 mg/mg Normal [facility] Comment on above: Performed By: #### C MP, CMADM, BNP #### [facility] [address] [place], [place] [address] Mariela Patti XR CHEST 1 Von 04-30-2021 [...] by: VERONICA EDWARDS Date: 2021-04-29 23:21 Normal [facility] CULTURE URINEon 03-25-2021 CULTURE URINE Isolate 1 [...] Trimethoprim/Sulfamet hoxazole <=20 S F Normal [facility] Comment on above: Performed By: #### C SANG BLACKMAN, BNP #### [facility] [address] [place] [address] Mariela Patti CULTURE URINEon 02-21-2021 CULTURE URINE [...] F Trimethoprim/Sulfamet hoxazole <=20 S F Normal [facility] Comment on above: Performed By: #### C SANG BLACKMAN, BNP #### [facility] [address] [place], [place] [address] Marielacheli Armstrong ACETAMINOPHENon 02-18-2021 Acetaminophen [Mass/Vol] ug/mL Critically low 10.1-30.0 [facility] Comment on above: Performed By: #### C SANG BLACKMAN, BNP #### [facility] [address] [place], [place] [address] Mariela Patti CBC AUTO DIFFon 02-18-2021 BASO # 0.0 103/ul Normal 0.0-0.1 [facility] Comment on above: Performed By: #### C BC #### [facility] [address] [place], [place] [address] Mariela Patti Basophils/100 WBC (Bld) 0.3 % Normal 0.2-2.0 [facility] Comment on above: Performed By: #### C BC #### [facility] [address] [place] [address] Mariela Patti EO # 0.0 103/ul Normal 0.0-0.7 [facility] Comment on above: Performed By: #### C BC #### [facility] [address] [place] [address] Mariela Patti Eosinophils/100 WBC (Bld) 0.1 % Critically low 0.9-7.0 [facility] Comment on above: Performed By: #### C BC #### [facility] [address] [place] [address] Mariela Patti Erythrocyte distribution width (RBC) [Ratio] 12.0 % Normal 11.0-15.0 [facility] Comment on above: Performed By: #### C BC #### [facility] [address] [place] [address] Mariela Patti Hematocrit (Bld) [Volume fraction] 48.7 % Critically high 36.0-48.0 [facility] Comment on above: Performed By: #### C BC #### [facility] [address] [place] [address] Mariela Patti Hemoglobin (Bld) [Mass/Vol] 16.5 g/dL Critically high 12.0-16.0 [facility] Comment on above: Performed By: #### C BC #### [facility] [address] [place] [address] Mariela Patti IG # 0.08 10e3/ul Critically high 0.00-0.03 [facility] Comment on above: Performed By: #### C BC #### [facility] [address] [place] [address] Mariela Patti IG % 0.6 % Critically high 0.0-0.5 [facility] Comment on above: Performed By: #### C BC #### [facility] [address] [place] [address] Mariela Patti LYMPH # 3.4 103/ul Normal 1.2-3.8 [facility] Comment on above: Performed By: #### C BC #### [facility] [address] [place], [place] [address] Mariela Patti Lymphocytes/100 WBC (Bld) 23.6 % Normal 20.5-60.0 [facility] Comment on above: Performed By: #### C BC #### [facility] [address] [place], [place] [address] Mariela Patti MANUAL DIFF REQ NO Normal [facility] Comment on above: Performed By: #### C BC #### [facility] [address] [place], [place] [address] Marielacheli Armstrong MCH (RBC) [Entitic mass] 30.6 pg Normal 26.7-34.0 [facility] Comment on above: Performed By: #### C BC #### [facility] [address] [place], [place] [address] Marielacheli Armstrong MCHC (RBC) [Mass/Vol] 33.9 g/dL Normal 29.9-35.2 [facility] Comment on above: Performed By: #### C BC #### [facility] [address] [place], [place] [address] Marielacheli Armstrong MCV (RBC) [Entitic vol] 90.2 fL Normal 81.0-99.0 [facility] Comment on above: Performed By: #### C BC #### [facility] [address] [place], [place] [address] Mariela Patti MONO # 1.0 103/ul Critically high 0.3-0.8 [facility] Comment on above: Performed By: #### C BC #### [facility] [address] [place], [place] [address] Mariela Patti Monocytes/100 WBC (Bld) 7.0 % Normal 1.7-12.[address] [facility] Comment on above: Performed By: #### C BC #### [facility] [address] [place] [address] Mariela Patti NEUT # 9.8 103/ul Critically high 1.4-6.5 [facility] Comment on above: Performed By: #### C BC #### [facility] [address] [address] Mariela Patti Neutrophils/100 WBC (Bld) 68.4 % Normal 43.0-75.0 [facility] Comment on above: Performed By: #### C BC #### [facility] [address] [id number] Mariela Patti Platelet mean volume (Bld) [Entitic vol] 9.7 fL Normal 9.5-13.5 [facility] Comment on above: Performed By: #### C BC #### [facility] [address] [address] Mariela Patti PLT 240 103/ul Normal 150-[address] [facility] Comment on above: Performed By: #### C BC #### [facility] [address] [place] [address] Mariela Patti RBC 5.40 106/ul Normal 4.20-5.[address] [facility] Comment on above: Performed By: #### C BC #### [facility] [address] [place] [address] Mariela Patti WBC 14.3 103/ul Critically high 4.0-11.0 [facility] Comment on above: Performed By: #### C BC #### [facility] [address] [place], [place] [address] Marielacheli Armstrong DRUG SCREEN RAPID (URINE)on 02-18-2021 AMP Negative Normal NEGATIVE [facility] Comment on above: Performed By: #### D TABITHA SAUCEDO UMICRO #### [facility] [address] [place] [address] Mariela Patti BAR Negative Normal NEGATIVE [facility] Comment on above: Performed By: #### D TABITHA SAUCEDO UMICRO #### [facility] [address] [place], [place] [address] Mariela Patti BUP Negative Normal NEGATIVE [facility] Comment on above: Performed By: #### D TABITHA SAUCEDO UMICRO #### [facility] [address] [place] [address] Mariela Patti BZO Negative Normal NEGATIVE [facility] Comment on above: Performed By: #### D TABITHA SAUCEDO UMICRO #### [facility] [address] [address] Mariela Patti JOSEPH Negative Normal NEGATIVE [facility] Comment on above: Performed By: #### D TABITHA SAUCEDO UMICRO #### [facility] [address] [address] Mariela Patti CUT-OFFS SEE BELOW Normal [facility] Comment on above: Result Comment: AMP (Amphetamine): 500ng/mL, BAR (Barbituates): 200 ng/mL, BZO (Benzodiazepines): 150 ng/mL, BUP (Buprenorphine): 10 ng/mL, JOSEPH (Cocaine): 150 ng/mL, mAMP (Methamphetamine): 500 ng/mL, MTD (Methadone): 200 ng/mL, OPI (Opiates): 100 ng/mL, OXY (Oxycodone): 100 ng/mL, PCP (Phencyclidine): 25 ng/mL, PPX (Propoxyphene): 300 ng/mL, THC (Cannabinoids): 50 ng/mL, TCA (Trycyclic Antidepressants): 300 ng/mL Performed By: #### D TABITHA SAUCEDO UMICRO #### [facility] [address] [place] [address] Mariela Patti DRUG CUT HEADER DRUG CLASS TEST SYSTEM CUT-OFF CONCENTRATIONS ARE FOLLOWS: Normal [facility] Comment on above: Performed By: #### D TABITHA SAUCEDO UMICRO #### [facility] [address] [place] [address] Mariela Patti mAMP Negative Normal NEGATIVE [facility] Comment on above: Performed By: #### D TABITHA SAUCEDO UMICRO #### [facility] [address] [place] [address] Mariela Patti MTD Negative Normal NEGATIVE [facility] Comment on above: Performed By: #### D TABITHA SAUCEDO UMICRO #### [facility] [address] [place] [address] Mariela Patti OPI Negative Normal NEGATIVE [facility] Comment on above: Performed By: #### D THEA SAUCEDOR, UMICRO #### [facility] [address] [address] Mariela Patti OXY Negative Normal NEGATIVE [facility] Comment on above: Performed By: #### D SHERYL ERUR, UMICRO #### [facility] [address] [address] Mariela Patti PCP Negative Normal NEGATIVE [facility] Comment on above: Performed By: #### D THEA SAUCEDOR, UMICRO #### [facility] [address] [place] [address] Mariela Patti PPX Negative Normal NEGATIVE [facility] Comment on above: Performed By: #### D THEA SAUCEDOR, UMICRO #### [facility] [address] [place] [address] Mariela Patti TCA Negative Normal NEGATIVE [facility] Comment on above: Performed By: #### D THEA SAUCEDOR, UMICRO #### [facility] [address] [place] [address] Mariela Patti THC Positive Abnormal NEGATIVE [facility] Comment on above: Performed By: #### D THEA SAUCEDOR, UMICRO #### [facility] [address] [place] [address] Mariela Patti ER URINE PROFILEon 1 Bilirubin Ql (U) Negative Normal NEGATIVE [facility] Comment on above: Performed By: #### D SHERYL ERUR, UMICRO #### [facility] [address] [place] [address] Mariela Patti Clarity (U) CLEAR Normal CLEAR [facility] Comment on above: Performed By: #### D THEA SAUCEDOR, UMICRO #### [facility] [address] [address] Mariela Patti Color (U) LT. YELLOW Normal YELLOW [facility] Comment on above: Performed By: #### D TABITHA SAUCEDO UMICRO #### [facility] [address] [id number] Mariela Patti ERURUDDYD A micrscopic examination will be performed if indicated. Normal [facility] Comment on above: Performed By: #### D TABITHA SAUCEDO UMICRO #### [facility] [address] [address] Mariela Patti Glucose Ql (U) Negative Normal NEGATIVE [facility] Comment on above: Performed By: #### D TABITHA SAUCEDO UMICRO #### [facility] [address] [address] Mariela Patti Hemoglobin Ql (U) SMALL Abnormal NEGATIVE [facility] Comment on above: Performed By: #### D TABITHA SAUCEDO UMICRO #### [facility] [address] [address] Mariela Patti Ketones Ql (U) Negative Normal NEGATIVE [facility] Comment on above: Performed By: #### D TABITHA SAUCEDO UMICRO #### [facility] [address] [address] Mariela Patti LEUKOCYTES TRACE Abnormal NEGATIVE [facility] Comment on above: Performed By: #### D TABITHA SAUCEDO UMICRO #### [facility] [address] [address] Mariela Patti Nitrite Ql (U) Positive Abnormal NEGATIVE [facility] Comment on above: Performed By: #### D TABITHA SAUCEDO UMICRO #### [facility] [address] [address] Mariela Patti pH (U) 5.5 [pH] Normal 5-[address] [facility] Comment on above: Performed By: #### D TABITHA SAUCEDO UMICRO #### [facility] [address] [address] Mariela Patti SPEC GRAVITY >=1.030 Abnormal 1.005-<=1.[address] [facility] Comment on above: Performed By: #### D TABITHA SAUCEDO UMICRO #### [facility] [address] [id number] Marielacheli Armstrong UA PROTEIN Negative Normal NEGATIVE/ TRACE [facility] Comment on above: Performed By: #### D TABITHA SAUCEDO UMICRO #### [facility] [address] [place] [address] Mariela Armstrong UR MICRO IND INDICATED Normal [facility] Comment on above: Performed By: #### D TABITHA SAUCEDO UMICRO #### [facility] [address] [place], [place] [address] Mariela Armstrong Urobilinogen Qn (U) 0.2 {River'U}/dL Normal 0.2 - 1. [address] [facility] Comment on above: Performed By: #### D TABITHA SAUCEDO UMICRO #### [facility] [address] [place], [place] [address] Mariela Armstrong ETHANOL (BLD ALC)on 02-19-20 21 ALC NOTE NOTE: 80 mg/dl is th e legal limit for a blood alcohol level Normal [facility] Comment on above: Performed By: #### E TH #### [facility] [address] [place], [place] [address] Marielacheli Armstrong Ethanol [Mass/Vol] mg/dL Normal [facility] Comment on above: Performed By: #### E TH #### [facility] [address] [place], [place] [address] Mariela Armstrong URon 02-18-2021 , QUAL Negative Normal NEGATIVE [facility] Comment on above: Performed By: #### C SANG BLACKMAN, BNP #### [facility] [address] [place], [place] [address] Mariela Aptti PROF 14(COMP METB)on 021 Albumin [Mass/Vol] 3.8 g/dL Normal 3.5-5.0 [facility] Comment on above: Performed By: #### C YEHUDA, SANG, BNP #### [facility] [address] [place], [place] [id number] Mariela Patti Albumin/Globulin [Mass ratio] 1.0 {ratio} Normal [facility] Comment on above: Performed By: #### C MP, CMADM, BNP #### [facility] [address], [place] [address] Mariela Patti ALP [Catalytic activity/Vol] 116 U/L Normal 38-126 [facility] Comment on above: Performed By: #### C MP, CMADM, BNP #### [facility] [address], [place] [address] Mariela Patti ALT [Catalytic activity/Vol] 10 U/L Normal 9-52 [facility] Comment on above: Performed By: #### C MP, CMADM, BNP #### [facility] [address], [place] [address] Mariela Patti Anion gap [Moles/Vol] 20.3 mmol/L Normal [facility] Comment on above: Performed By: #### C MP, CMADM, BNP #### [facility] [address] [place] [id number] Mariela Patti AST [Catalytic activity/Vol] 15 U/L Normal 14-36 [facility] Comment on above: Performed By: #### C MP, CMADM, BNP #### [facility] [address], [place] [address] Mariela Patti Bilirubin [Mass/Vol] 0.4 mg/dL Normal 0.2-1.3 [facility] Comment on above: Performed By: #### C MP, CMADM, BNP #### [facility] [address] [id number] Mariela Patti Calcium [Mass/Vol] 9.5 mg/dL Normal 8.4-10.2 [facility] Comment on above: Performed By: #### C MP, CMADM, BNP #### [facility] [address] [id number] Mariela Patti Chloride [Moles/Vol] 103 mmol/L Normal 98-107 [facility] Comment on above: Performed By: #### C MP, CMADM, BNP #### [facility] [address], [place] [address] Mariela Patti CO2 [Moles/Vol] 20.5 mmol/L Critically low 22.0-30.0 [facility] Comment on above: Performed By: #### C MP, CMADM, BNP #### [facility] [address] [address] Mariela Patti Creatinine [Mass/Vol] 0.71 mg/dL Normal 0.52-1.04 [facility] Comment on above: Performed By: #### C MP, CMADM, BNP #### [facility] [address] [address] Mariela Patti EGFR-AF CONGOLESE >60 Normal >=60 [facility] Comment on above: Performed By: #### C MP, CMADM, BNP #### [facility] [address] [address] Mariela Patti EGFR-NON AF CONGOLESE >60 Normal >=60 [facility] Comment on above: Performed By: #### C MP, CMADM, BNP #### [facility] [address] [address] Mariela Patti Globulin (S) [Mass/Vol] 3.9 g/dL Normal [facility] Comment on above: Performed By: #### C MP, CMADM, BNP #### [facility] [address] [address] Mariela Patti Glucose [Mass/Vol] 112 mg/dL Critically high 74-106 [facility] Comment on above: Performed By: #### C MP, CMADM, BNP #### [facility] [address] [address] Mariela Patti Potassium [Moles/Vol] 3.8 mmol/L Normal 3.4-5.0 [facility] Comment on above: Performed By: #### C MP, CMADM, BNP #### [facility] [address] [address] Mariela Patti Protein [Mass/Vol] 7.7 g/dL Normal 6.1-8.2 [facility] Comment on above: Performed By: #### C MP, CMADM, BNP #### [facility] [address] [address] Mariela Patti Sodium [Moles/Vol] 140 mmol/L Normal 137-145 [facility] Comment on above: Performed By: #### C SANG BLACKMAN, BNP #### [facility] [address] [place] [address] Mariela Armstrong Urea nitrogen [Mass/Vol] 12.0 mg/dL Normal 7.0-17.0 [facility] Comment on above: Performed By: #### C SANG BLACKMAN, BNP #### [facility] [address] [place] [address] Mariela Armstrong Urea nitrogen/Creatinine [Mass ratio] 16.9 mg/mg Normal [facility] Comment on above: Performed By: #### C SANG BLACKMAN, BNP #### [facility] [address] [place] [address] Mairela Armstrong Rapid Covid-19 PCR (CVDRPD)o n 02-18-2021 SARS-CoV-2 (COVID-19) RNA FAITH+probe Ql (Unsp spec) Not detected Normal NOT DETECTED [facility] Comment on above: Result Comment: This test is not yet approved or cleared by the [place] Food and Drug Administration (FDA). This test was developed by [employer], [place], [place]. The performance characteristics of this test were validated by The [facility]. The results are not intended to be used as the sole means for clinical diagnosis or patient management decisions. The [facility] is authorized under Clinical Laboratory Improvement Amendments (CLIA) to perform high- complexity testing. When diagnostic testing is negative, the possibility of a false negative should be considered in the context of a patient's recent exposures and the presence of clinical signs and symptoms consistent with SARS-CoV-2. Performed By: #### C BC #### [facility] [address] [place] [address] Mariela Armstrong SALICYLATEon 02-18-2021 SALICYLATE 4.4 mg/dL Normal <=20.0 [facility] Comment on above: Performed By: #### C SANG BLACKMAN, BNP #### [facility] [address] [place] [address] Mariela Armstrong URINE MICROSCOPIC ONLYon BACTERIA MODERATE Abnormal NONE SEEN [facility] Comment on above: Performed By: #### D TABITHA SAUCEDO UMICRO #### [facility] [address] [place] [address] Mariela Patti Bacteria identified Cx Nom (U) INDICATED Normal [facility] Comment on above: Performed By: #### D TABITHA SAUCEDO, UMICRO #### [facility] [address] [place] [address] Mariela Patti CAST NONE SEEN Normal NONE SEEN [facility] Comment on above: Performed By: #### D TABITHA SAUCEDO, UMICRO #### [facility] [address] [place] [address] Mariela Patti Crystals LM Nom (Urine sed) NONE SEEN Normal NONE SEEN [facility] Comment on above: Performed By: #### TABITHA LEMON UMICRO #### [facility] [address] [place] [address] Mariela Patti Epithelial cells LM Ql (Urine sed) MODERATE Abnormal NONE SEEN /RARE [facility] Comment on above: Performed By: #### D TABITHA SAUCEDO, UMICRO #### [facility] [address] [place] [address] Mariela Patti MUCOUS TRACE Abnormal NONE SEEN [facility] Comment on above: Performed By: #### D TABITHA SAUCEDO, UMICRO #### [facility] [address] [place] [address] Mariela Patti RBC 2-5 Abnormal 0-[address] [facility] Comment on above: Performed By: #### D TABITHA SAUCEDO, UMICRO #### [facility] [address] [place] [address] Mariela Patti WBC 10-20 Abnormal NONE SEEN [facility] Comment on above: Performed By: #### D TABITHA SUACEDO, UMICRO #### [facility] [address] [place] [address] Mariela Patti CULTURE URINEon 09-18-2020 CULTURE URINE [...] R F Oxacillin <=0.25 S F Normal [facility] Comment on above: Performed By: #### C SANG BLACKMAN, BNP #### [facility] [address] [place] [address] Mariela Armstrong CARDIAC BEHZAD ADMITon 020 CK [Catalytic activity/Vol] 24 U/L Critically low 30-135 [facility] Comment on above: Performed By: #### C YEHUDA, CMADM, BNP #### [facility] [address] [place], [place] [address] Mariela Armstrong CK.MB [Mass/Vol] 0.58 ng/mL Normal <=2.37 [facility] Comment on above: Performed By: #### C YEHUDA, CMADM, BNP #### [facility] [address] [place], [place] [address] Mariela Patti MURRAY 25.0 ng/mL Normal <=61.[address] [facility] Comment on above: Performed By: #### C YEHUDA, CMADM, BNP #### [facility] [address] [place] [address] Mariela Patti CBC AUTO DIFFon 09-15-2020 BASO # 0.1 103/ul Normal 0.0-0.1 [facility] Comment on above: Performed By: #### C YEHUDA, CMADM, BNP #### [facility] [address] [place], [place] [address] Mariela Patti Basophils/100 WBC (Bld) 0.3 % Normal 0.2-2.0 [facility] Comment on above: Performed By: #### C MP, CMADM, BNP #### [facility] [address] [place] [address] Mariela Patti EO # 0.0 103/ul Normal 0.0-0.[address] [facility] Comment on above: Performed By: #### C MP, CMADM, BNP #### [facility] [address] [address] Mariela Patti Eosinophils/100 WBC (Bld) 0.0 % Critically low 0.9-7.[address] [facility] Comment on above: Performed By: #### C MP, CMADM, BNP #### [facility] [address] [place] [address] Mariela Patti Erythrocyte distribution width (RBC) [Ratio] 12.5 % Normal 11.0-15.0 [facility] Comment on above: Performed By: #### C MP, CMADM, BNP #### [facility] [address] [place] [address] Mariela Patti Hematocrit (Bld) [Volume fraction] 49.9 % Critically high 36.0-48.[address] [facility] Comment on above: Performed By: #### C MP, CMADM, BNP #### [facility] [address] [place] [address] Mariela Patti Hemoglobin (Bld) [Mass/Vol] 17.1 g/dL Critically high 12.0-16.[address] [facility] Comment on above: Performed By: #### C MP, CMADM, BNP #### [facility] [address] [place] [address] Mariela Patti IG # 0.16 10e3/ul Critically high 0.00-0.03 [facility] Comment on above: Performed By: #### C MP, CMADM, BNP #### [facility] [address] [place] [address] Mariela Patti IG % 0.9 % Critically high 0.0-0.5 [facility] Comment on above: Performed By: #### C MP, CMADM, BNP #### [facility] [address] [place], [place] [address] Mariela Patti LYMPH # 2.9 103/ul Normal 1.2-3.[address] [facility] Comment on above: Performed By: #### C MP CMADM, BNP #### [facility] [address] [place], [place] [address] Mariela Patti Lymphocytes/100 WBC (Bld) 17.0 % Critically low 20.5-60.[address] [facility] Comment on above: Performed By: #### C MP, CMADM, BNP #### [facility] [address] [place] [address] Mariela Patti MANUAL DIFF REQ NO Normal [facility] Comment on above: Performed By: #### C YEHUDA, CMADM, BNP #### [facility] [address] [place] [address] Mariela Patti MCH (RBC) [Entitic mass] 30.9 pg Normal 26.7-34.[address] [facility] Comment on above: Performed By: #### C MP CMADM, BNP #### [facility] [address] [place] [address] Mariela Patti MCHC (RBC) [Mass/Vol] 34.3 g/dL Normal 29.9-35.[address] [facility] Comment on above: Performed By: #### C MP, CMADM, BNP #### [facility] [address] [place] [address] Mariela Patti MCV (RBC) [Entitic vol] 90.1 fL Normal 81.0-99.[address] [facility] Comment on above: Performed By: #### C MP, CMADM, BNP #### [facility] [address] [place] [address] Mariela Patti MONO # 1.1 103/ul Critically high 0.3-0.8 [facility] Comment on above: Performed By: #### C MP, CMADM, BNP #### [facility] [address] [place] [address] Mariela Patti Monocytes/100 WBC (Bld) 6.4 % Normal 1.7-12.[address] [facility] Comment on above: Performed By: #### C MP, CMADM, BNP #### [facility] [address], [place] [address] Mariela Armstrong NEUT # 12.8 103/ul Critically high 1.4-6.5 [facility] Comment on above: Performed By: #### C MP, CMADM, BNP #### [facility] [address] [address] Mariela Armstrong Neutrophils/100 WBC (Bld) 75.4 % Critically high 43.0-75.[address] [facility] Comment on above: Performed By: #### C MP, CMADM, BNP #### [facility] [address] [place], [place] [address] Mariela Armstrong Platelet mean volume (Bld) [Entitic vol] 9.4 fL Critically low 9.5-13.5 [facility] Comment on above: Performed By: #### C MP, CMADM, BNP #### [facility] [address] [place] [address] Mariela Armstrong PLT 247 103/ul Normal 150-[address] [facility] Comment on above: Performed By: #### C MP, CMADM, BNP #### [facility] [address] [place], [place] [address] Mariela Patti RBC 5.54 106/ul Critically high 4.20-5.40 [facility] Comment on above: Performed By: #### C MP, CMADM, BNP #### [facility] [address] [place], [place] [address] Mariela Armstrong WBC 16.9 103/ul Critically high 4.0-11.0 [facility] Comment on above: Performed By: #### C MP, CMADM, BNP #### [facility] [address] [place] [address] HEAD WO CONon 09-15-2020 [...] BENJA SENIOR Date: 2020-09-15 14:[address] [facility] CTA NECK WO W CONon 09-15-20 20 [...] DONTA REYEZ Date: 2020-09-15 17:[address] [facility] DRUG SCREEN RAPID (URINE)on 09-15-2020 AMP Negative Normal NEGATIVE [facility] Comment on above: Performed By: #### D TABITHA SAUCEDO UMICRO #### [facility] [address] [place] [address] Mariela Patti BAR Negative Normal NEGATIVE [facility] Comment on above: Performed By: #### D TABITHA SAUCEDO UMICRO #### [facility] [address] [place] [address] Mariela Patti BUP Negative Normal NEGATIVE [facility] Comment on above: Performed By: #### D TABITHA SAUCEDO UMICRO #### [facility] [address] [place] [address] Mariela Patti BZO Positive Normal NEGATIVE [facility] Comment on above: Performed By: #### D TABITHA SAUCEDO UMICRO #### [facility] [address] [place] [address] Mariela Patti JOSEPH Negative Normal NEGATIVE [facility] Comment on above: Performed By: #### D TABITHA SAUCEDO UMICRO #### [facility] [address] [place] [address] Mariela Patti CUT-OFFS SEE BELOW Normal [facility] Comment on above: Result Comment: AMP (Amphetamine): [...] Antidepressants): 300 ng/mL Performed By: #### D TABITHA SAUCEDO UMICRO #### [facility] [address] [place] [address] Mariela Patti DRUG CUT HEADER DRUG CLASS TEST SYSTEM CUT-OFF CONCENTRATIONS ARE FOLLOWS: Normal [facility] Comment on above: Performed By: #### D TABITHA SAUCEDO UMICRO #### [facility] [address] [address] Mariela Patti mAMP Negative Normal NEGATIVE [facility] Comment on above: Performed By: #### D THEA SAUCEDOR, UMICRO #### [facility] [address] [place] [address] Mariela Patti MTD Negative Normal NEGATIVE [facility] Comment on above: Performed By: #### D THEA SAUCEDOR, UMICRO #### [facility] [address] [address] Mariela Patti OPI Negative Normal NEGATIVE [facility] Comment on above: Performed By: #### D THEA SAUCEDOR, UMICRO #### [facility] [address] [place] [address] Mariela Patti OXY Negative Normal NEGATIVE [facility] Comment on above: Performed By: #### D TABITHA SAUCEDO, UMICRO #### [facility] [address] [place] [address] Mariela Patti PCP Negative Normal NEGATIVE [facility] Comment on above: Performed By: #### D THEA SAUCEDOR, UMICRO #### [facility] [address] [place] [address] Mariela Patti PPX Negative Normal NEGATIVE [facility] Comment on above: Performed By: #### D THEA SAUCEDOR, UMICRO #### [facility] [address] [place] [address] Mariela Patti TCA Negative Normal NEGATIVE [facility] Comment on above: Performed By: #### D SHERYL ERUR, UMICRO #### [facility] [address] [place] [address] Mariela Patti THC Positive Normal NEGATIVE [facility] Comment on above: Performed By: #### D THEA SAUCEDOR, UMICRO #### [facility] [address] [place] [address] Mariela Patti ER URINE PROFILEon 0 Bilirubin Ql (U) Negative Normal NEGATIVE [facility] Comment on above: Performed By: #### D TABITHA SAUCEDO UMICRO #### [facility] [address] [address] Mariela Patti Clarity (U) CLEAR Normal [facility] Comment on above: Performed By: #### D TABITHA SAUCEDO UMICRO #### [facility] [address] [address] Mariela Patti Color (U) YELLOW Normal YELLOW [facility] Comment on above: Performed By: #### D TABITHA SAUCEDO UMICRO #### [facility] [address] [address] Mariela Patti ERUAHD A micrscopic examination will be performed if indicated. Normal [facility] Comment on above: Performed By: #### D TABITHA SAUCEDO UMICRO #### [facility] [address] [address] Mariela Patti Glucose Ql (U) Negative Normal NEGATIVE [facility] Comment on above: Performed By: #### D TABITHA SAUCEDO UMICRO #### [facility] [address] [address] Mariela Patti Hemoglobin Ql (U) SMALL Normal NEGATIVE [facility] Comment on above: Performed By: #### D TABITHA SAUCEDO UMICRO #### [facility] [address] [address] Mariela Patti Ketones Ql (U) Negative Normal NEGATIVE [facility] Comment on above: Performed By: #### D TABITHA SAUCEDO UMICRO #### [facility] [address] [address] Mariela Patti LEUKOCYTES Negative Normal NEGATIVE [facility] Comment on above: Performed By: #### D TABITHA SAUCEDO UMICRO #### [facility] [address] [address] Mariela Patti Nitrite Ql (U) Positive Normal NEGATIVE [facility] Comment on above: Performed By: #### D TABITHA SAUCEDO UMICRO #### [facility] [address] [address] Mariela Armstrong pH (U) 6.0 [pH] Normal 5-[address] [facility] Comment on above: Performed By: #### D TABITHA SAUCEDO UMICRO #### [facility] [address] [place] [address] Mariela Armstrong Protein Ql (U) Negative Normal [facility] Comment on above: Performed By: #### D TABITHA SAUCEDO UMICRO #### [facility] [address] [address] Mariela Armstrong SPEC GRAVITY 1.010 Normal 1.005-<=1.02 5 [facility] Comment on above: Performed By: #### D TABITHA SAUCEDO UMICRO #### [facility] [address] [place] [address] Mariela Armstrong UR MICRO IND INDICATED Normal [facility] Comment on above: Performed By: #### D TABITHA SAUCEDO UMICRO #### [facility] [address] [place] [address] Mariela Armstrong Urobilinogen Qn (U) 0.2 {River'U}/dL Normal [facility] Comment on above: Performed By: #### D TABITHA SAUCEDO UMICRO #### [facility] [address] [place] [address] Mariela Armstrong URon 09-15-2020 , QUAL Negative Normal NEGATIVE [facility] Comment on above: Performed By: #### C MP, CMADM, BNP #### [facility] [address] [place] [address] Mariela Armstrong PROF 14(COMP METB)on 020 Albumin [Mass/Vol] 4.1 g/dL Normal 3.5-5.0 [facility] Comment on above: Performed By: #### C BC #### [facility] [address] [place] [address] Mariela Armstrong Albumin/Globulin [Mass ratio] 1.1 {ratio} Normal [facility] Comment on above: Performed By: #### C BC #### [facility] [address] [id number] Mariela Patti ALP [Catalytic activity/Vol] 125 U/L Normal 38-[address] [facility] Comment on above: Performed By: #### C BC #### [facility] [address] [place], [place] [address] Mariela Patti ALT [Catalytic activity/Vol] 15 U/L Normal 9-52 [facility] Comment on above: Performed By: #### C BC #### [facility] [address] [place], [place] [address] Mariela Patti Anion gap [Moles/Vol] 19.0 mmol/L Normal [facility] Comment on above: Performed By: #### C BC #### [facility] [address] [place] [address] Mariela Patti AST [Catalytic activity/Vol] 12 U/L Critically low 14-36 [facility] Comment on above: Performed By: #### C BC #### [facility] [address] [place] [address] Mariela Patti Bilirubin [Mass/Vol] 0.5 mg/dL Normal 0.2-1.[address] [facility] Comment on above: Performed By: #### C BC #### [facility] [address] [place] [address] Mariela Patti Calcium [Mass/Vol] 10.0 mg/dL Normal 8.4-10.2 [facility] Comment on above: Performed By: #### C BC #### [facility] [address] [place] [address] Mariela Patti Chloride [Moles/Vol] 105 mmol/L Normal 98-[address] [facility] Comment on above: Performed By: #### C BC #### [facility] [address] [place], [place] [address] Mariela Patti CO2 [Moles/Vol] 20.9 mmol/L Critically low 22.0-30.0 [facility] Comment on above: Performed By: #### C BC #### [facility] [address] [place], [place] [address] Mariela Patti Creatinine [Mass/Vol] 0.63 mg/dL Normal 0.52-1.04 [facility] Comment on above: Performed By: #### C BC #### [facility] [address], [place] [address] Mariela Patti EGFR-AF CONGOLESE >60 Normal >=60 [facility] Comment on above: Performed By: #### C BC #### [facility] [address], [place] [address] Mariela Patti EGFR-NON AF CONGOLESE >60 Normal >=60 [facility] Comment on above: Performed By: #### C BC #### [facility] [address] [id number] Mariela Patti Globulin (S) [Mass/Vol] 3.9 g/dL Normal [facility] Comment on above: Performed By: #### C BC #### [facility] [address] [place] [address] Mariela Patti Glucose [Mass/Vol] 152 mg/dL Critically high 74-106 [facility] Comment on above: Performed By: #### C BC #### [facility] [address] [place], [place] [address] Mariela Patti Potassium [Moles/Vol] 3.9 mmol/L Normal 3.4-5.0 [facility] Comment on above: Performed By: #### C BC #### [facility] [address] [place], [place] [address] Mariela Patti Protein [Mass/Vol] 8.0 g/dL Normal 6.1-8.2 The [facility] Comment on above: Performed By: #### C BC #### [facility] [address] [place], [place] [id number] Mariela Patti Sodium [Moles/Vol] 141 mmol/L Normal 137-145 The [facility] Comment on above: Performed By: #### C BC #### [facility] [address] [place], [place] [id number] Mariela Patti Urea nitrogen [Mass/Vol] 13.0 mg/dL Normal 7.0-17.0 [facility] Comment on above: Performed By: #### C BC #### [facility] [address] [place] [address] Mariela Armstrong Urea nitrogen/Creatinine [Mass ratio] 20.6 mg/mg Normal [facility] Comment on above: Performed By: #### C BC #### [facility] [address] [place] [address] Mariela Armstrong PROTIMEon 09-15-2020 INR Coag (PPP) [Relative time] 1.03 {INR} Normal [facility] Comment on above: Performed By: #### C BC #### [facility] [address] [place] [address] Mariela Patti INR GUIDELINES SEE BELOW Normal The [facility] Comment on above: Result Comment: HANANE RED INR: 2.0 - 3.0 CONDITIONS NOT LISTED BELOW 2.5 - 3.5 FOR PROSTHETIC HEART VALVE REPLACEMENT 2.5 - 3.5 RECURRENT THROMBOSIS Performed By: #### C BC #### [facility] [address] [place] [address] Mariela Armstrong PT Coag (PPP) [Time] 10.9 s Normal 9.0-11.[address] [facility] Comment on above: Performed By: #### C BC #### [facility] [address] [place] [address] Mariela Armstrong PTTon 09-15-2020 aPTT Coag (Bld) [Time] 30.2 s Normal 22.3-36.[address] [facility] Comment on above: Performed By: #### C BC #### [facility] [address] [place] [address] Mariela Patti PTT NORMAL PLEASE NOTE: NORMAL RANGE CHANGE 09-15-2015 DUE TO REAGENT LOT CHANGE Normal [facility] Comment on above: Performed By: #### C BC #### [facility] [address] [place] [address] Mariela Armstrong TROPONIN - Ion 09-15-2020 TROP <0.012 Normal <=0.[address] [facility] Comment on above: Performed By: #### C MP, CMADM, BNP #### [facility] [address] [place], [place] [address] Mariela Patti TROPONIN RANGE SEE BELOW Normal [facility] Comment on above: Result Comment: <0.0 34 ng/ml NEGATIVE 0.034-0.119 INDETERMINATE 0.120 AMI CUT OFF Performed By: #### C YEHUDA, CMADM, BNP #### [facility] [address] [address] Mariela Patti URINE MICROSCOPIC ONLYon AMORPHOUS CRYSTALS FEW Normal The [facility] Comment on above: Performed By: #### C MP, CMADM, BNP #### [facility] [address] [address] Mariela Patti BACTERIA TRACE Normal NONE SEEN [facility] Comment on above: Performed By: #### C MP, CMADM, BNP #### [facility] [address] [address] Mariela Patti Bacteria identified Cx Nom (U) INDICATED Normal [facility] Comment on above: Performed By: #### C MP, CMADM, BNP #### [facility] [address] [address] Mariela Patti CAST NONE SEEN Normal NONE SEEN [facility] Comment on above: Performed By: #### C MP, CMADM, BNP #### [facility] [address] [place] [address] Mariela Patti Crystals LM Nom (Urine sed) SEEN Normal NONE SEEN [facility] Comment on above: Performed By: #### C MP, CMADM, BNP #### [facility] [address] [place] [address] Mariela Patti Epithelial cells LM Ql (Urine sed) RARE Normal [facility] Comment on above: Performed By: #### C MP, CMADM, BNP #### [facility] [address] [address] Mariela Patti MUCOUS NONE SEEN Normal NONE SEEN [facility] Comment on above: Performed By: #### C MP, CMADM, BNP #### [facility] [address] [place] [address] Mariela Patti RBC 0-2 Normal 0-[address] [facility] Comment on above: Performed By: #### C MP, CMADM, BNP #### [facility] [address] [place], [place] [address] Mariela Armstrong WBC 0-2 Normal NONE SEEN [facility] Comment on above: Performed By: #### C MP, CHRISTIEDM, BNP #### [facility] [address] [place], [place] [address] Mariela Armstrong XR CHEST 1 Von 09-15-2020 [...] BENJA SENIOR Date: 2020-09-15 14:[address] [facility] Vital Signs Date Time Vital Sign Value Performing Clinician Facility 01-28-2025 09:11-0400 Body height 157.5 cm Radha ESPINOSA Work Phone: [facility] 01-28-2025 09:11-0400 Body mass index (BMI) [Ratio] 25.61 kg/m2 Radha ESPINOSA Work Phone: [facility] 01-28-2025 09:11-0400 Body weight 63.5 kg Radha ESPINOSA Work Phone: [facility] 04-28-2023 06:45-0400 Body temperature 96.8 [degF] Francia [facility]rrutia [facility] 04-28-2023 06:45-0400 Diastolic blood pressure 88 mm[Hg] Francia [facility]rrutia MD [facility] 04-28-2023 06:45-0400 Heart rate 71 /min Francia Urrutia MD Work Phone[facility] 04-28-2023 06:45-0400 Respiratory rate 18 /min Francia Urrutia MD Work Phone: [facility] 04-28-2023 06:45-0400 SaO2% (BldA) [Mass fraction] 98 % Francia Urrutia MD Work Phone: [facility] 04-28-2023 06:45-0400 Systolic blood pressure 147 mm[Hg] Francia Urrutia MD Work Phone: [facility] 04-28-2023 05:37-0400 Body mass index (BMI) [Ratio] 28.47 kg/m2 Francia Urrutia MD Work Phone: [facility] 04-28-2023 05:37-0400 Body weight 70.6 kg Fracnia Urrutia MD Work Phone: [facility] 04-27-2023 08:00-0400 Body height 157.5 cm Francia Urrutia MD Work Phone: [facility] 04-06-2023 16:03-0400 Body temperature 98.42 [degF] [facility] 04-06-2023 16:03-0400 Diastolic blood pressure 84 mm[Hg] [facility] 04-06-2023 16:03-0400 Heart rate 84 /min [facility] 04-06-2023 16:03-0400 Respiratory rate 16 /min [facility] 04-06-2023 16:03-0400 SaO2% (BldA) [Mass fraction] 99 % [facility] 04-06-2023 16:03-0400 Systolic blood pressure 124 mm[Hg] [facility] 10-25-2022 10:10-0500 Diastolic blood pressure 53 mm[Hg] [facility] 10-25-2022 10:10-0500 Heart rate 73 /min [facility] 10-25-2022 10:10-0500 Respiratory rate 18 /min [facility] 10-25-2022 10:10-0500 SaO2% (BldA) [Mass fraction] 98 % [facility] 10-25-2022 10:10-0500 Systolic blood pressure 110 mm[Hg] [facility] 10-25-2022 08:48-0500 Body height 157.48 cm [facility] 10-25-2022 08:48-0500 Body temperature 99 [degF] [facility] 10-25-2022 08:48-0500 Body weight 58.96 kg [facility] 10-04-2022 16:30-0500 Body height 157.48 cm Juan M Masters Other [facility] [employer] Other 10-04-2022 16:30-0500 Body mass index (BMI) [Ratio] 25.24 kg/m2 Juan M Masters Other [employer] Other 10-04-2022 16:30-0500 Body weight 62.6 kg Juan M Masters Other [employer] Other 01-03-2022 15:00-0400 Body height 157.48 cm Na Hines Other [employer] Other 01-03-2022 15:00-0400 Body mass index (BMI) [Ratio] 27.25 kg/m2 Na Hines Other [employer] Other 01-03-2022 15:00-0400 Body temperature 97.7 [degF] Na Hines Other [employer] Other 01-03-2022 15:00-0400 Body weight 67.59 kg Na Hines Other [employer] Other 01-03-2022 15:00-0400 Diastolic blood pressure 87 mm[Hg] Na Hines Other [employer] Other 01-03-2022 15:00-0400 Respiratory rate 18 /min Na Hines Other [employer] Other 01-03-2022 15:00-0400 SaO2% (BldA) [Mass fraction] 97 % Na Hines Other [employer] Other 01-03-2022 15:00-0400 Systolic blood pressure 131 mm[Hg] Na Hines Other [employer] Other 07-31-2021 13:50-0400 Body height 157.48 cm Na Hines Other [employer] Other 07-31-2021 13:50-0400 Body mass index (BMI) [Ratio] 25.79 kg/m2 Na Hines Other [employer] Other 07-31-2021 13:50-0400 Body temperature 96.2 [degF] Na Hines Other [employer] Other 07-31-2021 13:50-0400 Body weight 63.96 kg Na Hines Other [employer] Other 07-31-2021 13:50-0400 Diastolic blood pressure 96 mm[Hg] Na Hines Other [employer] Other 07-31-2021 13:50-0400 Respiratory rate 18 /min Na Hines Other [employer] Other 07-31-2021 13:50-0400 SaO2% (BldA) [Mass fraction] 95 % Na Hines Other [employer] Other 07-31-2021 13:50-0400 Systolic blood pressure 139 mm[Hg] Na Hines Other [employer] Other Encounters Encounter Date Encounter Type Care Provider Facility Start: 06-29-2025 End: 06-29-2025 ambulatory Art Shine MD Facility:[facility] Start: 06-01-2025 End: 06-01-2025 ambulatory Art Shine MD Facility:[facility] Start: 03-02-2025 End: 03-02-2025 ambulatory Art Shine MD Facility:[facility] Start: 01-28-2025 End: 01-28-2025 Bamboo flowsheet Radha ESPINOSA Work Phone: [facility] Start: 01-28-2025 End: 01-28-2025 Bamboo flowsheet Radha ESPINOSA Work Phone: [facility] Start: 01-28-2025 End: 01-28-2025 Office outpatient new 30 minutes Radha ESPINOSA Work Phone: [facility] Comment on above: Acute hip pain, left (Primary Dx); Sacroiliac joint pain; Foot drop, left foot Start: 01-28-2025 End: 01-28-2025 ambulatory RADHA ARMENDARIZ Not Available Start: 06-16-2024 End: 06-16-2024 ambulatory NA HINES [place] Start: 04-26-2023 End: 04-28-2023 Evaluation and management of inpatient NA HINES [facility] [place] [facility] Start: 04-26-2023 End: 04-28-2023 Evaluation and management of inpatient Francia Urrutia MD Work Phone: [facility] Comment on above: Crohn's disease of c olon without complication (HCC) (Primary Dx); Left lower quadrant abdominal pain Start: 04-10-2023 End: 04-10-2023 Patient encounter procedure NA HINES [facility] Start: 04-06-2023 End: 04-06-2023 Emergency department patient visit Josette You [facility] Start: 11-27-2022 End: 11-27-2022 ambulatory Na Hines Other [employer] Other Start: 11-27-2022 Telephone encounter [facility] Start: 11-02-2022 End: 11-02-2022 ambulatory Juan M Masters Other [employer] Other Start: 11-02-2022 Telephone encounter Juan M Masters [facility] Start: 10-25-2022 End: 10-25-2022 ambulatory Juan M Masters Facility:[facility] Start: 10-25-2022 End: 10-25-2022 Admission to same day surgery center [facility] [place] [facility] Work Phone: Start: 10-25-2022 End: 10-25-2022 ambulatory NON STAFF [facility] [place] [facility] Work Phone: Start: 10-17-2022 End: 10-17-2022 ambulatory Na Hines Other [employer] Other Start: 10-17-2022 Telephone encounter Na taylor [facility] Start: 10-04-2022 End: 10-04-2022 ambulatory Juan M Masters Other [employer] Other Start: 10-04-2022 [facility] visit new patient Juan M Masters [facility] Start: 08-23-2022 End: 08-23-2022 ambulatory An Donny Other [employer] Other Start: 08-23-2022 Telephone encounter Na Breaul t [facility] Start: 08-09-2022 End: 08-09-2022 ambulatory Na Donny Other [employer] Other Start: 08-09-2022 Telephone encounter Na Breaul t [facility] Start: 05-22-2022 End: 05-22-2022 ambulatory Na Donny Other [employer] Other Start: 05-22-2022 Telephone encounter Na Breaul t [facility] Start: 04-12-2022 End: 04-12-2022 ambulatory Na Donny Other [employer] Other Start: 04-12-2022 Telephone encounter Na Breaul t [facility] Start: 01-03-2022 End: 01-03-2022 ambulatory Najennie Hines Other [employer] Other Start: 01-03-2022 Office outpatient visit 25 minutes Najennie Hines [facility] Start: 01-02-2022 End: 01-02-2022 ambulatory Na Donny Other [employer] Other Start: 01-02-2022 Telephone encounter Na Breaul t [facility] Start: 11-09-2021 End: 11-09-2021 ambulatory Na Donny Other [employer] Other Start: 11-09-2021 Telephone encounter Na Breaul t [facility] Start: 11-05-2021 End: 11-05-2021 ambulatory Na Donny Other [employer] Other Start: 11-05-2021 Telephone encounter Najennie Lawsonl t [facility] Start: 10-17-2021 End: 10-17-2021 ambulatory Na Hines Other [employer] Other Start: 10-17-2021 Telephone encounter Najennie Lawsonl t [facility] Start: 10-04-2021 End: 10-04-2021 ambulatory Na Hines Other [employer] Other Start: 10-04-2021 Telephone encounter Najennie Lawsonl t [facility] Start: 08-03-2021 End: 08-04-2021 ambulatory NA HINES Facility:[facility] Start: 07-31-2021 Office outpatient visit 15 minutes Na Hines [facility] Start: 04-30-2021 End: 04-30-[address] BEHZAD ELDER Facility:[facility] Start: 03-23-2021 End: 03-23-2021 ambulatory NA DONNY Facility:[facility] Start: 02-18-2021 End: 02-18-[address] [...] ecg w/le ast 12 lds i&r only Hussein Suarez MD Work Phone: Start: 04-26-2023 Urinalysis [...] Office Visit [facility] [address] [place] [id number] Radha Armendariz, PA [address] [place] [address] Acute hip pain, left (Primary Dx) [facility] Comment on above: Acute hip pain, left (Primary Dx) Start: 05-22-2023 Influenza vaccination Flu vaccine (# 1) [facility] [employer] Start: 2022 Screening for malign ant neoplasm of breast Breast cancer screen [facility] Start: 2022 Screening for malign ant neoplasm of lung Low dose CT lung screening &/or counseling [facility] Start: 2022 Shingles vaccine (1 of 2) Shingles vaccine (1 of 2) [facility] Start: 10-25-2022 [facility] Start: 2017 Screening for malign ant neoplasm of colon [employer] Start: 2007 Diabetes screen Diabetes screen [facility] Start: 1991 DTaP/Tdap/Td vaccine (1 - Tdap) DTaP/Tdap/Td vaccine (1 - Tdap) [facility] Start: 1990 Hepatitis C screening Hepatitis C sc reen [facility] Start: 1987 HIV screening HIV screen [facility] Start: 1984 Depression Screen Depression Screen [facility] Start: 1982 Lipid panel Lipids [place] [facility] Start: 1978 Pneumococcal 0-64 ye ars Vaccine (1 - PCV) Pneumococcal 0-64 years Vaccine (1 - PCV) [facility] Start: 05-06-1973 COVID-19 Vaccine (#1) COVID-19 Vacci ne (#1) [facility] End: 04-30-2023 C-reactive protein C-Reactive Protein Lab Routine Daily for 3 Days starting 04/28/2023 until 04/30/2023, 1 completed [facility] Comment on above: Daily for 3 Days sta rting 04/28/2023 until 04/30/2023, 1 completed End: 05-03-2023 CBC W Auto Differential panel - Blood CBC auto differential Lab Routine Daily for 7 Days starting 04/27/2023 until 05/03/2023, 2 completed [facility] [employer] Comment on above: Daily for 7 Days sta rting 04/27/2023 until 05/03/2023, 2 completed End: 05-03-2023 Comprehensive Metabolic Panel w/ Reflex to MG Comprehensive Metabolic Panel w/ Reflex to MG Lab Routine Daily for 7 Days starting 04/27/2023 until 05/03/2023, 2 completed [facility] Comment on above: Daily for 7 Days sta rting 04/27/2023 until 05/03/2023, 2 completed Oxygen therapy [[facility] Data Set] Initiate Oxygen Therapy Protocol Respiratory Care Routine Daily until discontinued starting 04/27/2023 [facility] Comment on above: Daily until disconti nued starting 04/27/2023 Patient Education Colon Polyps [facility] [place] [facility] Work Phone: Immunizations Immunization Date Immunization Notes Care Provider Fahad condon 08-31-2020 Toradol per 15 mg Na Hines Other [employer] Other 08-31-2020 KENALOG - 10 mg Na Br eault Other [employer]. Other 06-08-2020 Toradol per 15 mg Na Donny Other [employer] Other 06-08-2020 KENALOG - 10 mg Na Br eault Other [employer]. Other 06-14-2012 Toradol per 15 mg Na Donny Other [employer] Other Payers Date Payer Category Payer Medicare (Managed Care) [employer] [id number] 2024 Private Health Insurance [facility] [id number] 2024 Medicare [id number] 2023 Private Health Insurance [id number] 2022 Private Health Insurance [id number] 2022 Self-pay [id number] 2021 Unknown [id number] 2021 Medicaid [id number] 2020 Medicare [id number] 1972 Unknown [id number] 2.16.840.1.216854.3.579.2. 593 1972 Unknown [id number] 2.16.840.1.899560.3.579.2. 593 1972 Unknown [id number] 2.16.840.1.864727.3.579.2. 593 1972 Unknown [id number] 2.16.840.1.249542.3.579.2. 593 1972 Unknown [id number] 2.16.840.1.845516.3.579.2. 593 1972 Unknown [id number] 2.16.840.1.170387.3.579.2. 173 1972 Unknown [id number] 2.16.840.1.496064.3.579.2. 727 1972 Unknown [id number] 2.16.840.1.502272.3.579.2. 727 1972 Unknown [id number] 2.16.840.1.838709.3.579.2. 1259 1972 Unknown [id number] 2.16.840.1.224907.3.579.2. 1259 1972 Unknown [id number] 2.16.840.1.775045.3.579.2. 196 1972 Unknown [id number] 2.16.840.1.404951.3.579.2. 196 1972 Unknown [id number] 2.16.840.1.294273.3.579.2. 196 1959 Medicaid [id number] 1959 Self-pay [id number] 1959 Unknown [id number] 1959 Unknown [id number] Medicare Medicare Outpatient [id number] 8A [id number] Unknown Valerie BC/SUNNY [id number] Unknown [id number] [id number]. 531 Social History Date Type Detail Facility Unknown if ever smoked [employer] Other Start: 01-28-2025 Sex Assigned At [facility] Start: 10-25-2022 Tobacco smoking status NHIS Smoker (finding) [facility] Start: 1970 Sex Assigned At Female [facility] Start: 04-06-2023 Tobacco smoking status Heavy tobacco smoker (finding) [facility] Tobacco smoking status Never [facility] [place] Start: 04-27-2023 End: 01-28-2025 Tobacco smoking status [facility] Smokes tobacco daily [facility] [employer] History of tobacco use Cigarette Smoker B ON [employer] Start: 04-27-2023 End: 01-28-2025 Cigarettes smoked current (pack per day) - Reported 2 BON [employer] Start: 04-27-2023 End: 01-28-2025 Tobacco use and exposure Smokeless tobacco non-user BON [employer] Start: 04-27-2023 Alcohol intake Lifetime non-drinker (finding) [employer] Start: 04-27-2023 History SDOH Alcohol Frequency 1 BON [employer] Start: 04-27-2023 History SDOH Alcohol Std Drinks 0 [facility] Start: 1970 Sex Assigned At Not on file [facility] Start: 01-28-2025 Alcoholic beverage intake Ex-drinker (finding) [facility] Goals Date Patient Goal Desired Activity /State Functional Status Date Assessment Result Facility 04-06-2023 Functional Status N/A [facility] Clinical Notes 07-31-2021 to 01-28-2025 Radha Armendariz, JESÚS - 01/28/2025 9:00 AM Troy Watts RN - 04/28/2023 4:39 PM Troy Watts RN - 04/28/2023 4:24 PM Troy Watts RN - 04/28/2023 3:47 PM EDT [...] Past Medical History: Diagnosis Date Crohn's disease (CMS/HCC) CVA (cerebral vascular accident) (CMS/HCC) Hypertension (CMS/HCC) Occipital neuralgia PAST SURGICAL HISTORY: Past Surgical [...] Use: Not At Risk (04/26/2023) Received from [facility] Frequency of Alcohol Consumption: [...] requiring urgent evaluation. documented in this encounter [facility] 04-28-2023 History of Present illness Narrative Pt [...] M.D. Internal Medicine Progress Note Patient: Baylee Bbab Date of Admission: 04/26/2023 8:53 PM Hospital [...] - DATA: Complete Blood Count: Recent Labs 04/26/23214904/27/2310 04/28/23 0650 WBC 13.8* 9.5 12.5* RBC 4.94 4.77 4.77 HGB 15.2* 14.6 14.5 HCT 44.0 42.7 43.1 MCV 89.1 89.5 90.4 MCH 30.8 30.6 30.4 MCHC 34.5 34.2 33.6 RDW 12.1 12.1 12.4 PLT 245 219 230 MPV 9.4 9.5 9.5 Last 3 Blood Glucose: Recent Labs 04/26/23214904/27/23 0610 04/28/23 0650 GLUCOSE 138* 173* 111* Comprehensive Metabolic Profile: Recent Labs 04/26/23214904/27/23 0610 07/08/23 0650 NA 140 140 146* K 3.9 [...] none Nutrition status: at risk for malnutrition [employer] consult initiated Hospital Prophylaxis: DVT: SCD's Stress [...] home later today Evans Hsu MD , M.D. 04/28/2023 12:15 PM Physical Therapy Facility/Department: [facility] Daily Treatment Note NAME: Baylee [...] Time Individual Concurrent Group Co-treatment Time In 08 Time Out 0845 Minutes 24 Merry Cuba [...] to monitor this shift. Occupational Therapy Facility/Department: [facility] Occupational Therapy Initial Assessment Name: [...] IADLs Assessment: 52 y/o F admitted to [facility] for abdominal pain. Patient with hx [...] Ambulation Assistance: Independent Transfer Assistance: Independent Active Material Handler 2Nd Shift: Yes Additional Comments: Pt uses no AD [...] Minutes 16 FABIOLA Reyes/Ryanne Occupational Therapy Facility/Department: [facility] Daily Treatment Note NAME: Baylee [...] Minutes 26 RUBEN Moreira Physical Therapy Facility/Department: [facility] Daily Treatment Note NAME: Baylee [...] Minutes Merry Cuba PTA Physical Therapy Facility/Department: [facility] Physical Therapy Initial Assessment Name: [...] address all concerns and safely return to [facility]. Treatment Diagnosis: Difficulty walking Therapy Prognosis: Good [...] Ambulation Assistance: Independent Transfer Assistance: Independent Active Material Handler 2Nd Shift: Yes Additional Comments: Pt uses no AD [...] Time Individual Concurrent Group Co-treatment Time In 0815 Time Out 0830 Minutes 15 Timed Code Treatment Minutes: 14 Minutes Syed Alberts, PT, DPT [employer] to bedside to complete morning assessment. Upon entry to room, pt in bed awake, respirations even and unlabored while on room air. Vitals obtained and assessment completed, see flow sheet for details. Pt is A&O x4. Pt complaining of pain, prn pain medication to be given shortly. Pt updated on plan of care and whiteboard updated. Pt denies further needs from scenario writer at this time. Call light in [...] up times two. documented in this encounter [facility] 04-28-2023 Hospital course Narrative Evans Hsu M.D. Internal Medicine Discharge Summary Patient ID: Baylee Babb [id number] Admission date: 04/26/2023 Discharge date: 04/28/2023 [...] Complications: none Significant Diagnostic Studies: Recent Labs 04/26/23 2150 04/27/23 0610 04/28/23 0650 WBC 13.8* 9.5 12.5* RBC 4.94 4.77 4.77 HGB 15.2* 14.6 14.5 HCT 44.0 42.7 43.1 MCV 89.1 89.5 90.4 RDW 12.1 12.1 12.4 PLT 245 219 230 Recent Labs 04/26/23214904/27/23 0610 04/28/23 0650 SEGS 66* 90* 73* NEUTROABS 9.24* 8.55* 9.10* LYMPHOPCT 23* 8* 19* LYMPHSABS 3.15 0.80* 2.43 MONOPCT 9 1* 7 EOSRELPCT 1 0* 0* BASOPCT 0 0 0 IMMGRAN 1* 1* 1* Recent Labs 04/26/23214904/27/23 0610 04/28/23 0650 GLUCOSE 138* 173* 111* Recent Labs 04/26/23214904/27/23 0610 04/28/23 0650 BUN 12 9 7 [...] Your Medications These medications were sent to [id number] - [place] - [address] [place] [address] - [phone] - F [phone] [place] [address] [place] [phone] ciprofloxacin 500 MG tablet metroNIDAZOLE 500 MG tablet predniSONE 10 MG tablet traMADol 50 MG tablet Patient Instructions: Activity: Activity as tolerated without restrictions Diet: regular diet Wound Care: none needed Follow up with RUBEN Farfan NP in 1-2 weeks CORE MEASURES on Discharge (if applicable) MIRYAM/ARB in CHF: N/A ASA in UT: N/A Statin in UT: N/A Statin in CVA: N/A Antiplatelet in CVA: N/A Total time spent on discharge services: 40 minutes Including the following activities: Evaluation and Management of patient Discussion with patient and/or surrogate about current care plan Coordination with Case Management and/or Clinical Laboratory Director Coordination of care with Consultants (if applicable) Coordination of care with Receiving Facility Physician (if applicable) Completion of DME forms (if applicable) Preparation of Discharge Summary Preparation of Medication Reconciliation Preparation of Discharge Prescriptions Signed: Evans Hsu MD, M.D. 04/28/2023 3:58 PM documented in this encounter [facility] 04-10-2023 Evaluation + Plan note Diagnostic Tests PendingDHEAS 04/10/23Insulin Level Total 04/10/23FSH and LH 04/10/23Testosterone F&T 04/10/23Estradiol Level 04/10/23Cortisol 04/10/23 [facility] 04-06-2023 Hospital Discharge instructions Patient Education [...] that increase pressure on your hernia. Take rtaw-cxc-jnsoxvx and prescription medicines only as told by [...] provider. Document Revised: 05/27/2021 Document Reviewed: 05/27/2021 [employer] Patient Education 2022 [email or web address]. 04/06/2023 16:38:36 Dental Pain Dental Pain Dental [...] or after getting dental care. Medicines Take vjpz-was-tybdfkg and prescription medicines only as told by [...] pain may be mild or severe. Take udnt-shj-hnlvzll and prescription medicines only as told by [...] provider. Document Revised: 07/13/2021 Document Reviewed: 07/13/2021 [employer] Patient Education 2022 [email or web address]. Follow Up Care 04/06/2023 15:07:57 With:Praveen LACKEY Address: [address], [address] [place] [address]- Business (1) When:04/09/2023 16:28:27 With:Na CASTILLO Address: [address], [address] [place] [address] [phone] Business (1) When:04/09/2023 16:28:14 [facility] 04-06-2023 Evaluation + Plan note Extrac [...] 10 day(s), # 30 tab(s), Refills(s) 0 [facility]* Encounter Date Diagnosis Assessment Notes Treatment Notes Treatment Clinical Notes Sep, NICOLASA (generalized anxiety disorder) (ICD-10 - F41.1) [facility] Other 12-14-2022 Evaluation note* Encounter Date Diagnosis Assessment Notes Treatment Notes Treatment Clinical Notes Sep, Crohn disease (ICD-10 - K50.90) [facility] Other 11-02-2022 Evaluation note* Encounter Date Diagnosis Assessment Notes Treatment Notes Treatment Clinical Notes Aug, Essential hypertension (ICD-10 - I10) [facility] Other 10-19-2022 Evaluation note* Encounter Date Diagnosis Assessment Notes Treatment Notes Treatment Clinical Notes Jul, Cerebrovascular accident (CVA), unspecified mechanism (ICD-10 - I63.9) Jul, Insomnia, unspecifie d type (ICD-10 - G47.00) [facility] Other 08-01-2022 Evaluation note* Encounter Date Diagnosis Assessment Notes Treatment Notes Treatment Clinical Notes May, Essential hypertension (ICD-10 - I10) [facility] Other 06-22-2022 Evaluation note* Encounter Date Diagnosis Assessment Notes Treatment Notes Treatment Clinical Notes Mar, NICOLASA (generalized anxiety disorder) (ICD-10 - F41.1) Mar, Cerebrovascular accident (CVA), unspecified mechanism (ICD-10 - I63.9) [facility] Other 03-15-2022 Evaluation note* Encounter Date Diagnosis Assessment Notes Treatment Notes Treatment Clinical Notes Dec, Cerebrovascular accident (CVA), unspecified mechanism (ICD-10 - I63.9) Dec, Insomnia, unspecifie d type (ICD-10 - G47.00) Dec, Cyst of skin and subcutaneous tissue (ICD-10 - L72.0) [facility] Other 03-14-2022 Evaluation note* Encounter Date Diagnosis Assessment Notes Treatment Notes Treatment Clinical Notes Dec, Insomnia, unspecified type (ICD-10 - G47.00) [facility] Other 01-15-2022 Evaluation note* Encounter Date Diagnosis Assessment Notes Treatment Notes Treatment Clinical Notes Oct, Cerebrovascular accident (CVA), unspecified mechanism (ICD-10 - I63.9) [facility] Other 12-27-2021 Evaluation note* Encounter Date Diagnosis Assessment Notes Treatment Notes Treatment Clinical Notes Sep, NICOLASA (generalized anxiety disorder) (ICD-10 - F41.1) [facility] Other 12-14-2021 Evaluation note* Encounter Date Diagnosis Assessment Notes Treatment Notes Treatment Clinical Notes Sep, Insomnia, unspecified type (ICD-10 - G47.00) [facility] Other 10-10-2021 Evaluation note* Encounter Date Diagnosis [...] Patient care instructions given in writting by [facility] document. [facility] Other Evaluyfupw noteNo InformationNort [employer] [employer] Other evaluation noteNo assessment information available [facility] Work Phone: evaluation note* Diagnosis Abdominal pain- Primary Abdominal pain, unspecified site Crohn's disease of colon without complication (HCC) Left lower quadrant abdominal pain Crohn's colitis (HCC) Regional enteritis of large intestine Hypertension Unspecified essential hypertension [facility] Diagnosis Acute hip pain, left- Primary Sacroiliac joint pain Disorders of sacrum Foot drop, left foot documented in this encounter [facility] - Reported* Type Description [...] surgery Surgical History hysterectomy Hospitalization History stroke 2020 [facility]. Other Hospital course Narrative No data available for this section [facility] Additional Instructions DISCHARGE INSTRUCTIONS FOR [...] problems. -Follow up with PCP. -Office number [phone].[facility] Work Phone: Hospital Discharge instructions No data available for this section [facility] No data available for this section [facility] Summary Purpose Family History No Family History Records Found Relationship Condition Age at Onset Recorded Date/T armida Not Specified Heart problem Unknown Malignant neoplasm Unknown father Heart problem Unknown Advance Directives No Advanced Directives Records Found Advance Directive Response Recorded Date/ Time Advance Directives No August 9:54am Documents on File Type Date Recorded Patient Manager Consumer Expl anation ACP-Do Not Resuscitate 04/27/2023 11:07 AM DNR-CCA Latest Code Status on File Code Status Date Activated Date Inactivated Comments Full Code 04/27/2023 12:34 AM Healthcare Agents on File Name Relationship Healthcare Agent Relationshi p Communication Genie Lucio Aunt/Uncle Primary Decision Maker Chief Complaint and Reason for Visit Chief Complaint Crohn's Disease Additional Source Comments INFORMATION SOURCE (unrecogn ized section and content) DATE CREATED AUTHOR 08/12/2021 [facility] DATE CREATED AUTHOR AUTHOR'S ORGANIZ ATION 10/31/2022 [facility] DATE CREATED AUTHOR AUTHOR'S ORGANIZ ATION 05/02/2023 [facility] DATE CREATED AUTHOR AUTHOR'S ORGANIZ ATION 06/19/2024 [facility] DATE CREATED AUTHOR AUTHOR'S ORGANIZ ATION 07/05/2024 [facility] DATE CREATED AUTHOR AUTHOR'S ORGANIZ ATION 02/01/2025 [facility] EPIC DATE CREATED AUTHOR AUTHOR'S ORGANIZ ATION 07/05/2025 [facility] REASON FOR VISIT (unrecogniz ed section and content) Reason Comments Diarrhea Ongoing diarrhea gucci t has gotten worse. Reason Comments Pain Care Teams (unrecognized sec tion and content) Team Status: Inactive Member Role Status Dates NON STAFF Primary Care Provider Active Juan M Masters MD Attending Provider Active Team Status: Active Member Role Status Dates NON STAFF Primary Care Provider Active Jewish History Professor Relationship Specialty Start Date End Date Na Hines APRN - APPOINTMENT SPECIALIST [address] [place] [address] PCP - General Nurse Practitioner 04/26/23 Jewish History Professor Relationship Specialty Start Date End Date Unallocated, Zoë Gruber MD [address] [place] [address] PCP - General Family Medicine 01/28/25 Jewish History Professor Relationship Specialty Start Date End Date Na Hines NP [address] [place] [phone] Referring Physician 01/28/25 Ordered Prescriptions (unrec ognized [...] 075 (Given - Provider: Devi Watts, KEITH) ciprofloxacin (CIPRO) IVPB 400 mg (COMPLETED) 400 [...] Gonzalez RN)1234 (New Bag - Provider: Devi Watts, KEITH)1320 (Stopped - Provider: Devi Watts, KEITH) clopidogrel (PLAVIX) tablet 75 mg 75 mg, Oral, DAILY, First dose on Sun04/27/23 at 0900, Until Discontinued 08 (Given - Provider: Cristina Elder RN) 075 (Given - Provider: Devi Watts, KEITH) DULoxetine (CYMBALTA) extended release capsule 30 mg 30 mg, Oral, DAILY, First dose on Sun04/27/23 at 0900, Until Discontinued, Do not crush or break. May add contents of capsule to apple juice or apple sauce, but not chocolate. 0805 (Given - Provider: Cristina Elder RN) 075 (Given - Provider: Devi Watts RN) famotidine (PEPCID) tablet 20 mg 20 mg, Oral, 2 TIMES DAILY, First dose on Sun04/27/23 at 0100, Until Discontinued 013 (Given - Provider: Clara Jamil RN)08 (Given - Provider: Cristina Elder RN)2018 (Given - Provider: Maci Gonzalez RN) 075 (Given - Provider: Devi Watts RN)2100 (Due) gabapentin (NEURONTIN) capsule 300 mg 300 mg, Oral, 2 TIMES DAILY, First dose on Sun04/27/23 at 2100, Until Discontinued 2019 (Given - Provider: Maci Gonzalez RN) 075 (Given - Provider: Devi Watts RN)2100 (Due) hydrocortisone sodium succinate PF (SOLU-CORTEF) injection 60 mg 60 mg, IntraVENous, EVERY 8 HOURS, First dose on Sun04/27/23 at 0745, Until Discontinued 08 (Given - Provider: Cristina Elder RN)1504 (Given - Provider: Cristina Elder RN)2317 (Given - Provider: Maci Gonzalez RN) 0754 (Given - Provider: Devi Watts RN)1538 (Given - Provider: Devi Watts RN)2345 (Due) [...] mg (COMPLETED) 60 mg, IntraVENous, ONCE, On Sun04/26/23 at 2345, For 1 dose 2359 (Given - Provider: Linda Hart RN) metoprolol succinate (TOPROL XL) extended release tablet 50 mg 50 mg, Oral, DAILY, First dose on Sun04/27/23 at 0900, Until Discontinued, Do not crush or chew. 0805 (Given - Provider: Cristina Elder RN) 0754 (Given - Provider: Devi Watts, KEITH) metronidazole (FLAGYL) 500 mg in 0.9% NaCl [...] Gonzalez RN)0803 (New Bag - Provider: Devi Watts, KEITH)0915 (Stopped - Provider: Devi Watts, RN)1543 (New Bag - Provider: Devi Watts, KEITH)1607 (Stopped - Provider: Devi Watts, KEITH) morphine (PF) injection 2 mg (COMPLETED) 2 [...] RN) 0754 (Patch Removed - Provider: Devi Watts, KEITH)0756 (Patch Applied - Provider: Devi Watts RN) sodium chloride flush 0.9 % injection 10 mL 10 mL, IntraVENous, EVERY 12 HOURS SCHEDULED (2 times per day), First dose on Sun04/27/23 at 0900, Until Discontinued 0948 (Not Given - Provider: Cristina Elder RN - Reason: IV Fluid Infusing)2019 (Not Given - Provider: Maci Gonzalez RN - Reason: IV Fluid Infusing) 075 (Not Given - Provider: Devi Watts RN - Reason: IV Fluid Infusing)2100 (Due) traZODone (DESYREL) tablet 100 mg 100 mg, Oral, NIGHTLY, First dose on Sun04/27/23 at 0100, Until Discontinued 013 (Given - Provider: Clara Jamil RN)2018 (Given - Provider: Maci Gonzalez RN) 2100 (Due) Continuous Medication Order 04/26/2023 04/27/2023 04/28/2023 0.9 % sodium chloride infusion IntraVENous, at 75 mL/hr, CONTINUOUS, Starting on Sun04/27/23 at 0100 0100 (New Bag - Provider: Clara Jamil RN)1509 (New Bag - Provider: Cristina Elder RN) 0655 (New Bag - Provider: Devi Watts, KEITH)1606 (Stopped - Provider: Devi Watts, KEITH) PRN [...] of order. 1607 (Stopped - Provider: Devi Watts, KEITH) acetaminophen (TYLENOL) suppository 650 mg(Linked Group 1) 650 mg, Rectal, EVERY 6 HOURS PRN, Starting on Sun04/27/23 at 0034, Until Discontinued, Pain Mild (1-3), Fever, For temp greater than 100.4 F (38 C), Administer if oral route cannot be used. 0805 (See Alternative - Provider: Cristina Elder RN)1405 (See Alternative - Provider: Cristina Elder RN)2213 (See Alternative - Provider: Maci Gonzalez, KEITH) 1229 (See Alternative - Provider: Devi Watts, RN) acetaminophen (TYLENOL) tablet 650 mg(Linked Group 1) 650 mg, Oral, EVERY 6 HOURS PRN, Starting on Sun04/27/23 at 0034, Until Discontinued, Pain Mild (1-3), Fever, For temp greater than 100.4 F (38 C), Maximum dose of acetaminophen is 4000 mg from all sources in 24 hours. 0805 (Given - Provider: Cristina Elder RN)1405 (Given - Provider: Cristina Elder RN)2213 (Given - Provider: Maci Gonzalez, KEITH) 1229 (Given - Provider: Devi Watts, KEITH) iopamidol (ISOVUE-370) 76 % injection 75 mL (COMPLETED) 75 mL, IntraVENous, IMG ONCE PRN, 1 dose, Starting on Sun04/26/23 at 2200, Until Sun04/26/23 at 221, Other 2213 (Given - Provider: Mariza King) magnesium sulfate [...] Severe (7-10) 1726 (Given - Provider: Cristina Elder RN) 0754 [...] BE BASED ON THE PRIMARY CLINICAL RECORDS. A Fourth Act [facility]. provides no warranty or guarantee of the accuracy or completeness of information in this document.
--- NOTE | 2025-07-08 09:42 | PM.CN ---
Consult Note: HPI Data of Consult Patient: known to practice within the last 3 years Requesting Physician: Evy Pro NP Primary Care Provider: Non-Staff Physician, MD Consult Narrative Reason for consult: f/u Narrative: Baylee Babb a pleasant 54 year old female presents for evaluation of chronic low back pain. hx of low back and SIJ pain unresponsive to > 6 weeks of HEP, heat, ice, tylenol, NSAIDs. utilizing motrin, gabapentin, duloxetine, trazodone with benefit without side effects. recently underwent left SIJ injection with significant relief ongoing, noting >90% improvement. pain 0/10, increasing minimally with weather changes and activity. denies fall/injury since last visit. cc:: CC: Evy Pro NP Review of Systems ROS Musculoskeletal Denies: back pain or joint pain PFSH [facility] Medical History (Updated 05/20/25 @ 12:04 by Evy Pro NP) Osteoarthritis ?M19.90 - Unspecified osteoarthritis, unspecified site (ICD-10) Neck pain ?M54.2 - Cervicalgia (ICD-10) Low back pain ?M54.50 - Low back pain, unspecified (ICD-10) Acid reflux ?K21.9 - Gastro-esophageal reflux disease without esophagitis (ICD-10) Smoker ?F17.200 - Nicotine dependence, unspecified, uncomplicated (ICD-10) Chronic cough ?R05.3 - Chronic cough (ICD-10) Asthma ?J45.909 - Unspecified asthma, uncomplicated (ICD-10) Hypertension ?I10 - Essential (primary) hypertension (ICD-10) Stroke ?I63.9 - Cerebral infarction, unspecified (ICD-10) Surgical History Status post hip surgery ?Z98.890 - Other specified postprocedural states (ICD-10) H/O foot surgery ?Z98.890 - Other specified postprocedural states (ICD-10) Hx of cholecystectomy ?Z90.49 - Acquired absence of other specified parts of digestive tract (ICD-10) H/O: hysterectomy ?Z90.710 - Acquired absence of both cervix and uterus (ICD-10) Meds Home Medications and Allergies Home Medications ?Medication ?Instructions ?Recorded ?Confirmed ?Type atorvastatin 40 mg tablet 40 mg PO DAILY 02/19/25 06/29/25 History clopidogrel 75 mg tablet 75 mg PO DAILY 02/19/25 06/29/25 History duloxetine 60 mg capsule,delayed 60 mg PO DAILY 02/19/25 06/29/25 History release gabapentin 300 mg capsule 300 mg PO BID 02/19/25 06/29/25 History losartan 25 mg tablet (Cozaar) 25 mg PO DAILY 02/19/25 06/29/25 History metoprolol tartrate 50 mg tablet 50 mg PO DAILY 02/19/25 06/29/25 History trazodone 100 mg tablet 100 mg PO DAILY 02/19/25 06/29/25 History Allergies Allergy/AdvReac Type Severity Reaction Status Date / Time codeine Allergy Unknown Vomiting Verified 06/29/25 10:38 Exam Constitutional Documenting provider has reviewed patient's vital signs: yes Common normals: no apparent distress, oriented x3, healthy appearing, alert and well nourished General appearance: cooperative HENMT Common normals: normocephalic, hearing grossly normal bilaterally and moist oral mucous membranes Head and scalp: normocephalic Eye Common normals: PERRL Pupil: PERRL Neck & C-Spine Common normals: full ROM General: normal visual inspection Chest Common normals: inspection of chest normal Respiratory Common normals: normal respiratory effort, no retractions and no use of accessory muscles Back & Pelvis Lumbar spine/lower back: straight leg raise negative bilaterally; no pain with ROM and no lumbar spinal tenderness Sacroiliac joints: SI joints normal Other: left sij negative wendy(patricks), gaenslens, thigh thrust, compression test sensation intact strength 5/5 in BLE Extremity Common normals: normal to inspection and full ROM Neuro Common normals: oriented x3 Sensorium/orientation: alert Gait (neuro): antalgic and assistive device used cane Psych Common normals: mental status grossly normal, thought process normal, cooperative, affect normal, speech normal and activity/motor behavior normal Speech: normal speech Thought process: normal thought process Results Additional Findings Additional findings: If on a controlled substance or opioids, I have checked an [place] report on this patient and there are no aberrancies noted in the prescribing history.??If on a controlled substance or opioid a drug screen was completed and reviewed within the last year, and if there has not been a drug screen completed we ordered one today to monitor higher risk, state monitored pain medication use. As part of providing excellent, safe, comprehensive care, the following was completed at our patient's visit: 1. A medication reconciliation and review to ensure accurate knowledge of current/active medications, including asking our patients to inform us about any ohfb-wib-jigejtd medications or herbal remedies/nutritional supplements/alternative remedies. 2. A review to specifically ensure our patients have had annual screening for screening for depression, screening for tobacco use, and screening for unhealthy alcohol use. For concerning screenings had a discussion with the patient, provided patient education, and recommended follow-up with primary care provider when appropriate. If patient noted with a risk of falling, they received education on strength, gait, and balance training to prevent future risk of falling. Portions of this note may have been carried over from the previous visit and updated as appropriate. Please note this office utilizes paper charting in addition to the electronic medical record. A list of current medications, vitals, and PMH is available there as the clinical staff outside of myself do not have access to [employer] charting during the clinic day operations. As part of providing quality comprehensive care the current medications, vitals, and PMH were reviewed in the paper chart. Assessment and Plan Assessment and Plan (1) Sacroiliitis: Assessment and Plan: 06/29/25 left SIJ injection >90% improvement ongoing (2) Lumbar spondylosis: Plan continue baclofen 10mg TID PRN pain/spasms continue HEP as tolerated f/u 3 months, sooner if needed
== END 2025-07-08 09:28 | disposition home or self-care (01) ==
LOC: PM 09:27
PROVIDERS: Visit Provider Nurse Practitioner
DX: M46.1 Sacroiliitis, not elsewhere classified (principal); M47.816 Spondylosis without myelopathy or radiculopathy, lumbar region
CPT/HCPCS: G0463

== ENCOUNTER 2025-07-31 11:32 | Emergency (ER) | payer MEDICARE, MEDICAID, SELFPAY ==
[2025-07-31 11:39] VITALS: BP 156/96; PULSE 73; TEMP 36.6; O2SAT 95; BMI 26.6
--- OUTSIDE RECORDS SUMMARY | 2025-07-31 11:55 | XMS_ITS | CCD ---
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 Name Role Phone DIANA, DR BEHZAD Perez [...] Unavailable Na CASTILLO Primary Care Physician Donny TILE MECHANIC - BICYCLE TAXI DRIVERNa Primary Care Provid er NA HINES Primary Care Unavailable HUSSEIN SUAREZ Admitting Unavailable EBONY SUAREZFAN Attending Unavailable NA HINES Attending Unavailable NA HINES Admitting Unavailable NA HINES Attending Unavailable NA HINES Admitting Unavailable Unallocated , Noms Provider Primary Care Provi julian Donny BICYCLE TAXI DRIVER, Na Unavailable RADHA ARMENDARIZ Attending Unavailable RADHA ARMENDARIZ Referring Unavailable Fátima POWERS, Art Dempsey Attending Unavailable Fátima POWERS, Art Dempsey Attending Unavailable Fátima POWERS, Art Dempsey Attending Unavailable Allergies Allergy Classification Reported Allergen(s) Allergy Type Date of Onset Reaction(s) Facility (4 sources) Codeine; Translations: [codeine] Drug Allergy [address] [facility] Repository (15 sources) Codeine Drug Allergy vomiting [facility] [employer] Other (1 source) Codeine Drug Allergy 3 [facility] Repository (5 sources) Codeine; Translations: [codeine] Drug Allergy 2 Unknown, GI intolerance [facility] (2 sources) Lisinopril Allergy to substance [...] / neomycin 3.5 mg/ml / polymyxin b 76230 unt/ml otic solution (11 sources) Aminoglycoside Antibacterial, Polymyxin-class Antibacterial, Corticosteroid Start: 021 Juyfiiwf-Vmhblcfhf-OB [id number] 4 drops into affected ear Otic Three [...] capsules by mouth daily 0 Active Vit U-Xuqgymr-Mojo-Rutin -Hb196 (Bioflex) 863-46-72-40 mg Tablet (1 source) Start: 12-20-2020 take 1 tablet by mouth once daily Vit U-Bgztvsp-Tpne-Joanna n-Hb196 (Bioflex) 169-83-26-40 mg Tablet Active 1 TAB PO Daily [...] 02, 2020 12:00am December 20, 2020 6:59pm Kv-Hv-Naha-Fa-Ca Carb-Vit K (Women's Multivitamin) 18 mg iron-400 mcg-500 mg Tablet (1 source) Start: 09-26-2020 End: 10-02-2020 take 1 tablet by mouth once daily in the morning Uu-Ac-Resh-Fa-Ca Carb-Vit K (Women's Multivitamin) 18 mg iron-400 [...] Date: 04/16/23 Status: Ordered polyethylene glycol 3350 29380 mg powder for oral solution (1 source) [...] 12-03-2020 Episodic Other aftercare (1 source) Other retirement (current) drug therapy; Translations: [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] Onset: 05-03-2021 Episodic Other [...] Impression: postsurgical changed [facility] observation (narrative) [facility] CBC w/ Auto Diffon 4 Basophils/100 WBC (Bld) 0.6 % Normal 0.0-2.0 [facility] Comment on above: Performed By: #### 2 [id number] #### [facility] [address] [place] [address] Basophils/Leukocytes Auto (Bld) [Pure # fraction] 0.1 E9/L Normal 0.0-0.2 [facility] Comment on above: Performed By: #### 2 [id number] #### [facility] [address] [place] [address] Eosinophils (Bld) [#/Vol] 0.1 E9/L Normal 0.0-0.5 [facility] Comment on above: Performed By: #### 2 [id number] #### [facility] [address] [place] [address] Eosinophils/100 WBC (Bld) 1.2 % Normal 0.0-8.0 [facility] Comment on above: Performed By: #### 2 [id number] #### [facility] [address] [place] [address] Erythrocyte distribution width (RBC) [Ratio] 12.8 % Normal 10.9-14.2 [facility] Comment on above: Performed By: #### 2 [id number] #### [facility] [address] [place] [address] Hematocrit (Bld) [Volume fraction] 48.4 % High 34.0-46.0 [facility] Comment on above: Performed By: #### 2 [id number] #### [facility] [address] [place] [address] Hemoglobin (Bld) [Mass/Vol] 16.2 g/dL High 12.0-16.0 [facility] Comment on above: Performed By: #### 2 [id number] #### [facility] [address] [place] [address] Lymphocytes (Bld) [#/Vol] 3.0 E9/L Normal 1.0-4.0 [facility] Comment on above: Performed By: #### 2 [id number] #### [facility] [address] [place] [address] Lymphocytes/100 WBC (Bld) 28.3 % Normal 14.0-50.0 [facility] Comment on above: Performed By: #### 2 [id number] #### [facility] [address] [place] [address] MCH (RBC) [Entitic mass] 31.0 pg Normal 27.0-34.0 [facility] Comment on above: Performed By: #### 2 [id number] #### [facility] [address] [place] [address] MCHC (RBC) [Mass/Vol] 33.4 g/dL Normal 31.4-36.0 [facility] Comment on above: Performed By: #### 2 [id number] #### [facility] [address] [place] [address] MCV (RBC) [Entitic vol] 92.7 fL Normal 80.0-100.0 [facility] Comment on above: Performed By: #### 2 512881 #### [facility] [address] [place] [address] Monocytes (Bld) [#/Vol] 0.5 E9/L Normal 0.2-1.0 [facility] Comment on above: Performed By: #### 2 [id number] #### [facility] [address] [place] [address] Neutrophils (Bld) [#/Vol] 7.0 E9/L Normal 2.0-7.5 [facility] Comment on above: Performed By: #### 2 175047 #### [facility] [address] [place] [address] Neutrophils/100 WBC (Bld) 65.1 % Normal 36.0-75.0 [facility] Comment on above: Performed By: #### 2 578921 #### [facility] [address] [place] [address] Platelet mean volume (Bld) [Entitic vol] 8.8 fL Normal 6.4-10.8 [facility] Comment on above: Performed By: #### 2 327308 #### [facility] [address] [place] [address] Platelets (Bld) [#/Vol] 254.0 E9/L Normal 150.0-500.0 [facility] Comment on above: Performed By: #### 2 069451 #### [facility] [address] [place] [address] RBC (Bld) [#/Vol] 5.2 E12/L Normal 4.3-5.9 [facility] Comment on above: Performed By: #### 2 337383 #### [facility] [address] [place] [address] WBC corrected for nucl RBC Auto (Bld) [#/Vol] 10.7 E9/L Normal 4.0-11.0 [facility] Comment on above: Performed By: #### 2 176476 #### [facility] [address] [place] [address] CMPon 06-17-2024 Albumin [Mass/Vol] 4.2 g/dL Normal 3.3-5.0 [facility] Comment on above: Performed By: #### 2 759473 #### [facility] [address] [place] [address] Albumin/Globulin (S) [Mass conc ratio] 2.0 Normal 1.1-2.2 [facility] Comment on above: Performed By: #### 2 748089 #### [facility] [address] [place] [address] ALP [Catalytic activity/Vol] 113 Int._Unit/L High 21-98 [facility] Comment on above: Performed By: #### 2 294204 #### [facility] [address] [place] [address] ALT No additional P-5'-P [Catalytic activity/Vol] 10 Int._Unit/L Normal 6-46 [facility] Comment on above: Performed By: #### 2 [id number] #### [facility] [address] [place] [address] Anion gap [Moles/Vol] 11 mmol/L Normal 6-16 [facility] Comment on above: Performed By: #### 2 719775 #### [facility] [address] [place] [address] AST [Catalytic activity/Vol] 15 Int._Unit/L Normal 5-43 [facility] Comment on above: Performed By: #### 2 [id number] #### [facility] [address] [place] [address] Bilirubin [Mass/Vol] 0.6 mg/dL Normal 0.0-1.[address] [facility] Comment on above: Performed By: #### 2 898345 #### [facility] [address] [place] [address] Calcium [Mass/Vol] 9.3 mg/dL Normal 8.9-11.1 [facility] Comment on above: Performed By: #### 2 897734 #### [facility] [address] [place] [address] Chloride [Moles/Vol] 106 mmol/L Normal 101-[address] [facility] Comment on above: Performed By: #### 2 034820 #### [facility] [address] [place] [address] CO2 [Moles/Vol] 25 mmol/L Normal 21-31 [facility] Comment on above: Performed By: #### 2 916090 #### [facility] [address] [place] [address] Creatinine [Mass/Vol] 0.7 mg/dL Normal 0.5-1.3 [facility] Comment on above: Performed By: #### 2 454610 #### [facility] [address] [place] [address] Globulin (S) [Mass/Vol] 2.1 g/dL Normal 1.4-4.0 [facility] Comment on above: Performed By: #### 2 615426 #### [facility] [address] [place] [address] Glucose [Mass/Vol] 133 mg/dL Normal 55-199 [facility] Comment on above: Performed By: #### 2 052483 #### [facility] [address] [place] [address] Potassium [Moles/Vol] 4.1 mmol/L Normal 3.5-5.3 [facility] Comment on above: Performed By: #### 2 125221 #### [facility] [address] [place] [address] Protein [Mass/Vol] 6.3 g/dL Normal 6.0-7.8 [facility] Comment on above: Performed By: #### 2 729355 #### [facility] [address] [place] [address] Sodium [Moles/Vol] 138 mmol/L Normal 135-145 [facility] Comment on above: Performed By: #### 2 142674 #### [facility] [address] [place] [address] Urea nitrogen [Mass/Vol] 14 mg/dL Normal 5-21 [facility] Comment on above: Performed By: #### 2 374181 #### [facility] [address] [place] [address] Urea nitrogen/Creatinine [Mass ratio] 20 No Units Normal 10-20 [facility] Comment on above: Performed By: #### 2 882277 #### [facility] [address] [place] [address] [id number] 06-17-2024 HbA1c (Bld) [Mass fraction] 5.7 % Normal <=5.9 [facility] Comment on above: Performed By: #### 7 [id number] #### [facility] [address] [place] [address] Lipid Panelon 06-17-2024 Cholesterol [Mass/Vol] 120 mg/dL Normal 120-200 [facility] Comment on above: Performed By: #### 2 826574 #### [facility] [address] [place] [address] Cholesterol in HDL [Mass/Vol] 38 mg/dL Invalid Interpretation Code [facility] Comment on above: Result Comment: '>= 60 LOW RISK' '<= 40 HIGH RISK' Performed By: #### 2 [id number] #### [facility] [address] [place] [address] Cholesterol in LDL [Mass/Vol] 35 mg/dL Normal <=129 [facility] Comment on above: Performed By: #### 2 643211 #### [facility] [address] [place] [address] Cholesterol in VLDL [Mass/Vol] 64 mg/dL High 7-40 [facility] Comment on above: Performed By: #### 2 043021 #### [facility] [address] [place] [address] Triglyceride [Mass/Vol] 322 mg/dL High <=149 [facility] Comment on above: Performed By: #### 2 293754 #### [facility] [address] [place] [address] Vit B12on 06-17-2024 Cobalamin (Vitamin B12) [Mass/Vol] 277 pg/mL Normal 50-1500 [facility] Comment on above: Performed By: #### 2 532177 #### [facility] [address] [place] [address] eGFRon 06-17-2024 eGFR 104 mL/min/1.73 m2 Normal >=59 [facility] Comment on above: Order Comment: Order added by Discern Expert. Performed By: #### 1 [id number] #### [facility] [address] [place] [address] C-Reactive Proteinon 023 CRP [Mass/Vol] 10.6 mg/L High 0.0-5.0 [facility] Comment on above: Performed By: #### C MPX, CDP #### [facility] [address] [place] [address] [place] [address] [employer]crete Hopper Operator: Andres Haddad MD CRP High sensitivity method [Mass/Vol] 10.6 mg/L High 0.0 - 5.0 mg/L [facility] Interpretation and review of laboratory results Abnormal [facility] CBC auto differentialon Basophils (Bld) [#/Vol] 0.04 10*3/uL [facility] Basophils/100 WBC (Bld) 0 % 0 - 2 % [facility] Eosinophils (Bld) [#/Vol] [facility] Eosinophils/100 WBC (Bld) 0 % Low 1 - 4 % [facility] Erythrocyte distribution width (RBC) [Ratio] 12.4 % 11.8 - 14.4 % [facility] Hematocrit (Bld) [Volume fraction] 43.1 % 36.3 - 47.1 % [facility] Hemoglobin (Bld) [Mass/Vol] 14.5 g/dL 11.9 - 15.1 g/dL [facility] Immature granulocytes (Bld) [#/Vol] 0.09 10*3/uL [facility] Immature granulocytes/100 WBC (Bld) 1 % High 0 [facility] Interpretation and review of laboratory results Abnormal [facility] Lymphocytes/100 WBC (Bld) 19 % Low 24 - 43 % [facility] Lymphocytes/100 WBC (Bld) 2.43 % [facility] MCH (RBC) [Entitic mass] 30.4 pg 25.2 - 33.5 pg [facility] MCHC (RBC) [Mass/Vol] 33.6 g/dL 28.4 - 34.8 g/dL [facility] MCV (RBC) [Entitic vol] 90.4 fL 82.6 - 102.9 fL [facility] Monocytes/100 WBC (Bld) 7 % 3 - 12 % [facility] Monocytes/100 WBC (Bld) 0.86 % [facility] Neutrophils/100 WBC (Bld) 73 % High 36 - 65 % [facility] Nucleated RBC/100 WBC (Bld) [Ratio] 0.0 % 0.0 per 100 WBC [facility] Platelet mean volume (Bld) [Entitic vol] 9.5 fL 8.1 - 13.5 fL [facility] Platelets (Bld) [#/Vol] 230 10*3/uL [facility] RBC (Bld) [#/Vol] 4.77 10*6/uL 3.95 - 5.1 1 m/uL [facility] Segmented neutrophils/100 WBC (Bld) 9.10 % High [facility] WBC other (Bld) [#/Vol] 12.5 High [facility] CBC with Diffon 04-28-2023 Abs. Basophil 0.04 k/uL Normal 0.00-0.20 [facility] Comment on above: Performed By: #### C MPX, CDP #### [facility] [address] [place], [place] [id number] [employer] Operator: Andres Haddad MD Abs. Eosinophil <0.03 Normal 0.00-0.44 [facility] Comment on above: Performed By: #### C MPX, CDP #### [facility] [address] [place] [address] Concrete Hopper Operator: Andres Haddad MD Abs.Imm.Granulocyte 0.09 k/uL Normal 0.00-0.30 [facility] Comment on above: Performed By: #### C MPX, CDP #### [facility] [address] [place], [place] [id number] [employer] Hopper Operator: Andres Haddad MD Abs.Neutrophil (Seg) 9.10 k/uL High 1.50-8.10 [facility] Comment on above: Performed By: #### C MPX, CDP #### [facility] [address] [place] [address] [place] [place], [place] [id number] [employer]crete Hopper Operator: Andres Haddad MD Basophils/100 WBC (Bld) 0 % Normal 0-2 [facility] Comment on above: Performed By: #### C MPX, CDP #### [facility] [address] [place], [place] [id number] [employer] Hopper Operator: Andres Haddad MD Eosinophils/100 WBC (Bld) 0 % Low 1-4 [facility] Comment on above: Performed By: #### C MPX, CDP #### [facility] [address] [place] [address] [employer]crete Hopper Operator: Andres Haddad MD Erythrocyte distribution width (RBC) [Ratio] 12.4 % Normal 11.8-14.4 [facility] Comment on above: Performed By: #### C MPX, CDP #### [facility] [address] [place], [place] [id number] Concrete Hopper Operator: Andres Haddad MD Hematocrit (Bld) [Volume fraction] 43.1 % Normal 36.3-47.1 [facility] Comment on above: Performed By: #### C MPX, CDP #### [facility] [address] [place], [place] [id number] [employer]pper Operator: Andres Haddad MD Hemoglobin (Bld) [Mass/Vol] 14.5 g/dL Normal 11.9-15.1 [facility] Comment on above: Performed By: #### C MPX, CDP #### [address] [place], [place] [id number] [employer]crete Hopper Operator: Andres Haddad MD Immature granulocytes/100 WBC (Bld) 1 % High 0 [facility] Comment on above: Performed By: #### C MPX, CDP #### [address] [place], [place] [id number] [employer]crete Hopper Operator: Andres Haddad MD Lymphocytes (Bld) [#/Vol] 2.43 10*3/uL Normal 1.10-3.70 [facility] Comment on above: Performed By: #### C MPX, CDP #### [address] [place], [place] [id number] [employer]crete Hopper Operator: Andres Haddad MD Lymphocytes/100 WBC (Bld) 19 % Low 24-43 [facility] Comment on above: Performed By: #### C MPX, CDP #### [address] [place] [address] Concrete Hopper Operator: Andres Haddad MD MCH (RBC) [Entitic mass] 30.4 pg Normal 25.2-33.5 [facility] Comment on above: Performed By: #### C MPX, CDP #### [facility] [address] [place] [address] Concrete Hopper Operator: Andres Haddad MD MCHC (RBC) [Mass/Vol] 33.6 g/dL Normal 28.4-34.8 [facility] Comment on above: Performed By: #### C MPX, CDP #### [facility] [address] [place] [address] Concrete Hopper Operator: Andres Haddad MD MCV (RBC) [Entitic vol] 90.4 fL Normal 82.6-102.9 [facility] Comment on above: Performed By: #### C MPX, CDP #### [facility] [address] [place] [address] Concrete Hopper Operator: Andres Haddad MD Monocytes (Bld) [#/Vol] 0.86 10*3/uL Normal 0.10-1.20 [facility] Comment on above: Performed By: #### C MPX, CDP #### [facility] [address] [place], [place] [id number] Concrete Hopper Operator: Andres Haddad MD Monocytes/100 WBC (Bld) 7 % Normal 3-12 [facility] Comment on above: Performed By: #### C MPX, CDP #### [facility] [address] [place], [place] [id number] [employer]crete Hopper Operator: Andres Haddad MD Neutrophil (Seg) 73 % High 36-65 [facility] Comment on above: Performed By: #### C MPX, CDP #### [facility] [address] [place] [address] Concrete Hopper Operator: Andres Haddad MD NRBC Automated 0.0 per 100 WBC Normal 0.0 [facility] Comment on above: Performed By: #### C MPX, CDP #### [facility] [address] [place] [address] Concrete Hopper Operator: Andres Haddad MD Platelet mean volume (Bld) [Entitic vol] 9.5 fL Normal 8.1-13.5 [facility] Comment on above: Performed By: #### C MPX, CDP #### [facility] [address] [place], [place] [id number] [employer]crete Hopper Operator: Andres Haddad MD Platelets (Bld) [#/Vol] 230 10*3/uL Normal 138-453 [facility] Comment on above: Performed By: #### C MPX, CDP #### [facility] [address] [place], [place] [id number] Concrete Hopper Operator: Andres Haddad MD RBC (Bld) [#/Vol] 4.77 10*6/uL Normal 3.95-5.11 [facility] Comment on above: Performed By: #### C MPX, CDP #### [facility] [address] [place], [place] [id number] Concrete Hopper Operator: Andres Haddad MD WBC (Bld) [#/Vol] 12.5 10*3/uL High 3.5-11.3 [facility] Comment on above: Performed By: #### C MPX, CDP #### [facility] [address] [place], [place] [id number] Concrete Hopper Operator: Andres Haddad MD Comp Metabolic Pr/rfx MGon 0 - Albumin [Mass/Vol] 3.6 g/dL Normal 3.5-5.2 [facility] Comment on above: Performed By: #### C MPX, CDP #### [facility] [address] [place], [place] [id number] Concrete Hopper Operator: Andres Haddad MD Albumin/Glob Ratio 1.3 Normal 1.0-2.5 [facility] Comment on above: Performed By: #### C MPX, CDP #### [facility] [address] [place] [address] Concrete Hopper Operator: Andres Haddad MD Alkaline Phos 103 U/L Normal 35-104 [facility] Comment on above: Performed By: #### C MPX, CDP #### [facility] [address] [place], [place] [id number] Concrete Hopper Operator: Andres Haddad MD ALT [Catalytic activity/Vol] 6 U/L Normal 5-33 [facility] Comment on above: Performed By: #### C MPX, CDP #### [facility] [address] [place], [place] [id number] Concrete Hopper Operator: Andres Haddad MD Anion gap [Moles/Vol] 10 mmol/L Normal 9-17 [facility] Comment on above: Performed By: #### C MPX, CDP #### [facility] [address] [place], [place] [address]32[address]83 Concrete Hopper Operator: Andres Haddad MD AST [Catalytic activity/Vol] 13 U/L Normal <32 [facility] Comment on above: Performed By: #### C MPX, CDP #### [facility] [address] [place], [place] 7049483 Concrete Hopper Operator: Andres Haddad MD Bilirubin [Mass/Vol] 0.3 mg/dL Normal 0.3-1.2 [facility] Comment on above: Performed By: #### C MPX, CDP #### [facility] [address] [place], [place] [id number] Concrete Hopper Operator: Andres Haddad MD BUN/CRE Ratio 13 Normal 9-20 [facility] Comment on above: Performed By: #### C MPX, CDP #### [facility] [address] [place] [address] Concrete Hopper Operator: Andres Haddad MD Calcium [Mass/Vol] 9.2 mg/dL Normal 8.6-10.4 [facility] Comment on above: Performed By: #### C MPX, CDP #### [facility] [address] [place] [address] Concrete Hopper Operator: Andres Haddad MD Chloride [Moles/Vol] 112 mmol/L High 98-107 [facility] Comment on above: Performed By: #### C MPX, CDP #### [facility] [address] [place] [address] Concrete Hopper Operator: Andres Haddad MD CO2 [Moles/Vol] 24 mmol/L Normal 20-31 [facility] Comment on above: Performed By: #### C MPX, CDP #### [facility] [address] [place] [address] Concrete Hopper Operator: Anders Haddad MD Creatinine [Mass/Vol] 0.54 mg/dL Normal 0.50-0.90 [facility] Comment on above: Performed By: #### C MPX, CDP #### [facility] [address] [place] [address] Concrete Hopper Operator: Andres Haddad MD GFR/1.73 sq M.predicted among non-blacks MDRD (S/P/Bld) [Vol rate/Area] mL/min/{1.73_m2} Normal >60 [facility] Comment on above: Result Comment: These results [...] Performed By: #### C MPX, CDP #### [facility] [address] [place] [address] Concrete Hopper Operator: Andres Haddad MD Glucose [Mass/Vol] 111 mg/dL High 70-99 [facility] Comment on above: Performed By: #### C MPX, CDP #### [facility] [address] [place] [address] Concrete Hopper Operator: Andres Haddad MD Potassium [Moles/Vol] 4.2 mmol/L Normal 3.7-5.3 [facility] Comment on above: Performed By: #### C MPX, CDP #### [facility] [address] [place], [place] [id number] Concrete Hopper Operator: Andres Haddad MD Protein [Mass/Vol] 6.3 g/dL Low 6.4-8.3 [facility] Comment on above: Performed By: #### C MPX, CDP #### [facility] [address] [place] [address] Concrete Hopper Operator: Andres Haddad MD Sodium [Moles/Vol] 146 mmol/L High 135-144 [facility] Comment on above: Performed By: #### C MPX, CDP #### [facility] [address] [place], [place] [address]83 Concrete Hopper Operator: Andres Haddad MD Urea nitrogen [Mass/Vol] 7 mg/dL Normal 6-20 [facility] [facility] Comment on above: Performed By: #### C MPX, CDP #### [facility] [address] [place] [address] [place] [address] Concrete Hopper Operator: Andres Haddad MD Comprehensive Metabolic Pane l w/ Reflex to MGon 04-28-2023 Albumin [Mass/Vol] 3.6 g/dL 3.5 - 5.2 g/dL [facility] Albumin/Globulin [Mass ratio] 1.3 {ratio} 1.0 - 2.5 [facility] ALP [Catalytic activity/Vol] 103 U/L 35 - 104 U/L [facility] ALT [Catalytic activity/Vol] 6 U/L 5 - 33 U/L [facility] Anion gap [Moles/Vol] 10 mmol/L 9 - 17 mmol/L [facility] AST [Catalytic activity/Vol] 13 U/L NINF - 32 U/L [facility] Bilirubin [Mass/Vol] 0.3 mg/dL 0.3 - 1 .2 mg/dL [facility] Calcium [Mass/Vol] 9.2 mg/dL 8.6 - 10. 4 mg/dL [facility] Chloride [Moles/Vol] 112 mmol/L High 98 - 10 7 mmol/L [facility] CO2 [Moles/Vol] 24 mmol/L 20 - 31 mmol/L [facility] Creatinine [Mass/Vol] 0.54 mg/dL 0.50 - 0.90 mg/dL [facility] GFR/1.73 sq M.predicted MDRD (S/P/Bld) [Vol rate/Area] - PINF [facility] Comment on above: These results are [...] 111 mg/dL High 70 - 99 mg/dL [facility] Interpretation and review of laboratory results Abnormal [facility] Potassium [Moles/Vol] 4.2 mmol/L 3.7 - 5.3 mmol/L [facility] Protein [Mass/Vol] 6.3 g/dL Low 6.4 - 8.3 g/dL [facility] Sodium [Moles/Vol] 146 mmol/L High 135 - 144 mmol/L [facility] Urea nitrogen [Mass/Vol] 7 mg/dL 6 - 20 mg/dL [facility] Urea nitrogen/Creatinine [Mass ratio] 13 mg/mg 9 - 20 [facility] Gastrointestinal Panel, [facility] [place]on 04-28-2023 Campylobacter sp DNA FAITH+probe Nom (Unsp spec) NEGATIVE: No Campylobacter spp. (jejuni or coli) DNA Detected [facility] E. coli enterotoxigenic eltA+estB genes FAITH+probe Ql (Stl) NEGATIVE: No Enterotoxigenic E. coli (ETEC) Heat-labile and heat-stable (LT/ST) DNA Detected [facility] P. shigelloides DNA FAITH+probe Ql (Stl) Negative [facility] Salmonella sp DNA FAITH+probe Ql (Unsp spec) Negative [facility] Shiga toxin stx gene FAITH+probe Nom (Unsp spec) Negative [facility] Shigella sp DNA FAITH+probe Ql (Unsp spec) Negative [facility] Specimen Description .FECES [facility] V. cholerae+parahaemoly ticus rfbL+trkH+tnaA genes FAITH+probe Ql (Stl) NEGATIVE: No Vibrio (V. vulnificus, V, parahaemolyticus and V. cholerae) DNA Detected [facility] Y. enterocolitica recN gene FAITH+probe Ql (Stl) Negative [facility] Stool PCR [place] 04-28-20 Campylobacter sp PCR NEGATIVE: No Campylobacter spp. (jejuni or coli) DNA Detected Normal [facility] Comment on above: Performed By: #### S TLPCR #### [address] [address] Concrete Hopper Operator: Charan Dye MD [facility] [address] [place] [address] [place] [address] Concrete Hopper Operator: Andres Haddad MD E coli enterotox PCR NEGATIVE: No Enterotoxigenic E. coli (ETEC) Heat-labile and heat-stable (LT/ST) [facility] Comment on above: Result Comment: DNA Detected Performed By: #### S TLPCR #### [place] [place] [address] Concrete Hopper Operator: Charan Dye MD [facility] [address] [place] [address] Concrete Hopper Operator: Andres Haddad MD Plesiomonas sp PCR Negative Normal [facility] Comment on above: Performed By: #### S TLPCR #### [address] [address] Concrete Hopper Operator: Charan Dye MD [facility] [address] [place] [address] [place] [address] Concrete Hopper Operator: Andres Haddad MD Salmonella sp PCR Negative [facility] Comment on above: Performed By: #### S TLPCR #### [address] [address] Concrete Hopper Operator: Charan Dye MD [facility] [address] [place] [address] [place] [address] Concrete Hopper Operator: Andres Haddad MD Shigatoxin gene PCR Negative Normal [facility] Comment on above: Performed By: #### S TLPCR #### [address] [address] Concrete Hopper Operator: Charan Dye MD [facility] [address] [place] [address] [place] [id number] Concrete Hopper Operator: Andres Haddad MD Shigella sp PCR Negative Normal [facility] Comment on above: Performed By: #### S TLPCR #### [address] [address] Concrete Hopper Operator: Charan Dye MD [facility] [address] [place] [address] [place], [place] [id number] Concrete Hopper Operator: Andres Haddad MD Vibrio sp PCR NEGATIVE: No Vibrio (V. vulnificus, V, parahaemolyticus and V. cholerae) DNA [facility] Comment on above: Result Comment: Dete cted Performed By: #### S TLPCR #### [facility] [address] [place] [address] Concrete Hopper Operator: Charan Dye MD [facility] [address] [place] [address] [place] [address] Concrete Hopper Operator: Andres Haddad MD Yersinia gene PCR Negative [place] [facility] Comment on above: Performed By: #### S TLPCR #### [address] [place] [address] Concrete Hopper Operator: Charan Dye MD [facility] [address] [place] [address] Concrete Hopper Operator: Andres Haddad MD C diff Ag + Toxinon 04-27-20 23 C diff Ag + Toxin Negative Normal [facility] Comment on above: Result Comment: No C . difficile antigen and Toxin Detected. Performed By: #### C DIFQ #### [facility] [address] [place] [address] Concrete Hopper Operator: Andres Haddad MD Specimen Description .FECES Normal [facility] Comment on above: Performed By: #### C DIFQ #### [facility] [address] [place] [address] Concrete Hopper Operator: Andres Haddad MD CBC auto differentialon Basophils (Bld) [#/Vol] [facility] Basophils/100 WBC (Bld) 0 % 0 - 2 % [facility] Eosinophils (Bld) [#/Vol] [facility] Eosinophils/100 WBC (Bld) 0 % Low 1 - 4 % [facility] Erythrocyte distribution width (RBC) [Ratio] 12.1 % 11.8 - 14.4 % [facility] Hematocrit (Bld) [Volume fraction] 42.7 % 36.3 - 47.1 % [facility] Hemoglobin (Bld) [Mass/Vol] 14.6 g/dL 11.9 - 15.1 g/dL [facility] Immature granulocytes (Bld) [#/Vol] 0.06 10*3/uL [facility] Immature granulocytes/100 WBC (Bld) 1 % High 0 [facility] Interpretation and review of laboratory results Abnormal [facility] Lymphocytes/100 WBC (Bld) 8 % Low 24 - 43 % [facility] Lymphocytes/100 WBC (Bld) 0.80 % Low [facility] MCH (RBC) [Entitic mass] 30.6 pg 25.2 - 33.5 pg [facility] MCHC (RBC) [Mass/Vol] 34.2 g/dL 28.4 - 34.8 g/dL [facility] MCV (RBC) [Entitic vol] 89.5 fL 82.6 - 102.9 fL [facility] Monocytes/100 WBC (Bld) 1 % Low 3 - 12 % [facility] Monocytes/100 WBC (Bld) 0.09 % Low [facility] Neutrophils/100 WBC (Bld) 90 % High 36 - 65 % [facility] Nucleated RBC/100 WBC (Bld) [Ratio] 0.0 % 0.0 per 100 WBC [facility] Platelet mean volume (Bld) [Entitic vol] 9.5 fL 8.1 - 13.5 fL [facility] Platelets (Bld) [#/Vol] 219 10*3/uL [facility] RBC (Bld) [#/Vol] 4.77 10*6/uL 3.95 - 5.1 1 m/uL [facility] Segmented neutrophils/100 WBC (Bld) 8.55 % High [facility] WBC other (Bld) [#/Vol] 9.5 [facility] CBC with Diffon 04-27-2023 Abs. Basophil <0.03 Normal 0.00-0.20 [facility] Comment on above: Performed By: #### C YEHUDAX, CDP #### [facility] [address] [place] [address] Concrete Hopper Operator: Andres Haddad MD Abs. Eosinophil <0.03 Normal 0.00-0.44 [facility] Comment on above: Performed By: #### C YEHUDAX, CDP #### [facility] [address] [place] [address] Concrete Hopper Operator: Andres Haddad MD Abs.Imm.Granulocyte 0.06 k/uL Normal 0.00-0.30 [facility] Comment on above: Performed By: #### C MPX, CDP #### [facility] [address] [place], [place] [id number] Concrete Hopper Operator: Andres Haddad MD Abs.Neutrophil (Seg) 8.55 k/uL High 1.50-8.10 [facility] Comment on above: Performed By: #### C MPX, CDP #### [facility] [address] [place] [address] [place] [place], [place] [id number] Concrete Hopper Operator: Andres Haddad MD Basophils/100 WBC (Bld) 0 % Normal 0-2 [facility] Comment on above: Performed By: #### C MPX, CDP #### [address] [place], [place] [address]283 Concrete Hopper Operator: Andres Haddad MD Eosinophils/100 WBC (Bld) 0 % Low 1-4 [facility] Comment on above: Performed By: #### C MPX, CDP #### [address] [place], [place] [id number] Concrete Hopper Operator: Andres Haddad MD Erythrocyte distribution width (RBC) [Ratio] 12.1 % Normal 11.8-14.4 [facility] Comment on above: Performed By: #### C MPX, CDP #### [address] [place], [place] [id number] Concrete Hopper Operator: Andres Haddad MD Hematocrit (Bld) [Volume fraction] 42.7 % Normal 36.3-47.1 [facility] Comment on above: Performed By: #### C MPX, CDP #### [address] [place], [place] 8052583 Concrete Hopper Operator: Andres Haddad MD Hemoglobin (Bld) [Mass/Vol] 14.6 g/dL Normal 11.9-15.1 [facility] Comment on above: Performed By: #### C MPX, CDP #### [address] [place], [place] 7268483 Concrete Hopper Operator: Andres Haddad MD Immature granulocytes/100 WBC (Bld) 1 % High 0 [facility] Comment on above: Performed By: #### C MPX, CDP #### [facility] [address] [place], [place] [phone] Concrete Hopper Operator: Andres Haddad MD Lymphocytes (Bld) [#/Vol] 0.80 10*3/uL Low 1.10-3.70 [facility] Comment on above: Performed By: #### C MPX, CDP #### [facility] [address] [place], [place] [id number] Concrete Hopper Operator: Andres Haddad MD Lymphocytes/100 WBC (Bld) 8 % Low 24-43 [facility] Comment on above: Performed By: #### C MPX, CDP #### [address] [place] [address] Concrete Hopper Operator: Andres Haddad MD MCH (RBC) [Entitic mass] 30.6 pg Normal 25.2-33.5 [facility] Comment on above: Performed By: #### C MPX, CDP #### [address] [place], [place] [address]455983 Concrete Hopper Operator: Andres Haddad MD MCHC (RBC) [Mass/Vol] 34.2 g/dL Normal 28.4-34.8 [facility] Comment on above: Performed By: #### C MPX, CDP #### [address] [place], [place] 7282783 Concrete Hopper Operator: Andres Haddad MD MCV (RBC) [Entitic vol] 89.5 fL Normal 82.6-102.9 [facility] Comment on above: Performed By: #### C MPX, CDP #### [address] [place] [address] Concrete Hopper Operator: Andres Haddad MD Monocytes (Bld) [#/Vol] 0.09 10*3/uL Low 0.10-1.20 [facility] Comment on above: Performed By: #### C MPX, CDP #### [facility] [address] [place], [place] [id number] Concrete Hopper Operator: Andres Haddad MD Monocytes/100 WBC (Bld) 1 % Low 3-12 [facility] Comment on above: Performed By: #### C MPX, CDP #### [facility] [address] [place], [facility] Concrete Hopper Operator: Andres Haddad MD Neutrophil (Seg) 90 % High 36-65 [facility] Comment on above: Performed By: #### C MPX, CDP #### [facility] [address] [place] [address] Concrete Hopper Operator: Andres Haddad MD NRBC Automated 0.0 per 100 WBC Normal 0.0 [facility] Comment on above: Performed By: #### C MPX, CDP #### [facility] [address] [place], [facility] Concrete Hopper Operator: Andres Haddad MD Platelet mean volume (Bld) [Entitic vol] 9.5 fL Normal 8.1-13.5 [facility] Comment on above: Performed By: #### C MPX, CDP #### [facility] [address] [place] [address] Dr[address] [place], [place] [address] Concrete Hopper Operator: Andres Haddad MD Platelets (Bld) [#/Vol] 219 10*3/uL Normal 138-453 [facility] Comment on above: Performed By: #### C MPX, CDP #### [facility] [address] [place] [address] Concrete Hopper Operator: Andres Haddad MD RBC (Bld) [#/Vol] 4.77 10*6/uL Normal 3.95-5.11 [facility] Comment on above: Performed By: #### C MPX, CDP #### [facility] [address] [place] [address] Concrete Hopper Operator: Andres Haddad MD WBC (Bld) [#/Vol] 9.5 10*3/uL Normal 3.5-11.3 [facility] Comment on above: Performed By: #### C MPX, CDP #### [facility] [address] [place] [address] Concrete Hopper Operator: Andres Haddad MD CT ABDOMEN PELVIS [...] FINDINGS: Lower Chest: Heart size is normal. [place] dependent atelectasis is noted in the lung [...] Huseyin Joyce MD 04/27/23 Final result Normal [facility] CT ABDOMEN PELVIS W IV CONTR AST [...] to Lung-RADS guidelines. Reference: Radiology. 2017; 284(1):228-43. [facility] RIS CONSOLIDATED EXAMINATION: CT OF THE [...] FINDINGS: Lower Chest: Heart size is normal. [place] dependent atelectasis is noted in the lung [...] FINDINGS: Lower Chest: Heart size is normal. [place] dependent atelectasis is noted in the lung [...] to Lung-RADS guidelines. Reference: Radiology. 2017; 284(1):228-43. [facility] [employer] CT ABDOMEN PELVIS W IV CONTR AST Additional Contrast? NoneOrdered By: Huseyin Joyce on 04-27-2023 [facility] Work Phone: Clostridium Difficile Toxin/ Antigenon 04-27-2023 C. difficile glutamate dehydrogenase and toxins A+B IA.rapid Ql (Stl) Negative NEGATIVE [facility] Comment on above: No C. difficile anti gen and Toxin Detected. Specimen Description .FECES [facility] Comp Metabolic Pr/rfx MGon 0 04-27-2023 Albumin [Mass/Vol] 3.9 g/dL Normal 3.5-5.2 [facility] Comment on above: Performed By: #### C MPX, CDP #### [facility] [address] [place], [place] [id number] Concrete Hopper Operator: Andres Haddad MD Albumin/Glob Ratio 1.3 Normal 1.0-2.5 [facility] Comment on above: Performed By: #### C MPX, CDP #### [facility] [address] [place], [place] [phone] Concrete Hopper Operator: Andres Haddad MD Alkaline Phos 126 U/L High 35-104 [facility] Comment on above: Performed By: #### C MPX, CDP #### [facility] [address] [place], [place] [id number] Concrete Hopper Operator: Andres Haddad MD ALT [Catalytic activity/Vol] 8 U/L Normal 5-33 [facility] Comment on above: Performed By: #### C MPX, CDP #### [facility] [address] [place], [place] [phone] Concrete Hopper Operator: Andres Haddad MD Anion gap [Moles/Vol] 8 mmol/L Low 9-17 [facility] Comment on above: Performed By: #### C MPX, CDP #### [facility] [address] [place] [address] Concrete Hopper Operator: Andres Haddad MD AST [Catalytic activity/Vol] 14 U/L Normal <32 [facility] Comment on above: Performed By: #### C MPX, CDP #### [facility] [address] [place], [place] 5398383 Concrete Hopper Operator: Andres Haddad MD Bilirubin [Mass/Vol] 0.3 mg/dL Normal 0.3-1.2 [facility] Comment on above: Performed By: #### C MPX, CDP #### [facility] [address] [place] [address] Concrete Hopper Operator: Andres Haddad MD BUN/CRE Ratio 20 Normal 9-20 [facility] Comment on above: Performed By: #### C MPX, CDP #### [facility] [address] [place], [place] [id number] Concrete Hopper Operator: Andres Haddad MD Calcium [Mass/Vol] 9.5 mg/dL Normal 8.6-10.4 [facility] Comment on above: Performed By: #### C MPX, CDP #### [facility] [address] [place] [address] Concrete Hopper Operator: Andres Haddad MD Chloride [Moles/Vol] 110 mmol/L High 98-107 [facility] Comment on above: Performed By: #### C MPX, CDP #### [facility] [address] [place] [address] Concrete Hopper Operator: Andres Haddad MD CO2 [Moles/Vol] 22 mmol/L Normal 20-31 [facility] Comment on above: Performed By: #### C MPX, CDP #### [facility] [address] [place] [address] Concrete Hopper Operator: Andres Haddad MD Creatinine [Mass/Vol] 0.46 mg/dL Low 0.50-0.90 [facility] Comment on above: Performed By: #### C MPX, CDP #### [facility] [address] [place] [address] Concrete Hopper Operator: Andres Haddad MD GFR/1.73 sq M.predicted among non-blacks MDRD (S/P/Bld) [Vol rate/Area] mL/min/{1.73_m2} Normal >60 [facility] Comment on above: Result Comment: These results [...] Performed By: #### C MPX, CDP #### [facility] [address] [place], [place] 1269483 Concrete Hopper Operator: Andres Haddad MD Glucose [Mass/Vol] 173 mg/dL High 70-99 [facility] Comment on above: Performed By: #### C MPX, CDP #### [facility] [address] [place] [address] Concrete Hopper Operator: Andres Haddad MD Potassium [Moles/Vol] 4.0 mmol/L Normal 3.7-5.3 [facility] Comment on above: Performed By: #### C MPX, CDP #### [facility] [address] [place], [place] [id number] Concrete Hopper Operator: Andres Haddad MD Protein [Mass/Vol] 6.9 g/dL Normal 6.4-8.3 [facility] Comment on above: Performed By: #### C MPX, CDP #### [facility] [address] [place] [address] [place], [place] [id number] Concrete Hopper Operator: Andres Haddad MD Sodium [Moles/Vol] 140 mmol/L Normal 135-144 [facility] Comment on above: Performed By: #### C MPX, CDP #### [facility] [address] [place], [place] 9078383 Concrete Hopper Operator: Andres Haddad MD Urea nitrogen [Mass/Vol] 9 mg/dL Normal 6-20 [facility] Comment on above: Performed By: #### C MPX, CDP #### [facility] [address] [place] [address] Concrete Hopper Operator: Andres Haddad MD Comp Metabolic Profon 2022 Albumin [Mass/Vol] 4.1 g/dL Normal 3.5-5.2 [facility] Comment on above: Performed By: #### C P, CDP #### [facility] [address] [place], [place] 6492483 Concrete Hopper Operator: Andres Haddad MD Albumin/Glob Ratio 1.4 Normal 1.0-2.5 [facility] Comment on above: Performed By: #### C P, CDP #### [facility] [address] [place], [place] [phone] Concrete Hopper Operator: Andres Haddad MD Alkaline Phos 134 U/L High 35-104 [facility] Comment on above: Performed By: #### C P, CDP #### [facility] [address] [place], [place] 8154383 Concrete Hopper Operator: Andres Haddad MD ALT [Catalytic activity/Vol] 8 U/L Normal 5-33 [facility] Comment on above: Performed By: #### C P, CDP #### [facility] [address] [place] [address] [place], [place] [phone] Concrete Hopper Operator: Andres Haddad MD Anion gap [Moles/Vol] 11 mmol/L Normal 9-17 [facility] Comment on above: Performed By: #### C P, CDP #### [address] [place], [place] 3603483 Concrete Hopper Operator: Andres Haddad MD AST [Catalytic activity/Vol] 17 U/L Normal <32 [facility] Comment on above: Performed By: #### C P, CDP #### [facility] [address] [place], [place] [address]174183 Concrete Hopper Operator: Andres Haddad MD Bilirubin [Mass/Vol] 0.4 mg/dL Normal 0.3-1.2 [facility] Comment on above: Performed By: #### C P, CDP #### [facility] [address] [place] [address] Concrete Hopper Operator: Andres Haddad MD BUN/CRE Ratio 21 High 9-20 [facility] Comment on above: Performed By: #### C P, CDP #### [facility] [address] [place] [address] Concrete Hopper Operator: Andres Haddad MD Calcium [Mass/Vol] 9.6 mg/dL Normal 8.6-10.4 [facility] Comment on above: Performed By: #### C P, CDP #### [facility] [address] [place] [address] Concrete Hopper Operator: Andres Haddad MD Chloride [Moles/Vol] 105 mmol/L Normal 98-107 [facility] Comment on above: Performed By: #### C P, CDP #### [facility] [address] [place] [address] Concrete Hopper Operator: Andres Haddad MD CO2 [Moles/Vol] 24 mmol/L Normal 20-31 [facility] Comment on above: Performed By: #### C P, CDP #### [facility] [address] [place] [address] Concrete Hopper Operator: Andres Haddad MD Creatinine [Mass/Vol] 0.56 mg/dL Normal 0.50-0.90 [facility] Comment on above: Performed By: #### C P, CDP #### [facility] [address] [place] [address] Concrete Hopper Operator: Andres Haddad MD GFR/1.73 sq M.predicted among non-blacks MDRD (S/P/Bld) [Vol rate/Area] mL/min/{1.73_m2} Normal >60 [facility] Comment on above: Result Comment: These results [...] Performed By: #### C P, CDP #### [facility] [address] [place] [address] Concrete Hopper Operator: Andres Haddad MD Glucose [Mass/Vol] 138 mg/dL High 70-99 [facility] Comment on above: Performed By: #### C P, CDP #### [facility] [address] [place], [place] 1934283 Concrete Hopper Operator: Andres Haddad MD Potassium [Moles/Vol] 3.9 mmol/L Normal 3.7-5.3 [facility] Comment on above: Performed By: #### C P, CDP #### [facility] [address] [place], [place] [id number] Concrete Hopper Operator: Andres Haddad MD Protein [Mass/Vol] 7.0 g/dL Normal 6.4-8.3 [facility] Comment on above: Performed By: #### C P, CDP #### [facility] [address] [place], [place] [id number] Concrete Hopper Operator: Andres Haddad MD Sodium [Moles/Vol] 140 mmol/L Normal 135-144 [facility] Comment on above: Performed By: #### C P, CDP #### [facility] [address] [place], [place] [phone] Concrete Hopper Operator: Andres Haddad MD Urea nitrogen [Mass/Vol] 12 mg/dL Normal 6-20 [facility] Comment on above: Performed By: #### C P, CDP #### [facility] [address] [place] [address] Concrete Hopper Operator: Andres Haddad MD Comprehensive Metabolic Pane l w/ Reflex to MGon 04-27-2023 Albumin [Mass/Vol] 3.9 g/dL 3.5 - 5.2 g/dL [facility] Albumin/Globulin [Mass ratio] 1.3 {ratio} 1.0 - 2.5 [facility] ALP [Catalytic activity/Vol] 126 U/L High 35 - 104 U/L [facility] ALT [Catalytic activity/Vol] 8 U/L 5 - 33 U/L [facility] Anion gap [Moles/Vol] 8 mmol/L Low 9 - 17 mmol/L [facility] AST [Catalytic activity/Vol] 14 U/L NINF - 32 U/L [facility] Bilirubin [Mass/Vol] 0.3 mg/dL 0.3 - 1 .2 mg/dL [facility] Calcium [Mass/Vol] 9.5 mg/dL 8.6 - 10. 4 mg/dL [facility] Chloride [Moles/Vol] 110 mmol/L High 98 - 10 7 mmol/L [facility] CO2 [Moles/Vol] 22 mmol/L 20 - 31 mmol/L [facility] Creatinine [Mass/Vol] 0.46 mg/dL Low 0.50 - 0.90 mg/dL [facility] GFR/1.73 sq M.predicted MDRD (S/P/Bld) [Vol rate/Area] - PINF [facility] Comment on above: These results are [...] 173 mg/dL High 70 - 99 mg/dL [facility] Interpretation and review of laboratory results Abnormal [facility] Potassium [Moles/Vol] 4.0 mmol/L 3.7 - 5.3 mmol/L [facility] Protein [Mass/Vol] 6.9 g/dL 6.4 - 8.3 g/dL [facility] Sodium [Moles/Vol] 140 mmol/L 135 - 144 mmol/L [facility] Urea nitrogen [Mass/Vol] 9 mg/dL 6 - 20 mg/dL [facility] Urea nitrogen/Creatinine [Mass ratio] 20 mg/mg 9 - 20 [facility] EKG 12 leadon 04-27-2023 Atrial Rate 76 BPM [facility] P [place] 64 degrees [facility] P-R Interval 144 ms [facility] Q-T Interval 408 ms [facility] QRS Duration 84 ms [facility] QTc Calculation (Bazett) 459 ms [facility] R [place] 62 degrees [facility] T [place] 62 degrees [facility] Ventricular Rate 76 BPM [facility] Normal sinus rhythm Normal ECG No previous ECGs available Confirmed by EVANS HSU ([id number]) on 04/27/2023 8:52:52 AM [facility] RADIOLOGY Evans Hsu MD - 04/27/2023 Normal sinus rhythm Normal ECG No previous ECGs available Confirmed by EVANS HSU ([id number]) on 04/27/2023 8:52:52 AM [facility] Lactic Acidon 04-27-2023 Lactate [Moles/Vol] 1.5 mmol/L Normal 0.5-2.2 [facility] Comment on above: Performed By: #### L ACTIC #### [facility] [address] [place] [address] Concrete Hopper Operator: Andres Haddad MD UA w/Reflex Cultureon 2022 Bilirubin, SemiQt,Ur Negative Normal NEG [facility] Comment on above: Performed By: #### U MICAO, UAX #### [facility] [address] [place] [address] Concrete Hopper Operator: Andres Haddad MD Blood, Urine 1+ Abnormal NEG [facility] Comment on above: Performed By: #### U MICAO, UAX #### [facility] [address] [place] [address] Concrete Hopper Operator: Andres Haddad MD Clarity (U) Clear Normal CLEAR [facility] Comment on above: Performed By: #### U MICAO, UAX #### [facility] [address] [place], [place] [id number] [employer] Hopper Operator: Andres Haddad MD Color (U) Yellow Normal YEL [facility] Comment on above: Performed By: #### U MICAO, UAX #### [facility] [address] [place], [place] [id number] Con[employer] Hopper Operator: Andres Haddad MD Glucose Ql (U) Negative Normal NEG [facility] in Hospital Comment on above: Performed By: #### U MICAO, UAX #### [facility] [address] [place], [place] [address] Concrete Hopper Operator: Andres Haddad MD Ketones Ql (U) Negative Normal NEG [facility] Comment on above: Performed By: #### U MICAO, UAX #### [facility] [address] [place] [address] [place] [place], [place] [id number] Con[employer] Ho[employer] Operator: Andres Haddad MD Leukocyte esterase Test strip Ql (U) Negative Normal NEG [facility] Comment on above: Performed By: #### U MICAO, UAX #### [facility] [address] [place] [address] [place] [place], [place] [id number] Con[employer] Hopper Operator: Andres Haddad MD Nitrite,Ur Negative Normal NEG [facility] Comment on above: Performed By: #### U MICAO, UAX #### [facility] [address] [place], [place] [id number] Concrete Hopper Operator: Andres Haddad MD PH,Ur 6.0 Normal 5.0-9.0 [facility] Comment on above: Performed By: #### U MICAO, UAX #### [facility] [address] [place], [place] [phone] Con[employer] Hopper Operator: Andres Haddad MD Protein Ql (U) Negative Normal NEG [facility] Comment on above: Performed By: #### U MICAO, UAX #### [facility] [address] [place] [address] Concrete Hopper Operator: Andres Haddad MD Spec. [place],Ur 1.020 Normal 1.010-1.020 [facility] Comment on above: Performed By: #### U MICAO, UAX #### [facility] [address] [place], [place] [address] Con[employer] Hopper Operator: Andres Haddad MD Urobilinogen,Ur Normal Normal NORM [facility] Comment on above: Performed By: #### U MICAO, UAX #### [address] [place], [place] [address]83 Concrete Hopper Operator: Andres Haddad MD Urinalysis,Microon 3 Bacteria TRACE Abnormal NONE [facility] Comment on above: Performed By: #### U MICAO, UAX #### [address] [place], [place] [id number] Concrete Hopper Operator: Andres Haddad MD Epithelial cells LM Ql (Urine sed) 2 TO 5 Normal 0-25 [facility] Comment on above: Performed By: #### U MICAO, UAX #### [facility] [address] [place] [address] [place] [address] Concrete Hopper Operator: Andres Haddad MD Urine RBC's 2 TO 5 Normal 0-2 [facility] Comment on above: Performed By: #### U MICAO, UAX #### [facility] [address] [place], [place] [phone] Con[employer] Hopper Operator: Andres Haddad MD Urine WBC's 0 TO 2 Normal 0-5 [facility] Comment on above: Performed By: #### U MICAO, UAX #### [facility] [address] [place] [address] Concrete Hopper Operator: Andres Haddad MD CBC with Auto [...] WBC (Bld) 1 % High 0 [facility] Interpretation and review of laboratory results Abnormal [facility] Lymphocytes/100 WBC (Bld) 23 % Low 24 - 43 % [facility] Lymphocytes/100 WBC (Bld) 3.15 % [facility] MCH (RBC) [Entitic mass] 30.8 pg 25.2 - 33.5 pg [facility] MCHC (RBC) [Mass/Vol] 34.5 g/dL 28.4 - 34.8 g/dL [facility] MCV (RBC) [Entitic vol] 89.1 [...] % 0.0 per 100 WBC [facility] Platelet mean volume (Bld) [Entitic vol] 9.4 fL 8.1 - 13.5 fL [facility] Platelets (Bld) [#/Vol] 245 10*3/uL [facility] RBC (Bld) [#/Vol] 4.94 10*6/uL 3.95 - 5.1 1 m/uL [facility] Segmented neutrophils/100 WBC (Bld) 9.24 % High [facility] WBC other (Bld) [#/Vol] 13.8 High [facility] CBC with Diffon 04-26-2023 Abs. Basophil 0.03 k/uL Normal 0.00-0.20 [facility] Comment on above: Performed By: #### C P, CDP #### [facility] [address] [place] [address] [place] [address] Concrete Hopper Operator: Andres Haddad MD Abs.Imm.Granulocyte 0.07 k/uL Normal 0.00-0.30 [facility] Comment on above: Performed By: #### C P, CDP #### [facility] [address] [place] [address] [place], [place] 9[address]83 Concrete Hopper Operator: Andres Haddad MD Abs.Neutrophil (Seg) 9.24 k/uL High 1.50-8.10 [facility] Comment on above: Performed By: #### C P, CDP #### [address] [place], [place] [phone] Concrete Hopper Operator: Andres Haddad MD Basophils/100 WBC (Bld) 0 % Normal 0-2 [facility] Comment on above: Performed By: #### C P, CDP #### [facility] [address] [place] [address] [place] [address] Concrete Hopper Operator: Andres Haddad MD Eosinophils (Bld) [#/Vol] 0.10 10*3/uL Normal 0.00-0.44 [facility] Comment on above: Performed By: #### C P, CDP #### [facility] [address] [place] [address] [place] [address] Concrete Hopper Operator: Andres Haddad MD Eosinophils/100 WBC (Bld) 1 % Normal 1-4 [facility] Comment on above: Performed By: #### C P, CDP #### [facility] [address] [place], [place] [address] Concrete Hopper Operator: Andres Haddad MD Erythrocyte distribution width (RBC) [Ratio] 12.1 % Normal 11.8-14.4 [facility] Comment on above: Performed By: #### C P, CDP #### [facility] [address] [place] [address] [place] [address] Concrete Hopper Operator: Andres Haddad MD Hematocrit (Bld) [Volume fraction] 44.0 % Normal 36.3-47.1 [facility] Comment on above: Performed By: #### C P, CDP #### [address] [place], [place] [address] Concrete Hopper Operator: Andres Haddad MD Hemoglobin (Bld) [Mass/Vol] 15.2 g/dL High 11.9-15.1 [facility] Comment on above: Performed By: #### C P, CDP #### [address] [place] [address] Concrete Hopper Operator: Andres Haddad MD Immature granulocytes/100 WBC (Bld) 1 % High 0 [facility] Comment on above: Performed By: #### C P, CDP #### [facility] [address] [place] [address] Dr. [place], [facility] Concrete Hopper Operator: Andres Haddad MD Lymphocytes (Bld) [#/Vol] 3.15 10*3/uL Normal 1.10-3.70 [facility] Comment on above: Performed By: #### C P, CDP #### [address] [place], [place] [phone] Concrete Hopper Operator: Andres Haddad MD Lymphocytes/100 WBC (Bld) 23 % Low 24-43 [facility] Comment on above: Performed By: #### C P, CDP #### [facility] [address] [place] [address] Concrete Hopper Operator: Andres Haddad MD MCH (RBC) [Entitic mass] 30.8 pg Normal 25.2-33.5 [facility] Comment on above: Performed By: #### C P, CDP #### [facility] [address] [place], [place] [address]83 Concrete Hopper Operator: Andres Haddad MD MCHC (RBC) [Mass/Vol] 34.5 g/dL Normal 28.4-34.8 [facility] Comment on above: Performed By: #### C P, CDP #### [facility] [address] [place] [address] Concrete Hopper Operator: Andres Haddad MD MCV (RBC) [Entitic vol] 89.1 fL Normal 82.6-102.9 [facility] Comment on above: Performed By: #### C P, CDP #### [facility] [address] [place], [place] [phone] Concrete Hopper Operator: Andres Haddad MD Monocytes (Bld) [#/Vol] 1.17 10*3/uL Normal 0.10-1.20 [facility] Comment on above: Performed By: #### C P, CDP #### [facility] [address] [place], [place] [phone] Concrete Hopper Operator: Andres Haddad MD Monocytes/100 WBC (Bld) 9 % Normal 3-12 [facility] Comment on above: Performed By: #### C P, CDP #### [facility] [address] [place] [address] Concrete Hopper Operator: Andres Haddad MD Neutrophil (Seg) 66 % High 36-65 [facility] Comment on above: Performed By: #### C P, CDP #### [facility] [address] [place], [place] [address]47383 Concrete Hopper Operator: Andres Haddad MD NRBC Automated 0.0 per 100 WBC Normal 0.0 [facility] Comment on above: Performed By: #### C P, CDP #### [facility] [address] [place], [place] 4327[address] Concrete Hopper Operator: Andres Haddad MD Platelet mean volume (Bld) [Entitic vol] 9.4 fL Normal 8.1-13.5 [facility] Comment on above: Performed By: #### C P, CDP #### [facility] [address] [place], [place] [address]83 Concrete Hopper Operator: Andres Haddad MD Platelets (Bld) [#/Vol] 245 10*3/uL Normal 138-453 [facility] Comment on above: Performed By: #### C P, CDP #### [facility] [address] [place], [place] 7469783 Con[employer] Hopper Operator: Andres Haddad MD RBC (Bld) [#/Vol] 4.94 10*6/uL Normal 3.95-5.11 [facility] Comment on above: Performed By: #### C P, CDP #### [address] [place], [place] 890[address]83 Concrete Hopper Operator: Andres Haddad MD WBC (Bld) [#/Vol] 13.8 10*3/uL High 3.5-11.3 [facility] Comment on above: Performed By: #### C P, CDP #### [facility] [address] [place] [address] Concrete Hopper Operator: Andres Haddad MD CMPon 04-26-2023 Albumin [Mass/Vol] 4.1 g/dL 3.5 - 5.2 g/dL [facility] Albumin/Globulin [Mass ratio] 1.4 {ratio} 1.0 - 2.5 [facility] ALP [Catalytic activity/Vol] 134 U/L High 35 - 104 U/L [facility] ALT [Catalytic activity/Vol] 8 U/L 5 - 33 U/L [facility] Anion gap [Moles/Vol] 11 mmol/L 9 - 17 mmol/L [facility] AST [Catalytic activity/Vol] 17 U/L NINF - 32 U/L [facility] Bilirubin [Mass/Vol] 0.4 mg/dL 0.3 - 1 .2 mg/dL [facility] Calcium [Mass/Vol] 9.6 mg/dL 8.6 - 10. 4 mg/dL [facility] Chloride [Moles/Vol] 105 mmol/L 98 - 10 7 mmol/L [facility] CO2 [Moles/Vol] 24 mmol/L 20 - 31 mmol/L [facility] Creatinine [Mass/Vol] 0.56 mg/dL 0.50 - 0.90 mg/dL [facility] GFR/1.73 sq M.predicted MDRD (S/P/Bld) [Vol rate/Area] - PINF [facility] Comment on above: These results are [...] 138 mg/dL High 70 - 99 mg/dL [facility] Interpretation and review of laboratory results Abnormal [facility] Potassium [Moles/Vol] 3.9 mmol/L 3.7 - 5.3 mmol/L [facility] Protein [Mass/Vol] 7.0 g/dL 6.4 - 8.3 g/dL [facility] Sodium [Moles/Vol] 140 mmol/L 135 - 144 mmol/L [facility] Urea nitrogen [Mass/Vol] 12 mg/dL 6 - 20 mg/dL [facility] Urea nitrogen/Creatinine [Mass ratio] 21 mg/mg High 9 - [address] [facility] [address] ABDOMEN PELVIS W IV CONTR AST Additional Contrast? Noneon 04-26-2023 Radiology Study observation (narrative) [facility] Lactic Acidon 04-26-2023 Lactate (BldV) [Moles/Vol] 1.5 mmol/L 0.5 - 2.2 mmol/L [facility] Microscopic Urinalysison Bacteria LM Ql (Urine sed) TRACE Abnormal None [facility] Epithelial cells LM.HPF (Urine sed) [#/Area] 2 TO 5 [facility] Interpretation and review of laboratory results Abnormal [facility] RBC LM.HPF (Urine sed) [#/Area] 2 TO 5 [facility] WBC LM.HPF (Urine sed) [#/Area] 0 TO 2 [facility] Stool PCR [place] 04-26-20 Specimen Description .FECES Normal [facility] Comment on above: Performed By: #### S TLPCR #### [facility] [address] [place], [place] 24[address] Concrete Hopper Operator: Charan Dye MD [facility] [address] [place] [address] Concrete Hopper Operator: Andres Haddad MD Urinalysis with Reflex to Cu ltureon 04-26-2023 Bilirubin Ql (U) Negative NEGATIVE [facility] Clarity (U) Clear Clear [facility] Color (U) Yellow Yellow [facility] Glucose Test strip (U) [Mass/Vol] Negative NEGATIVE [facility] Hemoglobin Auto test strip Ql (U) 1+ Abnormal NEGATIVE [facility] Interpretation and review of laboratory results Abnormal [facility] Ketones (U) [Mass/Vol] Negative NEGATIVE [facility] Leukocyte esterase Test strip Ql (U) Negative NEGATIVE [facility] Nitrite Ql (U) Negative NEGATIVE [facility] pH (U) 6.0 [pH] 5.0 - 9.0 [facility] Protein (U) [Mass/Vol] Negative NEGATIVE [facility] Specific gravity (U) [Rel density] 1.020 1.010 - 1.020 [facility] Urobilinogen Qn (U) Normal Normal [facility] Rei 10-25-2022 L - -------- Specimen: [id number] Received: 10/25/22 Status: ROSA Lanier Num: [id number] Spec Type: Surgical Subm Dr: Juan M Masters MD Tissues: A Colon Biopsy (TERMINALILEUM BX) B Colon Biopsy (RANDOM COLON BX) C Colon Biopsy (SIGMOID COLON POLYP) Procedures: YULIYA/Amarilys Robledo/Micro L4/3 -------- Age/ Patient Sex Location Account Attending Physician -------- Baylee Babb 51/F [id number] Juan M Masters MD -------- SPEC NUM: [id number] RECD: 10/25/22 STATUS: ROSA LANIER NUM: [id number] SHANE: 10/25/22 [facility] DR: Juan M Masters MD ENTERED: 10/25/22 [facility] DR: SPEC TYPE: Surgical DEPT: S [...] Specimen: Received: 10/25/22 Status: ROSA Lanier Num: [id number] Spec Type: Surgical Subm Dr: Juan M Masters MD Tissues: A Colon Biopsy (TERMINALILEUM BX) B Colon Biopsy (RANDOM COLON BX) C Colon Biopsy (SIGMOID COLON POLYP) Procedures: HE/6, Gross/Micro L4/3 -------- Patient: Baylee Babb [id number] (Continued) -------- Specimen: [id number] Received: 10/25/22 (Continued) Gross Description (Continued) Signed (signature on file) Rosa Knight MD 10/26/22 1129 -------- Specimen: [id number] Received: 10/25/22 Status: ROSA Lanier Num: [id number] Spec Type: Surgical Subm Dr: Juan M Masters MD Tissues: A Colon Biopsy (TERMINALILEUM BX) B Colon Biopsy (RANDOM COLON BX) C Colon Biopsy (SIGMOID COLON POLYP) Procedures: HE/6, Gross/Micro L4/3 -------- Patient: Baylee Babb [id number] (Continued) -------- Specimen: [id number] Received: 10/25/22 (Continued) [...] support the above pathologic diagnosis. CPT Codes 55870?3 -------- -------- Specimen: Received: 10/25/22 Status: ROSA Lanier Num: [id number] Spec Type: Surgical Subm Dr: Juan M Masters MD Tissues: A Colon Biopsy (TERMINALILEUM BX) B Colon Biopsy (RANDOM COLON BX) C Colon Biopsy (SIGMOID COLON POLYP) Procedures: HE/6, Gross/Micro L4/3 -------- Patient: Baylee Babb Ryanne [id number] (Continued) -------- Signed (signature on file)_ (more content not included)... Normal [facility] Sigmoidoscopy or colonoscopy [PhenX]on 10-25-2022 [employer] Other LIPID PROFILEon 08-03-2021 CHOL-HDL RATIO NORM SEE BELOW Normal [facility] Comment on above: Result Comment: 3.3 - 4.4 LOW RISK 4.4 - 7.1 AVERAGE RISK 7.1 - 11.0 MODERATE RISK >11.0 HIGH RISK Performed By: #### C YEHUDA, SANG, BNP #### [facility] [address] [place], [place] [address] Mariela Patti Cholesterol [Mass/Vol] 85 mg/dL Normal <=200 [facility] Comment on above: Performed By: #### C YEHUDA, SANG, BNP #### [facility] [address] [place], [place] [address] Mariela Patti Cholesterol in HDL [Mass/Vol] 35 mg/dL Normal [facility] Comment on above: Performed By: #### C YEHUDA, SANG, BNP #### [facility] [address] [place] [address] Mariela Patti Cholesterol in LDL [Mass/Vol] 18.6 mg/dL Normal [facility] Comment on above: Performed By: #### C SANG BLACKMAN, BNP #### [facility] [address] [place] [address] Mariela Patti Cholesterol.total/Ch olesterol in HDL [Mass ratio] 2.4 {ratio} Normal [facility] Comment on above: Performed By: #### C YEHUDA CMADM, BNP #### [facility] [address] [place] [address] Mariela Patti HDL NORMAL > or = 60 mg/dl - LO W CARDIOVASCULAR RISK <40 mg/dl - HIGH CARDIOVASCULAR RISK Normal [facility] Comment on above: Performed By: #### C SANG BLACKMAN, BNP #### [facility] [address] [place] [address] Mariela Patti LDL CALC NORMAL SEE BELOW Normal [facility] Comment on above: Result Comment: <100 mg/dl OPTIMAL 100 - 129 mg/dl NEAR OR ABOVE OPTIMAL 130 - 159 mg/dl BORDERLINE HIGH 160 - 189 mg/dl HIGH >190 mg/dl VERY HIGH Performed By: #### C SANG BLACKMAN, BNP #### [facility] [address] [place] [address] Mariela Patti Triglyceride [Mass/Vol] 157 mg/dL Critically high <=150 [facility] Comment on above: Performed By: #### C YEHUDA CMADM, BNP #### [facility] [address] [place] [phone] Mariela Patti VLDL CALC 31.4 mg/dL Normal [facility] Comment on above: Performed By: #### C YEHUDA CMADM, BNP #### [facility] [address] [place] [address] Mariela Patti MICROALB CREAT RATIO RANDOMo n 08-03-2021 mALB 0.6 mg/L Normal <=30.0 [facility] Comment on above: Performed By: #### C BC #### [facility] [address] [place] [address] Mariela Patti MALB CR RATIO 7.3 mg/g Normal 0.0-29.9 [facility] Comment on above: Performed By: #### C BC #### [facility] [address] [place] [address] Mariela Patti MALB CR RATIO RANGE SEE BELOW Normal [facility] Comment on above: Result Comment: NO M ICROALBUMINURIA 0-29 MG/G CLINICAL MICROALBUMINURIA 30-300 MG/G MACROALBUMINURIA >300 MG/G Performed By: #### C BC #### [facility] [address] [place] [address] Mariela Patti URINE CREAT 82.36 mg/dL Normal 20.00-300.00 [facility] Comment on above: Performed By: #### C BC #### [facility] [address] [place] [address] Mariela Armstorng PROF 14(COMP METB)on 021 Albumin [Mass/Vol] 3.7 g/dL Normal 3.5-5.0 [facility] Comment on above: Performed By: #### C MP, CMADM, BNP #### [facility] [address] [place] [address] Mariela Patti Albumin/Globulin [Mass ratio] 1.1 {ratio} Normal [facility] Comment on above: Performed By: #### C MP, CMADM, BNP #### [facility] [address] [place] [address] Mariela Patti ALP [Catalytic activity/Vol] 130 U/L Critically high 38-126 [facility] Comment on above: Performed By: #### C MP, CMADM, BNP #### [facility] [address] [place] [address] Mariela Patti ALT [Catalytic activity/Vol] 15 U/L Normal 9-52 [facility] Comment on above: Performed By: #### C MP, CMADM, BNP #### [facility] [address] [place], [place] [address] Mariela Patti Anion gap [Moles/Vol] 14.5 mmol/L Normal [facility] Comment on above: Performed By: #### C MP, CMADM, BNP #### [facility] [address] [place] [address] Mariela Patti AST [Catalytic activity/Vol] 19 U/L Normal 14-36 [facility] Comment on above: Performed By: #### C MP, CMADM, BNP #### [facility] [address] [place] [address] Mariela Patti Bilirubin [Mass/Vol] 0.3 mg/dL Normal 0.2-1.3 [facility] Comment on above: Performed By: #### C MP, CMADM, BNP #### [facility] [address] [place] [address] Mariela Patti Calcium [Mass/Vol] 9.2 mg/dL Normal 8.4-10.2 [facility] Comment on above: Performed By: #### C MP, CMADM, BNP #### [facility] [address] [place] [address] Mariela Patti Chloride [Moles/Vol] 106 mmol/L Normal 98-107 [facility] Comment on above: Performed By: #### C MP, CMADM, BNP #### [facility] [address] [place] [address] Mariela Patti CO2 [Moles/Vol] 24.9 mmol/L Normal 22.0-30.0 [facility] Comment on above: Performed By: #### C MP, CMADM, BNP #### [facility] [address] [place], [place] [id number] Mariela Patti Creatinine [Mass/Vol] 0.74 mg/dL Normal 0.52-1.04 [facility] Comment on above: Performed By: #### C MP, CMADM, BNP #### [facility] [address] [place], [place] [id number] Mariela Patti EGFR-AF CUBAN >60 Normal >=60 [facility] Comment on above: Performed By: #### C MP, CMADM, BNP #### [facility] [address] [id number] Mariela Patti EGFR-NON AF CUBAN >60 Normal >=60 [facility] Comment on above: Performed By: #### C MP, CMADM, BNP #### [facility] [address] [id number] Mariela Patti Globulin (S) [Mass/Vol] 3.3 g/dL Normal [facility] Comment on above: Performed By: #### C MP, CMADM, BNP #### [facility] [address] [address] Mariela Patti Glucose [Mass/Vol] 116 mg/dL Critically high 74-106 T [facility] Comment on above: Performed By: #### C MP, CMADM, BNP #### [facility] [address] [place] [address] Mariela Patti Potassium [Moles/Vol] 4.4 mmol/L Normal 3.4-5.0 [facility] Comment on above: Performed By: #### C MP, CMADM, BNP #### [facility] [address] [place] [address] Mariela Patti Protein [Mass/Vol] 7.0 g/dL Normal 6.1-8.2 [facility] Comment on above: Performed By: #### C MP, CMADM, BNP #### [facility] [address] [place] [address] Mariela Patti Sodium [Moles/Vol] 141 mmol/L Normal 137-145 [facility] Comment on above: Performed By: #### C MP, CMADM, BNP #### [facility] [address] [place] [address] Mariela Patti Urea nitrogen [Mass/Vol] 14.0 mg/dL Normal 7.0-17.0 [facility] Comment on above: Performed By: #### C MP, CMADM, BNP #### [facility] [address] [place] [address] Mariela Patti Urea nitrogen/Creatinine [Mass ratio] 18.9 mg/mg Normal [facility] Comment on above: Performed By: #### C MP, CMADM, BNP #### [facility] [address] [place] [address] Mariela Patti BNPon 04-30-2021 Natriuretic peptide B (Bld) [Mass/Vol] 59.0 pg/mL Normal <=450.0 [facility] Comment on above: Performed By: #### C MP, CMADM, BNP #### [facility] [address] [place] [address] Mariela Armstrong CARDIAC BEHZAD ADMITon 021 CK [Catalytic activity/Vol] 58 U/L Normal 30-135 [facility] Comment on above: Performed By: #### C MP, CMADM, BNP #### [facility] [address] [place] [address] Mariela Armstrong CK.MB [Mass/Vol] 0.96 ng/mL Normal <=2.37 [facility] Comment on above: Performed By: #### C MP, CMADM, BNP #### [facility] [address] [place] [address] Mariela Armstrong HSTROP <4.0 Normal 4.0-35.5 [facility] Comment on above: Result Comment: CUT- OFF POINTS HAVE BEEN ESTABLISHED BASED ON THE FOURTH UNIVERSAL DEFINITIONS OF MYOCARDIAL INFARCTION. THE UPPER REFERENCE LIMIT (URL) OF TROPONIN, DEFINED THE 99TH PERCENTILE OF cTnI DISTRIBUTION IN A REFERENCE POPULATION, HAS BEEN CONFIRMED THE DECISION THRESHOLD FOR KS DIAGNOSIS. Performed By: #### C MP, CMADM, BNP #### [facility] [address] [place] [address] Mariela Armstrong MURRAY 38.0 ng/mL Normal <=61.5 [facility] Comment on above: Performed By: #### C MP, CMADM, BNP #### [facility] [address] [place] [address] Mariela Armstrong CBC AUTO DIFFon 04-30-2021 BASO # 0.0 103/ul Normal 0.0-0.1 [facility] Comment on above: Performed By: #### C BC #### [facility] [address] [place] [address] Mariela Armstrong Basophils/100 WBC (Bld) 0.3 % Normal 0.2-2.0 [facility] Comment on above: Performed By: #### C BC #### [facility] [address] [place], [place] [id number] Mariela Patti EO # 0.0 103/ul Normal 0.0-0.7 [facility] Comment on above: Performed By: #### C BC #### [facility] [address] [place], [place] [id number] Mariela Patti Eosinophils/100 WBC (Bld) 0.2 % Critically low 0.9-7.0 [facility] Comment on above: Performed By: #### C BC #### [facility] [address] [place] [address] Mariela Patti Erythrocyte distribution width (RBC) [Ratio] 12.0 % Normal 11.0-15.0 [facility] Comment on above: Performed By: #### C BC #### [facility] [address] [place] [address] Mariela Patti Hematocrit (Bld) [Volume fraction] 47.2 % Normal 36.0-48.0 [facility] Comment on above: Performed By: #### C BC #### [facility] [address] [place] [address] Mariela Patti Hemoglobin (Bld) [Mass/Vol] 16.1 g/dL Critically high 12.0-16.0 [facility] Comment on above: Performed By: #### C BC #### [facility] [address] [place] [address] Mariela Patti IG # 0.05 10e3/ul Critically high 0.00-0.03 [facility] Comment on above: Performed By: #### C BC #### [facility] [address] [place] [address] Mariela Patti IG % 0.4 % Normal 0.0-0.5 [facility] Comment on above: Performed By: #### C BC #### [facility] [address] [place] [address] Mariela Patti LYMPH # 4.6 103/ul Critically high 1.2-3.8 [facility] Comment on above: Performed By: #### C BC #### [facility] [address] [id number] Mariela Patti Lymphocytes/100 WBC (Bld) 33.9 % Normal 20.5-60.0 [facility] Comment on above: Performed By: #### C BC #### [facility] [address] [place], [place] [id number] Mariela Patti MANUAL DIFF REQ NO Normal [facility] Comment on above: Performed By: #### C BC #### [facility] [address] [place], [place] [id number] Mariela Patti MCH (RBC) [Entitic mass] 30.8 pg Normal 26.7-34.0 [facility] Comment on above: Performed By: #### C BC #### [facility] [address] [place] [address] Marielacheli Armstrong MCHC (RBC) [Mass/Vol] 34.1 g/dL Normal 29.9-35.2 [facility] Comment on above: Performed By: #### C BC #### [facility] [address] [place], [place] [id number] Mariela Patti MCV (RBC) [Entitic vol] 90.4 fL Normal 81.0-99.0 [facility] Comment on above: Performed By: #### C BC #### [facility] [address] [place] [address] Mariela Patti MONO # 1.0 103/ul Critically high 0.3-0.8 [facility] Comment on above: Performed By: #### C BC #### [facility] [address] [place] [address] Mariela Patti Monocytes/100 WBC (Bld) 7.2 % Normal 1.7-12.0 [facility] Comment on above: Performed By: #### C BC #### [facility] [address] [place], [place] [address] Mariela Patti NEUT # 7.9 103/ul Critically high 1.4-6.5 [facility] Comment on above: Performed By: #### C BC #### [facility] [address] [place] [address] Mariela Armstrong Neutrophils/100 WBC (Bld) 58.0 % Normal 43.0-75.0 [facility] Comment on above: Performed By: #### C BC #### [facility] [address] [place], [place] [id number] Mariela Armstrong Platelet mean volume (Bld) [Entitic vol] 9.5 fL Normal 9.5-13.5 [facility] Comment on above: Performed By: #### C BC #### [facility] [address] [place] [address] Mariela Armstrong PLT 239 103/ul Normal 150-450 [facility] Comment on above: Performed By: #### C BC #### [facility] [address] [place] [address] Mariela Armstrong RBC 5.22 106/ul Normal 4.20-5.40 [facility] Comment on above: Performed By: #### C BC #### [facility] [address] [place], [place] [id number] Mariela Armstrong WBC 13.5 103/ul Critically high 4.0-11.0 [facility] Comment on above: Performed By: #### C BC #### [facility] [address] [place], [place] [id number] Mariela Armstrong CT HEAD WO CONon 04-30-2021 [...] YA STAFFORD Date: 2021-04-29 23:38 Normal [facility] PROF 14(COMP METB)on 021 Albumin [Mass/Vol] 4.2 g/dL Normal 3.5-5.0 [facility] Comment on above: Performed By: #### C MP, CMADM, BNP #### [facility] [address] [id number] Mariela Patti Albumin/Globulin [Mass ratio] 1.2 {ratio} Normal [facility] Comment on above: Performed By: #### C MP, CMADM, BNP #### [facility] [address] [id number] Mariela Patti ALP [Catalytic activity/Vol] 149 U/L Critically high 38-126 [facility] Comment on above: Performed By: #### C MP, CMADM, BNP #### [facility] [address] [address] Mariela Patti ALT [Catalytic activity/Vol] 21 U/L Normal 9-52 [facility] Comment on above: Performed By: #### C MP, CMADM, BNP #### [facility] [address] [id number] Mariela Patti Anion gap [Moles/Vol] 12.6 mmol/L Normal [facility] Comment on above: Performed By: #### C MP, CMADM, BNP #### [facility] [address] [id number] Mariela Patti AST [Catalytic activity/Vol] 20 U/L Normal 14-36 [facility] Comment on above: Performed By: #### C MP, CMADM, BNP #### [facility] [address] [address] Mariela Patti Bilirubin [Mass/Vol] 0.6 mg/dL Normal 0.2-1.3 [facility] Comment on above: Performed By: #### C MP, CMADM, BNP #### [facility] [address] [id number] Mariela Patti Calcium [Mass/Vol] 9.6 mg/dL Normal 8.4-10.2 [facility] Comment on above: Performed By: #### C MP, CMADM, BNP #### [facility] [address] [address] Mariela Patti Chloride [Moles/Vol] 103 mmol/L Normal 98-107 [facility] Comment on above: Performed By: #### C MP, CMADM, BNP #### [facility] [address] [address] Mariela Patti CO2 [Moles/Vol] 28.4 mmol/L Normal 22.0-30.0 [facility] Comment on above: Performed By: #### C MP, CMADM, BNP #### [facility] [address] [address] Mariela Patti Creatinine [Mass/Vol] 0.81 mg/dL Normal 0.52-1.04 [facility] Comment on above: Performed By: #### C MP, CMADM, BNP #### [facility] [address] [place] [address] Mariela Patti EGFR-AF CUBAN >60 Normal >=60 [facility] Comment on above: Performed By: #### C MP, CMADM, BNP #### [facility] [address] [place] [address] Mariela Patti EGFR-NON AF CUBAN >60 Normal >=60 [facility] Comment on above: Performed By: #### C MP, CMADM, BNP #### [facility] [address] [place] [address] Mariela Patti Globulin (S) [Mass/Vol] 3.5 g/dL Normal [facility] Comment on above: Performed By: #### C MP, CMADM, BNP #### [facility] [address] [place] [address] Mariela Patti Glucose [Mass/Vol] 115 mg/dL Critically high 74-106 T [facility] Comment on above: Performed By: #### C MP, CMADM, BNP #### [facility] [address] [place] [address] Mariela Patti Potassium [Moles/Vol] 4.0 mmol/L Normal 3.4-5.0 [facility] Comment on above: Performed By: #### C MP, CMADM, BNP #### [facility] [address] [place], [place] [address] Mariela Patti Protein [Mass/Vol] 7.7 g/dL Normal 6.1-8.2 [facility] Comment on above: Performed By: #### C MP, CMADM, BNP #### [facility] [address] [place], [place] [address] Mariela Patti Sodium [Moles/Vol] 140 mmol/L Normal 137-145 [facility] Comment on above: Performed By: #### C MP, CMADM, BNP #### [facility] [address] [place], [place] [address] Mariela Patti Urea nitrogen [Mass/Vol] 11.0 mg/dL Normal 7.0-17.0 [facility] Comment on above: Performed By: #### C MP, CMADM, BNP #### [facility] [address] [place], [place] [address] Mariela Patti Urea nitrogen/Creatinine [Mass ratio] 13.6 mg/mg Normal [facility] Comment on above: Performed By: #### C MP, CMADM, BNP #### [facility] [address] [place], [place] [address] Mariela Patti XR CHEST 1 Von 04-30-2021 [...] by: VERONICA EDWARDS Date: 2021-04-29 23:[address] [facility] CULTURE URINEon 03-25-2021 CULTURE URINE Isolate [...] Trimethoprim/Sulfamet hoxazole <=20 S F Normal [facility] Comment on above: Performed By: #### C SANG BLACKMAN, BNP #### [facility] [address] [place] [id number] Mariela Patti CULTURE URINEon 02-21-2021 CULTURE URINE [...] F Trimethoprim/Sulfamet hoxazole <=[address] [facility] Comment on above: Performed By: #### C SANG BLACKMAN, BNP #### [facility] [address] [place], [place] [id number] Marielacheli Armstrong ACETAMINOPHENon 02-18-2021 Acetaminophen [Mass/Vol] ug/mL Critically low 10.1-30.0 [facility] Comment on above: Performed By: #### C SANG BLACKMAN, BNP #### [facility] [address] [place], [place] [address] Mariela Patti CBC AUTO DIFFon 02-18-2021 BASO # 0.0 103/ul Normal 0.0-0.1 [facility] Comment on above: Performed By: #### C BC #### [facility] [address] [place], [place] [address] Mariela Patti Basophils/100 WBC (Bld) 0.3 % Normal 0.2-2.0 [facility] Comment on above: Performed By: #### C BC #### [facility] [address] [place] [address] Mariela Patti EO # 0.0 103/ul Normal 0.0-0.7 [facility] Comment on above: Performed By: #### C BC #### [facility] [address] [place] [address] Mariela Patti Eosinophils/100 WBC (Bld) 0.1 % Critically low 0.9-7.0 [facility] Comment on above: Performed By: #### C BC #### [facility] [address] [place] [address] Mariela Patti Erythrocyte distribution width (RBC) [Ratio] 12.0 % Normal 11.0-15.0 [facility] Comment on above: Performed By: #### C BC #### [facility] [address] [place] [address] Mariela Patti Hematocrit (Bld) [Volume fraction] 48.7 % Critically high 36.0-48.0 [facility] Comment on above: Performed By: #### C BC #### [facility] [address] [place] [address] Mariela Patti Hemoglobin (Bld) [Mass/Vol] 16.5 g/dL Critically high 12.0-16.0 [facility] Comment on above: Performed By: #### C BC #### [facility] [address] [place] [address] Mariela Patti IG # 0.08 10e3/ul Critically high 0.00-0.03 [facility] Comment on above: Performed By: #### C BC #### [facility] [address] [place] [address] Mariela Patti IG % 0.6 % Critically high 0.0-0.5 [facility] Comment on above: Performed By: #### C BC #### [facility] [address] [place] [address] Mariela Patti LYMPH # 3.4 103/ul Normal 1.2-3.8 [facility] Comment on above: Performed By: #### C BC #### [facility] [address] [place], [place] [address] Mariela Patti Lymphocytes/100 WBC (Bld) 23.6 % Normal 20.5-60.0 [facility] Comment on above: Performed By: #### C BC #### [facility] [address] [place], [place] [address] Mariela Patti MANUAL DIFF REQ NO Normal [facility] Comment on above: Performed By: #### C BC #### [facility] [address] [place], [place] [address] Marielacheli Armstrong MCH (RBC) [Entitic mass] 30.6 pg Normal 26.7-34.0 [facility] Comment on above: Performed By: #### C BC #### [facility] [address] [place], [place] [address] Marielacheli Armstrong MCHC (RBC) [Mass/Vol] 33.9 g/dL Normal 29.9-35.2 [facility] Comment on above: Performed By: #### C BC #### [facility] [address] [place], [place] [address] Marielacheli Armstrong MCV (RBC) [Entitic vol] 90.2 fL Normal 81.0-99.0 [facility] Comment on above: Performed By: #### C BC #### [facility] [address] [place], [place] [address] Mariela Patti MONO # 1.0 103/ul Critically high 0.3-0.8 [facility] Comment on above: Performed By: #### C BC #### [facility] [address] [place], [place] [address] Mariela Patti Monocytes/100 WBC (Bld) 7.0 % Normal 1.7-12.0 [facility] Comment on above: Performed By: #### C BC #### [facility] [address] [place] [address] Mariela Patti NEUT # 9.8 103/ul Critically high 1.4-6.5 [facility] Comment on above: Performed By: #### C BC #### [facility] [address] [id number] Mariela Patti Neutrophils/100 WBC (Bld) 68.4 % Normal 43.0-75.0 [facility] Comment on above: Performed By: #### C BC #### [facility] [address] [phone] Mariela Patti Platelet mean volume (Bld) [Entitic vol] 9.7 fL Normal 9.5-13.5 [facility] Comment on above: Performed By: #### C BC #### [facility] [address] [id number] Mariela Patti PLT 240 103/ul Normal 150-450 [facility] Comment on above: Performed By: #### C BC #### [facility] [address] [place] [address] Mariela Patti RBC 5.40 106/ul Normal 4.20-5.40 [facility] Comment on above: Performed By: #### C BC #### [facility] [address] [place] [address] Mariela Patti WBC 14.3 103/ul Critically high 4.0-11.0 [facility] Comment on above: Performed By: #### C BC #### [facility] [address] [place], [place] [address] Marielacheli Armstrong DRUG SCREEN RAPID (URINE)on 02-18-2021 AMP Negative Normal NEGATIVE [facility] Comment on above: Performed By: #### D TABITHA SAUCEDO UMICRO #### [facility] [address] [place] [address] Mariela Patti BAR Negative Normal NEGATIVE [facility] Comment on above: Performed By: #### D TABITHA SAUCEDO UMICRO #### [facility] [address] [place], [place] [address] Mariela Patti BUP Negative Normal NEGATIVE [facility] Comment on above: Performed By: #### D TABITHA SAUCEDO UMICRO #### [facility] [address] [place] [address] Mariela Patti BZO Negative Normal NEGATIVE [facility] Comment on above: Performed By: #### D TABITHA SAUCEDO UMICRO #### [facility] [address] [address] Mariela Patti JOSEPH Negative Normal NEGATIVE [facility] Comment on above: Performed By: #### D TABITHA SAUCEDO UMICRO #### [facility] [address] [address] Mariela Patti CUT-OFFS SEE BELOW Normal [facility] Comment on above: Result Comment: AMP [...] By: #### D TABITHA SAUCEDO UMICRO #### [facility] [address] [place] [address] Mariela Patti DRUG CUT HEADER DRUG CLASS TEST SYSTEM CUT-OFF CONCENTRATIONS ARE FOLLOWS: Normal [facility] Comment on above: Performed By: #### D TABITHA SAUCEDO UMICRO #### [facility] [address] [place] [address] Mariela Patti mAMP Negative Normal NEGATIVE [facility] Comment on above: Performed By: #### D TABITHA SAUCEDO UMICRO #### [facility] [address] [place] [address] Mariela Patti MTD Negative Normal NEGATIVE [facility] Comment on above: Performed By: #### D TABITHA SAUCEDO UMICRO #### [facility] [address] [place] [address] Mariela Patti OPI Negative Normal NEGATIVE [facility] Comment on above: Performed By: #### D THEA SAUCEDOR, UMICRO #### [facility] [address] [address] Mariela Patti OXY Negative Normal NEGATIVE [facility] Comment on above: Performed By: #### D SHERYL ERUR, UMICRO #### [facility] [address] [address] Mariela Patti PCP Negative Normal NEGATIVE [facility] Comment on above: Performed By: #### D THEA SAUCEDOR, UMICRO #### [facility] [address] [place] [address] Mariela Patti PPX Negative Normal NEGATIVE [facility] Comment on above: Performed By: #### D THEA SAUCEDOR, UMICRO #### [facility] [address] [place] [address] Mariela Patti TCA Negative Normal NEGATIVE [facility] Comment on above: Performed By: #### D THEA SAUCEDOR, UMICRO #### [facility] [address] [place] [address] Mariela Patti THC Positive Abnormal NEGATIVE [facility] Comment on above: Performed By: #### D THEA SAUCEDOR, UMICRO #### [facility] [address] [place] [address] Mariela Patti ER URINE PROFILEon 1 Bilirubin Ql (U) Negative Normal NEGATIVE [facility] Comment on above: Performed By: #### D SHERYL ERUR, UMICRO #### [facility] [address] [place] [address] Mariela Patti Clarity (U) CLEAR Normal CLEAR [facility] Comment on above: Performed By: #### D THEA SAUCEDOR, UMICRO #### [facility] [address] [address] Mariela Patti Color (U) LT. YELLOW Normal YELLOW [facility] Comment on above: Performed By: #### D TABITHA SAUCEDO UMICRO #### [facility] [address] [id number] Mariela Patti ERURUDDYD A micrscopic examination will be performed if indicated. Normal [facility] Comment on above: Performed By: #### D TABITHA SAUCEDO UMICRO #### [facility] [address] [address] Mariela Patti Glucose Ql (U) Negative Normal NEGATIVE [facility] Comment on above: Performed By: #### D TABITHA SAUCEDO UMICRO #### [facility] [address] [address] Mariela Patti Hemoglobin Ql (U) SMALL Abnormal NEGATIVE [facility] Comment on above: Performed By: #### D TABITHA SAUCEDO UMICRO #### [facility] [address] [address] Mariela Patti Ketones Ql (U) Negative Normal NEGATIVE [facility] Comment on above: Performed By: #### D TABITHA SAUCEDO UMICRO #### [facility] [address] [address] Mariela Patti LEUKOCYTES TRACE Abnormal NEGATIVE [facility] Comment on above: Performed By: #### D TABITHA SAUCEDO UMICRO #### [facility] [address] [address] Mariela Patti Nitrite Ql (U) Positive Abnormal NEGATIVE [facility] Comment on above: Performed By: #### D TABITHA SAUCEDO UMICRO #### [facility] [address] [address] Mariela Patti pH (U) 5.5 [pH] Normal 5-9 [facility] Comment on above: Performed By: #### D TABITHA SAUCEDO UMICRO #### [facility] [address] [address] Mariela Patti SPEC GRAVITY >=1.030 Abnormal 1.005-<=1.02 5 [facility] Comment on above: Performed By: #### D TABITHA SAUCEDO UMICRO #### [facility] [address] [id number] Marielacheli Armstrong UA PROTEIN Negative Normal NEGATIVE/ TRACE [facility] Comment on above: Performed By: #### D TABITHA SAUCEDO UMICRO #### [facility] [address] [place] [address] Mariela Armstrong UR MICRO IND INDICATED Normal [facility] Comment on above: Performed By: #### D TABITHA SAUCEDO UMICRO #### [facility] [address] [place], [place] [id number] Mariela Armstrong Urobilinogen Qn (U) 0.2 {River'U}/dL Normal 0.2 - 1. 0 [facility] Comment on above: Performed By: #### D TABITHA SAUCEDO UMICRO #### [facility] [address] [place], [place] [id number] Mariela Armstrong ETHANOL (BLD ALC)on 02-19-20 21 ALC NOTE NOTE: 80 mg/dl is th e legal limit for a blood alcohol level Normal [facility] Comment on above: Performed By: #### E TH #### [facility] [address] [place], [place] [id number] Marielacheli Armstrong Ethanol [Mass/Vol] mg/dL Normal [facility] Comment on above: Performed By: #### E TH #### [facility] [address] [place], [place] [id number] Mariela Armstrong URon 02-18-2021 , QUAL Negative Normal NEGATIVE [facility] Comment on above: Performed By: #### C SANG BLACKMAN, BNP #### [facility] [address] [place], [place] [id number] Mariela Patti PROF 14(COMP METB)on 021 Albumin [Mass/Vol] 3.8 g/dL Normal 3.5-5.0 [facility] Comment on above: Performed By: #### C YEHUDA, SANG, BNP #### [facility] [address] [place], [place] [id number] Mariela Patti Albumin/Globulin [Mass ratio] 1.0 {ratio} Normal [facility] Comment on above: Performed By: #### C MP, CMADM, BNP #### [facility] [address] [place], [place] [address] Mariela Patti ALP [Catalytic activity/Vol] 116 U/L Normal 38-126 [facility] Comment on above: Performed By: #### C MP, CMADM, BNP #### [facility] [address] [place], [place] [address] Mariela Patti ALT [Catalytic activity/Vol] 10 U/L Normal 9-52 [facility] Comment on above: Performed By: #### C MP, CMADM, BNP #### [facility] [address] [place], [place] [address] Mariela Patti Anion gap [Moles/Vol] 20.3 mmol/L Normal [facility] Comment on above: Performed By: #### C MP, CMADM, BNP #### [facility] [address] [place] [id number] Mariela Patti AST [Catalytic activity/Vol] 15 U/L Normal 14-36 [facility] Comment on above: Performed By: #### C MP, CMADM, BNP #### [facility] [address] [place], [place] [address] Mariela Patti Bilirubin [Mass/Vol] 0.4 mg/dL Normal 0.2-1.3 [facility] Comment on above: Performed By: #### C MP, CMADM, BNP #### [facility] [address] [place] [id number] Mariela Patti Calcium [Mass/Vol] 9.5 mg/dL Normal 8.4-10.2 [facility] Comment on above: Performed By: #### C MP, CMADM, BNP #### [facility] [address] [id number] Mariela Patti Chloride [Moles/Vol] 103 mmol/L Normal 98-107 [facility] Comment on above: Performed By: #### C MP, CMADM, BNP #### [facility] [address] [place], [place] [address] Mariela Patti CO2 [Moles/Vol] 20.5 mmol/L Critically low 22.0-30.0 [facility] Comment on above: Performed By: #### C MP, CMADM, BNP #### [facility] [address] [place] [address] Mariela Patti Creatinine [Mass/Vol] 0.71 mg/dL Normal 0.52-1.04 [facility] Comment on above: Performed By: #### C MP, CMADM, BNP #### [facility] [address] [place] [address] Mariela Patti EGFR-AF CUBAN >60 Normal >=60 [facility] Comment on above: Performed By: #### C MP, CMADM, BNP #### [facility] [address] [place] [address] Mariela Patti EGFR-NON AF CUBAN >60 Normal >=60 [facility] Comment on above: Performed By: #### C MP, CMADM, BNP #### [facility] [address] [place] [address] Mariela Patti Globulin (S) [Mass/Vol] 3.9 g/dL Normal [facility] Comment on above: Performed By: #### C MP, CMADM, BNP #### [facility] [address] [place] [address] Mariela Patti Glucose [Mass/Vol] 112 mg/dL Critically high 74-106 [facility] Comment on above: Performed By: #### C MP, CMADM, BNP #### [facility] [address] [place] [address] Mariela Patti Potassium [Moles/Vol] 3.8 mmol/L Normal 3.4-5.0 [facility] Comment on above: Performed By: #### C MP, CMADM, BNP #### [facility] [address] [place] [address] Mariela Patti Protein [Mass/Vol] 7.7 g/dL Normal 6.1-8.2 [facility] Comment on above: Performed By: #### C MP, CMADM, BNP #### [facility] [address] [place] [address] Mariela Patti Sodium [Moles/Vol] 140 mmol/L Normal 137-145 [facility] Comment on above: Performed By: #### C SANG BLACKMAN, BNP #### [facility] [address] [place] [address] Mariela Armstrong Urea nitrogen [Mass/Vol] 12.0 mg/dL Normal 7.0-17.0 [facility] Comment on above: Performed By: #### C SANG BLACKMAN, BNP #### [facility] [address] [place] [address] Mariela Armstrong Urea nitrogen/Creatinine [Mass ratio] 16.9 mg/mg Normal [facility] Comment on above: Performed By: #### C SANG BLACKMAN, BNP #### [facility] [address] [place] [address] Mariela Armstrong Rapid Covid-19 PCR (CVDRPD)o n 02-18-2021 SARS-CoV-2 (COVID-19) RNA FAITH+probe Ql (Unsp spec) Not detected Normal NOT DETECTED [facility] Comment on above: Result Comment: This test is not yet approved or cleared by the [place] Food and Drug Administration (FDA). This test was developed by [employer], [place], [place]. The performance characteristics of this test were validated by [facility]. The results are not intended to be used as the sole means for clinical diagnosis or patient management decisions. The [facility] is authorized under Clinical Laboratory Improvement Amendments (CLIA) to perform high- complexity testing. When diagnostic testing is negative, the possibility of a false negative should be considered in the context of a patient's recent exposures and the presence of clinical signs and symptoms consistent with SARS-CoV-2. Performed By: #### C BC #### [facility] [address] [place] [address] Mariela Armstrong SALICYLATEon 02-18-2021 SALICYLATE 4.4 mg/dL Normal <=20.0 [facility] Comment on above: Performed By: #### C SANG BLACKMAN, BNP #### [facility] [address] [place] [address] Mariela Armstrong URINE MICROSCOPIC ONLYon BACTERIA MODERATE Abnormal NONE SEEN [facility] Comment on above: Performed By: #### D TABITHA SAUCEDO UMICRO #### [facility] [address] [place] [address] Mariela Patti Bacteria identified Cx Nom (U) INDICATED Normal [facility] Comment on above: Performed By: #### D TABITHA SAUCEDO, UMICRO #### [facility] [address] [place] [address] Mariela Patti CAST NONE SEEN Normal NONE SEEN [facility] Comment on above: Performed By: #### D TABITHA SAUCEDO, UMICRO #### [facility] [address] [place] [address] Mariela Patti Crystals LM Nom (Urine sed) NONE SEEN Normal NONE SEEN [facility] Comment on above: Performed By: #### TABITHA LEMON UMICRO #### [facility] [address] [place] [address] Mariela Patti Epithelial cells LM Ql (Urine sed) MODERATE Abnormal NONE SEEN /RARE [facility] Comment on above: Performed By: #### D TABITHA SAUCEDO, UMICRO #### [facility] [address] [place] [address] Mariela Patti MUCOUS TRACE Abnormal NONE SEEN [facility] Comment on above: Performed By: #### D TABITHA SAUCEDO, UMICRO #### [facility] [address] [place] [address] Mariela Patti RBC 2-5 Abnormal 0-2 [facility] Comment on above: Performed By: #### D TABITHA SAUCEDO, UMICRO #### [facility] [address] [place] [address] Mariela Patti WBC 10-20 Abnormal NONE SEEN [facility] Comment on above: Performed By: #### D TABITHA SAUCEDO, UMICRO #### [facility] [address] [place] [address] Mariela Patti CULTURE URINEon 09-18-2020 CULTURE URINE [...] R F Oxacillin <=0.[address] [facility] Comment on above: Performed By: #### C SANG BLACKMAN, BNP #### [facility] [address] [place] [address] Mariela Armstrong CARDIAC BEHZAD ADMITon 020 CK [Catalytic activity/Vol] 24 U/L Critically low 30-135 [facility] Comment on above: Performed By: #### C YEHUDA, CMADM, BNP #### [facility] [address] [place], [place] [id number] Mariela Armstrong CK.MB [Mass/Vol] 0.58 ng/mL Normal <=2.37 [facility] Comment on above: Performed By: #### C YEHUDA, CMADM, BNP #### [facility] [address] [place], [place] [address] Mariela Patti MURRAY 25.0 ng/mL Normal <=61.5 [facility] Comment on above: Performed By: #### C YEHUDA, CMADM, BNP #### [facility] [address] [place] [address] Mariela Patti CBC AUTO DIFFon 09-15-2020 BASO # 0.1 103/ul Normal 0.0-0.1 [facility] Comment on above: Performed By: #### C YEHUDA, CMADM, BNP #### [facility] [address] [place], [place] [address] Mariela Patti Basophils/100 WBC (Bld) 0.3 % Normal 0.2-2.0 [facility] Comment on above: Performed By: #### C MP, CMADM, BNP #### [facility] [address] [place] [address] Mariela Patti EO # 0.0 103/ul Normal 0.0-0.7 [facility] Comment on above: Performed By: #### C MP, CMADM, BNP #### [facility] [address] [place] [address] Mariela Patti Eosinophils/100 WBC (Bld) 0.0 % Critically low 0.9-7.0 [facility] Comment on above: Performed By: #### C MP, CMADM, BNP #### [facility] [address] [place] [address] Mariela Patti Erythrocyte distribution width (RBC) [Ratio] 12.5 % Normal 11.0-15.0 [facility] Comment on above: Performed By: #### C MP, CMADM, BNP #### [facility] [address] [place] [address] Mariela Patti Hematocrit (Bld) [Volume fraction] 49.9 % Critically high 36.0-48.0 [facility] Comment on above: Performed By: #### C MP, CMADM, BNP #### [facility] [address] [place] [address] Mariela Patti Hemoglobin (Bld) [Mass/Vol] 17.1 g/dL Critically high 12.0-16.0 [facility] Comment on above: Performed By: #### C MP, CMADM, BNP #### [facility] [address] [place] [address] Mariela Patti IG # 0.16 10e3/ul Critically high 0.00-0.03 [facility] Comment on above: Performed By: #### C MP, CMADM, BNP #### [facility] [address] [place] [address] Mariela Patti IG % 0.9 % Critically high 0.0-0.5 [facility] Comment on above: Performed By: #### C MP, CMADM, BNP #### [facility] [address] [place], [place] [address] Mariela Patti LYMPH # 2.9 103/ul Normal 1.2-3.8 [facility] Comment on above: Performed By: #### C MP CMADM, BNP #### [facility] [address] [place], [place] [address] Mariela Patti Lymphocytes/100 WBC (Bld) 17.0 % Critically low 20.5-60.0 [facility] Comment on above: Performed By: #### C MP, CMADM, BNP #### [facility] [address] [place] [address] Mariela Patti MANUAL DIFF REQ NO Normal [facility] Comment on above: Performed By: #### C YEHUDA, CMADM, BNP #### [facility] [address] [place] [address] Mariela Patti MCH (RBC) [Entitic mass] 30.9 pg Normal 26.7-34.0 [facility] Comment on above: Performed By: #### C MP CMADM, BNP #### [facility] [address] [place] [address] Mariela Patti MCHC (RBC) [Mass/Vol] 34.3 g/dL Normal 29.9-35.2 [facility] Comment on above: Performed By: #### C MP, CMADM, BNP #### [facility] [address] [place] [address] Mariela Patti MCV (RBC) [Entitic vol] 90.1 fL Normal 81.0-99.0 [facility] Comment on above: Performed By: #### C MP, CMADM, BNP #### [facility] [address] [place] [address] Mariela Patti MONO # 1.1 103/ul Critically high 0.3-0.8 [facility] Comment on above: Performed By: #### C MP, CMADM, BNP #### [facility] [address] [place] [address] Mariela Patti Monocytes/100 WBC (Bld) 6.4 % Normal 1.7-12.0 [facility] Comment on above: Performed By: #### C MP, CMADM, BNP #### [facility] [address] [place], [place] [address] Mariela Armstrong NEUT # 12.8 103/ul Critically high 1.4-6.5 [facility] Comment on above: Performed By: #### C MP, CMADM, BNP #### [facility] [address] [place] [address] Mariela Armstrong Neutrophils/100 WBC (Bld) 75.4 % Critically high 43.0-75.0 [facility] Comment on above: Performed By: #### C MP, CMADM, BNP #### [facility] [address] [place], [place] [address] Mariela Armstrong Platelet mean volume (Bld) [Entitic vol] 9.4 fL Critically low 9.5-13.5 [facility] Comment on above: Performed By: #### C MP, CMADM, BNP #### [facility] [address] [place] [address] Mariela Armstrong PLT 247 103/ul Normal 150-450 [facility] Comment on above: Performed By: #### C MP, CMADM, BNP #### [facility] [address] [place], [place] [address] Mariela Patti RBC 5.54 106/ul Critically high 4.20-5.40 [facility] Comment on above: Performed By: #### C MP, CMADM, BNP #### [facility] [address] [place], [place] [id number] Mariela Armstrong WBC 16.9 103/ul Critically high 4.0-11.0 [facility] Comment on above: Performed By: #### C MP, CMADM, BNP #### [facility] [address] [place] [id number] HEAD WO CONon 09-15-2020 [...] BENJA SENIOR Date: 2020-09-15 14:06 Normal [facility] CTA NECK WO W CONon 09-15-20 [...] DONTA REYEZ Date: 2020-09-15 17:44 Normal [facility] DRUG SCREEN RAPID (URINE)on 09-15-2020 AMP Negative Normal NEGATIVE [facility] Comment on above: Performed By: #### D TABITHA SAUCEDO UMICRO #### [facility] [address] [place] [address] Mariela Patti BAR Negative Normal NEGATIVE [facility] Comment on above: Performed By: #### D TABITHA SAUCEDO UMICRO #### [facility] [address] [place] [address] Mariela Patti BUP Negative Normal NEGATIVE [facility] Comment on above: Performed By: #### D TABITHA SAUCEDO UMICRO #### [facility] [address] [place] [address] Mariela Patti BZO Positive Normal NEGATIVE [facility] Comment on above: Performed By: #### D TABITHA SAUCEDO UMICRO #### [facility] [address] [place] [address] Mariela Patti JOSEPH Negative Normal NEGATIVE [facility] Comment on above: Performed By: #### D TABITHA SAUCEDO UMICRO #### [facility] [address] [place] [address] Mariela Patti CUT-OFFS SEE BELOW Normal [facility] Comment on above: Result Comment: AMP [...] By: #### D TABITHA SAUCEDO UMICRO #### [facility] [address] [place] [address] Mariela Patti DRUG CUT HEADER DRUG CLASS TEST SYSTEM CUT-OFF CONCENTRATIONS ARE FOLLOWS: Normal [facility] Comment on above: Performed By: #### D TABITHA SAUCEDO UMICRO #### [facility] [address] [place] [address] Mariela Patti mAMP Negative Normal NEGATIVE [facility] Comment on above: Performed By: #### D THEA SAUCEDOR, UMICRO #### [facility] [address] [place] [address] Mariela Patti MTD Negative Normal NEGATIVE [facility] Comment on above: Performed By: #### D THEA SAUCEDOR, UMICRO #### [facility] [address] [place] [address] Mariela Patti OPI Negative Normal NEGATIVE [facility] Comment on above: Performed By: #### D THEA SAUCEDOR, UMICRO #### [facility] [address] [place] [address] Mariela Patti OXY Negative Normal NEGATIVE [facility] Comment on above: Performed By: #### D TABITHA SAUCEDO, UMICRO #### [facility] [address] [place] [address] Mariela Patti PCP Negative Normal NEGATIVE [facility] Comment on above: Performed By: #### D THEA SAUCEDOR, UMICRO #### [facility] [address] [place] [address] Mariela Patti PPX Negative Normal NEGATIVE [facility] Comment on above: Performed By: #### D THEA SAUCEDOR, UMICRO #### [facility] [address] [place] [address] Mariela Patti TCA Negative Normal NEGATIVE [facility] Comment on above: Performed By: #### D SHERYL ERUR, UMICRO #### [facility] [address] [place] [address] Mariela Patti THC Positive Normal NEGATIVE [facility] Comment on above: Performed By: #### D THEA SAUCEDOR, UMICRO #### [facility] [address] [place] [address] Mariela Aptti ER URINE PROFILEon 0 Bilirubin Ql (U) Negative Normal NEGATIVE [facility] Comment on above: Performed By: #### D TABITHA SAUCEDO UMICRO #### [facility] [address] [place] [address] Mariela Patti Clarity (U) CLEAR Normal [facility] Comment on above: Performed By: #### D TABITHA SAUCEDO UMICRO #### [facility] [address] [place] [address] Mariela Patti Color (U) YELLOW Normal YELLOW [facility] Comment on above: Performed By: #### D TABITHA SAUCEDO UMICRO #### [facility] [address] [place] [address] Mariela Patti ERUAHD A micrscopic examination will be performed if indicated. Normal [facility] Comment on above: Performed By: #### D TABITHA SAUCEDO UMICRO #### [facility] [address] [place] [address] Mariela Patti Glucose Ql (U) Negative Normal NEGATIVE [facility] Comment on above: Performed By: #### D TABITHA SAUCEDO UMICRO #### [facility] [address] [place] [address] Mariela Patti Hemoglobin Ql (U) SMALL Normal NEGATIVE [facility] Comment on above: Performed By: #### D TABITHA SAUCEDO UMICRO #### [facility] [address] [place] [address] Mariela Patti Ketones Ql (U) Negative Normal NEGATIVE [facility] Comment on above: Performed By: #### D TABITHA SAUCEDO UMICRO #### [facility] [address] [place] [address] Mariela Patti LEUKOCYTES Negative Normal NEGATIVE [facility] Comment on above: Performed By: #### D TABITHA SAUCEDO UMICRO #### [facility] [address] [place] [address] Mariela Patti Nitrite Ql (U) Positive Normal NEGATIVE [facility] Comment on above: Performed By: #### D TABITHA SAUCEDO UMICRO #### [facility] [address] [place] [address] Mariela Armstrong pH (U) 6.0 [pH] Normal 5-9 [facility] Comment on above: Performed By: #### D TABITHA SAUCEDO UMICRO #### [facility] [address] [place] [address] Mariela Armstrong Protein Ql (U) Negative Normal [facility] Comment on above: Performed By: #### D TABITHA SAUCEDO UMICRO #### [facility] [address] [place] [address] Mariela Armstrong SPEC GRAVITY 1.010 Normal 1.005-<=1.[address] [facility] Comment on above: Performed By: #### D TABITHA SAUCEDO UMICRO #### [facility] [address] [place] [address] Mariela Armstrong UR MICRO IND INDICATED Normal [facility] Comment on above: Performed By: #### D TABITHA SAUCEDO UMICRO #### [facility] [address] [place] [address] Mariela Armstrong Urobilinogen Qn (U) 0.2 {River'U}/dL Normal [facility] Comment on above: Performed By: #### D TABITHA SAUCEDO UMICRO #### [facility] [address] [place] [address] Mariela Armstrong URon 09-15-2020 , QUAL Negative Normal NEGATIVE [facility] Comment on above: Performed By: #### C MP, CMADM, BNP #### [facility] [address] [place] [address] Mariela Armstrong PROF 14(COMP METB)on 020 Albumin [Mass/Vol] 4.1 g/dL Normal 3.5-5.0 [facility] Comment on above: Performed By: #### C BC #### [facility] [address] [place] [address] Mariela Armstrong Albumin/Globulin [Mass ratio] 1.1 {ratio} Normal [facility] Comment on above: Performed By: #### C BC #### [facility] [address] [place] [id number] Mariela Patti ALP [Catalytic activity/Vol] 125 U/L Normal 38-126 [facility] Comment on above: Performed By: #### C BC #### [facility] [address] [place], [place] [id number] Mariela Patti ALT [Catalytic activity/Vol] 15 U/L Normal 9-52 [facility] Comment on above: Performed By: #### C BC #### [facility] [address] [place], [place] [id number] Mariela Patti Anion gap [Moles/Vol] 19.0 mmol/L Normal [facility] Comment on above: Performed By: #### C BC #### [facility] [address] [place] [address] Mariela Patti AST [Catalytic activity/Vol] 12 U/L Critically low 14-36 [facility] Comment on above: Performed By: #### C BC #### [facility] [address] [place] [address] Mariela Patti Bilirubin [Mass/Vol] 0.5 mg/dL Normal 0.2-1.3 [facility] Comment on above: Performed By: #### C BC #### [facility] [address] [place] [address] Mariela Patti Calcium [Mass/Vol] 10.0 mg/dL Normal 8.4-10.2 [facility] Comment on above: Performed By: #### C BC #### [facility] [address] [place] [address] Mariela Patti Chloride [Moles/Vol] 105 mmol/L Normal 98-107 [facility] Comment on above: Performed By: #### C BC #### [facility] [address] [place], [place] [address] Mariela Patti CO2 [Moles/Vol] 20.9 mmol/L Critically low 22.0-30.0 [facility] Comment on above: Performed By: #### C BC #### [facility] [address] [place], [place] [address] Mariela Patti Creatinine [Mass/Vol] 0.63 mg/dL Normal 0.52-1.04 [facility] Comment on above: Performed By: #### C BC #### [facility] [address] [place], [place] [address] Mariela Patti EGFR-AF CUBAN >60 Normal >=60 [facility] Comment on above: Performed By: #### C BC #### [facility] [address] [place], [place] [address] Mariela Patti EGFR-NON AF CUBAN >60 Normal >=60 [facility] Comment on above: Performed By: #### C BC #### [facility] [address] [place] [id number] Mariela Patti Globulin (S) [Mass/Vol] 3.9 g/dL Normal [facility] Comment on above: Performed By: #### C BC #### [facility] [address] [place] [address] Mariela Patti Glucose [Mass/Vol] 152 mg/dL Critically high 74-106 [facility] Comment on above: Performed By: #### C BC #### [facility] [address] [place], [place] [id number] Mariela Patti Potassium [Moles/Vol] 3.9 mmol/L Normal 3.4-5.0 [facility] Comment on above: Performed By: #### C BC #### [facility] [address] [place], [place] [id number] Mariela Patti Protein [Mass/Vol] 8.0 g/dL Normal 6.1-8.2 [facility] Comment on above: Performed By: #### C BC #### [facility] [address] [place], [place] [id number] Mariela Patti Sodium [Moles/Vol] 141 mmol/L Normal 137-145 [facility] Comment on above: Performed By: #### C BC #### [facility] [address] [place], [place] [id number] Mariela Patti Urea nitrogen [Mass/Vol] 13.0 mg/dL Normal 7.0-17.0 [facility] Comment on above: Performed By: #### C BC #### [facility] [address] [place] [address] Mariela Armstrong Urea nitrogen/Creatinine [Mass ratio] 20.6 mg/mg Normal [facility] Comment on above: Performed By: #### C BC #### [facility] [address] [place] [address] Mariela Armstrong PROTIMEon 09-15-2020 INR Coag (PPP) [Relative time] 1.03 {INR} Normal [facility] Comment on above: Performed By: #### C BC #### [facility] [address] [place] [address] Mariela Patti INR GUIDELINES SEE BELOW Normal [facility] Comment on above: Result Comment: HANANE RED INR: 2.0 - 3.0 CONDITIONS NOT LISTED BELOW 2.5 - 3.5 FOR PROSTHETIC HEART VALVE REPLACEMENT 2.5 - 3.5 RECURRENT THROMBOSIS Performed By: #### C BC #### [facility] [address] [place] [address] Mariela Armstrong PT Coag (PPP) [Time] 10.9 s Normal 9.0-11.6 [facility] Comment on above: Performed By: #### C BC #### [facility] [address] [place] [address] Mariela Armstrong PTTon 09-15-2020 aPTT Coag (Bld) [Time] 30.2 s Normal 22.3-36.2 [facility] Comment on above: Performed By: #### C BC #### [facility] [address] [place] [address] Mariela Patti PTT NORMAL PLEASE NOTE: NORMAL RANGE CHANGE 09-15-2015 DUE TO REAGENT LOT CHANGE Normal [facility] Comment on above: Performed By: #### C BC #### [facility] [address] [place] [address] Mariela Armstrong TROPONIN - Ion 09-15-2020 TROP <0.012 Normal <=0.034 [facility] Comment on above: Performed By: #### C MP, CMADM, BNP #### [facility] [address] [place], [place] [address] Mariela Patti TROPONIN RANGE SEE BELOW Normal [facility] Comment on above: Result Comment: <0.0 34 ng/ml NEGATIVE 0.034-0.119 INDETERMINATE 0.120 AMI CUT OFF Performed By: #### C YEHUDA, CMADM, BNP #### [facility] [address] [address] Mariela Patti URINE MICROSCOPIC ONLYon AMORPHOUS CRYSTALS FEW Normal [facility] Comment on above: Performed By: #### C MP, CMADM, BNP #### [facility] [address] [address] Mariela Patti BACTERIA TRACE Normal NONE SEEN [facility] Comment on above: Performed By: #### C MP, CMADM, BNP #### [facility] [address] [address] Mariela Patti Bacteria identified Cx Nom (U) INDICATED Normal [facility] Comment on above: Performed By: #### C MP, CMADM, BNP #### [facility] [address] [address] Mariela Patti CAST NONE SEEN Normal NONE SEEN [facility] Comment on above: Performed By: #### C MP, CMADM, BNP #### [facility] [address] [place] [address] Mariela Patti Crystals LM Nom (Urine sed) SEEN Normal NONE SEEN [facility] Comment on above: Performed By: #### C MP, CMADM, BNP #### [facility] [address] [place] [address] Mariela Patti Epithelial cells LM Ql (Urine sed) RARE Normal [facility] Comment on above: Performed By: #### C MP, CMADM, BNP #### [facility] [address] [address] Mariela Patti MUCOUS NONE SEEN Normal NONE SEEN [facility] Comment on above: Performed By: #### C MP, CMADM, BNP #### [facility] [address] [place] [address] Mariela Patti RBC 0-2 Normal 0-2 [facility] Comment on above: Performed By: #### C MP, CMADM, BNP #### [facility] [address] [place], [place] [address] Mariela Armstrong WBC 0-2 Normal NONE SEEN [facility] Comment on above: Performed By: #### C MP, CHRISTIEDM, BNP #### [facility] [address] [place], [place] [address] Mariela Armstrong XR CHEST 1 Von 09-15-2020 [...] BENJA SENIOR Date: 2020-09-15 14:07 Normal [facility] Vital Signs Date Time Vital Sign Value Performing Clinician Facility 01-28-2025 09:11-0400 Body height 157.5 cm Radha ESPINOSA Work Phone: [facility] 01-28-2025 09:11-0400 Body mass index (BMI) [Ratio] 25.61 kg/m2 Radha ESPINOSA Work Phone: [facility] 01-28-2025 09:11-0400 Body weight 63.5 kg Radha ESPINOSA Work Phone: [facility] 04-28-2023 06:45-0400 Body temperature 96.8 [degF] Francia [facility]utia MD [facility] 04-28-2023 06:45-0400 Diastolic blood pressure 88 mm[Hg] Francia Urrutia MD [facility] 04-28-2023 06:45-0400 Heart rate 71 /min Francia Urrutia MD [facility] 04-28-2023 06:45-0400 Respiratory rate 18 /min Francia Urrutia MD Work Phone: [facility] 04-28-2023 06:45-0400 SaO2% (BldA) [Mass fraction] 98 % Francia Urrutia MD Work Phone: [facility] 04-28-2023 06:45-0400 Systolic blood pressure 147 mm[Hg] Francia Urrutia MD Work Phone: [facility] 04-28-2023 05:37-0400 Body mass index (BMI) [Ratio] 28.47 kg/m2 Francia Urrutia MD Work Phone: [facility] 04-28-2023 05:37-0400 Body weight 70.6 kg Francia Urrutia MD Work Phone: [facility] 04-27-2023 08:00-0400 Body height 157.5 cm Francia Urrutia MD Work Phone: [facility] 04-06-2023 16:03-0400 Body temperature 98.42 [degF] [facility] 04-06-2023 16:03-0400 Diastolic blood pressure 84 mm[Hg] [facility] 04-06-2023 16:03-0400 Heart rate 84 /min [facility] 04-06-2023 16:03-0400 Respiratory rate 16 /min [facility] 04-06-2023 16:03-0400 SaO2% (BldA) [Mass fraction] 99 % [facility] 04-06-2023 16:03-0400 Systolic blood pressure 124 mm[Hg] [facility] 10-25-2022 10:10-0500 Diastolic blood pressure 53 mm[Hg] [facility] 10-25-2022 10:10-0500 Heart rate 73 /min [facility] 10-25-2022 10:10-0500 Respiratory rate 18 /min [facility] 10-25-2022 10:10-0500 SaO2% (BldA) [Mass fraction] 98 % [facility] 10-25-2022 10:10-0500 Systolic blood pressure 110 mm[Hg] [facility] 10-25-2022 08:48-0500 Body height 157.48 cm [facility] 10-25-2022 08:48-0500 Body temperature 99 [degF] [facility] 10-25-2022 08:48-0500 Body weight 58.96 kg [facility] 10-04-2022 16:30-0500 Body height 157.48 cm Juan M Masters Other [facility] [employer] Other 10-04-2022 16:30-0500 Body mass index (BMI) [Ratio] 25.24 kg/m2 Juan M Masters Other [employer] Other 10-04-2022 16:30-0500 Body weight 62.6 kg Juan M Masters Other [facility] Other 01-03-2022 15:00-0400 Body height 157.48 cm Na Hines Other [facility] Other 01-03-2022 15:00-0400 Body mass index (BMI) [Ratio] 27.25 kg/m2 Na Hines Other [facility] Other 01-03-2022 15:00-0400 Body temperature 97.7 [degF] Na Hines Other [facility] Other 01-03-2022 15:00-0400 Body weight 67.59 kg Na Hines Other [facility] Other 01-03-2022 15:00-0400 Diastolic blood pressure 87 mm[Hg] Na Hines Other [facility] Other 01-03-2022 15:00-0400 Respiratory rate 18 /min Na Hines Other [facility] Other 01-03-2022 15:00-0400 SaO2% (BldA) [Mass fraction] 97 % Na Hines Other [employer] Other 01-03-2022 15:00-0400 Systolic blood pressure 131 mm[Hg] Na Hines Other [facility] Other 07-31-2021 13:50-0400 Body height 157.48 cm Na Hines Other [employer] Other 07-31-2021 13:50-0400 Body mass index (BMI) [Ratio] 25.79 kg/m2 Na Hines Other [employer] Other 07-31-2021 13:50-0400 Body temperature 96.2 [degF] Na Hines Other [facility] Other 07-31-2021 13:50-0400 Body weight 63.96 kg Na Hines Other [employer] Other 07-31-2021 13:50-0400 Diastolic blood pressure 96 mm[Hg] Na Hines Other [facility] Other 07-31-2021 13:50-0400 Respiratory rate 18 /min Na Hines Other [employer] Other 07-31-2021 13:50-0400 SaO2% (BldA) [Mass fraction] 95 % Na Hines Other [facility] Other 07-31-2021 13:50-0400 Systolic blood pressure 139 mm[Hg] Na Hines Other [facility] Other Encounters Encounter Date Encounter Type Care Provider Facility Start: 06-29-2025 End: 06-29-2025 ambulatory Art Shine MD Facility:[facility] Start: 06-01-2025 End: 06-01-2025 ambulatory Art Shine MD Facility:[facility] Start: 03-02-2025 End: 03-02-2025 ambulatory Art Shine MD Facility:[facility] Start: 01-28-2025 End: 01-28-2025 Bamboo flowsheet Radha ESPINOSA Work Phone: [facility] Start: 01-28-2025 End: 01-28-2025 Bamboo flowsheet Radha ESPINOSA Work Phone: [facility] Start: 01-28-2025 End: 01-28-2025 Office outpatient new 30 minutes Radha ESPINOSA Work Phone: [facility] Comment on above: Acute hip pain, left (Primary Dx); Sacroiliac joint pain; Foot drop, left foot Start: 01-28-2025 End: 01-28-2025 ambulatory RADHA ARMENDARIZ Not Available Start: 06-16-2024 End: 06-16-2024 ambulatory NA HINES [place] Start: 04-26-2023 End: 04-28-2023 Evaluation and management of inpatient NA HINES [facility] Start: 04-26-2023 End: 04-28-2023 Evaluation and management of inpatient Francia Urrutia MD Work Phone: [facility] Comment on above: Crohn's disease of c olon without complication (HCC) (Primary Dx); Left lower quadrant abdominal pain Start: 04-10-2023 End: 04-10-2023 Patient encounter procedure NA HINES [facility] Start: 04-06-2023 End: 04-06-2023 Emergency department patient visit Josette You [facility] Start: 11-27-2022 End: 11-27-2022 ambulatory Na Hines Other [facility] Other Start: 11-27-2022 Telephone encounter [facility] Start: 11-02-2022 End: 11-02-2022 ambulatory Juan M Masters Other [facility] Other Start: 11-02-2022 Telephone encounter Juan M Masters [facility] Start: 10-25-2022 End: 10-25-2022 ambulatory Juan M Masters Facility:[facility] Start: 10-25-2022 End: 10-25-2022 Admission to same day surgery center [facility] Work Phone: Start: 10-25-2022 End: 10-25-2022 ambulatory NON STAFF [facility] Work Phone: Start: 10-17-2022 End: 10-17-2022 ambulatory Na Hines Other [facility] Other Start: 10-17-2022 Telephone encounter Na taylor [facility] Start: 10-04-2022 End: 10-04-2022 ambulatory Juan M Masters Other [facility] Other Start: 10-04-2022 [facility] visit new patient Juan M Masters [facility] Start: 08-23-2022 End: 08-23-2022 ambulatory Na Donny Other [facility] Other Start: 08-23-2022 Telephone encounter Na Breaul t [facility] Start: 08-09-2022 End: 08-09-2022 ambulatory Na Donny Other [facility] Other Start: 08-09-2022 Telephone encounter Na Breaul t [facility] Start: 05-22-2022 End: 05-22-2022 ambulatory Na Donny Other [facility] Other Start: 05-22-2022 Telephone encounter Na Breaul t [facility] Start: 04-12-2022 End: 04-12-2022 ambulatory Na Donny Other [facility] Other Start: 04-12-2022 Telephone encounter Na Breaul t [facility] Start: 01-03-2022 End: 01-03-2022 ambulatory Najennie Hines Other [facility] Other Start: 01-03-2022 Office outpatient visit 25 minutes Najennie Hines [facility] Start: 01-02-2022 End: 01-02-2022 ambulatory Na Donny Other [facility] Other Start: 01-02-2022 Telephone encounter Na Breaul t [facility] Start: 11-09-2021 End: 11-09-2021 ambulatory Na Donny Other [facility] Other Start: 11-09-2021 Telephone encounter Na Breaul t [facility] Start: 11-05-2021 End: 11-05-2021 ambulatory Na Donny Other [facility] Other Start: 11-05-2021 Telephone encounter Najennie Lawsonl t [facility] Start: 10-17-2021 End: 10-17-2021 ambulatory Na Hines Other [facility] Other Start: 10-17-2021 Telephone encounter Najennie Lawsonl t [facility] Start: 10-04-2021 End: 10-04-2021 ambulatory Na Hines Other [facility] Other Start: 10-04-2021 Telephone encounter Najennie Lawsonl [...] Office Visit [facility] [address] [place] [id number] Radha Armendariz, PA [address] [facility] [address] [place] [address] Acute hip pain, left (Primary Dx) [facility] Comment on above: Acute hip pain, left (Primary Dx) Start: 05-22-2023 Influenza vaccination Flu vaccine (# 1) [facility] [employer] Start: 2022 Screening for malign ant neoplasm of breast Breast cancer screen [facility] Start: 2022 Screening for malign ant neoplasm of lung Low dose CT lung screening &/or counseling [facility] Start: 2022 Shingles vaccine (1 of 2) Shingles vaccine (1 of 2) [facility] Start: 10-25-2022 [facility] Start: 2017 Screening for malign ant neoplasm of colon [employer] Start: 2007 Diabetes screen Diabetes screen [facility] Start: 1991 DTaP/Tdap/Td vaccine (1 - Tdap) DTaP/Tdap/Td vaccine (1 - Tdap) [facility] Start: 1990 Hepatitis C screening Hepatitis C sc reen [facility] Start: 1987 HIV screening HIV screen [facility] Start: 1984 Depression Screen Depression Screen [facility] Start: 1982 Lipid panel Lipids [facility] Start: 1978 Pneumococcal 0-64 ye ars Vaccine (1 - PCV) Pneumococcal 0-64 years Vaccine (1 - PCV) [facility] Start: 05-06-1973 COVID-19 Vaccine (#1) COVID-19 Vacci ne (#1) [facility] End: 04-30-2023 C-reactive protein C-Reactive Protein Lab Routine Daily for 3 Days starting 04/28/2023 until 04/30/2023, 1 completed [facility] Comment on above: Daily for 3 Days sta rting 04/28/2023 until 04/30/2023, 1 completed End: 05-03-2023 CBC W Auto Differential panel - Blood CBC auto differential Lab Routine Daily for 7 Days starting 04/27/2023 until 05/03/2023, 2 completed [facility] [employer] Comment on above: Daily for 7 Days sta rting 04/27/2023 until 05/03/2023, 2 completed End: 05-03-2023 Comprehensive Metabolic Panel w/ Reflex to MG Comprehensive Metabolic Panel w/ Reflex to MG Lab Routine Daily for 7 Days starting 04/27/2023 until 05/03/2023, 2 completed [employer] [facility] Comment on above: Daily for 7 Days sta rting 04/27/2023 until 05/03/2023, 2 completed Oxygen therapy [[facility]ini [facility] Data Set] Initiate Oxygen Therapy Protocol Respiratory Care Routine Daily until discontinued starting 04/27/2023 [facility] Comment on above: Daily until disconti nued starting 04/27/2023 Patient Education Colon Polyps [facility] Work Phone: Immunizations Immunization Date Immunization Notes Care Provider Fahad condon 08-31-2020 Toradol per 15 mg Na Hines Other [facility] Other 08-31-2020 KENALOG - 10 mg Na Br eault Other [facility] Other 06-08-2020 Toradol per 15 mg Na Donny Other [facility] Other 06-08-2020 KENALOG - 10 mg Na Br eault Other [facility] Other 06-14-2012 Toradol per 15 mg Na Donny Other [facility] Other Payers Date Payer Category Payer Medicare (Managed Care) [employer] [id number] 2024 Private Health Insurance [facility] [id number] 2024 Medicare [id number] 2023 Private Health Insurance [id number] 2022 Private Health Insurance [id number] 2022 Self-pay [id number] 2021 Unknown [id number] 2021 Medicaid [id number] 2020 Medicare [id number] 1972 Unknown [id number] 2.16.840.1.888245.3.579.2. 593 1972 Unknown [id number] 2.16.840.1.191924.3.579.2. 593 1972 Unknown [id number] 2.16.840.1.474637.3.579.2. 593 1972 Unknown [id number] 2.16.840.1.563056.3.579.2. 593 1972 Unknown [id number] 2.16.840.1.444588.3.579.2. 593 1972 Unknown [id number] 2.16.840.1.130288.3.579.2. 173 1972 Unknown [id number] 2.16.840.1.346841.3.579.2. 727 1972 Unknown [id number] 2.16.840.1.621107.3.579.2. 727 1972 Unknown [id number] 2.16.840.1.020911.3.579.2. 1259 1972 Unknown [id number] 2.16.840.1.108772.3.579.2. 1259 1972 Unknown [id number] 2.16.840.1.655725.3.579.2. 196 1972 Unknown [id number] 2.16.840.1.793618.3.579.2. 196 1972 Unknown [id number] 2.16.840.1.961023.3.579.2. 196 1959 Medicaid [id number] 1959 Self-pay [id number] 1959 Unknown [id number] 1959 Unknown [id number] Medicare Medicare Outpatient [id number] 8A [id number] Unknown Valerie BC/SUNNY [id number] Unknown [id number] [id number]. 531 Social History Date Type Detail Facility Unknown if ever smoked [facility] Start: 01-28-2025 Sex Assigned At [facility] Start: 10-25-2022 Tobacco smoking status NHIS Smoker (finding) [facility] Start: 1970 Sex Assigned At Female [facility] Start: 04-06-2023 Tobacco smoking status Heavy tobacco smoker (finding) [facility] Tobacco smoking status Never [facility] Start: 04-27-2023 End: 01-28-2025 Tobacco smoking status [facility] Smokes tobacco daily [facility] [employer] History of tobacco use Cigarette Smoker B ON [employer] Start: 04-27-2023 End: 01-28-2025 Cigarettes smoked current (pack per day) - Reported 2 [facility] [employer] Start: 04-27-2023 End: 01-28-2025 Tobacco use and exposure Smokeless tobacco non-user [facility] [employer] Start: 04-27-2023 Alcohol intake Lifetime non-drinker (finding) [employer] Start: 04-27-2023 History SDOH Alcohol Frequency 1 [facility] [employer] Start: 04-27-2023 History SDOH Alcohol Std Drinks 0 [facility] Start: 1970 Sex Assigned At Not on file [facility] Start: 01-28-2025 Alcoholic beverage intake Ex-drinker (finding) [facility] Goals Date Patient Goal Desired Activity /State Functional Status Date Assessment Result Facility 04-06-2023 Functional Status N/A [facility] - [facility] Clinical Notes 07-31-2021 to 01-28-2025 [...] Use: Not At Risk (04/26/2023) Received from [facility]C Frequency of Alcohol Consumption: [...] requiring urgent evaluation. documented in this encounter [facility] 04-28-2023 History of Present illness Narrative Pt [...] none Nutrition status: at risk for malnutrition Chaperon consult initiated Hospital Prophylaxis: DVT: SCD's Stress [...] M.D. 04/28/2023 12:15 PM Physical Therapy Facility/Department: [facility] Daily Treatment Note NAME: Baylee [...] to monitor this shift. Occupational Therapy Facility/Department: [facility] Occupational Therapy Initial Assessment Name: [...] IADLs Assessment: 52 y/o F admitted to [facility] for abdominal pain. Patient with hx of [...] Ambulation Assistance: Independent Transfer Assistance: Independent [employer] Consultant: Yes Additional Comments: Pt uses no AD [...] Minutes 16 FABIOLA Reyes/Ryanne Occupational Therapy Facility/Department: [facility] Daily Treatment Note NAME: Baylee [...] Minutes 26 RUBEN Moreira Physical Therapy Facility/Department: [facility] Daily Treatment Note NAME: Baylee [...] Minutes Merry Cuba PTA Physical Therapy Facility/Department: [facility] Physical Therapy Initial Assessment Name: [...] address all concerns and safely return to [facility]. Treatment Diagnosis: Difficulty walking Therapy Prognosis: Good [...] Ambulation Assistance: Independent Transfer Assistance: Independent [employer] Investig[employer] Consultant: Yes Additional Comments: Pt uses no AD [...] Minutes: 14 Minutes Syed Alberts, PT, DPT Sales Systems Engineer to bedside to complete morning assessment. Upon entry to room, pt in bed awake, respirations even and unlabored while on room air. Vitals obtained and assessment completed, see flow sheet for details. Pt is A&O x4. Pt complaining of pain, prn pain medication to be given shortly. Pt updated on plan of care and whiteboard updated. Pt denies further needs from play writer at this time. Call light in [...] up times two. documented in this encounter [facility] 04-28-2023 Hospital course Narrative Evans Hsu M.D. Internal Medicine Discharge Summary Patient ID: Baylee Babb [id number] Admission date: 04/26/2023 Discharge date: 04/28/2023 [...] These medications were sent to [id number] [place] - [address] [place] [address] - [phone] - F [phone] [place] [address] [place] [phone] ciprofloxacin 500 MG tablet metroNIDAZOLE 500 MG tablet predniSONE 10 MG tablet traMADol 50 MG tablet Patient Instructions: Activity: Activity as tolerated without restrictions Diet: regular diet Wound Care: none needed Follow up with RUBEN Farfan NP in 1-2 weeks CORE MEASURES on Discharge (if applicable) MIRYAM/ARB in CHF: N/A ASA in KS: N/A Statin in KS: N/A Statin in CVA: N/A Antiplatelet in CVA: N/A Total time spent on discharge services: 40 minutes Including the following activities: Evaluation and Management of patient Discussion with patient and/or surrogate about current care plan Coordination with Case Management and/or Farm Management Professor Coordination of care with Consultants (if applicable) Coordination of care with Receiving Facility Physician (if applicable) Completion of DME forms (if applicable) Preparation of Discharge Summary Preparation of Medication Reconciliation Preparation of Discharge Prescriptions Signed: Evans Hsu MD, M.D. 04/28/2023 3:58 PM documented in this encounter [facility] 04-10-2023 Evaluation + Plan note Diagnostic Tests PendingDHEAS 04/10/23Insulin Level Total 04/10/23FSH and LH 04/10/23Testosterone F&T 04/10/23Estradiol Level 04/10/23Cortisol 04/10/23 [facility] 04-06-2023 Hospital Discharge instructions Patient Education [...] that increase pressure on your hernia. Take opws-ukw-nzocphm and prescription medicines only as told by [...] provider. Document Revised: 05/27/2021 Document Reviewed: 05/27/2021 [employer] Patient Education 2022 [employer]. 04/06/2023 16:38:36 Dental Pain Dental Pain Dental [...] or after getting dental care. Medicines Take xlgg-cfj-xuzrzpa and prescription medicines only as told by [...] pain may be mild or severe. Take xcpt-deu-yapkoks and prescription medicines only as told by [...] provider. Document Revised: 07/13/2021 Document Reviewed: 07/13/2021 [employer] Patient Education 2022 [employer]. Follow Up Care 04/06/2023 15:07:57 With:Praveen LACKEY Address: [email or web address], [address] [employer] [address] [place] [address]- Business (1) When:04/09/2023 16:28:27 With:Na CASTILLO Address: [email or web address], [address] [employer] [place] [address] [phone] Business (1) When:04/09/2023 16:28:14 [facility] 04-06-2023 Evaluation + Plan note Extrac [...] 10 day(s), # 30 tab(s), Refills(s) 0 [facility]* Encounter Date Diagnosis Assessment Notes Treatment Notes Treatment Clinical Notes Sep, NICOLASA (generalized anxiety disorder) (ICD-10 - F41.1) [facility] Other 12-14-2022 Evaluation note* Encounter Date Diagnosis Assessment Notes Treatment Notes Treatment Clinical Notes Sep, Crohn disease (ICD-10 - K50.90) [facility] Other 11-02-2022 Evaluation note* Encounter Date Diagnosis Assessment Notes Treatment Notes Treatment Clinical Notes Aug, Essential hypertension (ICD-10 - I10) [facility] Other 10-19-2022 Evaluation note* Encounter Date Diagnosis Assessment Notes Treatment Notes Treatment Clinical Notes Jul, Cerebrovascular accident (CVA), unspecified mechanism (ICD-10 - I63.9) Jul, Insomnia, unspecifie d type (ICD-10 - G47.00) [facility] Other 08-01-2022 Evaluation note* Encounter Date Diagnosis Assessment Notes Treatment Notes Treatment Clinical Notes May, Essential hypertension (ICD-10 - I10) [facility] Other 06-22-2022 Evaluation note* Encounter Date Diagnosis Assessment Notes Treatment Notes Treatment Clinical Notes Mar, NICOLASA (generalized anxiety disorder) (ICD-10 - F41.1) Mar, Cerebrovascular accident (CVA), unspecified mechanism (ICD-10 - I63.9) [facility] Other 03-15-2022 Evaluation note* Encounter Date Diagnosis Assessment Notes Treatment Notes Treatment Clinical Notes Dec, Cerebrovascular accident (CVA), unspecified mechanism (ICD-10 - I63.9) Dec, Insomnia, unspecifie d type (ICD-10 - G47.00) Dec, Cyst of skin and subcutaneous tissue (ICD-10 - L72.0) [facility] Other 03-14-2022 Evaluation note* Encounter Date Diagnosis Assessment Notes Treatment Notes Treatment Clinical Notes Dec, Insomnia, unspecified type (ICD-10 - G47.00) [facility] Other 01-15-2022 Evaluation note* Encounter Date Diagnosis Assessment Notes Treatment Notes Treatment Clinical Notes Oct, Cerebrovascular accident (CVA), unspecified mechanism (ICD-10 - I63.9) [facility] Other 12-27-2021 Evaluation note* Encounter Date Diagnosis Assessment Notes Treatment Notes Treatment Clinical Notes Sep, NICOLASA (generalized anxiety disorder) (ICD-10 - F41.1) [facility] Other 12-14-2021 Evaluation note* Encounter Date Diagnosis Assessment Notes Treatment Notes Treatment Clinical Notes Sep, Insomnia, unspecified type (ICD-10 - G47.00) [facility] Other 10-10-2021 Evaluation note* Encounter Date Diagnosis [...] Patient care instructions given in writting by [facility] At Home document. [facility] Other Evaluhnwkz noteNo InformationNort Victoria Plumb Other evaluation noteNo assessment information available [facility] Work Phone: evaluation note* Diagnosis Abdominal pain- Primary Abdominal pain, unspecified site Crohn's disease of colon without complication (HCC) Left lower quadrant abdominal pain Crohn's colitis (HCC) Regional enteritis of large intestine Hypertension Unspecified essential hypertension [facility] Acute hip pain, left- [...] Surgical History hysterectomy Hospitalization History stroke 2020 [facility] Other Hospital course Narrative No data available for this section [facility] Additional Instructions DISCHARGE INSTRUCTIONS FOR [...] problems. -Follow up with PCP. -Office number [phone].[facility] Work Phone: Hospital Discharge instructions No data available for this section [facility] No data available for this section [facility] Summary Purpose Family History No Family History Records Found Relationship Condition Age at Onset Recorded Date/T armida Not Specified Heart problem Unknown Malignant neoplasm Unknown father Heart problem Unknown Advance Directives No Advanced Directives Records Found Advance Directive Response Recorded Date/ Time Advance Directives No August 9:54am Documents on File Type Date 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 ACP-Do Not Resuscitate 04/27/2023 11:07 [...] and content) DATE CREATED AUTHOR 08/12/2021 [facility] DATE CREATED AUTHOR AUTHOR'S ORGANIZ ATION 10/31/2022 [facility] DATE CREATED AUTHOR AUTHOR'S ORGANIZ ATION 05/02/2023 [facility] DATE CREATED AUTHOR AUTHOR'S ORGANIZ ATION 06/19/2024 [facility] DATE CREATED AUTHOR AUTHOR'S ORGANIZ ATION 07/05/2024 [facility] DATE CREATED AUTHOR AUTHOR'S ORGANIZ ATION 02/01/2025 [facility] EPIC DATE CREATED AUTHOR AUTHOR'S ORGANIZ ATION 07/28/2025 [facility] REASON FOR VISIT (unrecogniz ed section and content) Reason Comments Diarrhea Ongoing diarrhea gucci t has gotten worse. Reason Comments Pain Care Teams (unrecognized sec tion and content) Team Status: Inactive Member Role Status Dates NON STAFF Primary Care Provider Active Juan M Masters MD Attending Provider Active Team Status: Active Member Role Status Dates NON STAFF Primary Care Provider Active Hearing Aid Dispenser Relationship Specialty Start Date End Date Na Hines APRN - BICYCLE TAXI DRIVER [address] [place] [address] PCP - General Nurse Practitioner 04/26/23 Hearing Aid Dispenser Relationship Specialty Start Date End Date Unallocated, Zoë Gruber MD [address] [place] [address] PCP - General Family Medicine 01/28/25 Hearing Aid Dispenser Relationship Specialty Start Date End Date Na Hines NP [address] [place] [phone] Referring Physician 01/28/25 Ordered Prescriptions (unrec ognized [...] of order. 1607 (Stopped - Provider: Devi Wtats, KEITH) acetaminophen (TYLENOL) suppository 650 mg(Linked [employer] [...] BE BASED ON THE PRIMARY CLINICAL RECORDS. [facility]. provides no warranty or guarantee of the accuracy or completeness of information in this document.
--- NOTE | 2025-07-31 12:02 | ED.GENADUL1 ---
HPI HPI - General Adult General Chief complaint: Back Pain/Injury Stated complaint: BACK PAIN Time Seen by Provider: 07/31/25 11:44 Source: patient Mode of arrival: walk-in Limitations: no limitations History of Present Illness HPI narrative: 54-year-old female presented to the emergency department for back pain. Its mostly on the left side and goes towards the right. No injury or radiation. No dysuria or hematuria. She has a history of back issues and is in pain management and a few weeks ago received some injections. She is worried about a urinary tract infection. Related Data Home Medications ?Medication ?Instructions ?Recorded ?Confirmed atorvastatin 40 mg tablet 40 mg PO DAILY 02/19/25 07/31/25 clopidogrel 75 mg tablet 75 mg PO DAILY 02/19/25 07/31/25 duloxetine 60 mg capsule,delayed 60 mg PO DAILY 02/19/25 07/31/25 release gabapentin 300 mg capsule 300 mg PO BID 02/19/25 07/31/25 losartan 25 mg tablet (Cozaar) 25 mg PO DAILY 02/19/25 07/31/25 metoprolol tartrate 50 mg tablet 50 mg PO DAILY 02/19/25 07/31/25 trazodone 100 mg tablet 100 mg PO DAILY 02/19/25 07/31/25 ascorbic acid (vitamin C) 500 mg 500 mg PO DAILY 07/31/25 07/31/25 tablet (Vitamin C) baclofen 10 mg tablet 10 mg PO DAILY PRN pain 07/31/25 07/31/25 multivitamin 1 tab PO DAILY 07/31/25 07/31/25 Previous Rx's ?Medication ?Instructions ?Recorded cephalexin 500 mg capsule 500 mg PO TID 7 days #21 caps 07/31/25 tramadol 50 mg tablet 50 mg PO Q8H PRN pain 5 days #20 07/31/25 tabs Allergies Allergy/AdvReac Type Severity Reaction Status Date / Time codeine Allergy Unknown Vomiting Verified 07/31/25 11:44 Opioid HPI Opioid Management Most Recent Opioid Data: Last Pain Scale 4 06/29/25, 10:34 Review of Systems ROS Narrative A ten point review of systems is negative except as noted above. PFSH PFSH Medical History (Updated 07/31/25 @ 13:39 by Laci Simental MD) Osteoarthritis ?M19.90 - Unspecified osteoarthritis, unspecified site (ICD-10) Neck pain ?M54.2 - Cervicalgia (ICD-10) Low back pain ?M54.50 - Low back pain, unspecified (ICD-10) Acid reflux ?K21.9 - Gastro-esophageal reflux disease without esophagitis (ICD-10) Smoker ?F17.200 - Nicotine dependence, unspecified, uncomplicated (ICD-10) Chronic cough ?R05.3 - Chronic cough (ICD-10) Asthma ?J45.909 - Unspecified asthma, uncomplicated (ICD-10) Hypertension ?I10 - Essential (primary) hypertension (ICD-10) Stroke ?I63.9 - Cerebral infarction, unspecified (ICD-10) Surgical History Status post hip surgery ?Z98.890 - Other specified postprocedural states (ICD-10) H/O foot surgery ?Z98.890 - Other specified postprocedural states (ICD-10) Hx of cholecystectomy ?Z90.49 - Acquired absence of other specified parts of digestive tract (ICD-10) H/O: hysterectomy ?Z90.710 - Acquired absence of both cervix and uterus (ICD-10) Social History Little interest or pleasure in doing things: not at all Feeling down, depressed, or hopeless: not at all Exam Narrative Exam Narrative: Nurses note and vital signs reviewed and patient is not hypoxic. General:The patient appears in no acute distress. Skin:Warm, dry, no pallor noted.There is no rash noted. Head:Normocephalic, atraumatic Eye: Normal conjunctiva, no drainage Ears, Nose, Mouth, and Throat: oral mucosa is moist. Nares patent. Cardiovascular:Regular Rate and Rhythm Respiratory:Patient is in no distress, no accessory muscle use, lungs are clear to auscultation, no wheezing, rales or rhonchi Back:non-tender, no CVA tenderness bilaterally to percussion. GI: Soft and nontender Musculoskeletal: Her back is examined. There is no bruise or rash or abrasion. No palpable tenderness. Neurological:A&O, normal speech Psychiatric:Cooperative Constitutional Vital Signs, click to edit/add: Last Vital Signs Temp 97.9 F 07/31/25 11:39 Pulse 73 10/10/25 11:39 Resp 18 07/31/25 11:39 BP 156/96 H 07/31/25 11:39 Pulse Ox 95 07/31/25 11:39 O2 Del Method Room Air 07/31/25 11:39 Course Vital Signs Vital signs: Vital Signs Temperature 97.9 F 07/31/25 11:39 Pulse Rate 73 07/31/25 11:39 Respiratory Rate 18 07/31/25 11:39 Blood Pressure 156/96 H 07/31/25 11:39 Pulse Oximetry 95 07/31/25 11:39 Oxygen Delivery Method Room Air 07/31/25 11:39 Temperature 97.9 F 07/31/25 11:39 Pulse Rate 73 07/31/25 11:39 Respiratory Rate 18 07/31/25 11:39 Blood Pressure 156/96 H 07/31/25 11:39 Pulse Oximetry 95 07/31/25 11:39 Oxygen Delivery Method Room Air 07/31/25 11:39 Medical Decision Making MDM Narrative Medical decision making narrative: UA suggests UTI with bacteria and nitrite even though there are white blood cells. Culture is ordered and she is placed on Keflex. She was given IM Toradol and Norflex here and was prescribed Ultram. The patient sees pain management but reports she does not have a pain contract with them. She only gets injections there and gets prescribed a muscle relaxer. Treatment diagnosis and follow-up were discussed with the patient. Lab Data Lab results reviewed: Yes I reviewed the patient's lab results Labs: Lab Results 07/31/25 Range/Units 12:30 Urine Color Yellow (YELLOW) Urine Clarity Clear (CLEAR) Urine pH 5.5 (5.0-9.0) Ur Specific Champion 1.025 (1.005-1.025) Urine Protein Negative (NEG/TRACE) mg/dL Urine Glucose (UA) Negative (NEGATIVE) mg/dL Urine Ketones Negative (NEGATIVE) mg/dL Urine Occult Blood Trace-i (NEGATIVE) Urine Nitrite Positive A (NEGATIVE) Urine Bilirubin Negative (NEGATIVE) Urine Urobilinogen 0.2 (0.2-1.0) EU/dL Ur Leukocyte Esterase Negative (NEGATIVE) Urine RBC 0-2 (0-2) #/HPF Urine WBC 0-2 A (NONE SEEN) #/HPF Ur Squamous Epith Cells Few A (NONE/RARE) #/LPF Urine Crystals None seen (None Seen) #/HPF Urine Bacteria Large A (NONE SEEN) #/HPF Urine Casts None seen (NONE SEEN) #/LPF Urine Mucus Moderate A (NONE SEEN) Ur Culture Indicated? Yes-[facility] Discharge Plan Discharge Chief Complaint: Back Pain/Injury Clinical Impression: Low back pain, Urinary tract infection Patient Disposition: Home, Self-Care Time of Disposition Decision: 13:39 Condition: Good Mode of Transportation: Private Vehicle Prescriptions / Home Meds: New cephalexin 500 mg capsule 500 mg PO TID 7 Days Qty: 21 0RF tramadol 50 mg tablet 50 mg PO Q8H PRN (Reason: pain) 5 Days Qty: 20 0RF No Action losartan [Cozaar] 25 mg tablet 25 mg PO DAILY atorvastatin 40 mg tablet 40 mg PO DAILY clopidogrel 75 mg tablet 75 mg PO DAILY trazodone 100 mg tablet 100 mg PO DAILY metoprolol tartrate 50 mg tablet 50 mg PO DAILY gabapentin 300 mg capsule 300 mg PO BID duloxetine 60 mg capsule,delayed release(DR/EC) 60 mg PO DAILY ascorbic acid (vitamin C) [Vitamin C] 500 mg tablet 500 mg PO DAILY baclofen 10 mg tablet 10 mg PO DAILY PRN (Reason: pain) multivitamin Tablet 1 tab PO DAILY Print Language: Latvian Instructions: Urinary Tract Infection in Women (ED), Acute Low Back Pain (ED) Referrals: Physician,Non-Staff, MD [Primary Care Provider] - 1 week
[2025-07-31] MEDS: ORPHENADRINE 60 MG/2 ML VIAL IM (12:42)
[2025-07-31] MEDS: KETOROLAC TROMETHAMINE 60 MG/2 ML VIAL IM (12:42)
[2025-07-31 13:14] LABS: Glucose Urine UA NEGATIVE (NEGATIVE)
[2025-07-31 13:26] LABS: Cast Seen? NONE SEEN #/LPF (NONE SEEN); Crystals Seen? None Seen #/HPF (None Seen); Urine Culture Indicated YES-FRMC
== END 2025-07-31 13:59 | disposition home or self-care (01) ==
PROVIDERS: Emergency Provider Emergency Medicine
DX: N39.0 Urinary tract infection, site not specified (principal); M54.50 Low back pain, unspecified
CPT/HCPCS: 81001; 87086; 87088; 87186; 96372; 99284; J1885; J2360